=== PATIENT | male | born 1950 | race Caucasian/White ===

== ENCOUNTER → 2017-12-23 08:29 | Outpatient (CLI) | payer MEDICARE, SELFPAY ==
[2017-12-23 09:38] LABS: Absolute Lymphocyte Count 2.08 X10^3/ul (0.83-4.51); Basophil# 0.06 X10^3/uL; Basophil% 0.9 % (0-1); Eosinophil# 0.14 X10^3/uL; Eosinophils% 2.1 % (0-5); Hematocrit 40.7 % (40-54); Hemoglobin 13.8 g/dl (13.0-16.5); Lymphocyte # 2.08 X10^3/ul (4.0); Lymphocyte % 30.9 % (19-41); Mean Corp Hgb Conc 33.9 g/gl (32-36); Mean Corpuscular Hgb 30.5 pg (27.0-32.0); Mean Corpuscular Volume 89.8 fL (80-94); Mean Platelet Vol. 9.6 fl (6.2-12.0); Monocyte# 0.47 X10^3/uL; Neutrophil # 3.98 X10^3/uL (2.7-7.7); Platelet Count 277 K/mm3 (150-450); RBC Distribution Width SD 41.9 fl (35.1-43.9); Red Blood Count 4.53 M/mm3 (4.6-6.2); White Blood Count 6.7 K/mm3 (4.4-11.0)
[2017-12-23 09:45] LABS: POSITIVE COUNT NO; POSITIVE DIFFERENTIAL NO; POSITIVE MORPHOLOGY NO
[2017-12-23 09:52] LABS: Hemoglobin A1c 6.8 % (4.2-6.3)
[2017-12-23 10:20] LABS: ALB/GLOB Ratio 0.9 RATIO (0.9-2.4); AST(SGOT) 25 U/L (15-37); Alanine Aminotransfer ALT/SGPT 32 U/L (16-61); Albumin, Serum 3.7 g/dL (3.2-5.0); Alkaline Phosphatase 52 U/L (45-117); Anion Gap 8 (5-15); BUN 27 mg/dL (7-18); BUN/Creat Ratio 30.3 RATIO (10-20); Calcium,Total 9.1 mg/dL (8.5-10.1); Chloride 103 mmol/L (98-107); Creatinine, Serum 0.89 mg/dL (0.70-1.30); EST Glomerular Filtration Rate 90 mL/min (>60); Est Glom Filt Rate - Afr Amer 109 mL/min (>60); Globulin 4.1 g/dL (2.2-4.2); Glucose 120 mg/dL (74-106); Potassium 3.9 mmol/L (3.5-5.1); Protein, Total 7.8 g/dL (6.4-8.2); Sodium Level 139 mmol/L (136-145); Thyroid Stim Hormone (TSH) 2.26 uIU/mL (0.358-3.74)
== END ==
PROVIDERS: Family Provider Nurse Practitioner; PCP Nurse Practitioner; Visit Provider Nurse Practitioner
DX: E11.9 Type 2 diabetes mellitus without complications (principal); I10 Essential (primary) hypertension
CPT/HCPCS: 36415; 80053; 83036; 84443; 85025

== ENCOUNTER → 2017-12-30 10:55 | Outpatient (CLI) | payer MEDICARE, SELFPAY ==
--- NOTE | 2017-12-30 11:01 | RAD_ITS ---
STUDY: X-RAY - RIGHT FOOT CLINICAL: Male, 67 years old. Neuropathy. TECHNIQUE: 3 view(s) of the foot. COMPARISON: None. FINDINGS: There is an enthesophyte involving the posterior superior calcaneus at the site of insertion of the Achilles tendon. Normal visualized subtalar, talonavicular, calcaneocuboid, tarsal and tarsometatarsal articulations. Normal metatarsi. There is degenerative arthrosis of the metatarsophalangeal joint of the hallux . Normal tibial and fibular sesamoid bones. Normal interphalangeal joint of the great toe. Normal phalanges of the great toe. Normal second through fifth metatarsophalangeal joints. Normal interphalangeal joints and phalanges of the lesser toes. The soft tissue structures are unremarkable. RAD/Foot min 3 Views IMPRESSION: No acute fracture or dislocation. Electronically Signed: Yo Pierre MD at 16:56 EST , Service support ,
--- NOTE | 2017-12-30 11:02 | RAD_ITS ---
STUDY: X-RAY - LEFT FOOT CLINICAL: Male, 67 years old. Neuropathy. TECHNIQUE: 3 view(s) of the foot. COMPARISON: None. FINDINGS: There is an enthesophyte involving the posterior superior calcaneus at the site of insertion of the Achilles tendon. Normal visualized subtalar, talonavicular, calcaneocuboid, tarsal and tarsometatarsal articulations. Normal metatarsi. There is degenerative arthrosis of the metatarsophalangeal joint of the hallux . Normal tibial and fibular sesamoid bones. Normal interphalangeal joint of the great toe. Normal phalanges of the great toe. Normal second through fifth metatarsophalangeal joints. Normal interphalangeal joints and phalanges of the lesser toes. The soft tissue structures are unremarkable. RAD/Foot min 3 Views IMPRESSION: No acute fracture or dislocation. Electronically Signed: Yo Pierre MD at 16:57 EST , Service support ,
== END ==
PROVIDERS: Family Provider Nurse Practitioner; PCP Nurse Practitioner; Visit Provider Nurse Practitioner
DX: G62.9 Polyneuropathy, unspecified (principal)
CPT/HCPCS: 73630

== ENCOUNTER → 2018-02-19 07:56 | Outpatient (CLI) | payer MEDICARE, SELFPAY ==
--- NOTE | 2018-02-19 10:08 | NEURO ---
NCS and/or EMG Patient Report Ordering Doctor: Jeannine Pagan DATE OF SERVICE: 02/19/18 This is a bilateral lower extremity nerve conduction study and a right lower extremity EMG performed on this 67-year-old male with a history of well-controlled diabetes who reports abnormal sensations on the Lantus are surface of his feet described as a leather pad. He does have back pain as well as well as a knee injury, he takes pain medicines for his back pain. He also has a history of remote exposure to agent orange. Bilateral lower extremity sensory and motor nerve conduction studies are performed. The sural sensory responses are absent bilaterally. Medial and lateral plantar responses are obtained demonstrating normal latencies and amplitudes although there is asymmetric decrement of amplitude on the right side. The motor responses demonstrate diffusely slowed conduction velocities, as well as diminished amplitudes. Distal latencies are mild diffusely prolonged particularly from the common peroneal nerves bilaterally. Tibial and common peroneal F waves are mild to moderately prolonged, H reflex amplitudes are reduced. Lower extremity needle electromyography was performed. Muscles evaluated included the extensor digitorum brevis, abductor hallucis, medial gastrocnemius, anterior tibialis, vastus lateralis and vastus medialis muscles. Peripheral muscle did demonstrate large motor units however this abnormality resolved more proximally consistent with length dependent pattern. Abnormal insertional activity was absent. 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
--- NOTE | 2018-02-19 10:13 | NEURO_ITS ---
NCS and/or EMG Patient Report Ordering Doctor: Jeannine Pagan DATE OF SERVICE: 02/19/18 This is a bilateral lower extremity nerve conduction study and a right lower extremity EMG performed on this 67-year-old male with a history of well- controlled diabetes who reports abnormal sensations on the Lantus are surface of his feet described as a leather pad. He does have back pain as well as well as a knee injury, he takes pain medicines for his back pain. He also has a history of remote exposure to agent orange. Bilateral lower extremity sensory and motor nerve conduction studies are performed. The sural sensory responses are absent bilaterally. Medial and lateral plantar responses are obtained demonstrating normal latencies and amplitudes although there is asymmetric decrement of amplitude on the right side. The motor responses demonstrate diffusely slowed conduction velocities, as well as diminished amplitudes. Distal latencies are mild diffusely prolonged particularly from the common peroneal nerves bilaterally. Tibial and common peroneal F waves are mild to moderately prolonged, H reflex amplitudes are reduced. Lower extremity needle electromyography was performed. Muscles evaluated included the extensor digitorum brevis, abductor hallucis, medial gastrocnemius , anterior tibialis, vastus lateralis and vastus medialis muscles. Peripheral muscle did demonstrate large motor units however this abnormality resolved more proximally consistent with length dependent pattern. Abnormal insertional activity was absent. 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
== END ==
PROVIDERS: Family Provider Nurse Practitioner; PCP Nurse Practitioner; Visit Provider Nurse Practitioner
DX: R20.2 Paresthesia of skin (principal)
CPT/HCPCS: 95886; 95912

== ENCOUNTER → 2018-09-23 09:37 | Outpatient (CLI) | payer MEDICARE, SELFPAY ==
[2018-09-23 10:39] LABS: Absolute Lymphocyte Count 2.42 X10^3/ul (0.83-4.51); Basophil# 0.04 X10^3/uL; Basophil% 0.6 % (0-1); Eosinophil# 0.17 X10^3/uL; Eosinophils% 2.4 % (0-5); Hematocrit 45.5 % (40-54); Hemoglobin 15.4 g/dl (13.0-16.5); Lymphocyte # 2.42 X10^3/ul (4.0); Lymphocyte % 33.5 % (19-41); Mean Corp Hgb Conc 33.8 g/gl (32-36); Mean Corpuscular Hgb 30.8 pg (27.0-32.0); Mean Platelet Vol. 9.7 fl (6.2-12.0); Monocyte# 0.62 X10^3/uL; Monocyte% 8.6 % (0-10); Neutrophil # 3.97 X10^3/uL (2.7-7.7); Neutrophil % 54.8 % (47-70); Platelet Count 246 K/mm3 (150-450); RBC Distribution Width SD 42.7 fl (35.1-43.9); White Blood Count 7.2 K/mm3 (4.4-11.0)
[2018-09-23 10:41] LABS: POSITIVE COUNT NO; POSITIVE DIFFERENTIAL NO; POSITIVE MORPHOLOGY NO
[2018-09-23 11:25] LABS: ALB/GLOB Ratio 0.8 RATIO (0.9-2.4); AST(SGOT) 29 U/L (15-37); Alanine Aminotransfer ALT/SGPT 38 U/L (16-61); Albumin, Serum 3.7 g/dL (3.2-5.0); Alkaline Phosphatase 59 U/L (45-117); Anion Gap 9 (5-15); BUN 24 mg/dL (7-18); BUN/Creat Ratio 24.3 RATIO (10-20); Calcium,Total 9.4 mg/dL (8.5-10.1); Chloride 103 mmol/L (98-107); Cholesterol 185 mg/dL (200); Creatinine, Serum 0.99 mg/dL (0.70-1.30); EST Glomerular Filtration Rate 79 mL/min (>60); Est Glom Filt Rate - Afr Amer 96 mL/min (>60); Globulin 4.4 g/dL (2.2-4.2); Glucose 110 mg/dL (74-106); High Density Lipoprotein 47 mg/dL; Protein, Total 8.1 g/dL (6.4-8.2); Sodium Level 139 mmol/L (136-145); Thyroid Stim Hormone (TSH) 2.12 uIU/mL (0.358-3.74); Triglycerides 156 mg/dL; Very Low Density Lipoprotein 31 mg/dL (5-40)
== END ==
PROVIDERS: Family Provider Nurse Practitioner; PCP Nurse Practitioner; Referring Provider Nurse Practitioner; Visit Provider Nurse Practitioner
DX: I10 Essential (primary) hypertension (principal)
CPT/HCPCS: 36415; 80053; 80061; 82306; 84443; 85025

== ENCOUNTER 2018-12-13 14:32 | Emergency (ER) | payer MEDICARE, SELFPAY ==
[2018-12-13 14:33] VITALS: BP 167/85; PULSE 73; RESP 14; TEMP 36.6; O2SAT 97; BMI 36.8
--- NOTE | 2018-12-13 15:16 | ED.VISSUMM ---
- ER Visit Summary Date of Service: 12/13/18 Chief Complaint: Left thigh pain History of Present Illness: The patient is a 68 M who has pain in the left thigh. It started today. The pain is in the lateral part of the thigh. Is worse with movement. His left foot felt cold when he woke up this morning. He has no history of confirmed DVTs. He has been taking a lot of NSAIDs at home to help with the pain. Denies chest pain or shortness of breath. Physical Examination: Vital signs reviewed. Left leg exam reveals tenderness in the left mid calf on the lateral portion. He has no swelling of the leg. There are of equal color and temperature. There are no skin changes. Test Results: None performed Emergency Department Course and Treatment: No formal ultrasound is available at this time. I did a bedside ultrasound of this area shows that the veins are compressible in the thigh. When I get closer to the knee where he has no pain is difficult to see due to the ultrasound machine and the soft tissue. I also did a Doppler pulse of his PT and it is very loud and patent. I was unable to Doppler a DP pulse. However, his temperature is equal. There is no cyanosis of the foot. I will give him a dose of Lovenox here as well as [place] for his pain. He will come back tomorrow for a formal ultrasound of the left leg Treatment Plan: [] Disposition: Discharge Impression: Left thigh pain This note was generated with [employer]iously dictation software. It may contain incorrect words, spelling, and punctuation that were not noted in review of the chart prior to signing ED Disposition - Plan for ED Patient: Referrals: Jeannine Pagan, ADRIAN-C [Primary Care Provider] -
--- NOTE | 2018-12-13 15:19 | ED.DEP ---
ED Disposition - Plan for ED Patient: Disposition: Home or Assisted Living Instructions: ED Knee Pain [facility] Referrals: Jeannine Pagan NP-C [Primary Care Provider] -
[2018-12-13] MEDS: HYDROcodone Bitartrate/Apap 5/325 Tablet PO (15:42)
[2018-12-13] MEDS: Enoxaparin 100 MG/ML Syringe SC (15:42)
--- NOTE | 2018-12-13 15:43 | ED.RN ---
DISCHARGE INSTRUCTIONS GIVEN TO AND REVIEWED WITH PATIENT, PATIENT DENIES QUESTIONS OR CONCERNS AND VOICES UNDERSTANDING OF DISCHARGE INSTRUCTIONS. PT AMBULATES OUT OF ROOM WITHOUT DIFFICULTY.
== END 2018-12-13 16:04 | disposition home or self-care (01) ==
PROVIDERS: Emergency Provider Emergency Medicine; Family Provider Nurse Practitioner; PCP Nurse Practitioner
DX: M79.652 Pain in left thigh (principal); E11.9 Type 2 diabetes mellitus without complications; I10 Essential (primary) hypertension; Z79.84 Long term (current) use of oral hypoglycemic drugs; Z79.899 Other long term (current) drug therapy
CPT/HCPCS: 96372; 99283

== ENCOUNTER → 2018-12-14 10:54 | Outpatient (CLI) | payer MEDICARE, SELFPAY ==
[2018-12-13 14:33] VITALS: BMI 36.8
--- NOTE | 2018-12-14 11:07 | VDLE_ITS ---
Reason For Study: LLE Pain RIGHT LEFT CFV is compressible, spontaneous, phasic, GSV is normal. competent and demonstrates normal CFV is compressible, spontaneous, phasic, augmentation. competent, and demonstrates normal Procedure augmentation. Exam performed in department. FV is compressible, spontaneous, phasic, A preliminary report was called and/or faxed competent and demonstrates normal to ED. augmentation. POP V is compressible, spontaneous, phasic, competent and demonstrates normal augmentation. T/P Trunk is compressible. PTV is compressible. LT PerV is compressible. Interpretation Summary Deep veins of the left lower extremity are patent and compressible segmentally. There is no evidence of left lower extremity deep vein thrombosis. Valvular competence appears intact within the proximal deep venous system on the left . The left greater saphenous vein appears patent and compressible segmentally. Ordering Physician: Ronnie Coe Referring Physician: Jeannine Pagan Performed By: Lexi Summers RDCS, RVT
== END ==
PROVIDERS: Family Provider Nurse Practitioner; PCP Nurse Practitioner; Visit Provider Emergency Medicine
DX: M79.605 Pain in left leg (principal)
CPT/HCPCS: 93971

== ENCOUNTER → 2018-12-15 10:40 | Outpatient (CLI) | payer MEDICARE, SELFPAY ==
[2018-12-13 14:33] VITALS: BMI 36.8
--- NOTE | 2018-12-15 10:46 | RAD_ITS ---
STUDY: X-RAY - LUMBAR SPINE REASON FOR EXAM: Male, 68 years old. Back pain. TECHNIQUE: 5 view(s) of the lumbar spine were obtained. COMPARISON: None FINDINGS: Normal lumbar lordosis. There is no substantial scoliosis. There is grade 1 spondylolisthesis of L4 on L5. There is multilevel endplate spondylosis of the lumbar vertebrae. There is multi-level degenerative disc disease with multi-level disc space narrowing. There is no demonstrated fracture. There are hypertrophic degenerative arthroses of the bilateral facet articulations, most severe on the right at L5-S1. There is atherosclerotic calcification of the abdominal aorta without a demonstrated aneurysm. RAD/L/S Spine Min 4 Views IMPRESSION: Degenerative changes of the spine, as detailed above. Electronically Signed: Go Davila MD at 19:53 EST , Service support ,
--- NOTE | 2018-12-15 10:46 | RAD_ITS ---
STUDY: X-RAY - LEFT FEMUR REASON FOR STUDY: Male, 68 years old. Pain. TECHNIQUE: Frontal and lateral view(s) of the femur on 4 films. COMPARISON: None. FINDINGS: There is periarticular spurring of the left acetabulum Normal visualized femur. Degenerative periarticular calcification projects anterior to the juncture of the femoral head and neck, best seen on the external rotation view. There is no demonstrated fracture or destructive process. RAD/Femur Min 2 Views IMPRESSION: Mild degenerative arthrosis of the left hip, as noted. Normal x-ray examination of the left femur itself. Electronically Signed: Go Davila MD at 19:50 EST , Service support ,
--- NOTE | 2018-12-15 10:47 | RAD_ITS ---
STUDY: X-RAY - LEFT KNEE REASON FOR EXAM: Male, 68 years old. Pain. TECHNIQUE: 4 view(s) of the knee, 2 of which are labeled as weightbearing. COMPARISON: None. FINDINGS: Normal visualized distal femur. Normal visualized proximal tibia and fibula. There is early periarticular spurring at the base of the patella. Mild cortical spurring also seen at the patellar insertion of the quadriceps tendon. There is no demonstrated destructive osseous lesion or acute fracture. There is mild degenerative arthrosis of the medial femorotibial compartment. Normal lateral femorotibial compartment. Normal patellofemoral articulation. Normal proximal tibiofibular articulation. There is no demonstrated joint effusion. The soft tissue structures are unremarkable. RAD/Knee 4 or More Views IMPRESSION: Minor degenerative changes of the left knee, as noted. Electronically Signed: Go Davila MD at 19:52 EST , Service support ,
--- NOTE | 2018-12-15 10:48 | RAD_ITS ---
STUDY: X-RAY - PELVIS AND LEFT HIP REASON FOR EXAM: Male, 68 years old. Pain. TECHNIQUE: 3 views of the pelvis and hip. COMPARISON: None. FINDINGS: There is a non-specific bowel gas pattern. There are a few small calcified phleboliths in the pelvic soft tissues. There are degenerative changes of the lower lumbar spine. There is narrowing with cortical sclerosis and superior periarticular osteophyte formation of the bilateral sacroiliac joints, consistent with degenerative osteoarthritic changes. Mild cortical enthesophytes at the lateral margin of the bilateral iliac wings are normal visualized sacrum. Normal bilateral superior and inferior pubic rami. Normal pubic symphysis. There are mild cortical enthesophytes at the ischial tuberosities, with additional subcentimeter ossification in the tissue adjacent to the left ischial tuberosity. There is no demonstrated osseous destructive lesion or acute fracture. Normal visualized femoral head. There is osteoarthritic spur formation of the lower lateral left ilium just above the acetabular rim. Normal hip joint. RAD/HIP, UNI W/ Pelvis 2-3 Views IMPRESSION: Degenerative changes of the spine and pelvis, as described. Electronically Signed: Go Davila MD at 19:57 EST , Service support ,
== END ==
PROVIDERS: Family Provider Nurse Practitioner; PCP Nurse Practitioner; Referring Provider Nurse Practitioner Gerontology; Visit Provider Nurse Practitioner Gerontology
DX: M54.9 Dorsalgia, unspecified (principal); M79.652 Pain in left thigh; M25.562 Pain in left knee
CPT/HCPCS: 72110; 73502; 73552; 73564

== ENCOUNTER → 2019-01-24 08:32 | Outpatient (CLI) | payer MEDICARE, SELFPAY ==
[2019-01-24 10:36] LABS: Vitamin D,25 Hydroxy 31.8 ng/mL (29.95-100.01)
== END ==
PROVIDERS: Family Provider Nurse Practitioner; PCP Nurse Practitioner; Referring Provider Nurse Practitioner; Visit Provider Nurse Practitioner
DX: E55.9 Vitamin D deficiency, unspecified (principal)
CPT/HCPCS: 36415; 82306

== ENCOUNTER → 2019-06-22 | Outpatient (CLI) | payer MEDICARE, SELFPAY ==
[2019-06-22 09:18] LABS: ALB/GLOB Ratio 0.9 RATIO (0.9-2.4); AST(SGOT) 15 U/L (15-37); Alanine Aminotransfer ALT/SGPT 26 U/L (16-61); Albumin, Serum 3.5 g/dL (3.2-5.0); Alkaline Phosphatase 60 U/L (45-117); Anion Gap 6 (5-15); BUN 28 mg/dL (7-18); BUN/Creat Ratio 27.2 RATIO (10-20); Calcium,Total 9.4 mg/dL (8.5-10.1); Chloride 106 mmol/L (98-107); Creatinine, Serum 1.03 mg/dL (0.70-1.30); EST Glomerular Filtration Rate 76 mL/min (>60); Est Glom Filt Rate - Afr Amer 92 mL/min (>60); Globulin 3.9 g/dL (2.2-4.2); Glucose 134 mg/dL (74-106); PSA,Total - Annual Screen 0.94 ng/mL (0.00-4.00); Potassium 3.9 mmol/L (3.5-5.1); Protein, Total 7.4 g/dL (6.4-8.2); Sodium Level 139 mmol/L (136-145)
== END | disposition home or self-care (01) ==
LOC: LAB 07:57
PROVIDERS: Family Provider Nurse Practitioner; PCP Nurse Practitioner; Referring Provider Nurse Practitioner; Visit Provider Nurse Practitioner
DX: E11.9 Type 2 diabetes mellitus without complications (principal); Z12.5 Encounter for screening for malignant neoplasm of prostate
CPT/HCPCS: 36415; 80053; 84153; G0103

== ENCOUNTER → 2019-07-07 | Outpatient (CLI) | payer MEDICARE, SELFPAY ==
--- NOTE | 2019-07-07 08:32 | RAD_ITS ---
STUDY: X-RAY - RIGHT HAND REASON FOR EXAM: Male, 69 years old. Diffuse pain. TECHNIQUE: 3 view(s) of the hand. COMPARISON: None. FINDINGS: Normal radiocarpal articulation. Normal distal radioulnar joint. Normal visualized carpal bones. Normal carpal articulations Normal carpometacarpal articulation of the thumb. Normal second through fifth carpometacarpal joints. Normal metacarpi. Normal metacarpophalangeal joint of the thumb. Normal interphalangeal joint of the thumb. Normal proximal and distal phalanges of the thumb. Normal metacarpophalangeal joints of the second through fifth fingers. Normal proximal and distal interphalangeal joints of the second through fifth fingers. Normal phalanges of the second through fifth fingers. Vascular calcification. RAD/Hand Min 3 Views IMPRESSION: Vascular calcification. No acute abnormality is seen. Electronically Signed: Shane Carney, at 14:34 EDT , Service support ,
--- NOTE | 2019-07-07 08:34 | RAD_ITS ---
STUDY: X-RAY - LEFT HAND REASON FOR EXAM: Male, 69 years old. Diffuse pain. TECHNIQUE: 3 view(s) of the hand. COMPARISON: None. FINDINGS: Normal radiocarpal articulation. Normal distal radioulnar joint. Normal visualized carpal bones. Normal carpal articulations Normal carpometacarpal articulation of the thumb. Normal second through fifth carpometacarpal joints. Normal metacarpi. Normal metacarpophalangeal joint of the thumb. Normal interphalangeal joint of the thumb. Normal proximal and distal phalanges of the thumb. Normal metacarpophalangeal joints of the second through fifth fingers. Normal proximal and distal interphalangeal joints of the second through fifth fingers. Normal phalanges of the second through fifth fingers. Minimal vascular calcification. RAD/Hand Min 3 Views IMPRESSION: Minimal vascular calcification. . Electronically Signed: Shane Carney, at 14:35 EDT , Service support ,
== END | disposition home or self-care (01) ==
LOC: HPRAD 08:23
PROVIDERS: Family Provider Nurse Practitioner; PCP Nurse Practitioner; Referring Provider Nurse Practitioner; Visit Provider Nurse Practitioner
DX: M79.641 Pain in right hand (principal); M79.642 Pain in left hand
CPT/HCPCS: 73130

== ENCOUNTER → 2020-08-08 07:02 | Outpatient (CLI) | payer MEDICARE, SELFPAY ==
[2020-08-08 08:42] LABS: Absolute Lymphocyte Count 2.56 X10^3/uL (0.83-4.51); Basophil# 0.06 X10^3/uL; Basophil% 0.8 % (0-1); Eosinophil# 0.18 X10^3/uL; Eosinophils% 2.4 % (0-5); Hemoglobin 14.1 g/dL (13.0-16.5); Lymphocyte # 2.56 X10^3/ul (4.0); Lymphocyte % 34.5 % (19-41); Mean Corp Hgb Conc 33.6 g/dL (32-36); Mean Corpuscular Hgb 30.4 pg (27.0-32.0); Mean Corpuscular Volume 90.5 fL (80-94); Mean Platelet Vol. 9.7 fl (6.2-12.0); Monocyte% 8.1 % (0-10); NRBC Flagged by Analyzer 0 % (0-5); Neutrophil # 3.99 X10^3/uL (2.7-7.7); Neutrophil % 53.8 % (47-70); Platelet Count 261 K/mm3 (150-450); RBC Distribution Width CV 12.6 % (11.6-14.6); RBC Distribution Width SD 41.3 fl (35.1-43.9); Red Blood Count 4.64 M/mm3 (4.6-6.2); White Blood Count 7.4 K/mm3 (4.4-11.0)
[2020-08-08 09:21] LABS: ALB/GLOB Ratio 0.9 RATIO (0.9-2.4); AST(SGOT) 20 U/L (15-37); Alanine Aminotransfer ALT/SGPT 31 U/L (16-61); Albumin, Serum 3.6 g/dL (3.2-5.0); Alkaline Phosphatase 66 U/L (45-117); Anion Gap 4 (5-15); BUN 26 mg/dL (7-18); BUN/Creat Ratio 24.1 RATIO (10-20); Calcium,Total 9.3 mg/dL (8.5-10.1); Chloride 103 mmol/L (98-107); Cholesterol 167 mg/dL (200); Creatinine, Serum 1.08 mg/dL (0.70-1.30); EST Glomerular Filtration Rate 71 mL/min (>60); Est Glom Filt Rate - Afr Amer 86 mL/min (>60); Glucose 131 mg/dL (74-106); High Density Lipoprotein 41 mg/dL; PSA,Total - Annual Screen 0.93 ng/mL (0.00-4.00); Potassium 3.8 mmol/L (3.5-5.1); Protein, Total 7.6 g/dL (6.4-8.2); Sodium Level 136 mmol/L (136-145); Triglycerides 170 mg/dL; Very Low Density Lipoprotein 34 mg/dL (5-40)
[2020-08-10 08:15] LABS: Vitamin D,25 Hydroxy 30.5 ng/mL
== END ==
PROVIDERS: PCP Nurse Practitioner; Referring Provider Nurse Practitioner; Visit Provider Nurse Practitioner
DX: E78.2 Mixed hyperlipidemia (principal); I10 Essential (primary) hypertension; E55.9 Vitamin D deficiency, unspecified; Z12.5 Encounter for screening for malignant neoplasm of prostate
CPT/HCPCS: 36415; 80053; 80061; 82306; 84153; 85025; G0103

== ENCOUNTER → 2021-03-04 09:29 | Outpatient (CLI) | payer MEDICARE, SELFPAY ==
[2021-03-04 10:46] LABS: Absolute Lymphocyte Count 2.17 X10^3/uL (0.83-4.51); Absolute Neutrophil Count 4.2 X10^3/uL (2.0-7.7); Basophil# 0.06 X10^3/uL; Basophil% 0.8 % (0-1); Eosinophil# 0.16 X10^3/uL; Eosinophils% 2.2 % (0-5); Hematocrit 44.1 % (40-54); Hemoglobin 14.6 g/dL (13.0-16.5); Lymphocyte # 2.17 X10^3/ul (0.83-4.51); Lymphocyte % 30.3 % (19-41); Mean Corp Hgb Conc 33.1 g/dL (32-36); Mean Corpuscular Hgb 29.1 pg (27.0-32.0); Mean Platelet Vol. 9.5 fl (6.2-12.0); Monocyte# 0.61 X10^3/uL; Monocyte% 8.5 % (0-10); NRBC Flagged by Analyzer 0 % (0-5); Neutrophil # 4.15 X10^3/uL (2.7-7.7); Neutrophil % 58.1 % (47-70); Platelet Count 248 K/mm3 (150-450); RBC Distribution Width CV 12.9 % (11.6-14.6); RBC Distribution Width SD 41.5 fl (35.1-43.9); Red Blood Count 5.01 M/mm3 (4.6-6.2); White Blood Count 7.2 K/mm3 (4.4-11.0)
[2021-03-04 11:12] LABS: ALB/GLOB Ratio 0.9 RATIO (0.9-2.4); AST(SGOT) 27 U/L (15-37); Alanine Aminotransfer ALT/SGPT 42 U/L (16-61); Albumin, Serum 3.5 g/dL (3.2-5.0); Alkaline Phosphatase 76 U/L (45-117); Anion Gap 6 (5-15); BUN 27 mg/dL (7-18); BUN/Creat Ratio 22.9 RATIO (10-20); Calcium,Total 9.3 mg/dL (8.5-10.1); Chloride 104 mmol/L (98-107); Creatinine, Serum 1.18 mg/dL (0.70-1.30); EST Glomerular Filtration Rate 64 mL/min (>60); Est Glom Filt Rate - Afr Amer 78 mL/min (>60); Globulin 4.1 g/dL (2.2-4.2); Glucose 140 mg/dL (74-106); Protein, Total 7.6 g/dL (6.4-8.2); Sodium Level 137 mmol/L (136-145)
== END ==
PROVIDERS: PCP Nurse Practitioner; Referring Provider Nurse Practitioner; Visit Provider Nurse Practitioner
DX: I10 Essential (primary) hypertension (principal); E55.9 Vitamin D deficiency, unspecified
CPT/HCPCS: 36415; 80053; 82306; 85025

== ENCOUNTER → 2021-10-30 07:49 | Outpatient (CLI) | payer MEDICARE, SELFPAY ==
[2021-10-30 08:38] LABS: Cholesterol 190 mg/dL (200); High Density Lipoprotein 44 mg/dL; PSA,Total - Annual Screen 1.05 ng/mL (0.00-4.00); Triglycerides 130 mg/dL; Very Low Density Lipoprotein 26 mg/dL (5-40)
[2021-10-30 08:44] LABS: Microalbumin,Random Urine 14.2 mg/L (NO RANGE EST.); Microalbumin:Creatinine Ratio 8.9 mg/g CRE (<30 mg/g CRE)
[2021-10-30 09:35] LABS: Vitamin D,25 Hydroxy 39.3 ng/mL
== END ==
PROVIDERS: PCP Nurse Practitioner; Referring Provider Nurse Practitioner; Visit Provider Nurse Practitioner
DX: E78.2 Mixed hyperlipidemia (principal); Z12.5 Encounter for screening for malignant neoplasm of prostate; E55.9 Vitamin D deficiency, unspecified; I10 Essential (primary) hypertension
CPT/HCPCS: 36415; 80061; 82043; 82306; 82570; 84153; G0103

== ENCOUNTER → 2023-03-18 | Outpatient (CLI) | payer MEDICARE, SELFPAY ==
--- NOTE | 2023-03-18 07:46 | ECHOD_ITS ---
Reason For Study: MURMUR Procedure This was a 2D Doppler, Color Flow transthoracic echocardiogram. Exam performed in department. Left Ventricle Normal LV size. Left ventricular systolic function is normal. The estimated ejection fraction is 60 %. No regional wall motion abnormalities noted. Right Ventricle Normal RV size. Normal systolic function. Atria Normal left atrium. Normal right atrium. Mitral Valve Normal mitral valve. Tricuspid Valve Normal tricuspid valve. Aortic Valve Trisinus/trileaflet aortic valve. Mild diffuse aortic valve thickening. Peak aortic valve gradient 12 mmHg. Mean aortic valve gradient 6 mmHg. Mild (1+) eccentric aortic valve insufficiency. Pulmonic Valve Normal pulmonic valve. Great Vessels Normal aortic root. The pulmonary artery is normal size. Normal inferior vena cava. Pericardium/Pleural No pericardial effusion. MMode/2D Measurements & Calculations LVIDd: 5.2 cm IVSd: 1.1 cm LVOT diam: 2.0 cm LVIDs: 3.7 cm LVPWd: 0.90 cm LVOT area: 3.2 cm2 FS: 29.5 % Ao root diam: 3.4 cm LAV(MOD-bp): 56.6 ml LVAd ap4: 29.7 cm2 LAV(MOD-bp) Indexed: 25.7 ml/m2 LVLd ap4: 8.1 cm LAV(MOD-sp2): 51.4 ml EDV(MOD-sp4): 87.1 ml LAV(MOD-sp4): 55.0 ml EDV(sp4-el): 91.8 ml LVAs ap4: 17.8 cm2 LVLs ap4: 6.6 cm ESV(MOD-sp4): 39.0 ml ESV(sp4-el): 40.4 ml EF(MOD-sp4): 55.2 % EF(sp4-el): 56.0 % SV(MOD-sp4): 48.1 ml SV(sp4-el): 51.4 ml LA A4 area: 20.7 cm2 LA dimension(2D): 4.4 cm RA A4 area: 15.8 cm2 Time Measurements MV dec time: 0.27 sec Doppler Measurements & Calculations MV E max benjie: 60.6 cm/sec Lat Peak E' Benjie: 11.5 cm/sec Med Peak E' Benjie: 9.0 cm/sec MV A max benjie: 54.7 cm/sec E/E' lat: 5.3 E/E' med: 6.7 MV E/A: 1.1 MV V2 max: 75.1 cm/sec Ao V2 max: 173.2 cm/sec MV max P.3 mmHg MV dec slope: 225.8 cm/sec2 Ao max P.0 mmHg MV V2 mean: 37.2 cm/sec Ao V2 mean: 112.0 cm/sec MV mean P.72 mmHg Ao mean P.9 mmHg MV V2 VTI: 32.7 cm Ao V2 VTI: 40.9 cm AV (velocity ratio): 0.63 MVA(VTI): 2.5 cm2 GORDON(I,D): 2.0 cm2 GORDON(V,D): 1.7 cm2 AI max benjie: 431.9 cm/sec LV V1 max: 93.3 cm/sec SV(LVOT): 81.8 ml AI max P.6 mmHg LV V1 max P.5 mmHg LV V1 mean P.2 mmHg AI dec slope: 176.8 cm/sec2 LV V1 mean: 69.4 cm/sec AI P1/2t: 715.7 msec LV V1 VTI: 25.8 cm PA V2 max: 117.8 cm/sec PA V2 mean: 74.0 cm/sec ECHO/Echo Complete Interpretation Summary Normal LV size. Left ventricular systolic function is normal. The estimated ejection fraction is 60 %. Mild (1+) eccentric aortic valve insufficiency. Mild diffuse aortic valve thickening. Ordering Physician: Lauryn Salazar Referring Physician: Lauryn Salazar Performed By: Carmella Newman RCS
== END | disposition home or self-care (01) ==
PROVIDERS: PCP Nurse Practitioner Family; Referring Provider Nurse Practitioner Family; Visit Provider Nurse Practitioner Family
DX: R01.1 Cardiac murmur, unspecified (principal)
CPT/HCPCS: 93306

== ENCOUNTER → 2023-05-27 | Outpatient (CLI) | payer MEDICARE, SELFPAY ==
[2023-05-27 11:01] LABS: ALB/GLOB Ratio 1.2 RATIO (0.9-2.4); AST(SGOT) 30 U/L (15-37); Alanine Aminotransfer ALT/SGPT 45 U/L (16-61); Albumin, Serum 3.8 g/dL (3.2-5.0); Alkaline Phosphatase 72 U/L (45-117); Anion Gap 6 (5-15); BUN 30 mg/dL (7-18); BUN/Creat Ratio 21.9 RATIO (10-20); Calcium,Total 8.9 mg/dL (8.5-10.1); Chloride 107 mmol/L (98-107); Creatinine, Serum 1.37 mg/dL (0.70-1.30); EST Glomerular Filtration Rate 54 mL/min (>60); Est Glom Filt Rate - Afr Amer 65 mL/min (>60); Globulin 3.3 g/dL (2.2-4.2); Glucose 134 mg/dL (74-106); Potassium 4.1 mmol/L (3.5-5.1); Protein, Total 7.1 g/dL (6.4-8.2); Sodium Level 140 mmol/L (136-145)
== END | disposition home or self-care (01) ==
LOC: LABSPEC 10:32
PROVIDERS: PCP Nurse Practitioner Family; Referring Provider Nurse Practitioner Family; Visit Provider Nurse Practitioner Family
DX: N17.9 Acute kidney failure, unspecified (principal)
CPT/HCPCS: 80053

== ENCOUNTER 2023-08-03 12:16 | Emergency (ER) | payer MEDICARE, SELFPAY ==
[2023-08-03 12:16] VITALS: BP 121/82; PULSE 80; RESP 16; TEMP 36.2; O2SAT 99; BMI 34.6
--- NOTE | 2023-08-03 12:37 | ED.VIS.GI ---
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 He had this again that evening, and then several times this morning/overnight. He denies having any abdominal pain, fevers, chills, prior blood per rectum, or any other systemic symptoms. He is concerned he may have food poisoning. No known sick contacts. [facility] Medical History (Updated 08/03/23 @ 15:[address] Vamsi Suggs MD) HTN (hypertension) Type 2 diabetes mellitus Home Medications atenolol 50 mg tablet (Tenormin) 50 mg PO BID 12/03/16 [History Last Taken Unknown] hydrochlorothiazide 25 mg tablet 25 mg PO DAILY 12/03/16 [History Last Taken Unknown] metformin 500 mg tablet 500 mg PO 4X/DAY 12/03/16 [History Last Taken Unknown] dapagliflozin propanediol 5 mg tablet (Farxiga) mg 08/03/23 [History Last Taken Unknown] losartan 100 mg-hydrochlorothiazide 12.5 mg tablet tab 08/03/23 [History Last Taken Unknown] ondansetron 4 mg disintegrating tablet 8 mg (2 x 4 mg) PO Q8H PRN PRN Nausea #20 tabs 08/03/23 [Rx Last Taken Unknown] Allergy/AdvReac Type Severity Reaction Status Date / Time ibuprofen Allergy Unknown Verified 08/03/23 12:20 Social History Smoking Status: Former smoker ROS ROS ED Constitutional Constitutional ED: Denies chills or fever(s) Eyes Eyes: Denies change in vision or diplopia ENT ENT ED: Denies rhinorrhea or sore throat Cardiovascular Cardiovascular: Denies chest pain or palpitations Respiratory/Chest Respiratory/Chest: Denies cough or dyspnea Gastrointestinal Gastrointestinal: Reports diarrhea, nausea and vomiting; Denies abdominal pain, hematemesis, hematochezia or melena Genitourinary Genitourinary ED: Reports other Details: Dark urine this morning ; Denies dysuria or hematuria Musculoskeletal Musculoskeletal: Denies back pain or neck pain Integumentary Denies abscess or rash Neurologic Neurologic: Denies headache(s), paresthesias or weakness Psychiatric Psychiatric: Denies anxiety or suicidal thoughts EXAM Physical Exam Const Vital Signs: 08/03/23 12:16 Temperature 97.2 F L Temperature Source Temporal Pulse Rate 80 Respiratory Rate 16 Blood Pressure 121/82 H Blood Pressure Mean 95 Pulse Ox 99 Oxygen Delivery Method Room Air Positive well nourished and well developed General Appearance ED: well developed and NAD HEENT Reports moist mucous membranes normocephalic and atraumatic Eyes PERRL and EOMs intact bilaterally Neck full ROM and supple Resp normal respiratory effort and clear to auscultation bilaterally Cardio regular rate, regular rhythm and no murmurs GI non-tender and non-distended Auscultation: normoactive bowel sounds Palpation: soft Back/Spine no CVA tenderness General Back: other FROM Extremity normal to inspection General Extremety ED: Negative for edema, pulses abnormal or tenderness General Extremity: Negative for edema or pulses abnormal Neuro oriented x3, CN's II-XII intact bilaterally and no sensory deficits noted Sensorium / Orientation: awake and alert Motor Exam: strength 5/5 throughout Skin no rashes or lesions noted and no wounds MDM MDM MDM Narrative Medical decision making narrative: Labs are unremarkable except for mild renal insufficiency, he is feeling much better after fluids and Zofran. Did not have diarrhea here for us to send the testing. I agree foodborne illness as well as viral etiologies are in the differential, but the liver enzymes not elevated, patient's condition is very benign and doing better with normal vital signs and supportive care advised without antibiotics at this time. Lab Data Attestation: I reviewed the patient's lab results. Labs: Laboratory Results - last 24 hr 08/03/23 12:45 WBC 9.9 RBC 4.49 L Hgb 14.0 Hct 40.8 MCV 90.9 MCH 31.2 MCHC 34.3 RDW Std Deviation 41.5 RDW Coeff of Mario 12.5 Plt Count 279 MPV 9.0 Immature Gran % (Auto) 0.400 Neut % (Auto) 68.3 Lymph % (Auto) 23.4 [place] % (Auto) 6.0 Eos % (Auto) 1.5 Baso % (Auto) 0.4 Absolute Neuts (auto) 6.8 Absolute Lymphs (auto) 2.32 Nucleated RBC % 0 Sodium 134 L Potassium 3.4 L Chloride 102 Carbon Dioxide 27.0 Anion Gap 5 BUN 23 H Creatinine 1.32 H Estim Creat Clear Calc 45.21 Est GFR (MDRD) Af Amer 68 Est GFR (MDRD) Non-Af 56 L BUN/Creatinine Ratio 17.4 Glucose 127 H Calcium 9.5 Total Bilirubin 0.90 AST 21 ALT 31 Alkaline Phosphatase 59 Total Protein 7.7 Albumin 3.7 Globulin 4.0 Albumin/Globulin Ratio 0.9 Discharge Plan Triage Chief Complaint: Nausea/Vomiting/Diarrhea ED Provider: Vamsi Suggs Dx/Rx/DC Orders Clinical Impression: Gastroenteritis Instructions: ED Gastroenteritis, Viral (Adult) Prescriptions: New ondansetron [ondansetron] 4 mg tablet,disintegrating 8 mg PO Q8H PRN PRN (Reason: Nausea) Qty: 20 0RF No Action metformin 500 MG tablet 500 mg PO 4X/DAY Hold Instructions: MD Ordered hydrochlorothiazide 25 MG tablet 25 mg PO DAILY Hold Instructions: Ordered atenolol [Tenormin] 50 MG tablet 50 mg PO BID Farxiga 5 mg tablet losartan-hydrochlorothiazide 100-12.5 mg tablet Primary Care Provider: Lauryn Salazar Referrals: Lauryn Salazar, CLIENT SUCCESS DIRECTOR-C [Primary Care Provider] - 3-5 Days if not improving Disposition Disposition: Home, Self Care
[2023-08-03] MEDS: Ondansetron 4 MG/2 ML Vial IV (12:49)
[2023-08-03] MEDS: 0.9% Normal Saline (1000mL) 1,000 ML 999 ML IV (12:49)
[2023-08-03 13:08] LABS: ALB/GLOB Ratio 0.9 RATIO (0.9-2.4); AST(SGOT) 21 U/L (15-37); Alanine Aminotransfer ALT/SGPT 31 U/L (16-61); Albumin, Serum 3.7 g/dL (3.2-5.0); Alkaline Phosphatase 59 U/L (45-117); Anion Gap 5 (5-15); BUN 23 mg/dL (7-18); BUN/Creat Ratio 17.4 RATIO (10-20); Calcium,Total 9.5 mg/dL (8.5-10.1); Chloride 102 mmol/L (98-107); Creatinine, Serum 1.32 mg/dL (0.70-1.30); EST Glomerular Filtration Rate 56 mL/min (>60); Est Glom Filt Rate - Afr Amer 68 mL/min (>60); Estimated Creatinine Clearance 45.21 ml/min; Glucose 127 mg/dL (74-106); Potassium 3.4 mmol/L (3.5-5.1); Protein, Total 7.7 g/dL (6.4-8.2); Sodium Level 134 mmol/L (136-145)
[2023-08-03 13:21] LABS: Absolute Lymphocyte Count 2.32 X10^3/uL (0.83-4.51); Absolute Neutrophil Count 6.8 X10^3/uL (2.0-7.7); Basophil# 0.04 X10^3/uL; Basophil% 0.4 % (0-1); Eosinophil# 0.15 X10^3/uL; Eosinophils% 1.5 % (0-5); Hematocrit 40.8 % (40-54); Lymphocyte # 2.32 X10^3/ul (0.83-4.51); Lymphocyte % 23.4 % (19-41); Mean Corp Hgb Conc 34.3 g/dL (32-36); Mean Corpuscular Hgb 31.2 pg (27.0-32.0); Mean Corpuscular Volume 90.9 fL (80-94); NRBC Flagged by Analyzer 0 % (0-5); Neutrophil # 6.78 X10^3/uL (2.7-7.7); Neutrophil % 68.3 % (47-70); Platelet Count 279 K/mm3 (150-450); RBC Distribution Width CV 12.5 % (11.6-14.6); RBC Distribution Width SD 41.5 fl (35.1-43.9); Red Blood Count 4.49 M/mm3 (4.6-6.2); White Blood Count 9.9 K/mm3 (4.4-11.0)
[2023-08-03 15:19] VITALS: BP 120/73; RESP 16
== END 2023-08-03 15:20 | disposition home or self-care (01) ==
PROVIDERS: Emergency Provider Emergency Medicine; PCP Nurse Practitioner Family; Visit Provider Emergency Medicine
DX: K52.9 Noninfective gastroenteritis and colitis, unspecified (principal); E11.9 Type 2 diabetes mellitus without complications; I10 Essential (primary) hypertension; Z87.891 Personal history of nicotine dependence; Z79.899 Other long term (current) drug therapy; Z79.84 Long term (current) use of oral hypoglycemic drugs
CPT/HCPCS: 80053; 85025; 96361; 96374; 99283; J7030; A4216; J2405

== ENCOUNTER → 2023-08-15 | Outpatient (CLI) | payer MEDICARE, SELFPAY ==
[2023-08-15 09:46] LABS: ALB/GLOB Ratio 0.8 RATIO (0.9-2.4); AST(SGOT) 30 U/L (15-37); Alanine Aminotransfer ALT/SGPT 37 U/L (16-61); Albumin, Serum 3.5 g/dL (3.2-5.0); Alkaline Phosphatase 64 U/L (45-117); Anion Gap 4 (5-15); BUN 20 mg/dL (7-18); Calcium,Total 9.3 mg/dL (8.5-10.1); Chloride 105 mmol/L (98-107); Cholesterol 162 mg/dL (200); Creatinine, Serum 1.33 mg/dL (0.70-1.30); EST Glomerular Filtration Rate 56 mL/min (>60); Est Glom Filt Rate - Afr Amer 67 mL/min (>60); Globulin 4.3 g/dL (2.2-4.2); Glucose 134 mg/dL (74-106); High Density Lipoprotein 39 mg/dL; Microalbumin,Random Urine 16.7 mg/L (NO RANGE EST.); Microalbumin:Creatinine Ratio 8.3 mg/g CRE (<30 mg/g CRE); Potassium 3.6 mmol/L (3.5-5.1); Protein, Total 7.8 g/dL (6.4-8.2); Sodium Level 137 mmol/L (136-145); Triglycerides 202 mg/dL; Very Low Density Lipoprotein 40 mg/dL (5-40)
== END | disposition home or self-care (01) ==
LOC: LAB 08:23
PROVIDERS: PCP Nurse Practitioner Family; Referring Provider Nurse Practitioner Family; Visit Provider Nurse Practitioner Family
DX: E78.2 Mixed hyperlipidemia (principal); N17.9 Acute kidney failure, unspecified; I10 Essential (primary) hypertension
CPT/HCPCS: 36415; 80053; 80061; 82043; 82570

== ENCOUNTER → 2023-11-30 | Outpatient (CLI) | payer MEDICARE, SELFPAY ==
[2023-11-30 09:33] LABS: PSA,Total - Annual Screen 2.13 ng/mL (0.00-4.00)
[2023-12-02 08:22] LABS: Vitamin D,25 Hydroxy 44.5 ng/mL
== END | disposition home or self-care (01) ==
LOC: LAB 08:12
PROVIDERS: PCP Nurse Practitioner Family; Referring Provider Nurse Practitioner Family; Visit Provider Nurse Practitioner Family
DX: E55.9 Vitamin D deficiency, unspecified (principal); Z12.5 Encounter for screening for malignant neoplasm of prostate
CPT/HCPCS: 36415; 82306; 84153; G0103

== ENCOUNTER 2024-01-06 10:11 | Outpatient (CLI) | payer MEDICARE, SELFPAY ==
[2024-01-06 10:35] LABS: Absolute Lymphocyte Count 2.59 X10^3/uL (0.83-4.51); Absolute Neutrophil Count 5.5 X10^3/uL (2.0-7.7); Basophil# 0.07 X10^3/uL; Basophil% 0.8 % (0-1); Eosinophils% 2.2 % (0-5); Hematocrit 45.7 % (40-54); Hemoglobin 15.4 g/dL (13.0-16.5); Lymphocyte # 2.59 X10^3/ul (0.83-4.51); Mean Corp Hgb Conc 33.7 g/dL (32-36); Mean Corpuscular Hgb 30.1 pg (27.0-32.0); Mean Corpuscular Volume 89.4 fL (80-94); Mean Platelet Vol. 9.3 fl (6.2-12.0); Monocyte% 6.7 % (0-10); NRBC Flagged by Analyzer 0 % (0-5); Neutrophil # 5.46 X10^3/uL (2.7-7.7); Neutrophil % 61.1 % (47-70); POSITIVE COUNT YES; Platelet Count 265 K/mm3 (150-450); RBC Distribution Width CV 12.7 % (11.6-14.6); RBC Distribution Width SD 41.9 fl (35.1-43.9); Red Blood Count 5.11 M/mm3 (4.6-6.2); White Blood Count 8.9 K/mm3 (4.4-11.0)
[2024-01-06 10:57] LABS: D-Dimer Quantitative (DVT/PE) 0.76 FEU/ug/m (0.27-0.49)
[2024-01-06 10:58] LABS: ALB/GLOB Ratio 0.9 RATIO (0.9-2.4); AST(SGOT) 29 U/L (15-37); Alanine Aminotransfer ALT/SGPT 30 U/L (16-61); Albumin, Serum 3.8 g/dL (3.2-5.0); Alkaline Phosphatase 69 U/L (45-117); Anion Gap 2 (5-15); BUN 19 mg/dL (7-18); BUN/Creat Ratio 15.8 RATIO (10-20); CRP 4.89 mg/L (0.0-3.0); Calcium,Total 9.7 mg/dL (8.5-10.1); Chloride 105 mmol/L (98-107); EST Glomerular Filtration Rate 63 mL/min (>60); Est Glom Filt Rate - Afr Amer 76 mL/min (>60); Globulin 4.2 g/dL (2.2-4.2); Glucose 116 mg/dL (74-106); Potassium 3.9 mmol/L (3.5-5.1); Sodium Level 137 mmol/L (136-145); Thyroid Stim Hormone (TSH) 2.38 uIU/mL (0.358-3.74); Troponin-I HS 7 pg/mL (3.0-78.0)
[2024-01-06 10:59] LABS: Erythrocyte Sedimentation Rate 33 mm/hr (0-20)
[2024-01-06 11:02] LABS: Differential Indicated SCAN CRITERIA MET
== END 2024-01-06 23:59 | disposition home or self-care (01) ==
LOC: LAB 10:16
PROVIDERS: PCP Nurse Practitioner Family; Referring Provider Nurse Practitioner Family; Visit Provider Nurse Practitioner Family
DX: R07.9 Chest pain, unspecified (principal); I10 Essential (primary) hypertension
CPT/HCPCS: 36415; 80053; 84443; 84484; 85025; 85379; 85652; 86140

== ENCOUNTER → 2024-01-06 | Outpatient (CLI) | payer MEDICARE, SELFPAY ==
--- NOTE | 2024-01-06 13:53 | CT_ITS ---
EXAM: CT ANGIOGRAPHY CHEST WITHOUT AND WITH INTRAVENOUS CONTRAST CLINICAL INDICATION: Elevated D-Dimer and chest pain. Rule out PE. TECHNIQUE: Helically acquired angiography images were obtained of the chest without and with intravenous contrast. This CT exam was performed using one or more of the following dose reduction techniques: automated exposure control, adjustment of the mA and/or kV according to patient size, and/or use of iterative reconstruction technique. MIP reconstructed images were created and reviewed. CONTRAST: IV 100mL Isovue-370 RADIATION DOSE: CTDIvol = 14.92 mGy, DLP = 504.27 mGy-cm COMPARISON: No relevant prior studies available. FINDINGS: PULMONARY ARTERIES: Unremarkable. Normal in caliber. No evidence of pulmonary embolism. AORTA: Minimal calcified plaques in the ascending aorta, transverse thoracic aorta and descending thoracic aorta. No aortic aneurysm or dissection. GREAT VESSELS OF AORTIC ARCH: Unremarkable. Normal in caliber. No evidence of dissection. LUNGS AND PLEURAL SPACES: Unremarkable. No pleural effusion or thickening. No pneumothorax. No suspicious infiltrates and no suspicious pulmonary nodules. HEART: Calcified plaques in the left main coronary artery bifurcation and along the LAD branch of the left coronary artery. Normal cardiac size. Normal pericardium. Heart size is normal. MEDIASTINUM: Unremarkable. No mediastinal or hilar adenopathy. Esophagus is unremarkable. No hiatal hernia. THYROID: Unremarkable. No thyroid lesions. BONES/JOINTS: Anterior marginal spurs along the thoracic spine. No suspicious acute fractures. No lytic or blastic lesions. GALLBLADDER AND BILE DUCTS: Multiple small calcified gallstones inside the nondilated gallbladder fossa. No intrahepatic or extrahepatic biliary ductal dilatation. CT/CTA Chest W/WO Contrast IMPRESSION: 1. No CTA evidence of pulmonary thromboemboli, thoracic aortic aneurysm or dissection. 2. Calcified plaques in the left main coronary artery bifurcation and along the LAD branch of the left coronary artery. Normal cardiac size. 3. Multiple small calcified gallstones inside the nondilated gallbladder fossa. 4. No suspicious acute cardiopulmonary pathology. Electronically Signed: Lemuel Pineda MD at 14:47 EST ,
== END | disposition home or self-care (01) ==
LOC: CT 13:46
PROVIDERS: PCP Nurse Practitioner Family; Referring Provider Nurse Practitioner Family; Visit Provider Nurse Practitioner Family
DX: R79.89 Other specified abnormal findings of blood chemistry (principal)
CPT/HCPCS: 71275; Q9967; A4216

== ENCOUNTER → 2024-01-20 | Outpatient (CLI) | payer MEDICARE, SELFPAY ==
--- NOTE | 2024-01-20 16:37 | STRESSREP ---
Stress Test Report Exercise stress test. 73-year-old man with a history of chest pain Stress protocol: Resting EKG demonstrates normal sinus rhythm with a rate of 67 bpm resting blood pressure is 114/62 mmHg. The patient exercised according to the regular Harris protocol for a total duration of 4 minutes attaining a maximum heart rate of 126 bpm which was 100% of maximum predicted heart rate; the maximum workload was 6.9 metabolic equivalents. At rest there were no ST or T wave changes noted to suggest ischemia and at peak exercise upsloping ST changes only were noted which did not meet the criteria for ischemia. No clinical angina was noted the test was terminated due to the target heart rate being achieved/fatigue. The peak blood pressure was 160/80 mmHg. Rate-pressure product was 17,000. Conclusion: Stress test with no EKG criteria for ischemia at a moderate workload. No clinical angina noted.
== END | disposition home or self-care (01) ==
PROVIDERS: PCP Nurse Practitioner Family; Referring Provider Nurse Practitioner Family; Visit Provider Nurse Practitioner Family
DX: R07.9 Chest pain, unspecified (principal)
CPT/HCPCS: 93017

== ENCOUNTER → 2024-06-27 | Outpatient (CLI) | payer MEDICARE, SELFPAY ==
[2024-06-27 09:09] LABS: Absolute Lymphocyte Count 2.51 X10^3/uL (0.83-4.51); Absolute Neutrophil Count 2.6 X10^3/uL (2.0-7.7); Basophil# 0.08 X10^3/uL; Basophil% 1.4 % (0-1); Eosinophil# 0.17 X10^3/uL; Eosinophils% 2.9 % (0-5); Hematocrit 42.2 % (40-54); Hemoglobin 14.5 g/dL (13.0-16.5); Lymphocyte # 2.51 X10^3/ul (0.83-4.51); Lymphocyte % 43.3 % (19-41); Mean Corp Hgb Conc 34.4 g/dL (32-36); Mean Corpuscular Hgb 30.6 pg (27.0-32.0); Mean Platelet Vol. 8.9 fl (6.2-12.0); Monocyte# 0.44 X10^3/uL; Monocyte% 7.6 % (0-10); NRBC Flagged by Analyzer 0 % (0-5); Neutrophil # 2.59 X10^3/uL (2.7-7.7); Neutrophil % 44.6 % (47-70); Platelet Count 233 K/mm3 (150-450); RBC Distribution Width CV 12.9 % (11.6-14.6); RBC Distribution Width SD 41.8 fl (35.1-43.9); Red Blood Count 4.74 M/mm3 (4.6-6.2); White Blood Count 5.8 K/mm3 (4.4-11.0)
[2024-06-27 10:04] LABS: ALB/GLOB Ratio 0.9 RATIO (0.9-2.4); AST(SGOT) 18 U/L (15-37); Alanine Aminotransfer ALT/SGPT 20 U/L (16-61); Albumin, Serum 3.5 g/dL (3.2-5.0); Alkaline Phosphatase 56 U/L (45-117); Anion Gap 3 (5-15); BUN 22 mg/dL (7-18); BUN/Creat Ratio 22.8 RATIO (10-20); Calcium,Total 9.6 mg/dL (8.5-10.1); Chloride 107 mmol/L (98-107); Cholesterol 180 mg/dL (200); Creatinine, Serum 0.96 mg/dL (0.70-1.30); EST Glomerular Filtration Rate 80 mL/min (>60); Est Glom Filt Rate - Afr Amer 97 mL/min (>60); Globulin 3.9 g/dL (2.2-4.2); Glucose 113 mg/dL (74-106); High Density Lipoprotein 50 mg/dL; Potassium 3.9 mmol/L (3.5-5.1); Protein, Total 7.4 g/dL (6.4-8.2); Sodium Level 140 mmol/L (136-145); Triglycerides 91 mg/dL; Very Low Density Lipoprotein 18 mg/dL (5-40)
[2024-06-27 10:27] LABS: Microalbumin,Random Urine 13.8 mg/L (NO RANGE EST.); Microalbumin:Creatinine Ratio 10.8 mg/g CRE (<30 mg/g CRE)
== END | disposition home or self-care (01) ==
PROVIDERS: PCP Nurse Practitioner Family; Referring Provider Nurse Practitioner Family; Visit Provider Nurse Practitioner Family
DX: E78.2 Mixed hyperlipidemia (principal); E11.9 Type 2 diabetes mellitus without complications
CPT/HCPCS: 36415; 80053; 80061; 82043; 82570; 85025

== ENCOUNTER 2024-07-05 19:51 | Emergency (ER) | payer MEDICARE, SELFPAY ==
[2024-07-05] VITALS (7 sets, daily range): BP systolic 120–142; BP diastolic 71–95; PULSE 77–93; RESP 15–21; TEMP 37.4–38.8; O2SAT 93–99; BMI 30.7
--- NOTE | 2024-07-05 20:17 | EKG12_ITS ---
Test Reason : DYSRHYTHMIA Blood Pressure : / mmHG Vent. Rate : 087 BPM Atrial Rate : 087 BPM P-R Int : 204 ms QRS Dur : 130 ms QT Int : 368 ms P-R-T Axes : 040 007 -01 degrees QTc Int : 442 ms Normal sinus rhythm Right bundle branch block Abnormal ECG Confirmed by LANI BECKWITH, ANTOLIN ([id number]), electronic news gathering editor BHUMIKA MENDENHALL ([id number]) on 07/07/2024 8:08:17 AM Referred By: Confirmed By:ANTOLIN GARIBAY MD
--- NOTE | 2024-07-05 20:19 | EDS_ITS ---
HPI History of Present Illness Chief Complaint: Weakness Informant: patient and EMS Narrative Narrative: 74-year-old male presenting to the emergency room with generalized weakness. 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 Patient states that yesterday he woke up had a sore throat subsequently developed cough and generalized fatigue. Today he was experiencing some urinary incontinence. His granddaughter came over and he tested positive for COVID-19. States that he was resting and rolled onto the floor and was too weak to get up. Family came and found him called the ambulance. He states he did not lose consciousness. Denies any injuries just could not get up because he is globally weak. He denies any significant shortness of breath. No change in bowel movements. [facility] Medical History Type 2 diabetes mellitus HTN (hypertension) Home Medications ?Medication ?Instructions ?Recorded ?Last Taken ?Type atenolol 50 mg tablet (Tenormin) 50 mg PO BID 12/03/16 Unknown History hydrochlorothiazide 25 mg tablet 25 mg PO DAILY 12/03/16 Unknown History dapagliflozin propanediol 5 mg 5 mg PO DAILY 08/03/23 Unknown History tablet (Farxiga) losartan 100 tab 08/03/23 Unknown History mg-hydrochlorothiazide 12.5 mg tablet semaglutide 0.25 mg or 0.5 mg (2 mg subcut 07/05/24 Unknown History mg/3 mL) subcutaneous pen injector (Ozempic) Allergy/AdvReac Type Severity Reaction Status Date / Time ibuprofen Allergy Unknown Verified 07/05/24 19:56 Social History Smoking Status: Former smoker ROS ROS ED ROS Narrative Generalized weakness Constitutional Constitutional ED: Reports fever(s); Denies chills or weight loss Eyes Eyes: Denies change in vision or diplopia ENT ENT ED: Reports rhinorrhea and sore throat; Denies ear pain Cardiovascular Cardiovascular: Denies chest pain, orthopnea, palpitations or racing heartbeat Respiratory/Chest Respiratory/Chest: Denies cough, dyspnea or orthopnea Gastrointestinal Gastrointestinal: Denies abdominal pain, diarrhea, nausea or vomiting Genitourinary Genitourinary ED: Denies dysuria, hematuria or urinary frequency Musculoskeletal Musculoskeletal: Reports myalgias; Denies arthralgias Integumentary Denies abscess or rash Neurologic Neurologic: Denies headache(s) or weakness Psychiatric Psychiatric: Denies anxiety, depression, suicidal ideation or suicidal thoughts Endocrine Endocrinology: Denies polydipsia, polyphagia or polyuria Allergic/Immunologic Allergic/Immunologic ED: Denies mouth swelling, tongue swelling or urticaria EXAM Physical Exam Const Vital Signs: 07/05/24 19:52 07/05/24 19:56 07/05/24 20:00 Temperature 102 F H 102 F H Temperature Source Oral Oral Pulse Rate 89 93 Respiratory Rate 15 20 H Respiratory Effort Normal Respiratory Pattern Normal Blood Pressure 142/74 H 142/74 H Blood Pressure Mean 96 96 Pulse Ox 99 95 Oxygen Delivery Method Room Air Room Air 07/05/24 20:52 07/05/24 20:56 07/05/24 21:00 Temperature 99.5 F H Temperature Source Oral Pulse Rate 88 77 85 Respiratory Rate 16 16 21 H Respiratory Effort Respiratory Pattern Blood Pressure 136/95 H 134/77 H 134/77 H Blood Pressure Mean 108 96 96 Pulse Ox 98 97 96 Oxygen Delivery Method Room Air Room Air Room Air 07/05/24 21:00 07/05/24 21:59 07/05/24 22:04 Temperature 99.7 F H 99.3 F H Temperature Source Oral Pulse Rate 81 77 77 Respiratory Rate 18 20 H 15 Respiratory Effort Respiratory Pattern Blood Pressure 134/77 H 120/71 120/71 Blood Pressure Mean 96 87 87 Pulse Ox 97 97 93 Oxygen Delivery Method Room Air Room Air Positive well nourished and well developed General Appearance ED: well developed HEENT Reports normocephalic, head/scalp atraumatic and moist mucous membranes Eyes PERRL and EOMs intact bilaterally Neck no lymphadenopathy, supple and no JVD Resp normal respiratory effort and clear to auscultation bilaterally Cardio regular rate, regular rhythm and no murmurs GI normal to inspection, nondistended, normoactive bowel sounds and non-tender Palpation: soft Back/Spine no CVA tenderness and normal ROM Extremity normal to inspection General Extremety ED: Negative for edema General Extremity: Negative for edema Neuro oriented x3 and CN's II-XII intact bilaterally Sensorium / Orientation: alert Motor Exam: strength 5/5 throughout Psych mental status grossly normal Mood & Affect: Negative for depressed or tearful Skin no rashes or lesions noted and no wounds MDM MDM MDM Narrative Medical decision making narrative: Differential diagnosis includes but not limited to viral syndrome like COVID-19 pneumonia rhabdomyolysis dehydration electrolyte abnormalities anemia cardiac dysrhythmia My independent interpretation the chest x-ray is no acute process. Basic blood work including CBC BMP liver enzymes and troponin essentially negative. Total bilirubin 1.7 with a direct bilirubin 0.45. He has had elevated bilirubin in the past. His lactic acid is normal glucose 116 normal BUN and creatinine total body CPKs normal urinalysis negative. Patient received IV fluids Tylenol his fever is down he feels better. He is able to ambulate in the department. Advised him to continue to orally hydrate. Continue to reduce his fever. Patient to return if worsening or concerns History & Record Review Discussion w/independent historian: EMS personnel and Patient Lab Data Attestation: I reviewed the patient's lab results. Labs: Laboratory Results - last 24 hr 07/05/24 07/05/24 20:00 20:48 WBC 9.6 RBC 4.84 Hgb 14.8 Hct 42.9 MCV 88.6 MCH 30.6 MCHC 34.5 RDW Std Deviation 40.8 RDW Coeff of Mario 12.7 Plt Count 236 MPV 9.3 Immature Gran % (Auto) 0.500 Neut % (Auto) 78.1 H Lymph % (Auto) 12.5 L [place] % (Auto) 8.1 Eos % (Auto) 0.3 Baso % (Auto) 0.5 Absolute Neuts (auto) 7.5 Absolute Lymphs (auto) 1.19 Nucleated RBC % 0 Sodium 137 Potassium 3.6 Chloride 102 Carbon Dioxide 28.0 Anion Gap 7 BUN 15 Creatinine 1.08 Estim Creat Clear Calc 61.91 Est GFR (MDRD) Af Amer 86 Est GFR (MDRD) Non-Af 71 BUN/Creatinine Ratio 13.9 Glucose 116 H Lactic Acid 1.1 Calcium 9.4 Total Bilirubin 1.70 H Direct Bilirubin 0.45 H AST 18 ALT 20 Alkaline Phosphatase 59 Total Creatine Kinase 101 Troponin I High Sens 11 Total Protein 7.5 Albumin 3.5 Globulin 4.0 Urine Color Yellow Urine Clarity Clear Urine pH 6.0 Ur Specific [place] 1.010 Urine Protein 30 H Urine Glucose (UA) 1000 H Urine Ketones 50 H Urine Occult Blood 10 H Urine Nitrite Negative Urine Bilirubin Negative Urine Urobilinogen 1 H Ur Leukocyte Esterase Negative Urine RBC 0-5 SEEN Urine WBC 0-5 SEEN Ur Squamous Epith Cells 0 SEEN Urine Bacteria 0 SEEN Urine Mucus 0 SEEN Radiography Diagnostic Testing: Clinical Impression(s) from Imaging Studies Chest X-Ray 07/05/24 20:50 IMPRESSION: There are no acute findings. Electronically Signed: Erik Thompson MD at 21:35 EDT Reading Location ID and State: [facility] / [place] , Service support , EKG Initial EKG: Attestation: I personally reviewed and interpreted this EKG as follows: Comments: Normal sinus rhythm ventricular rate of 87 bpm. Right bundle branch block Discharge Plan Triage Chief Complaint: Weakness ED Provider: Josh Altamirano Dx/Rx/DC Orders Clinical Impression: COVID-19, Weakness, Fever Instructions: Coronavirus Disease 2019 (COVID-19): Overview Prescriptions: No Action hydrochlorothiazide 25 MG tablet 25 mg PO DAILY atenolol [Tenormin] 50 MG tablet 50 mg PO BID dapagliflozin propanediol [Farxiga] 5 mg tablet 5 mg PO DAILY losartan-hydrochlorothiazide 100-12.5 mg tablet Ozempic 0.25 mg or 0.5 mg (2 mg/3 mL) pen injector subcut Primary Care Provider: Lauryn Salazar Referrals: Lauryn Salazar, [employer] [Primary Care Provider] - As Needed Activity Restrictions/Additional Instructions: I would recommend taking a gram of Tylenol every 6 hours as I expect your fever to return as long as you are fighting the virus. He may also take some ibuprofen in between these doses if you feel your fever is coming back before the 6 hours. It is very important to stay hydrated as fever and the virus can dehydrate you quickly. Please drink enough fluids to try to keep your urine a light yellow to clear. Please return to the emergency department if worsening or concerns Print Language: Estonian Disposition Disposition: Home, Self Care Discharge Date/Time: 07/05/24 22:24
[2024-07-05] MEDS: 0.9% Normal Saline (1000mL) 1,000 ML 1000 ML IV (20:40)
[2024-07-05] MEDS: Acetaminophen 500 MG Tablet 1000 MG PO (20:41)
[2024-07-05] MEDS: Ketorolac 15 MG/ML Vial IV (20:41)
--- NOTE | 2024-07-05 20:50 | RAD_ITS ---
STUDY: XR Chest 1 View 07/05/2024 8:50 PM REASON FOR EXAM: Male, 74 years old. covid 19 COMPARISON: None TECHNIQUE: XR Chest 1 View FINDINGS: There is no demonstrated pleural abnormality. Normal heart size. Normal mediastinum. Normal leon. Prominent appearing increased interstitial lung markings. Normal visualized pulmonary arteries. There is atherosclerotic calcification of the aortic arch with tortuosity. There are diffuse degenerative changes of the visualized thoracic spine. There is degenerative osteoarthritis of the bilateral shoulders. There are no acute findings of the upper abdomen. RAD/Chest 1 View (Portable) IMPRESSION: There are no acute findings. Electronically Signed: Erik Thompson MD at 21:35 EDT ,
[2024-07-05 20:57] LABS: Bacteria 0 SEEN /hpf (None Seen); Mucous, Urine 0 SEEN /hpf (<or=2+); Squamous Epithelial Cells - UA 0 SEEN /hpf (0-5)
[2024-07-05 21:01] LABS: Color, Urine Yellow (Yellow); Glucose, Dipstick 1000 mg/dl (Normal); Ketone-Dipstick 50 mg/dl (Negative); Leukocyte Esterase-Dipstick Negative /ul (Negative); Nitrite-Dipstick Negative (Negative); Occult Blood-Urine 10 /ul (Negative); Protein-Dipstick 30 mg/dl (Negative); Urine Bilirubin Dipstick Negative (Negative); Urine Clarity Clear (Clear); Urine Urobilinogen 1 mg/dl (Normal)
[2024-07-05 21:01] LABS: Absolute Lymphocyte Count 1.19 X10^3/uL (0.83-4.51); Absolute Neutrophil Count 7.5 X10^3/uL (2.0-7.7); Basophil# 0.05 X10^3/uL; Basophil% 0.5 % (0-1); Eosinophil# 0.03 X10^3/uL; Eosinophils% 0.3 % (0-5); Hematocrit 42.9 % (40-54); Hemoglobin 14.8 g/dL (13.0-16.5); Lymphocyte # 1.19 X10^3/ul (0.83-4.51); Lymphocyte % 12.5 % (19-41); Mean Corp Hgb Conc 34.5 g/dL (32-36); Mean Corpuscular Hgb 30.6 pg (27.0-32.0); Mean Corpuscular Volume 88.6 fL (80-94); Mean Platelet Vol. 9.3 fl (6.2-12.0); Monocyte# 0.77 X10^3/uL; Monocyte% 8.1 % (0-10); NRBC Flagged by Analyzer 0 % (0-5); Neutrophil # 7.46 X10^3/uL (2.7-7.7); Neutrophil % 78.1 % (47-70); Platelet Count 236 K/mm3 (150-450); RBC Distribution Width CV 12.7 % (11.6-14.6); RBC Distribution Width SD 40.8 fl (35.1-43.9); Red Blood Count 4.84 M/mm3 (4.6-6.2); White Blood Count 9.6 K/mm3 (4.4-11.0)
[2024-07-05 21:16] LABS: Red Blood Cells-Urine 0-5 SEEN /hpf (0-5); White Blood Cells 0-5 SEEN /hpf (0-5)
[2024-07-05 21:19] LABS: AST(SGOT) 18 U/L (15-37); Alanine Aminotransfer ALT/SGPT 20 U/L (16-61); Albumin, Serum 3.5 g/dL (3.2-5.0); Alkaline Phosphatase 59 U/L (45-117); Anion Gap 7 (5-15); BUN 15 mg/dL (7-18); BUN/Creat Ratio 13.9 RATIO (10-20); Bilirubin, Direct 0.45 mg/dL (0.00-0.30); CPK Total, Creatine Kinase 101 U/L (39-308); Calcium,Total 9.4 mg/dL (8.5-10.1); Chloride 102 mmol/L (98-107); Creatinine, Serum 1.08 mg/dL (0.70-1.30); EST Glomerular Filtration Rate 71 mL/min (>60); Est Glom Filt Rate - Afr Amer 86 mL/min (>60); Estimated Creatinine Clearance 61.91 ml/min; Glucose 116 mg/dL (74-106); Potassium 3.6 mmol/L (3.5-5.1); Protein, Total 7.5 g/dL (6.4-8.2); Sodium Level 137 mmol/L (136-145); Troponin-I HS 11 pg/mL (3.0-78.0)
[2024-07-05 21:25] LABS: Lactic Acid 1.1 mmol/L (0.4-1.9)
== END 2024-07-05 22:24 | disposition home or self-care (01) ==
PROVIDERS: Emergency Provider Emergency Medicine; PCP Nurse Practitioner Family; Visit Provider Emergency Medicine
DX: U07.1 COVID-19 (principal); E11.9 Type 2 diabetes mellitus without complications; I10 Essential (primary) hypertension; Z87.891 Personal history of nicotine dependence; R53.1 Weakness; R50.9 Fever, unspecified; Z79.899 Other long term (current) drug therapy
CPT/HCPCS: 71045; 80048; 80076; 81001; 82550; 83605; 84484; 85025; 87631; 93005; 96361; 96374; 99284; J7030; A4216

== ENCOUNTER → 2025-07-10 | Outpatient (CLI) | payer MEDICARE, SELFPAY ==
--- OUTSIDE RECORDS SUMMARY | 2025-07-10 08:47 | XMS RPT_ITS | CCD ---
Author Organization [facility] Care Team Providers Care Parcel Contractor Name Role Phone Zac Huhges Unavailable Unavailable Zac Hughes Unavailable Unavailable Ciesa, Stephany Unavailable Mehdi Huffman Unavailable Fast, Lizeth A Unavailable Slarb, Urszula Unavailable Unavailable Zahraa Kramer Unavailable Unavailable Unavailable Unavailable Ciesa, Stephany Unavailable Mehdi Huffman Unavailable Fast, Lizeth A Unavailable Abdulaziz Ackerman Unavailable Unavailable Daysi Joyce Unavailable Unavailable Slarb, Urszula Unavailable Unavailable Unavailable Unavailable Trina Hernandez Unavailable Unavailable Mehdi Moore Unavailable Abdulaziz Ackerman Unavailable Unavailable Abdulaziz Solis Unavailable Unavailable Manchak, Venice Unavailable Unavailable Ciesa Jeannine STERN Unavailable Mehdi Huffman MD Unavailable Fast DO, Lizeth A Unavailable Mehdi Moore Unavailable Abdulaziz Solis LPN Unavailable Unavailable Slarb TECHNOLOGY PROFESSIONAL, Urszula Unavailable Unavailable Unavailable Unavailable Lanette Hatfield LPN Unavailable Unavailable Ciesa, Jeannine Unavailable Fast DO, Lizeth A Unavailable Self, Self Primary Care Provider Unavailabl e SELF, SELF Referring Unavailable SELF, SELF Primary Care Unavailable CAMERON HA Attending Unavailable Ciesa, Jeannine Unavailable Lauryn Salazar CNP Attending Unavailable Ciesa, Jeannine Referring Unavailable Martin ELECTRONICS INSTALLER, Lauryn Consulting Unavailable Martin ELECTRONICS INSTALLER, Lauryn Unavailable [phone] Martin ELECTRONICS INSTALLER, Lauryn Unavailable [phone] Jeannine Pagan Unavailable Rhina JOHNSONKailey Unavailable Unavailable Unavailable Unavailable Martin ELECTRONICS INSTALLER, Lauryn Unavailable [phone] Martin ELECTRONICS INSTALLER, Lauryn Unavailable [phone] Mehdi Huffman MD Unavailable Fast DO, Lizeth A Unavailable Mehdi Moore Unavailable Kailey Lantigua MA Unavailable Unavailable Slafela TECHNOLOGY PROFESSIONAL, Urszula Unavailable Unavailable Liu TECHNOLOGY PROFESSIONAL, Lanette Unavailable Unavailable Will TECHNOLOGY PROFESSIONAL, Abdulaziz Unavailable Unavailable Jeannine Pagan Unavailable Unavailable Unavailable ADRIAN Salazar-C Lauryn Primary Care Provider [phone] Martin, ADRIAN-C Lauryn Referring Provider [phone] Martin, OIL PROSPECTING OBSERVER-C Lauryn Other Provider Dr. Jose Mackay Attending Provider Martin, Lauryn Referring Unavailable Martin, Lauryn Primary Care Unavailable Martin, Lauryn Attending Unavailable Martin, Lauryn Attending Unavailable Martin, Lauryn Referring Unavailable Martin, Lauryn Primary Care Unavailable Jose Mackay Attending Unavailable Martin, Lauryn Primary Care Unavailable Martin, Lauryn Referring Unavailable Martin, Lauryn Primary Care Unavailable Martin, Lauryn Attending Unavailable Martin, Lauryn Primary Care Unavailable Josh Altamirano Attending Unavailable Martin, Lauryn Referring Unavailable Jose Mackay Attending Unavailable Martin, Lauryn Primary Care Unavailable Martin, Lauryn Consulting Unavailable Martin, Lauryn Referring Unavailable Martin, Lauryn Attending Unavailable Martin, Lauryn Primary Care Unavailable Martin, Lauryn Attending Unavailable Martin, Lauryn Referring Unavailable Martin, Lauryn Primary Care Unavailable Allergies Allergy Classification Reported Allergen(s) Allergy Type Date of Onset Reaction(s) Facility NSAIDs (6 sources) Ibuprofen Drug Allergy [facility]; [facility] Work Phone: (20 sources) ibuprofen; Translations: [ibuprofen] Drug Allergy 8 Unknown [facility] (1 source) allergy to substance [facility] Work Phone: (1 source) allergy to substance [facility] Work Phone: (1 source) allergy to substance [facility] Work Phone: (1 source) allergy to substance [facility] Work Phone: (1 source) allergy to substance [facility] Work Phone: (1 source) allergy to substance [facility] Work Phone: (1 source) allergy to substance [facility] Work Phone: (1 source) allergy to substance [facility] Work Phone: (1 source) Allergy to substance (finding) [facility]; [facility] Work Phone: (1 source) Ibuprofen Drug Allergy 4 [facility] Repository Medications Current Medications Medication Drug Class(es) Dates Sig (Normalized) Sig (Original) dapagliflozin 5 mg oral tablet (20 sources) Sodium-Glucose Cotransporter 2 Inhibitor Start: 09-02-2023 Start: 09-02-2023 Start: 08-09-2023 take 1 tablet by alan th once daily Farxiga 5 mg oral tablet 1 (one) tablet daily for 0 days Quantity: 90 {Tablet} Refills: 0 Ordered: 09-Aug-2023 Lauryn Salazar CNP Start : 09-Aug-2023 Active Comments: Mail order. Start: 08-09-2023 take 1 tablet by alan th once daily Farxiga 5 mg oral tablet 1 (one) tablet daily for 0 days Quantity: 30 {Tablet} Refills: 0 Ordered: 09-Aug-2023 Lauryn Salazar CNP Start : 09-Aug-2023 Active Start: 07-02-2023 Dapagliflozin Propanediol (Dapagliflozin Propanediol 5 Mg Tablet) 5 mg tablet Active MG August 03, 2023 12:00am Comment on above: Mail order. hydroCHLOROthiazide 25 mg oral tablet (20 sources) Thiazide Diuretic Start: 2015 End: 2016 take 25 mg by mouth once daily Hydrochlorothiazide Active 25 MG PO DAILY December 03, 2016 1:00am hydroCHLOROthiazide 12.5 mg / losartan potassium 100 mg oral tablet (20 sources) Thiazide Diuretic, Angiotensin 2 Receptor Lovely Start: 2022 Losartan-Hydrochlorothiaz juancho Active TABLET August 03, 2023 12:00am Start: 05-15-2019 Start: 05-15-2019 take 1 tablet by alna th twice daily Losartan Potassium-HCTZ 100-12.5 MG Oral Tablet 1 (one) bid (100-12.5 MG) Start : 30-Mar-2022 Inactive Start: 09-29-2018 take 1 tablet by alan th twice daily Losartan Potassium-HCTZ 100-12.5 MG Oral Tablet 1 (one) Tablet bid for 90 days Quantity: 180 {Tablet} Refills: 3 Ordered: 29-Sep-2018 Jeannine Pagan CNP, CNP Stephany Start : 29-Sep-2018 Active Comments: Mail order. Start: 06-02-2018 take 1 tablet by alan th twice daily Losartan Potassium-HCTZ 100-12.5 MG Oral Tablet 1 (one) Tablet bid for 30 days Quantity: 60 {Tablet} Refills: 3 Ordered: 02-Jun-2018 Urszula Cruz LPN Start : 02-Jun-2018 Active Comment on above: Mail order. ondansetron 4 mg disintegrating oral tablet (6 sources) Serotonin-3 Receptor Antagonist Start: take 8 mg by mouth every eight hours as needed Ondansetron Active 8 MG PO EVERY 8 HOURS NEEDED August 03, 2023 12:00am 0.25 mg, 0.5 mg dose 1.5 ml semaglutide 1.34 mg/ml pen injector (20 sources) Start: 3 Start: 09-02-2023 Start: 04-30-2023 Ozempic 0.25 m g or 0.5 mg (2 mg/1.5 mL) subcutaneous pen injector 0.5 Milligram every week for 0 days Quantity: 3 {Each} Refills: 0 Ordered: 30-Apr-2023 Lauryn Salazar CNP Start : 30-Apr-2023 Active Comments: Mail order. Start: 10-31-2022 Ozempic 0.25 m g or 0.5 mg (2 mg/1.5 mL) subcutaneous pen injector 0.5 Milligram every week for 0 days Quantity: 1 {Each} Refills: 3 Ordered: 31-Oct-2022 Lauryn Salazar CNP Start : 31-Oct-2022 Active Comments: 1 month supply Start: 03-20-2021 End: 05-15-2021 Comment on above: starter packageTake first thing on awakening with 4oz water, Do not eat or drink or take another med for 30 min 1 month supply Mail order. 3 month supply Completed/Discontinued Medications Medication Drug Class(es) Dates Sig (Normalized) Sig (Original) Accu-Chek Gracia Plus test strp (1 source) Start: 03-08-2014 acetaminophen 325 mg / HYDROcodone bitartrate 5 mg oral tablet (6 sources) Opioid Agonist Start: 12-03-2016 End: 08-03-2023 take 1 tablet by mouth every four hours as needed Hydrocodone-Acetami nophen Discontinued 1 TABLET PO EVERY 4 HOURS NEEDED December 03, 2016 1:00am August 03, 2023 12:34pm acetaminophen 325 mg / oxyCODONE hydrochloride 10 mg oral tablet (20 sources) Opioid Agonist Start: 12-28-2016 End: 02-04-2017 Start: 12-28-2016 End: 02-04-2017 take 1 tablet by mouth every eight hours as needed for pain Percocet 10-325 MG Oral Tablet 1 (one) Tablet Tablet q 8hrs prn pain for 0 days Quantity: 45 {Tablet} Refills: 0 Ordered: 04-Feb-2017 Urszula Cruz LPN Start : 28-Dec-2016 End : 04-Feb-2017 Discontinued amLODIPine 5 mg oral tablet (20 sources) Dihydropyridine Calcium Channel Lovely Start: 11-26-2022 End: 05-27-2023 Start: 10-30-2022 take 1 tablet by alan th once daily amLODIPine 5 mg oral tablet 1 (one) Tablet daily for 0 days Quantity: 30 {Tablet} Refills: 6 Ordered: 30-Oct-2022 Lauryn Salazar CNP Start : 30-Oct-2022 Active Start: 02-11-2017 End: 09-16-2017 take 1 tablet by mouth once daily AmLODIPine Besylate 5 MG Oral Tablet 1 (one) Tablet daily for 0 days Quantity: 30 {Tablet} Refills: 6 Ordered: 16-Sep-2017 Urszula Cruz LPN Start : 11-Feb-2017 End : 16-Sep-2017 Inactive Start: 12-02-2006 End: 03-24-2007 amoxicillin 875 mg / clavula olivia 125 mg oral tablet (20 sources) Penicillin-class Antibacterial Start: 10-21-2014 End: 10-31-2014 Start: 10-21-2014 End: 10-31-2014 take 1 tablet by mouth twice daily AUGMENTIN, 875-125MG (Oral Tablet) 1 Tablet bid for 10 days Quantity: 20 {Tablet} Refills: 0 Ordered: 21-Oct-2014 Nasrin LEI Ana Start : 21-Oct-2014 End : 31-Oct-2014 Inactive atenolol 50 mg oral tablet (20 sources) beta-Adrenergic Lovely Start: 10-30-2022 Start: 09-12-2020 take 1 tablet by alan th once daily Atenolol 50 MG Oral Tablet 1 Tablet daily for 0 days Quantity: 180 {Tablet} Refills: 3 Ordered: 12-Sep-2020 Jeannine Pagan CNP E Latasha STERN, Jeannine Cagle Start : 12-Sep-2020 Active Start: 12-03-2016 take 1 tablet by alan th twice daily Atenolol (Tenormin) 50 MG tablet Active 50 MG PO TWICE A DAY December 03, 2016 1:00am azithromycin 250 mg oral tab let (20 sources) Macrolide Antimicrobial Start: 02-16-2019 End: 03-09-2019 Start: 07-01-2015 End: 11-21-2015 Start: 07-01-2015 End: 11-21-2015 ZITHROMAX Z-FRANCISCA, 250MG (Oral Tablet) 1 (one) Tablet tad for 0 days Quantity: 1 {Package} Refills: 0 Ordered: 21-Nov-2015 [place] Carreno CMA Start : 01-Jul-2015 End : 21-Nov-2015 Inactive carbamide peroxide 65 mg/ml otic solution (20 sources) Start: 09-08-2010 End: 06-25-2011 cephalexin 500 mg oral capsu le (20 sources) Cephalosporin Antibacterial Start: 07-11-2021 End: 07-18-2021 cholecalciferol 0.025 mg ora l capsule (20 sources) Vitamin D Start: 03-20-2021 End: 10-30-2022 dextromethorphan hydrobromid e 10 mg / guaiFENesin 200 mg oral capsule (20 sources) Uncompetitive D-jkwiix-A-aspartate Receptor Antagonist, Sigma-1 Agonist Start: 10-30-2010 End: 06-25-2011 Start: 10-30-2010 End: 06-25-2011 take 1 capsule by mouth once daily CORICIDIN HBP CONGESTION/COUGH, 10-200MG (Oral Capsule) 1 Capsule daily for 0 days Quantity: 30 {Capsule} Refills: 0 Ordered: 25-Jun-2011 Alisha Candelario Start : 30-Oct-2010 End : 25-Jun-2011 Inactive doxycycline monohydrate 100 mg oral tablet (20 sources) Tetracycline-class Drug Start: 07-17-2021 End: 07-27-2021 ergocalciferol 1.25 mg oral capsule (20 sources) Provitamin D2 Compound Start: 11-23-2020 End: 03-20-2021 Start: 11-23-2020 End: 03-20-2021 Ergocalciferol 1.25 MG (5000 0 UT) Oral Capsule 1 (one) Capsule twice weekly x 3 months for 0 days Quantity: 24 {Capsule} Refills: 3 Ordered: 20-Mar-2021 Jeannine Pagan Start : 23-Nov-2020 End : 20-Mar-2021 Inactive Start: 09-12-2020 Ergocalciferol 1.25 MG (10469 UT) Oral Capsule 1 (one) Capsule twice weekly x 3 months for 0 days Quantity: 24 {Capsule} Refills: 0 Ordered: 12-Sep-2020 Jeannine Pagan CNP, CNP Stephany Start : 12-Sep-2020 Active ezetimibe 10 mg oral tablet (20 sources) Dietary Cholesterol Absorption Inhibitor End: 03-24-2007 gabapentin 300 mg oral capsu le (20 sources) Anti-epileptic Agent Start: 01-07-2017 End: 02-06-2017 hydroCHLOROthiazide 25 mg / valsartan 320 mg oral tablet (20 sources) Thiazide Diuretic, Angiotensin 2 Receptor Lovely Start: 12-30-2017 End: 06-02-2018 Start: 12-30-2017 End: 06-02-2018 take 1 tablet by mouth once daily Diovan HCT 320-25 MG Oral Tablet 1 (one) Tablet qd for 0 days Quantity: 30 {Tablet} Refills: 3 Ordered: 02-Jun-2018 Urszula Cruz LPN Start : 30-Dec-2017 End : 02-Jun-2018 Inactive Comments: may use generic Comment on above: may use generic inositol 500 mg oral capsule (17 sources) Start: 04-05-2015 End: 04-05-2015 take 4 capsules by mouth once daily NIACIN FLUSH FREE, 500MG (Oral Capsule) 4 Capsule qd for 90 days Quantity: 360 {Capsule} Refills: 3 Ordered: 05-Apr-2015 Fast DO Lizeth A Start : 05-Apr-2015 End : 05-Apr-2015 Discontinued Start: 04-05-2015 End: 04-05-2015 take 4 capsules by mouth once daily NIACIN FLUSH FREE, 500MG (Oral Capsule) 4 Capsule qd for 90 days Quantity: 360 {Capsule} Refills: 3 Ordered: 05-Apr-2015 DO Lizeth A Start : 05-Apr-2015 End : 05-Apr-2015 Discontinued inositol 100 mg / niacin 400 mg oral capsule (20 sources) Nicotinic Acid Start: 04-05-2015 End: 04-05-2015 Start: 04-05-2015 End: 04-05-2015 take 4 capsules by mouth once daily NIACIN FLUSH FREE, 500MG (Oral Capsule) 4 Capsule qd for 90 days Quantity: 360 {Capsule} Refills: 3 Ordered: 05-Apr-2015 DO Lizeth A Start : 05-Apr-2015 End : 05-Apr-2015 Discontinued meloxicam 7.5 mg oral tablet (20 sources) Nonsteroidal Anti-inflammatory Drug Start: 12-15-2018 End: 01-14-2019 Start: 01-07-2017 End: 02-06-2017 Comment on above: Dr Santana Metanx (8 sources) Start: 05-26-2018 End: 09-29-2018 take 1 capsule by mouth once daily Metanx 3-90.314-2-35 MG Oral Capsule 1 (one) Capsule daily for 0 days Quantity: 90 {Capsule} Refills: 3 Ordered: 29-Sep-2018 Jeannine Pagan CNP, CNP, Mary E Start : 26-May-2018 End : 29-Sep-2018 Inactive Start: 05-26-2018 End: 09-29-2018 take 1 capsule by mouth once daily Metanx 3-90.314-2-35 MG Oral Capsule 1 (one) Capsule daily for 0 days Quantity: 30 {Capsule} Refills: 11 Ordered: 29-Sep-2018 Jeannine Pagan CNP, CNP, Mary E Start : 26-May-2018 End : 29-Sep-2018 Inactive Start: 05-26-2018 take 1 capsule by mo [facility] once daily Metanx 3-90.314-2-35 MG Oral Capsule 1 (one) Capsule daily for 0 days Quantity: 30 {Capsule} Refills: 11 Ordered: 26-May-2018 Jeannine Pagan CNP, CNP, Mary E Start : 26-May-2018 Active Start: 05-26-2018 take 1 capsule by [facility] once daily Metanx 3-90.314-2-35 MG Oral Capsule 1 (one) Capsule daily for 0 days Quantity: 90 {Capsule} Refills: 3 Ordered: 26-May-2018 Jeannine Pagan CNP, CNP, Mary E Start : 26-May-2018 Active Metanx (algal oil) (2 sources) Start: 05-26-2018 End: 09-29-2018 Metanx 3-90.314-2-35 MG Oral Capsule (20 sources) Start: 05-26-2018 End: 09-29-2018 take 1 capsule by mouth once daily Metanx 3-90.314-2-35 MG Oral Capsule 1 (one) Capsule daily for 0 days Quantity: 30 {Capsule} Refills: 11 Ordered: 29-Sep-2018 Jeannine Pagan Start : 26-May-2018 End : 29-Sep-2018 Inactive Start: 05-26-2018 End: 09-29-2018 take 1 capsule by mouth once daily Metanx 3-90.314-2-35 MG Oral Capsule 1 (one) Capsule daily for 0 days Quantity: 90 {Capsule} Refills: 3 Ordered: 29-Sep-2018 Jeannine Pagan Start : 26-May-2018 End : 29-Sep-2018 Inactive Comments: Mail order. Start: 05-26-2018 End: 09-29-2018 take 1 capsule by mouth once daily Metanx 3-90.314-2-35 MG Oral Capsule 1 (one) Capsule daily for 0 days Quantity: 30 {Capsule} Refills: 11 Ordered: 29-Sep-2018 Jeannine Pagan Mary Start : 26-May-2018 End : 29-Sep-2018 Inactive Start: 05-26-2018 End: 09-29-2018 take 1 capsule by mouth once daily Metanx 3-90.314-2-35 MG Oral Capsule 1 (one) Capsule daily for 0 days Quantity: 90 {Capsule} Refills: 3 Ordered: 29-Sep-2018 Jeannine Pagan Mary Start : 26-May-2018 End : 29-Sep-2018 Inactive Comments: Mail order. Start: 05-26-2018 End: 09-29-2018 take 1 capsule by mouth once daily Metanx 3-90.314-2-35 MG Oral Capsule 1 (one) Capsule daily for 0 days Quantity: 90 {Capsule} Refills: 3 Ordered: 29-Sep-2018 Jeannine Pagan CNP, CNP, Mary E Start : 26-May-2018 End : 29-Sep-2018 Inactive Comments: Mail order. Start: 05-26-2018 End: 09-29-2018 take 1 capsule by mouth once daily Metanx 3-90.314-2-35 MG Oral Capsule 1 (one) Capsule daily for 0 days Quantity: 90 {Capsule} Refills: 3 Ordered: 29-Sep-2018 Jeannine Pagan CNP, CNP, Mary E Start : 26-May-2018 End : 29-Sep-2018 Inactive Start: 05-26-2018 End: 09-29-2018 take 1 capsule by mouth once daily Metanx 3-90.314-2-35 MG Oral Capsule 1 (one) Capsule daily for 0 days Quantity: 30 {Capsule} Refills: 11 Ordered: 29-Sep-2018 Jeannine Pagan CNP, CNP, Mary E Start : 26-May-2018 End : 29-Sep-2018 Inactive Comment on above: Mail order. 24 hr metFORMIN hydrochlorid e 500 mg extended release oral tablet (20 sources) Biguanide Start: 09-29-2018 End: 09-12-2020 Start: 09-29-2018 End: 09-12-2020 metFORMIN HCl ER 500 MG Oral Tablet Extended Release 24 Hour 2 (two) Tablet ER 24HR twice a day for 0 days Quantity: 360 {Tablet} Refills: 3 Ordered: 12-Sep-2020 Abdulaziz Solis LPN Start : 29-Sep-2018 End : 12-Sep-2020 Inactive Start: 12-30-2017 MetFORMIN HCl ER 500 MG Oral Tablet Extended Release 24 Hour 2 (two) Tablet ER 24HR twice a day for 0 days Quantity: 120 {Tablet} Refills: 3 Ordered: 30-Dec-2017 Desiraekhai ELECTRONICS INSTALLER, Jeannine Pagan CNP, Jeannine Cagle Start : 30-Dec-2017 Active Start: 12-03-2016 take 500 mg by mouth four times daily Metformin Active 500 MG PO 4 TIMES DAILY December 03, 2016 1:00am methylPREDNISolone 4 mg oral tablet (20 sources) Corticosteroid Start: 12-25-2016 End: 01-07-2017 Start: 12-25-2016 End: 01-07-2017 take 6 tablets by mouth at mealtime Medrol 4 MG Oral Tablet Therapy Pack 1 (one) Tab Ther Pack TAD for 0 days Quantity: 1 {Package} Refills: 0 Ordered: 07-Jan-2017 Urszula Cruz LPN Start : 25-Dec-2016 End : 07-Jan-2017 Discontinued Comments: with food Comment on above: with food 24 hr metoprolol succinate 5 0 mg extended release oral tablet (20 sources) beta-Adrenergic Lovely Start: 02-09-2013 End: 02-09-2013 Start: 02-09-2013 End: 02-09-2013 take 2 tablets by mouth once daily TOPROL XL, 50MG (Oral Tablet Extended Release 24 Hour) 2 (two) Tablet ER 24HR qd for 90 days Quantity: 180 {Tablet_ER_24HR} Refills: 3 Ordered: 09-Feb-2013 Lizeth Islas DO Start : 09-Feb-2013 End : 09-Feb-2013 Discontinued NIACIN FLUSH FREE, 500MG (Oral Capsule) (20 sources) Start: 04-05-2015 End: 04-05-2015 take 4 capsules by mouth once daily NIACIN FLUSH FREE, 500MG (Oral Capsule) 4 Capsule qd for 90 days Quantity: 360 {Capsule} Refills: 3 Ordered: 05-Apr-2015 Fast Lizeth LEI Start : 05-Apr-2015 End : 05-Apr-2015 Discontinued ofloxacin 3 mg/ml ophthalmic solution (20 sources) Quinolone Antimicrobial Start: 01-12-2019 End: 02-16-2019 One hour relief (20 sources) One hour relief as needed Inactive One hour relief as needed Active sildenafil 100 mg oral table t (20 sources) Phosphodiesterase 5 Inhibitor Start: 07-05-2023 Start: 10-19-2021 Viagra 100 MG Oral Tablet 1 (one) Tablet Tablet TAD for 0 days Quantity: 6 {Tablet} Refills: 12 Ordered: 19-Oct-2021 Jeannine Pagan Start : 19-Oct-2021 Active Start: 01-23-2021 Viagra 100 MG Oral Tablet 1 (one) Tablet Tablet TAD for 0 days Quantity: 6 {Tablet} Refills: 12 Ordered: 23-Jan-2021 Desiraeguerlineeusebia STERN Jeannine Garcia CNP Start : 23-Jan-2021 Active Start: 06-02-2020 Viagra 100 MG Oral Tablet 1 (one) Tablet Tablet TAD for 0 days Quantity: 6 {Tablet} Refills: 12 Ordered: 02-Jun-2020 Desiraeguerlineeusebia STERN Jeannine Garcia CNP Start : 02-Jun-2020 Active Start: 06-04-2019 Viagra 100 MG Oral Tablet 1 (one) Tablet Tablet TAD for 0 days Quantity: 6 {Tablet} Refills: 12 Ordered: 04-Jun-2019 Desiraeguerlineeusebia JARRED Jeannine Garcia CNP Start : 04-Jun-2019 Active Start: 06-02-2018 Viagra 100 MG Oral Tablet 1 (one) Tablet Tablet TAD for 0 days Quantity: 6 {Tablet} Refills: 12 Ordered: 02-Jun-2018 Latasha JARRED Jeannine Garcia CNP Start : 02-Jun-2018 Active traMADol hydrochloride 50 mg oral tablet (20 sources) Opioid Agonist Start: 01-07-2017 End: 02-06-2017 Start: 01-07-2017 End: 02-06-2017 take 2 tablets by mouth every eight hours TraMADol HCl 50 MG Oral Tablet 2 (two) Tablet q 8 hours for 30 days Quantity: 120 {Tablet} Refills: 0 Ordered: 11-Feb-2017 Latasha Jeannine Start : 07-Jan-2017 End : 06-Feb-2017 Inactive triamcinolone acetonide 0.05 5 mg/actuat metered dose nasal spray (20 sources) Corticosteroid Start: 07-01-2015 End: 09-16-2017 Start: 07-01-2015 End: 09-16-2017 Nasacort Allergy 24HR 55 MCG /ACT Nasal Aerosol 2 (two) Puff Puff daily for 0 days Quantity: 1 {Bottle} Refills: 0 Ordered: 16-Sep-2017 Slarb TECHNOLOGY PROFESSIONAL, Urszula Start : 01-Jul-2015 End : 16-Sep-2017 Inactive Start: 07-01-2015 End: 09-16-2017 Nasacort Allergy 24HR 55 MCG /ACT Nasal Aerosol 2 (two) Puff Puff daily for 0 days Quantity: 1 {Bottle} Refills: 0 Ordered: 16-Sep-2017 Slarb TECHNOLOGY PROFESSIONAL, Urszula Start : 01-Jul-2015 End : 16-Sep-2017 Inactive valsartan 320 mg oral tablet (20 sources) Angiotensin 2 Receptor Lovely Start: 11-21-2015 End: 08-03-2023 take 1 tablet by mouth once daily Valsartan (Diovan) 320 MG tablet Discontinued 320 MG PO DAILY December 03, 2016 1:00am August 03, 2023 12:34pm Comment on above: GENERIC Problems Active Problems Problem Classification Problem Date Documented Date Episodic/Chronic Acute and unspecified renal failure (20 sources) Acute injury of kidney; Translations: [DECLAN (acute kidney injury)] Resolved: 3 05-27-2023 Episodic Comment on above: recheck kidneys toda y Administrative/socia l admission (20 sources) Medical examinations/reports status; Translations: [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] 05-26-2018 Episodic Comment on above: Dot physical complet ed on 02-11-2017 Anxiety disorders (20 sources) Anxiety; Translations: [Anxiety] Resolved: 0 02-10-2020 Chronic Comment on above: re covid and work pe rson with questionable exposurereassurance given, symptoms of covid explained. to monitor self for fever and cough, diarrhea. If symtoms worsen in anyway, to call for testing but not at this time due to lack of testing swabs and using for symtomatic pts. Cardiac dysrhythmias (20 sources) Bradycardia; Translations: [Bradycardia] Resolved: 1 03-20-2021 Episodic Chronic obstructive pulmonary disease and bronchiectasis (20 sources) Bronchitis; Translations: [Bronchitis] Resolved: 5 12-30-2017 Episodic Diabetes mellitus with complications (20 sources) Type 2 diabetes mellitus; Translations: [Type 2 diabetes mellitus with chronic kidney disease, with long-term current use of insulin, unspecified CKD stage] 05-27-2023 Chronic Diabetes mellitus with complications (20 sources) Diabetes mellitus with complications Diabetes mellitus without complication (20 sources) Type 2 diabetes mellitus without complication; Translations: [Diabetes mellitus type II, controlled, with no complications] 05-26-2018 Chronic Comment on above: no change did not want to star t rybelsus because he read about it and did not like the SE. -we discussed DM meds, he is now agreeable to Ozempic, will give him sample x6 wks and send in for 0.5mg dose to pharmacy.-f/u A1C 3 mo -started Ozempic 11 wks ago, having nausea, diarrhea at first but not any more. talked about other meds, but wants to try and stick w/ ozempic d/t wt loss benefit. 0.25mg dose-f/u A1C 3 mo (05/2023= 7.0%, down from 7.8%). if increases will need to consider additional medintolerant to metformin d/t diarrhea-did not want to start rybelsus because he read about it and did not like the SE. 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) E Codes: Fall (20 sources) Fall; Translations: [Fall] Resolved: 8 12-30-2017 Episodic Comment on above: x2 Essential hypertension (20 sources) Unspecified essential hypertension; Translations: [Hypertensive disorder] Resolved: 0 02-11-2017 Chronic Comment on above: stable, can stand wt loss his diovan was made in [place] not [place] so stay on diovan, BP stable his diovan was made in [place] not [place] so stay on diovan, BP stablelosartan, atenolol --atenolol at 50mg b id, losartan/hctz at 100/12.5mg bid, -add amlodipine 5mg daily and check bp at home, call if syst >130 or diast >80BP had been stable on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 07-05-2024 CPK TOTAL 101 U/L Normal 39-308 [facility] Comment on above: Order Comment: 'TROP ' Serial specimen #1, #2 or #3: 1 Performed By: #### L 500.2500, L501.3620, L100.0100, L501.4020, L503.6005, L500.3400 ####[facility] [address] [place], [address] Chest 1 View (Portable)on Chest 1 View (Portable) [facility] [address] [place] [address] Chest 1 View (Portable) MR#: [id number] Acct: [id number] Name: MARY KAY JACKSON Brandee Rep #: [id number] : 1950 M 74 From: Erik Aguilar PCP: JOSE LUIS Ramirez Status: REG ER Study: Chest 1 View (Portable) Date of Exam: 07/05/24 Exam# [id number] Ordering Dr: Josh Altamirano DO [id number] STUDY: XR Chest 1 View 07/05/2024 8:50 PM REASON FOR EXAM: Male, 74 years old. covid 19 COMPARISON: None TECHNIQUE: XR Chest 1 View FINDINGS: There is no demonstrated pleural abnormality. Normal heart size. Normal mediastinum. Normal leon. Prominent appearing increased interstitial lung markings. Normal visualized pulmonary arteries. There is atherosclerotic calcification of the aortic arch with tortuosity. There are diffuse degenerative changes of the visualized thoracic spine. There is degenerative osteoarthritis of the bilateral shoulders. There are no acute findings of the upper abdomen. RAD/Chest 1 View (Portable) IMPRESSION: There are no acute findings. Electronically Signed: Erik Thompson MD at 21:35 EDT Reading Location ID and State: [facility] / [place] , Service support , CC: JOSE LUIS Salazar; Dr. Josh Altamirano DO Behavior Management Specialist: Signed Normal [facility] Emergency Department Summary on 07-05-2024 Emergency Department Summary [facility] Medical Records Department [address] [place] [id number] Emergency Department Summary 07/05/24 MR#: [id number] Acct: [id number] Name: MARY KAY JACKSON Rep #: [id number] : 1950 74 From: Josh Altamirano DO PCP: JOSE LUIS Ramirez Status:DEP ER Location: ED HPI History of Present Illness Chief Complaint: Weakness Informant: patient and EMS Narrative Narrative: 74-year-old male presenting to the emergency room with generalized weakness. 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 Patient states that yesterday he woke up had a sore throat subsequently developed cough and generalized fatigue. Today he was experiencing some urinary incontinence. His granddaughter came over and he tested positive for COVID-19. States that he was resting and rolled onto the floor and was too weak to get up. Family came and found him called the ambulance. He states he did not lose consciousness. Denies any injuries just could not get up because he is globally weak. He denies any significant shortness of breath. No change in bowel movements. [facility] Medical History Type 2 diabetes mellitus HTN (hypertension) Home Medications ???Medication ???Instructions ???Recorded ???Last Taken ???Type atenolol 50 mg tablet (Tenormin) 50 mg PO BID 12/03/16 Unknown History hydrochlorothiazide 25 mg tablet 25 mg PO DAILY 12/03/16 Unknown History dapagliflozin propanediol 5 mg 5 mg PO DAILY 08/03/23 Unknown History tablet (Farxiga) losartan 100 tab 08/03/23 Unknown History mg-hydrochlorothiazid e 12.5 mg tablet semaglutide 0.25 mg or 0.5 mg (2 mg subcut 07/05/24 Unknown History mg/3 mL) subcutaneous pen injector (Ozempic) Allergy/AdvReac Type Severity Reaction Status Date / Time ibuprofen Allergy Unknown Verified 07/05/24 19:56 Social History Smoking Status: Former smoker ROS ROS ED ROS Narrative Generalized weakness Constitutional Constitutional ED: Reports fever(s); Denies chills or weight loss Eyes Eyes: Denies change in vision or diplopia ENT ENT ED: Reports rhinorrhea and sore throat; Denies ear pain Cardiovascular Cardiovascular: Denies chest pain, orthopnea, palpitations or racing heartbeat Respiratory/Chest Respiratory/Chest: Denies cough, dyspnea or orthopnea Gastrointestinal Gastrointestinal: Denies abdominal pain, diarrhea, nausea or vomiting Genitourinary Genitourinary ED: Denies dysuria, hematuria or urinary frequency Musculoskeletal Musculoskeletal: Reports myalgias; Denies arthralgias Integumentary Denies abscess or rash Neurologic Neurologic: Denies headache(s) or weakness Psychiatric Psychiatric: Denies anxiety, depression, suicidal ideation or suicidal thoughts Endocrine Endocrinology: Denies polydipsia, polyphagia or polyuria Allergic/Immunologic Allergic/Immunologic ED: Denies mouth swelling, tongue swelling or urticaria EXAM Physical Exam Const Vital Signs: 07/05/24 19:52 07/05/24 19:56 07/05/24 20:00 Temperature 102 F H 102 F H Temperature Source Oral Oral Pulse Rate 89 93 Respiratory Rate 15 20 H Respiratory Effort Normal Respiratory Pattern Normal Blood Pressure 142/74 H 142/74 H Blood Pressure Mean 96 96 Pulse Ox 99 95 Oxygen Delivery Method Room Air Room Air 07/05/24 20:52 07/05/24 20:56 07/05/24 21:00 Temperature 99.5 F H Temperature Source Oral Pulse Rate 88 77 85 Respiratory Rate 16 16 21 H Respiratory Effort Respiratory Pattern Blood Pressure 136/95 H 134/77 H 134/77 H Blood Pressure Mean 108 96 96 Pulse Ox 98 97 96 Oxygen Delivery Method Room Air Room Air Room Air 07/05/24 21:00 07/05/24 21:59 07/05/24 22:04 Temperature 99.7 F H 99.3 F H Temperature Source Oral Pulse Rate 81 77 77 Respiratory Rate 18 20 H 15 Respiratory Effort Respiratory Pattern Blood Pressure 134/77 H 120/71 120/71 Blood Pressure Mean 96 87 87 Pulse Ox 97 97 93 Oxygen Delivery Method Room Air Room Air Positive well nourished and well developed General Appearance ED: well developed HEENT Reports normocephalic, head/scalp atraumatic and moist mucous membranes Eyes PERRL and EOMs intact bilaterally Neck no lymphadenopathy, supple and no JVD Resp normal respiratory effort and clear to auscultation bilaterally Cardio regular rate, regular rhythm and no murmurs GI normal to inspection, nondistended, normoactive bowel sounds and non-tender Palpation: soft Back/Spine no CVA tenderness and normal ROM Extremity normal to inspection General Extremety ED: Negative for edema General Extremity: Negative for yamile (more content not included)... Normal [facility] L501.4020on 07-05-2024 TROPONIN-I HS 11 pg/mL Normal 3.0-78.0 [facility] Comment on above: Order Comment: 'TROP ' Serial specimen #1, #2 or #3: 1 Result Comment: Darcy darby Note: New Test Units and Gender Specific Reference Ranges. For more information see Policy Stat Procedure [place] High Sensitivity Troponin (TNIH) and attachments. Performed By: #### L 500.2500, L501.3620, L100.0100, L501.4020, L503.6005, L500.3400 ####[facility] [address] [place], [address] Lactic Acidon 07-05-2024 Lactate [Moles/Vol] 1.1 mmol/L Normal 0.4-1.9 [facility] Comment on above: Order Comment: Y Performed By: #### L 500.2500, L501.3620, L100.0100, L501.4020, L503.6005, L500.3400 ####[facility] [address] [place], [address] Liver Profileon 07-05-2024 Albumin [Mass/Vol] 3.5 g/dL Normal 3.2-5.0 [facility] Comment on above: Order Comment: 'TROP ' Serial specimen #1, #2 or #3: 1 Performed By: #### L 500.2500, L501.3620, L100.0100, L501.4020, L503.6005, L500.3400 ####[facility] [address] [place], [address] ALK P 59 U/L Normal 45-117 [facility] Comment on above: Order Comment: 'TROP ' Serial specimen #1, #2 or #3: 1 Performed By: #### L 500.2500, L501.3620, L100.0100, L501.4020, L503.6005, L500.3400 ####[facility] [address] [place], [address] ALT [Catalytic activity/Vol] 20 U/L Normal 16-61 [facility] Comment on above: Order Comment: 'TROP ' Serial specimen #1, #2 or #3: 1 Performed By: #### L 500.2500, L501.3620, L100.0100, L501.4020, L503.6005, L500.3400 ####[facility] [address] [place], [address] AST [Catalytic activity/Vol] 18 U/L Normal 15-37 [facility] Comment on above: Order Comment: 'TROP ' Serial specimen #1, #2 or #3: 1 Performed By: #### L 500.2500, L501.3620, L100.0100, L501.4020, L503.6005, L500.3400 ####[facility] [address] [place], [address] Bilirubin [Mass/Vol] 1.70 mg/dL High 0.20-1.00 [facility] Comment on above: Order Comment: 'TROP ' Serial specimen #1, #2 or #3: 1 Result Comment: For patients on eltrombopag therapy, use of Dimension [place] TBIL is not recommended. Performed By: #### L 500.2500, L501.3620, L100.0100, L501.4020, L503.6005, L500.3400 ####[facility] [address] [place], [address] Bilirubin.direct [Mass/Vol] 0.45 mg/dL High 0.00-0.30 [facility] Comment on above: Order Comment: 'TROP ' Serial specimen #1, #2 or #3: 1 Performed By: #### L 500.2500, L501.3620, L100.0100, L501.4020, L503.6005, L500.3400 ####[facility] [address] [place], [address] Globulin (S) [Mass/Vol] 4.0 g/dL Normal 2.2-4.2 [facility] Comment on above: Order Comment: 'TROP ' Serial specimen #1, #2 or #3: 1 Performed By: #### L 500.2500, L501.3620, L100.0100, L501.4020, L503.6005, L500.3400 ####[facility] [address] [place], [address] T PROT 7.5 g/dL Normal 6.4-8.2 [facility] Comment on above: Order Comment: 'TROP ' Serial specimen #1, #2 or #3: 1 Performed By: #### L 500.2500, L501.3620, L100.0100, L501.4020, L503.6005, L500.3400 ####[facility] [address] [place], [address] M100.678on 07-05-2024 M100.678 Copy of report sent to Infection Control Printer [id number] 07/06/24 0748 [facility]. Pending SARS-CoV-2 (COVID 19) A Positive A INFLUENZA A Negative INFLUENZA B Negative RSV PCR Negative SARS-CoV-2 (COVID 19) Normal [facility] Comment on above: Performed By: #### M 100.678 #### [facility] [address] [place], [address] Urinalysis, Completeon 07-05 RBC 0-5 SEEN Normal 0-5 [facility] Comment on above: Order Comment: COLLE CTOR TO SPECIFY Performed By: #### M 100.678 #### [facility] [address] [place], [address] WBC 0-5 SEEN Normal 0-5 [facility] Comment on above: Order Comment: COLLE CTOR TO SPECIFY Performed By: #### M 100.678 #### [facility] [address] [place], [address] BACTERIA 0 SEEN Normal None Seen [facility] Comment on above: Order Comment: IRAIS CTOR TO SPECIFY Performed By: #### M 100.678 #### [facility] [address] [place], [address] EPI,SQUAMOUS 0 SEEN Normal 0-5 [facility] Comment on above: Order Comment: IRAIS CTOR TO SPECIFY Performed By: #### M 100.678 #### [facility] [address] [place], [address] Mucus Ql (Urine sed) 0 SEEN Normal [facility] Comment on above: Order Comment: IRAIS CTOR TO SPECIFY Performed By: #### M 100.678 #### [facility] [address] [place], [address] CBC W/Diff, Automatedon 08- Absolute Lymph 2.51 X10 3/uL Normal 0.83-4.51 [facility] Comment on above: Performed By: #### L 500.4100, L500.4050, L502.0250, L100.0100 #### [facility] [address] [place], [address] Absolute Neut 2.6 X10 3/uL Normal 2.0-7.7 [facility] Comment on above: Performed By: #### L 500.4100, L500.4050, L502.0250, L100.0100 #### [facility] [address] [place], [address] Basophils/100 WBC (Bld) 1.4 % High 0-1 [facility] Comment on above: Performed By: #### L 500.4100, L500.4050, L502.0250, L100.0100 #### [facility] [address] [place], [address] Eosinophils/100 WBC (Bld) 2.9 % Normal 0-5 [facility] Comment on above: Performed By: #### L 500.4100, L500.4050, L502.0250, L100.0100 #### [facility] [address] [place], [address] Erythrocyte distribution width (RBC) [Ratio] 12.9 % Normal 11.6-14.6 [facility] Comment on above: Performed By: #### L 500.4100, L500.4050, L502.0250, L100.0100 #### [facility] [address] [place], [address] Hematocrit (Bld) [Volume fraction] 42.2 % Normal 40-54 [facility] Comment on above: Performed By: #### L 500.4100, L500.4050, L502.0250, L100.0100 #### [facility] [address] [place], [address] Hemoglobin (Bld) [Mass/Vol] 14.5 g/dL Normal 13.0-16.5 [facility] Comment on above: Performed By: #### L 500.4100, L500.4050, L502.0250, L100.0100 #### [facility] [address] [place], [address] IG% 0.200 Normal 0.0-0.9 [facility] Comment on above: Result Comment: IG% - Immature Granulocytes (promyelocytes, myelocytes and metamyelocytes) > 1% indicates that a LEFT SHIFT is Present. Performed By: #### L 500.4100, L500.4050, L502.0250, L100.0100 #### [facility] [address] [place], [address] Lymphocytes/100 WBC (Bld) 43.3 % High 19-41 [facility] Comment on above: Performed By: #### L 500.4100, L500.4050, L502.0250, L100.0100 #### [facility] [address] [place], [address] MCH (RBC) [Entitic mass] 30.6 pg Normal 27.0-32.0 [facility] Comment on above: Performed By: #### L 500.4100, L500.4050, L502.0250, L100.0100 #### [facility] [address] [place], [address] MCHC (RBC) [Mass/Vol] 34.4 g/dL Normal 32-36 [facility] Comment on above: Performed By: #### L 500.4100, L500.4050, L502.0250, L100.0100 #### [facility] [address] [place], [address] MCV (RBC) [Entitic vol] 89.0 fL Normal 80-94 [facility] Comment on above: Performed By: #### L 500.4100, L500.4050, L502.0250, L100.0100 #### [facility] [address] [place], [address] Monocytes/100 WBC (Bld) 7.6 % Normal 0-10 [facility] Comment on above: Performed By: #### L 500.4100, L500.4050, L502.0250, L100.0100 #### [facility] [address] [place], [address] Neutrophils/100 WBC (Bld) 44.6 % Low 47-70 [facility] Comment on above: Performed By: #### L 500.4100, L500.4050, L502.0250, L100.0100 #### [facility] [address] [place], [address] Nucleated RBC (Bld) [#/Vol] 0 10*3/uL Normal 0-5 [facility] Comment on above: Performed By: #### L 500.4100, L500.4050, L502.0250, L100.0100 #### [facility] [address] [place], [address] Platelet mean volume (Bld) [Entitic vol] 8.9 fL Normal 6.2-12.0 [facility] Comment on above: Performed By: #### L 500.4100, L500.4050, L502.0250, L100.0100 #### [facility] [address] [place], [address] Platelets (Bld) [#/Vol] 233 10*3/uL Normal 150-450 [facility] Comment on above: Performed By: #### L 500.4100, L500.4050, L502.0250, L100.0100 #### [facility] [address] [place], [address] RBC (Bld) [#/Vol] 4.74 10*6/uL Normal 4.6-6.2 [facility] Comment on above: Performed By: #### L 500.4100, L500.4050, L502.0250, L100.0100 #### [facility] [address] [place], [address] RDW SD 41.8 fl Normal 35.1-43.9 [facility] Comment on above: Performed By: #### L 500.4100, L500.4050, L502.0250, L100.0100 #### [facility] [address] [place], [address] WBC (Bld) [#/Vol] 5.8 10*3/uL Normal 4.4-11.0 [facility] Comment on above: Performed By: #### L 500.4100, L500.4050, L502.0250, L100.0100 #### [facility] [address] [place], [address] Comprehensive Metabolic Prof ilon 06-27-2024 Albumin [Mass/Vol] 3.5 g/dL Normal 3.2-5.0 [facility] Comment on above: Performed By: #### L 500.4100, L500.4050, L502.0250, L100.0100 #### [facility] [address] [place], [address] Albumin/Globulin [Mass ratio] 0.9 {ratio} Normal 0.9-2.4 [facility] Comment on above: Performed By: #### L 500.4100, L500.4050, L502.0250, L100.0100 #### [facility] [address] [place], [address] ALK P 56 U/L Normal 45-117 [facility] Comment on above: Performed By: #### L 500.4100, L500.4050, L502.0250, L100.0100 #### [facility] [address] [place], [address] ALT [Catalytic activity/Vol] 20 U/L Normal 16-61 [facility] Comment on above: Performed By: #### L 500.4100, L500.4050, L502.0250, L100.0100 #### [facility] [address] [place], [address] AST [Catalytic activity/Vol] 18 U/L Normal 15-37 [facility] Comment on above: Performed By: #### L 500.4100, L500.4050, L502.0250, L100.0100 #### [facility] [address] [place], [address] Bilirubin [Mass/Vol] 1.20 mg/dL High 0.20-1.00 [facility] Comment on above: Result Comment: For patients on eltrombopag therapy, use of Dimension [place] TBIL is not recommended. Performed By: #### L 500.4100, L500.4050, L502.0250, L100.0100 #### [facility] [address] [place], [address] BUN/CRE 22.8 RATIO High 10-20 [facility] Comment on above: Performed By: #### L 500.4100, L500.4050, L502.0250, L100.0100 #### [facility] [address] [place], [address] CA,Total 9.6 mg/dL Normal 8.5-10.1 [facility] Comment on above: Performed By: #### L 500.4100, L500.4050, L502.0250, L100.0100 #### [facility] [address] [place], [address] Chloride [Moles/Vol] 107 mmol/L Normal 98-107 [facility] Comment on above: Performed By: #### L 500.4100, L500.4050, L502.0250, L100.0100 #### [facility] [address] [place], [address] CO2 [Moles/Vol] 30.0 mmol/L Normal 21.0-32.0 [facility] Comment on above: Performed By: #### L 500.4100, L500.4050, L502.0250, L100.0100 #### [facility] [address] [place], [address] Creatinine [Mass/Vol] 0.96 mg/dL Normal 0.70-1.30 [facility] Comment on above: Result Comment: The validity of the calculated GFR GFRAA in patients over 70 years has not been determined. Clinical correlation is essential. Performed By: #### L 500.4100, L500.4050, L502.0250, L100.0100 #### [facility] [address] [place], [address] EST GFR - AA 97 mL/min Normal >60 [facility] Comment on above: Result Comment: Afri can [place] GFR Calc Performed By: #### L 500.4100, L500.4050, L502.0250, L100.0100 #### [facility] [address] [place], [address] GAP 3 Low 5-15 [facility] Comment on above: Performed By: #### L 500.4100, L500.4050, L502.0250, L100.0100 #### [facility] [address] [place], [address] GFR/1.73 sq M.predicted among non-blacks MDRD (S/P/Bld) [Vol rate/Area] 80 mL/min/{1.73_m2} Normal >60 [facility] Comment on above: Result Comment: Non- GFR Calc Performed By: #### L 500.4100, L500.4050, L502.0250, L100.0100 #### [facility] [address] [place], [address] Globulin (S) [Mass/Vol] 3.9 g/dL Normal 2.2-4.2 [facility] Comment on above: Performed By: #### L 500.4100, L500.4050, L502.0250, L100.0100 #### [facility] [address] [place], [address] Glucose [Mass/Vol] 113 mg/dL High 74-106 [facility] Comment on above: Result Comment: Fast ing Glucose result from 100 to 125 mg/dL suggests IMPAIRED HOMEOSTASIS per A.D.A. criteria. Performed By: #### L 500.4100, L500.4050, L502.0250, L100.0100 #### [facility] [address] [place], [address] Potassium [Moles/Vol] 3.9 mmol/L Normal 3.5-5.1 [facility] Comment on above: Performed By: #### L 500.4100, L500.4050, L502.0250, L100.0100 #### [facility] [address] [place], [address] Sodium [Moles/Vol] 140 mmol/L Normal 136-145 [facility] Comment on above: Performed By: #### L 500.4100, L500.4050, L502.0250, L100.0100 #### [facility] [address] [place], [address] T PROT 7.4 g/dL Normal 6.4-8.2 [facility] Comment on above: Performed By: #### L 500.4100, L500.4050, L502.0250, L100.0100 #### [facility] [address] [place], [address] Urea nitrogen [Mass/Vol] 22 mg/dL High 7-18 [facility] Comment on above: Performed By: #### L 500.4100, L500.4050, L502.0250, L100.0100 #### [facility] [address] [place], [address] Lipid Profileon 06-27-2024 Cholesterol [Mass/Vol] 180 mg/dL Normal 200 [facility] Comment on above: Result Comment: <200 mg/dL Desirable 200-240 mg/dL Borderline >240 mg/dL High Risk Performed By: #### L 500.4100, L500.4050, L502.0250, L100.0100 ####[facility] [address] [place], [address] Cholesterol in HDL [Mass/Vol] 50 mg/dL Normal [facility] Comment on above: Result Comment: The drugs N-Acetylcysteine and Metamizole may falsely depress this assay. Reference Range HDL <40 mg/dL Low HDL Cholesterol HDL >or= 60 mg/dL High HDL Cholesterol Performed By: #### L 500.4100, L500.4050, L502.0250, L100.0100 ####[facility] [address] [place], [address] Cholesterol in LDL [Mass/Vol] 112 mg/dL Normal 0-130 [facility] Comment on above: Performed By: #### L 500.4100, L500.4050, L502.0250, L100.0100 ####[facility] [address] [place], [address] Cholesterol in VLDL [Mass/Vol] 18 mg/dL Normal 5-40 [facility] Comment on above: Performed By: #### L 500.4100, L500.4050, L502.0250, L100.0100 ####[facility] [address] [place], [address] Triglyceride [Mass/Vol] 91 mg/dL Normal [facility] Comment on above: Result Comment: The drugs N-Acetylcysteine and Metamizole may falsely depress this assay. Serum Triglycerides Reference Interval Normal <150 mg/dL Borderline high 150 - 199 mg/dL High 200 - 499 mg/dL Very High > or = 500 mg/dL Performed By: #### L 500.4100, L500.4050, L502.0250, L100.0100 ####[facility] [address] [place], [address] Microalb:Creat Ratio,Random URon 06-27-2024 Creatinine [Mass/Vol] 128.00 mg/dL Normal NO RAN GE EST. [facility] Comment on above: Performed By: #### L 500.4100, L500.4050, L502.0250, L100.0100 ####[facility] [address] [place], [address] MALB:CRE 10.8 mg/g CRE Normal <30 mg/g CRE [facility] Comment on above: Performed By: #### L 500.4100, L500.4050, L502.0250, L100.0100 ####[facility] [address] [place], [address] MICROALBUMIN,UR 13.8 mg/L Normal NO RANGE EST. [facility] Comment on above: Performed By: #### L 500.4100, L500.4050, L502.0250, L100.0100 ####[facility] [address] [place], [address] Stress Reporton 01-20-2024 Stress Report [facility] [address] [place] [address] MR#: [id number] Acct: [id number] Name: MARY KAY JACKSON Rep #: [id number] : 1950 73 From: Jose Mackay MD Primary Care: JOSE LUIS Ramirez Status: REG CLI Referring Dr: Lauryn Salazar Sex: M C Stress Test Report Exercise stress test. 73-year-old man with a history of chest pain Stress protocol: Resting EKG demonstrates normal sinus rhythm with a rate of 67 bpm resting blood pressure is 114/62 mmHg. The patient exercised according to the regular Harris protocol for a total duration of 4 minutes attaining a maximum heart rate of 126 bpm which was 100% of maximum predicted heart rate; the maximum workload was 6.9 metabolic equivalents. At rest there were no ST or T wave changes noted to suggest ischemia and at peak exercise upsloping ST changes only were noted which did not meet the criteria for ischemia. No clinical angina was noted the test was terminated due to the target heart rate being achieved/fatigue. The peak blood pressure was 160/80 mmHg. Rate-pressure product was 17,000. Conclusion: Stress test with no EKG criteria for ischemia at a moderate workload. No clinical angina noted. 01/20/24 1639 Date Jose Mackay MD CC: OIL PROSPECTING OBSERVER-C Lauryn Salazar Date Dictated: 01/20/241636 Date Transcribed: 01/20/241636 Behavior Management Specialist: [place] Signed Normal [facility] Absolute lymphocyte countOrd ered By: Lauryn Salazar on 01-06-2024 Lymphocytes Auto (Unsp spec) [#/Vol] 2.59 10*3/uL 0.83-4.51 [facility] Automated lymphocyte count a s percentage of total leukocytesOrdered By: Lauryn Salazar on 01-06-2024 Lymphocytes/100 WBC Auto (Unsp spec) 29.0 % 19-41 [facility] Basophil percentageOrdered B y: Lauryn Salazar on 01-06-2024 Basophils/100 WBC (Bld) 0.8 % 0-1 [facility] Bilirubin [Mass/Vol] 0.80 mg/dL 0.20-1.00 [facility] Comment on above: For patients on eltr ombopag therapy, use of Dimension [place] TBIL is not recommended. Chloride [Moles/Vol] 105 mmol/L 98-107 [facility] Eosinophils/100 WBC (Bld) 2.2 % 0-5 [facility] Glucose [Mass/Vol] 116 mg/dL 74-106 [facility] Comment on above: Fasting Glucose resu lt from 100 to 125 mg/dL suggests IMPAIRED HOMEOSTASIS per A.D.A. criteria. Hemoglobin (Bld) [Mass/Vol] 15.4 g/dL 13.0-16.5 [facility] Monocytes/100 WBC (Bld) 6.7 % 0-10 [facility] Neutrophils (Bld) [#/Vol] 5.5 10*3/uL 2.0-7.7 [facility] Neutrophils/100 WBC (Bld) 61.1 % 47-70 [facility] Potassium [Moles/Vol] 3.9 mmol/L 3.5-5.1 [facility] Protein [Mass/Vol] 8.0 g/dL 6.4-8.2 [facility] Sodium [Moles/Vol] 137 mmol/L 136-145 [facility] WBC (Bld) [#/Vol] 8.9 10*3/uL 4.4-11.0 [facility] CBC W/Diff, Automatedon 03-0 4-2023 Absolute Lymph 2.59 X10 3/uL Normal 0.83-4.51 [facility] Comment on above: Performed By: #### M 100.678 #### [facility] [address] [place], [address] Absolute Neut 5.5 X10 3/uL Normal 2.0-7.7 [facility] Comment on above: Performed By: #### M 100.678 #### [facility] [address] [place], [address] Basophils/100 WBC (Bld) 0.8 % Normal 0-1 [facility] Comment on above: Performed By: #### M 100.678 #### [facility] [address] [place], [address] Eosinophils/100 WBC (Bld) 2.2 % Normal 0-5 [facility] Comment on above: Performed By: #### M 100.678 #### [facility] [address] [place], [address] Erythrocyte distribution width (RBC) [Ratio] 12.7 % Normal 11.6-14.6 [facility] Comment on above: Performed By: #### M 100.678 #### [facility] [address] [place], [address] Hematocrit (Bld) [Volume fraction] 45.7 % Normal 40-54 [facility] Comment on above: Performed By: #### M 100.678 #### [facility] [address] [place], [address] Hemoglobin (Bld) [Mass/Vol] 15.4 g/dL Normal 13.0-16.5 [facility] Comment on above: Performed By: #### M 100.678 #### [facility] [address] [place], [address] IG% 0.200 Normal 0.0-0.9 [facility] Comment on above: Result Comment: IG% - Immature Granulocytes (promyelocytes, myelocytes and metamyelocytes) > 1% indicates that a LEFT SHIFT is Present. Performed By: #### M 100.678 #### [facility] [address] [place], [address] Lymphocytes/100 WBC (Bld) 29.0 % Normal 19-41 [facility] Comment on above: Performed By: #### M 100.678 #### [facility] [address] [place], [address] MCH (RBC) [Entitic mass] 30.1 pg Normal 27.0-32.0 [facility] Comment on above: Performed By: #### M 100.678 #### [facility] [address] [place], [address] MCHC (RBC) [Mass/Vol] 33.7 g/dL Normal 32-36 [facility] Comment on above: Performed By: #### M 100.678 #### [facility] [address] [place], [address] MCV (RBC) [Entitic vol] 89.4 fL Normal 80-94 [facility] Comment on above: Performed By: #### M 100.678 #### [facility] [address] [place], [address] Monocytes/100 WBC (Bld) 6.7 % Normal 0-10 [facility] Comment on above: Performed By: #### M 100.678 #### [facility] [address] [place], [address] Neutrophils/100 WBC (Bld) 61.1 % Normal 47-70 [facility] Comment on above: Performed By: #### M 100.678 #### [facility] [address] [place], [address] Nucleated RBC (Bld) [#/Vol] 0 10*3/uL Normal 0-5 [facility] Comment on above: Performed By: #### M 100.678 #### [facility] [address] [place], [address] Platelet mean volume (Bld) [Entitic vol] 9.3 fL Normal 6.2-12.0 [facility] Comment on above: Performed By: #### M 100.678 #### [facility] [address] [place], [address] Platelets (Bld) [#/Vol] 265 10*3/uL Normal 150-450 [facility] Comment on above: Performed By: #### M 100.678 #### [facility] [address] [place], [address] RBC (Bld) [#/Vol] 5.11 10*6/uL Normal 4.6-6.2 [facility] Comment on above: Performed By: #### M 100.678 #### [facility] [address] [place], [address] RDW SD 41.9 fl Normal 35.1-43.9 [facility] Comment on above: Performed By: #### M 100.678 #### [facility] [address] [place], [address] WBC (Bld) [#/Vol] 8.9 10*3/uL Normal 4.4-11.0 [facility] Comment on above: Performed By: #### M 100.678 #### [facility] [address] [place], [address] CRPon 01-06-2024 C-REACTIVE PROT 4.89 mg/L High 0.0-3.0 [facility] Comment on above: Order Comment: 1 Result Comment: C-Re active Protein (CRP) provides useful information for the diagnosis, therapy and monitoring of inflammatory processes and associated diseases. For the evaluation of Relative Risk for Cardiovascular Disease, a High Sensitivity CRP (HSCRP) should be ordered. Performed By: #### M 100.678 #### [facility] [address] [facility] [place], [address] CTA Chest W/WO Contraston CTA Chest W/WO Contrast [facility] [address] [place] [address] CTA Chest W/WO Contrast MR#: [id number] Acct: [id number] Name: MARY KAY JACKSON Rep #: [id number] : 1950 M 73 From: Lemuel Pineda MD PCP: JOSE LUIS Ramirez Status: [facility] Study: CTA Chest W/WO Contrast Date of Exam: 01/06/24 Exam# [id number] Ordering Dr: Lauryn Salazar OIL PROSPECTING OBSERVER-C [id number] EXAM: CT ANGIOGRAPHY CHEST WITHOUT AND WITH INTRAVENOUS CONTRAST CLINICAL INDICATION: Elevated D-Dimer and chest pain. Rule out PE. TECHNIQUE: Helically acquired angiography images were obtained of the chest without and with intravenous contrast. This CT exam was performed using one or more of the following dose reduction techniques: automated exposure control, adjustment of the mA and/or kV according to patient size, and/or use of iterative reconstruction technique. MIP reconstructed images were created and reviewed. CONTRAST: IV 100mL Isovue-370 RADIATION DOSE: CTDIvol = 14.92 mGy, DLP = 504.27 mGy-cm COMPARISON: No relevant prior studies available. FINDINGS: PULMONARY ARTERIES: Unremarkable. Normal in caliber. No evidence of pulmonary embolism. AORTA: Minimal calcified plaques in the ascending aorta, transverse thoracic aorta and descending thoracic aorta. No aortic aneurysm or dissection. GREAT VESSELS OF AORTIC ARCH: Unremarkable. Normal in caliber. No evidence of dissection. LUNGS AND PLEURAL SPACES: Unremarkable. No pleural effusion or thickening. No pneumothorax. No suspicious infiltrates and no suspicious pulmonary nodules. HEART: Calcified plaques in the left main coronary artery bifurcation and along the LAD branch of the left coronary artery. Normal cardiac size. Normal pericardium. Heart size is normal. MEDIASTINUM: Unremarkable. No mediastinal or hilar adenopathy. Esophagus is unremarkable. No hiatal hernia. THYROID: Unremarkable. No thyroid lesions. BONES/JOINTS: Anterior marginal spurs along the thoracic spine. No suspicious acute fractures. No lytic or blastic lesions. GALLBLADDER AND BILE DUCTS: Multiple small calcified gallstones inside the nondilated gallbladder fossa. No intrahepatic or extrahepatic biliary ductal dilatation. CT/CTA Chest W/WO Contrast IMPRESSION: 1. No CTA evidence of pulmonary thromboemboli, thoracic aortic aneurysm or dissection. 2. Calcified plaques in the left main coronary artery bifurcation and along the LAD branch of the left coronary artery. Normal cardiac size. 3. Multiple small calcified gallstones inside the nondilated gallbladder fossa. 4. No suspicious acute cardiopulmonary pathology. Electronically Signed: Lemuel Pineda MD at 14:47 EST , CC: JOSE LUIS Salazar Behavior Management Specialist: Signed Normal [facility] Comprehensive Metabolic Prof ilon 01-06-2024 Albumin [Mass/Vol] 3.8 g/dL Normal 3.2-5.0 [facility] Comment on above: Order Comment: 1 Performed By: #### M [id number] #### [facility] [address] [place], [place], [address] Albumin/Globulin [Mass ratio] 0.9 {ratio} Normal 0.9-2.4 [facility] Comment on above: Order Comment: 1 Performed By: #### M 100.678 #### [facility] [address] [place], [place], [address] ALK P 69 U/L Normal 45-117 [facility] Comment on above: Order Comment: 1 Performed By: #### M [id number] #### [facility] [address] [place], [place], [address] ALT [Catalytic activity/Vol] 30 U/L Normal 16-61 [facility] Comment on above: Order Comment: 1 Performed By: #### M 100.678 #### [facility] [address] [place], [address] AST [Catalytic activity/Vol] 29 U/L Normal 15-37 [facility] Comment on above: Order Comment: 1 Performed By: #### M 100.678 #### [facility] [address] [place], [address] Bilirubin [Mass/Vol] 0.80 mg/dL Normal 0.20-1.00 [facility] Comment on above: Order Comment: 1 Result Comment: For patients on eltrombopag therapy, use of Dimension [place] TBIL is not recommended. Performed By: #### M 100.678 #### [facility] [address] [place], [address] BUN/CRE 15.8 RATIO Normal 10-20 [facility] Comment on above: Order Comment: 1 Performed By: #### M 100.678 #### [facility] [address] [place], [address] CA,Total 9.7 mg/dL Normal 8.5-10.1 [facility] Comment on above: Order Comment: 1 Performed By: #### M 100.678 #### [facility] [address] [place], [address] Chloride [Moles/Vol] 105 mmol/L Normal 98-107 [facility] Comment on above: Order Comment: 1 Performed By: #### M 100.678 #### [facility] [address] [place], [address] CO2 [Moles/Vol] 30.0 mmol/L Normal 21.0-32.0 [facility] Comment on above: Order Comment: 1 Performed By: #### M 100.678 #### [facility] [address] [place], [address] Creatinine [Mass/Vol] 1.20 mg/dL Normal 0.70-1.30 [facility] Comment on above: Order Comment: 1 Result Comment: The validity of the calculated GFR GFRAA in patients over 70 years has not been determined. Clinical correlation is essential. Performed By: #### M 100.678 #### [facility] [address] [place], [address] EST GFR - AA 76 mL/min Normal >60 [facility] Comment on above: Order Comment: 1 Result Comment: Afri can Cypriot GFR Calc Performed By: #### M 100.678 #### [facility] [address] [place], [address] GAP 2 Low 5-15 [facility] Comment on above: Order Comment: 1 Performed By: #### M 100.678 #### [facility] [address] [place], [address] GFR/1.73 sq M.predicted among non-blacks MDRD (S/P/Bld) [Vol rate/Area] 63 mL/min/{1.73_m2} Normal >60 [facility] Comment on above: Order Comment: 1 Result Comment: Non- GFR Calc Performed By: #### M 100.678 #### [facility] [address] [place], [address] Globulin (S) [Mass/Vol] 4.2 g/dL Normal 2.2-4.2 [facility] Comment on above: Order Comment: 1 Performed By: #### M 100.678 #### [facility] [address] [place], [address] Glucose [Mass/Vol] 116 mg/dL High 74-106 [facility] Comment on above: Order Comment: 1 Result Comment: Fast ing Glucose result from 100 to 125 mg/dL suggests IMPAIRED HOMEOSTASIS per A.D.A. criteria. Performed By: #### M 100.678 #### [facility] [address] [place], [address] Potassium [Moles/Vol] 3.9 mmol/L Normal 3.5-5.1 [facility] Comment on above: Order Comment: 1 Performed By: #### M 100.678 #### [facility] [address] [place], [address] Sodium [Moles/Vol] 137 mmol/L Normal 136-145 [facility] Comment on above: Order Comment: 1 Performed By: #### M 100.678 #### [facility] [address] [place], [address] T PROT 8.0 g/dL Normal 6.4-8.2 [facility] Comment on above: Order Comment: 1 Performed By: #### M 100.678 #### [facility] [address] [place], [address] Urea nitrogen [Mass/Vol] 19 mg/dL High 7-18 [facility] Comment on above: Order Comment: 1 Performed By: #### M 100.678 #### [facility] [address] [place], [address] D-Dimer Quantitative (DVT/PE )on 01-06-2024 D-DIMER QUANT 0.76 FEU/ug/m Invalid Interpretation Code 0.27-0.49 [facility] Comment on above: Result Comment: D-Di mj ELEVATED (>0.49): Additional studies and clinical assessments are indicated to conclude diagnosis of: Deep Vein Thrombosis (DVT) or Pulmonary Embolism (PE) CRITICAL VALUE VERIFIED. CALLED TO CHERELLE FRANCE ([facility]) 01/06/24 1056 Jace Gómez. RESULTS READ BACK BY SAME. Performed By: #### L 500.4050, L501.4020, L101.9900, L501.6710, L300.8000, L100.0100, L501.9520 ####[facility] [address] [place], [address] Determination of erythrocyte mean corpuscular volume (MCV)Ordered By: Lauryn Salazar on 01-06-2024 MCV (RBC) [Entitic vol] 89.4 fL 80-94 [facility] Erythrocyte Sed Rateon 01-05 SED RATE 33 mm/hr High 0-20 [facility] Comment on above: Performed By: #### L 500.4050, L501.4020, L101.9900, L501.6710, L300.8000, L100.0100, L501.9520 ####[facility] [address] [place], [place], [address] Erythrocyte distribution wid th ratioOrdered By: Laurny Salazar on 01-06-2024 Erythrocyte distribution width (RBC) [Ratio] 12.7 % 11.6-14.6 [facility] Erythrocyte distribution wid th standard deviationOrdered By: Lauryn Salazar on 01-06-2024 Erythrocyte distribution width (RBC) [Entitic vol] 41.9 fL 35.1-43.9 [facility] Erythrocyte sedimentation ra teOrdered By: Lauryn Salazar on 01-06-2024 ESR (Bld) [Velocity] 33 mm/h 0-20 [facility] Hematocrit Auto (Bld) [Volum e fraction]Ordered By: Lauryn Salazar on 01-06-2024 Hematocrit (Bld) [Volume fraction] 45.7 % 40-54 [facility] Immature granulocytes/100 WB C Auto (Bld)Ordered By: Lauryn Salazar on 01-06-2024 Immature granulocytes/100 WBC (Bld) 0.200 % 0.0-0.9 [facility] Comment on above: IG% - Immature Granu locytes (promyelocytes, myelocytes and metamyelocytes) > 1% indicates that a LEFT SHIFT is Present. L501.4020on 01-06-2024 TROPONIN-I HS 7 pg/mL Normal 3.0-78.0 [facility] Comment on above: Order Comment: 1 Result Comment: Darcy darby Note: New Test Units and Gender Specific Reference Ranges. For more information see Policy Stat Procedure [place] High Sensitivity Troponin (TNIH) and attachments. Performed By: #### M 100.678 #### [facility] [address] [place], [place], [address] Laboratory - Chemistry and C hemistry - challengeOrdered By: Lauryn Salazar on 01-06-2024 Albumin/Globulin [Mass ratio] 0.9 {ratio} 0.9-2.4 [facility] ALP [Catalytic activity/Vol] 69 U/L 45-117 [facility] ALT [Catalytic activity/Vol] 30 U/L 16-61 [facility] CO2 [Moles/Vol] 30.0 mmol/L 21.0-32.0 [facility] Globulin (S) [Mass/Vol] 4.2 g/dL 2.2-4.2 [facility] Urea nitrogen/Creatinine [Mass ratio] 15.8 mg/mg 10-20 [facility] - Hematology and Cell countsOrdered By: Lauryn Salazar on 01-06-2024 MCH (RBC) [Entitic mass] 30.1 pg 27.0-32.0 [facility] MCHC (RBC) [Mass/Vol] 33.7 g/dL 32-36 [facility] Nucleated RBC/100 WBC (Bld) [Ratio] 0 % 0-5 [facility] Platelet mean volume (Bld) [Entitic vol] 9.3 fL 6.2-12.0 [facility] Platelets (Bld) [#/Vol] 265 10*3/uL 150-450 [facility] No Panel InformationOrdered By: Lauryn Salazar on 01-06-2024 C-Reactive Protein Extended Range 4.89 mg/L 0.0-3.0 [facility] Comment on above: C-Reactive Protein ( CRP) provides useful information for thediagnosis, therapy and monitoring of inflammatory processesand associated diseases. For the evaluation of Relative Riskfor Cardiovascular Disease, a High Sensitivity CRP (HSCRP)should be ordered. D-Dimer Quantitative (PE/DVT) 0.76 FEU/ug/m 0.27-0.49 [facility] Comment on above: D-Dimer ELEVATED (>0 .49): Additional studies and clinicalassessments are indicated to conclude diagnosis of:Deep Vein Thrombosis (DVT) or Pulmonary Embolism (PE)CRITICAL VALUE VERIFIED. CALLED TO CHERELLE FRANCE ([facility])01/06/24 1050 Jace Gómez.RESULTS READ BACK BY SAME. Estimated GFR (MDRD) Amer 76 mL/min >60 [facility] Comment on above: GFR Calc Estimated GFR (MDRD) Non-Af Amer 63 mL/min >60 [facility] Comment on above: Non- GFR Calc Troponin I High Sensitivity 7 pg/mL 3.0-78.0 [facility] Comment on above: Please Note: New Anita t Units and Gender Specific Reference Ranges. For more information see Policy Stat Procedure [place] High Sensitivity Troponin (TNIH) and attachments. RBC Auto (Bld) [#/Vol]Ordere d By: Lauryn Salazar on 01-06-2024 RBC (Bld) [#/Vol] 5.11 10*6/uL 4.6-6.2 [facility] Serum or plasma calcium diane urement (mass/volume)Ordered By: Lauryn Salazar on 01-06-2024 Calcium [Mass/Vol] 9.7 mg/dL 8.5-10.1 [facility] Serum or plasma creatinine m easurement (mass/volume)Ordered By: Lauryn Salazar on 01-06-2024 Creatinine [Mass/Vol] 1.20 mg/dL 0.70-1.30 [facility] Comment on above: The validity of the calculated GFR & GFRAA in patients over 70 years has not been determined. Clinical correlation is essential. Serum or plasma thyroid stim ulating hormone (TSH) measurement (units/volume)Ordered By: Lauryn Salazar on 01-06-2024 TSH Qn 2.38 uIU/mL 0.358-3.74 [facility] Serum or plasma urea nitroge n measurement (mass/volume)Ordered By: Lauryn Salazar on 01-06-2024 Urea nitrogen [Mass/Vol] 19 mg/dL 7-18 [facility] Thin prep Papanicolaou smear with manual screeningOrdered By: Lauryn Salazar on 01-06-2024 Thin prep Papanicolaou smear with manual screening 3.8 g/dL 3.2-5.0 [facility] Thin prep Papanicolaou smear with manual screening 29 U/L 15-37 [facility] Thin prep Papanicolaou smear with manual screening 2 5-15 [facility] Thyroid Stim Hormone (TSH)on 01-06-2024 TSH 2.38 uIU/mL Normal 0.358-3.74 [facility] Comment on above: Order Comment: 1 Performed By: #### M 100.678 #### [facility] [address] [place], [address] Vitamin D,25 Hydroxyon 12-02 Vitamin D 25-OH 44.5 ng/mL Normal [facility] Comment on above: Result Comment: Yeimi min D 25(OH) Status Range Deficiency <20 ng/mL (50nmol/L) Insufficiency 20 - 30 ng/mL (50 - 75 nmol/L) Sufficiency 30 - 100 ng/mL (75 - 250 nmol/L) Toxicity >100 ng/mL (>250 nmol/L) Performed By: #### L 506.1000, L501.9910 #### [facility] [address] [place], [address] No Panel InformationOrdered By: Lauryn Salazar on 11-30-2023 Vitamin D 25-Hydroxy 44.5 ng/mL [facility] Comment on above: Vitamin D 25(OH) Sta tus Range Deficiency <20 ng/mL (50nmol/L) Insufficiency 20 - 30 ng/mL (50 - 75 nmol/L) Sufficiency 30 - 100 ng/mL (75 - 250 nmol/L) Toxicity >100 ng/mL (>250 nmol/L) PSA,Total - Annual Screenon 11-30-2023 PSA,TOT SCREEN 2.13 ng/mL Normal 0.00-4.00 [facility] Comment on above: Result Comment: This test was performed using the TPSA assay method for the [employer] chemistry system. Values obtained with different assay methods cannot be used interchangably. When changing PSA assays in the course of monitoring a patient, additional sequential testing should be carried out to confirm baseline values. Performed By: #### L 506.1000, L501.9910 #### [facility] [address] [place], [address] Screening prostate specific antigen (PSA) measurementOrdered By: Lauryn Salazar on 11-30-2023 Prostate specific Ag IA [Mass/Vol] 2.13 ng/mL 0.00-4.00 [facility] Comment on above: This test was perfor med using the TPSA assay method for the[employer] chemistry system. Values obtained with differentassay methods cannot be used interchangably.When changing PSA assays in the course of monitoring apatient, additional sequential testing should be carriedout to confirm baseline values. Blood Glucose , Office ([phone])Ordered By: Kailey Lantigua on 09-02-2023 Glucose Glucometer (BldC) [Moles/Vol] 121 1 Normal [facility] Work Phone: HgA1C , Office ([phone])Ordere d By: Kailey Lantigua on 09-02-2023 HbA1c (Bld) [Mass fraction] 6.0 % Normal 4.6 - 7.1 [facility]; [facility] Work Phone: Basophil percentageOrdered B y: Lauryn Salazar on 08-15-2023 Bilirubin [Mass/Vol] 0.50 mg/dL 0.20-1.00 [facility] Comment on above: For patients on eltr ombopag therapy, use of Dimension [place] TBIL is not recommended. Chloride [Moles/Vol] 105 mmol/L 98-107 [facility] Cholesterol [Mass/Vol] 162 mg/dL <200 [facility] Comment on above: <200 mg/dL Desirable 200-240 mg/dL Borderline >240 mg/dL High Risk Glucose [Mass/Vol] 134 mg/dL 74-106 [facility] Comment on above: Fasting Glucose resu lt greater than or equal to 126 mg/dL suggests DIABETES MELLITUS per A.D.A. criteria. Potassium [Moles/Vol] 3.6 mmol/L 3.5-5.1 [facility] Protein [Mass/Vol] 7.8 g/dL 6.4-8.2 [facility] Sodium [Moles/Vol] 137 mmol/L 136-145 [facility] Triglyceride [Mass/Vol] 202 mg/dL <199 [facility] Comment on above: The drugs N-Acetylcy steine and Metamizole may falsely depress this assay.Serum Triglycerides Reference Interval Normal <150 mg/dL Borderline high 150 - 199 mg/dL High 200 - 499 mg/dL Very High > or = 500 mg/dL Laboratory - Chemistry and C hemistry - challengeOrdered By: Lauryn Salazar on 08-15-2023 ALP [Catalytic activity/Vol] 64 U/L 45-117 [facility] ALT [Catalytic activity/Vol] 37 U/L 16-61 [facility] CO2 [Moles/Vol] 28.0 mmol/L 21.0-32.0 [facility] Globulin (S) [Mass/Vol] 4.3 g/dL 2.2-4.2 [facility] Urea nitrogen/Creatinine [Mass ratio] 15.0 mg/mg 10-20 [facility] No Panel InformationOrdered By: Lauryn Salazar on 08-15-2023 Estimated GFR (MDRD) Amer 67 mL/min >60 [facility] Comment on above: GFR Calc Estimated GFR (MDRD) Non-Af Amer 56 mL/min >60 [facility] Comment on above: Non- GFR Calc Urine Microalbumin/Creatinin e Ratio 8.3 mg/g CRE <30 [facility] Serum or plasma albumin diane urement (mass/volume)Ordered By: Lauryn Salazar on 08-15-2023 Albumin [Mass/Vol] 3.5 g/dL 3.2-5.0 [facility] Serum or plasma albumin/glob ulin mass ratioOrdered By: Lauryn Salazar on 08-15-2023 Albumin/Globulin [Mass ratio] 0.8 {ratio} 0.9-2.4 [facility] Serum or plasma calcium diane urement (mass/volume)Ordered By: Lauryn Salazar on 08-15-2023 Calcium [Mass/Vol] 9.3 mg/dL 8.5-10.1 [facility] Serum or plasma cholesterol in HDL measurement (mass/volume)Ordered By: Lauryn Salazar on 08-15-2023 Cholesterol in HDL [Mass/Vol] 39 mg/dL >40 [facility] Comment on above: The drugs N-Acetylcy steine and Metamizole may falsely depress this assay. Reference Range HDL <40 mg/dL Low HDL Cholesterol HDL >or= 60 mg/dL High HDL Cholesterol Serum or plasma cholesterol in VLDL measurement (mass/volume)Ordered By: Lauryn Salazar on 08-15-2023 Cholesterol in VLDL [Mass/Vol] 40 mg/dL 5-40 [facility] Serum or plasma creatinine m easurement (mass/volume)Ordered By: Lauryn Salazar on 08-15-2023 Creatinine [Mass/Vol] 1.33 mg/dL 0.70-1.30 [facility] Comment on above: The validity of the calculated GFR & GFRAA in patients over 70 years has not been determined. Clinical correlation is essential. Serum or plasma low density lipoprotein (LDL) cholesterol measurement (mass/volume)Ordered By: Lauryn Salazar on 08-15-2023 Cholesterol in LDL [Mass/Vol] 83 mg/dL 0-130 [facility] Serum or plasma urea nitroge n measurement (mass/volume)Ordered By: Lauryn Salazar on 08-15-2023 Urea nitrogen [Mass/Vol] 20 mg/dL 7-18 [facility] Thin prep Papanicolaou smear with manual screeningOrdered By: Lauryn Salazar on 08-15-2023 Thin prep Papanicolaou smear with manual screening 30 U/L 15-37 [facility] Thin prep Papanicolaou smear with manual screening 4 5-15 [facility] Thin prep Papanicolaou smear with manual screening 16.7 mg/L NO RANGE EST. [facility] Urine creatinine measurement (mass/volume)Ordered By: Lauryn Salazar on 08-15-2023 Creatinine (U) [Mass/Vol] 201.00 mg/dL NO RANGE EST. [facility] Absolute lymphocyte countOrd ered By: Vamsi Suggs on 08-03-2023 Lymphocytes Auto (Unsp spec) [#/Vol] 2.32 10*3/uL 0.83-4.51 [facility] Basophil percentageOrdered B y: Vamsi Suggs on 08-03-2023 Basophils/100 WBC (Bld) 0.4 % 0-1 [facility] Bilirubin [Mass/Vol] 0.90 mg/dL 0.20-1.00 [facility] Comment on above: For patients on eltr ombopag therapy, use of Dimension [place] TBIL is not recommended. Chloride [Moles/Vol] 102 mmol/L 98-107 [facility] Eosinophils/100 WBC (Bld) 1.5 % 0-5 [facility] Glucose [Mass/Vol] 127 mg/dL 74-106 [facility] Comment on above: Fasting Glucose resu lt greater than or equal to 126 mg/dL suggests DIABETES MELLITUS per A.D.A. criteria. Neutrophils (Bld) [#/Vol] 6.8 10*3/uL 2.0-7.7 [facility] Neutrophils/100 WBC (Bld) 68.3 % 47-70 [facility] Potassium [Moles/Vol] 3.4 mmol/L 3.5-5.1 [facility] Protein [Mass/Vol] 7.7 g/dL 6.4-8.2 [facility] Sodium [Moles/Vol] 134 mmol/L 136-145 [facility] WBC (Bld) [#/Vol] 9.9 10*3/uL 4.4-11.0 [facility] Blood erythrocytes count (nu mber/volume)Ordered By: Vamsi Suggs on 08-03-2023 RBC (Bld) [#/Vol] 4.49 10*6/uL 4.6-6.2 [facility] Blood hemoglobin measurement (mass/volume)Ordered By: Vamsi Suggs on 08-03-2023 Hemoglobin (Bld) [Mass/Vol] 14.0 g/dL 13.0-16.5 [facility] Blood lymphocytes/100 leukoc ytesOrdered By: Vamsi Suggs on 08-03-2023 Lymphocytes/100 WBC (Bld) 23.4 % 19-41 [facility] Blood monocytes/100 leukocyt esOrdered By: Vamsi Suggs on 08-03-2023 Monocytes/100 WBC (Bld) 6.0 % 0-10 [facility] Blood platelet mean volumeOr dered By: Vamsi Suggs on 08-03-2023 Platelet mean volume (Bld) [Entitic vol] 9.0 fL 6.2-12.0 [facility] Determination of erythrocyte mean corpuscular volume (MCV)Ordered By: Vamsi Suggs on 08-03-2023 MCV (RBC) [Entitic vol] 90.9 fL 80-94 [facility] Hematocrit Auto (Bld) [Volum e fraction]Ordered By: Vamsi Suggs on 08-03-2023 Hematocrit (Bld) [Volume fraction] 40.8 % 40-54 [facility] Laboratory - Chemistry and C hemistry - challengeOrdered By: Vamsi Suggs on 08-03-2023 ALP [Catalytic activity/Vol] 59 U/L 45-117 [facility] ALT [Catalytic activity/Vol] 31 U/L 16-61 [facility] CO2 [Moles/Vol] 27.0 mmol/L 21.0-32.0 [facility] Globulin (S) [Mass/Vol] 4.0 g/dL 2.2-4.2 [facility] Urea nitrogen/Creatinine [Mass ratio] 17.4 mg/mg 10-20 [facility] - Hematology and Cell countsOrdered By: Vamsi Suggs on 08-03-2023 Erythrocyte distribution width (RBC) [Entitic vol] 41.5 fL 35.1-43.9 [facility] Erythrocyte distribution width (RBC) [Ratio] 12.5 % 11.6-14.6 [facility] Immature granulocytes/100 WBC (Bld) 0.400 % 0.0-0.9 [facility] Comment on above: IG% - Immature Granu locytes (promyelocytes, myelocytes and metamyelocytes) > 1% indicates that a LEFT SHIFT is Present. MCH (RBC) [Entitic mass] 31.2 pg 27.0-32.0 [facility] Nucleated RBC/100 WBC (Bld) [Ratio] 0 % 0-5 [facility] MCHC Auto (RBC) [Mass/Vol]Or dered By: Vamsi Suggs on 08-03-2023 MCHC (RBC) [Mass/Vol] 34.3 g/dL 32-36 [facility] No Panel InformationOrdered By: Vamsi Suggs on 08-03-2023 Estimated Creatinine Clearance Calc 45.21 ml/min [facility] Estimated GFR (MDRD) Amer 68 mL/min >60 [facility] Comment on above: GFR Calc Estimated GFR (MDRD) Non-Af Amer 56 mL/min >60 [facility] Comment on above: Non- GFR Calc Platelets bldOrdered By: Zac Suggs on 08-03-2023 Platelets (Bld) [#/Vol] 279 10*3/uL 150-450 [facility] Serum or plasma albumin diane urement (mass/volume)Ordered By: Vamsi Suggs on 08-03-2023 Albumin [Mass/Vol] 3.7 g/dL 3.2-5.0 [facility] Serum or plasma albumin/glob ulin mass ratioOrdered By: Vamsi Suggs on 08-03-2023 Albumin/Globulin [Mass ratio] 0.9 {ratio} 0.9-2.4 [facility] Serum or plasma calcium diane urement (mass/volume)Ordered By: Vamsi Suggs on 08-03-2023 Calcium [Mass/Vol] 9.5 mg/dL 8.5-10.1 [facility] Serum or plasma creatinine m easurement (mass/volume)Ordered By: Vamsi Suggs on 08-03-2023 Creatinine [Mass/Vol] 1.32 mg/dL 0.70-1.30 [facility] Comment on above: The validity of the calculated GFR & GFRAA in patients over 70 years has not been determined. Clinical correlation is essential. Serum or plasma urea nitroge n measurement (mass/volume)Ordered By: Vamsi Suggs on 08-03-2023 Urea nitrogen [Mass/Vol] 23 mg/dL 7-18 [facility] Thin prep Papanicolaou smear with manual screeningOrdered By: Vamsi Suggs on 08-03-2023 Thin prep Papanicolaou smear with manual screening 21 U/L 15-37 [facility] Thin prep Papanicolaou smear with manual screening 5 5-15 [facility] Basophil percentageOrdered B y: Lauryn Salazar on 05-27-2023 Bilirubin [Mass/Vol] 0.60 mg/dL 0.20-1.00 [facility] Comment on above: For patients on eltr ombopag therapy, use of Dimension [place] TBIL is not recommended. Chloride [Moles/Vol] 107 mmol/L 98-107 [facility] Glucose [Mass/Vol] 134 mg/dL 74-106 [facility] Comment on above: Fasting Glucose resu lt greater than or equal to 126 mg/dL suggests DIABETES MELLITUS per A.D.A. criteria. Potassium [Moles/Vol] 4.1 mmol/L 3.5-5.1 [facility] Protein [Mass/Vol] 7.1 g/dL 6.4-8.2 [facility] Sodium [Moles/Vol] 140 mmol/L 136-145 [facility] Laboratory - Chemistry and C hemistry - challengeOrdered By: Lauryn Salazar on 05-27-2023 ALP [Catalytic activity/Vol] 72 U/L 45-117 [facility] ALT [Catalytic activity/Vol] 45 U/L 16-61 [facility] CO2 [Moles/Vol] 27.0 mmol/L 21.0-32.0 [facility] Globulin (S) [Mass/Vol] 3.3 g/dL 2.2-4.2 [facility] Urea nitrogen/Creatinine [Mass ratio] 21.9 mg/mg 10-20 [facility] No Panel InformationOrdered By: Lauryn Salazar on 05-27-2023 Estimated GFR (MDRD) Amer 65 mL/min >60 [facility] Comment on above: GFR Calc Estimated GFR (MDRD) Non-Af Amer 54 mL/min >60 [facility] Comment on above: Non- GFR Calc Serum or plasma albumin diane urement (mass/volume)Ordered By: Lauryn Salazar on 05-27-2023 Albumin [Mass/Vol] 3.8 g/dL 3.2-5.0 [facility] Serum or plasma albumin/glob ulin mass ratioOrdered By: Lauryn Salazar on 05-27-2023 Albumin/Globulin [Mass ratio] 1.2 {ratio} 0.9-2.4 [facility] Serum or plasma calcium diane urement (mass/volume)Ordered By: Lauryn Salazar on 05-27-2023 Calcium [Mass/Vol] 8.9 mg/dL 8.5-10.1 [facility] Serum or plasma creatinine m easurement (mass/volume)Ordered By: Lauryn Salazar on 05-27-2023 Creatinine [Mass/Vol] 1.37 mg/dL 0.70-1.30 [facility] Comment on above: The validity of the calculated GFR & GFRAA in patients over 70 years has not been determined. Clinical correlation is essential. Serum or plasma urea nitroge n measurement (mass/volume)Ordered By: Lauryn Salazar on 05-27-2023 Urea nitrogen [Mass/Vol] 30 mg/dL 7-18 [facility] Thin prep Papanicolaou smear with manual screeningOrdered By: Lauryn Salazar on 05-27-2023 Thin prep Papanicolaou smear with manual screening 30 U/L 15 [facility] Thin prep Papanicolaou smear with manual screening 6 5-15 [facility] HGB A1C (07470)Ordered By: S ystem Bed Teacher on 05-20-2023 HbA1c (Bld) [Mass fraction] 7.0 % Abnormal 4.8-5.6 [facility]; [facility] Work Phone: Comment on above: . Prediabetes: 5.7 - 6.4 Diabetes: >6.4 Glycemic control for adults with diabetes: <7.0 PATIENT NOT FASTINGP ERFORMED BY: SnappCloud6370 [facility] [id number] METABOLIC PANEL, BASIC ([id number])Ordered By: Waterworks Operator on 05-20-2023 Calcium [Mass/Vol] 10.3 mg/dL Abnormal 8.6-10.2 [facility]; [facility] Work Phone: Comment on above: was supposed to do i n dec 2022; PATIENT NOT FASTINGPERFORMED BY: [employer] [facility] [id number] Myshaadi.[facility]Nov[facility] [id number] Chloride [Moles/Vol] 104 mmol/L Normal 96-106 Comp rehensive [facility]; [facility] Work Phone: Comment on above: was supposed to do i n dec 2022; PATIENT NOT FASTINGPERFORMED BY: [employer] [facility] [id number] [facility]adi.[facility] [id number] CO2 [Moles/Vol] 22 mmol/L Normal 20-29 Comprehen sive [facility]; [facility] Work Phone: Comment on above: was supposed to do i n dec 2022; PATIENT NOT FASTINGPERFORMED BY: THA [facility] [id number] [facility]in [place] [id number] Creatinine [Mass/Vol] 1.30 mg/dL Abnormal 0.76-1.27 [facility] prehensive Internal Medicine; [facility] Work Phone: Comment on above: was supposed to do i n dec 2022; PATIENT NOT FASTINGPERFORMED BY: CB [facility] [id number] [facility] [id number] GFR/1.73 sq M.predicted among non-blacks MDRD (S/P/Bld) [Vol rate/Area] 58 mL/min/{1.73_m2} Abnormal Comprehensiv e [facility]; [facility] Work Phone: Comment on above: was supposed to do i n dec 2022; PATIENT NOT FASTINGPERFORMED BY: CB [facility] [id number] [facility] [id number] Glucose [Mass/Vol] 130 mg/dL Abnormal 70-99 [facility]; [facility] Work Phone: Comment on above: was supposed to do i n dec 2022; PATIENT NOT FASTINGPERFORMED BY: CB [facility] [id number] [facility] [id number] Potassium [Moles/Vol] 4.5 mmol/L Normal 3.5-5.2 [facility] prehensive Internal Medicine; [facility] Work Phone: Comment on above: was supposed to do i n dec 2022; PATIENT NOT FASTINGPERFORMED BY: CB [facility] [id number] [facility] [id number] Sodium [Moles/Vol] 140 mmol/L Normal 134-144 [facility]; [facility] Work Phone: Comment on above: was supposed to do i n dec 2022; PATIENT NOT FASTINGPERFORMED BY: CB [facility] [id number] [facility]in [place] [id number] Urea nitrogen [Mass/Vol] 35 mg/dL Abnormal 8-27 [facility]; [facility] Work Phone: Comment on above: was supposed to do i n dec 2022; PATIENT NOT FASTINGPERFORMED BY: CB [facility] [id number] [address] RoadFormerly [facility] [id number] Urea nitrogen/Creatinine [Mass ratio] 27 mg/mg Abnormal 08-27 [facility]; [facility] Work Phone: Comment on above: was supposed to do i n dec 2022; PATIENT NOT FASTINGPERFORMED BY: CB [facility] [id number] [facility] [id number] METABOLIC PANEL, BASIC (63785) 58 mL/min/1.73 Abnormal [facility]; [facility] Work Phone: Blood Glucose , Office ([phone])Ordered By: Urszula Cruz on 10-30-2022 Glucose Glucometer (BldC) [Moles/Vol] 154 1 Normal [facility]; [facility] Work Phone: CBC, PLATELETS & AUT DIFF (2 2062)Ordered By: Waterworks Operator on 10-30-2022 Basophils (Bld) [#/Vol] 0.1 10*3/uL Normal 0.0-0.2 [facility]; [facility] Work Phone: Comment on above: PATIENT WAS FASTINGP ERFORMED BY: CB [facility] [id number] [facility] [id number] Basophils/100 WBC (Bld) 1 % Normal [facility]; [facility] Work Phone: Comment on above: PATIENT WAS FASTINGP ERFORMED BY: CB [facility] [id number] [address] RoadFormerly [facility] [id number] Eosinophils (Bld) [#/Vol] 0.2 10*3/uL Normal 0.0-0.4 [facility]; [facility] Work Phone: Comment on above: PATIENT WAS FASTINGP ERFORMED BY: CB [facility] Ipcdlr9274 [address] RoadFormerly [facility] [id number] Eosinophils/100 WBC (Bld) 2 % Normal [facility]; [facility] Work Phone: Comment on above: PATIENT WAS FASTINGP ERFORMED BY: THA [facility] [id number] [address] RoadDublin [place] [id number] Erythrocyte distribution width (RBC) [Ratio] 12.6 % Normal 11.6-15.4 [facility]; [facility] Work Phone: Comment on above: PATIENT WAS FASTINGP ERFORMED BY: [facility] Eftllo2471 [address] RoadDublin [place] [id number] Hematocrit (Bld) [Volume fraction] 40.4 % Normal 37.5-51.0 [facility]; [facility] Work Phone: Comment on above: PATIENT WAS FASTINGP ERFORMED BY: [facility] [id number] [address] RoadDublin [place] [id number] Hemoglobin (Bld) [Mass/Vol] 14.1 g/dL Normal 13.0-17.7 [facility]; [facility] Work Phone: Comment on above: PATIENT WAS FASTINGP ERFORMED BY: [facility] [id number] [address] RoadDublin [place] [id number] Immature granulocytes (Bld) [#/Vol] 0.0 10*3/uL Normal 0.0-0.1 [facility]; [facility] Work Phone: Comment on above: PATIENT WAS FASTINGP ERFORMED BY: [facility] Ahsqgl0429 [address] RoadDublin [place] [id number] Immature granulocytes/100 WBC (Bld) 0 % Normal [facility]; [facility] Work Phone: Comment on above: PATIENT WAS FASTINGP ERFORMED BY: [facility] Bjnjch2452 [address] RoadDublin [place] [id number] Lymphocytes (Bld) [#/Vol] 2.4 10*3/uL Normal 0.7-3.1 [facility]; [facility] Work Phone: Comment on above: PATIENT WAS FASTINGP ERFORMED BY: [facility] Ftqgef5386 [address] RoadDublin [place] [id number] Lymphocytes/100 WBC (Bld) 34 % Normal [facility]; [facility] Work Phone: Comment on above: PATIENT WAS FASTINGP ERFORMED BY: CB [facility] Yikqgu7306 [address] RoadDublin [place] [id number] MCH (RBC) [Entitic mass] 31.1 pg Normal 26.6-33.0 [facility]; [facility] Work Phone: Comment on above: PATIENT WAS FASTINGP ERFORMED BY: CB [facility] Gndiuf4574 [address] RoadDublin [place] [id number] MCHC (RBC) [Mass/Vol] 34.9 g/dL Normal 31.5-35.7 [facility] prehensive Internal Medicine; [facility] Work Phone: Comment on above: PATIENT WAS FASTINGP ERFORMED BY: CB [facility] Umxziq5523 [address] RoadDublin [place] [id number] MCV (RBC) [Entitic vol] 89 fL Normal 79-97 [facility]; [facility] Work Phone: Comment on above: PATIENT WAS FASTINGP ERFORMED BY: CB [facility] Fmmkyd6366 [address] RoadDublin [place] [id number] Monocytes (Bld) [#/Vol] 0.5 10*3/uL Normal 0.1-0.9 [facility]; [facility] Work Phone: Comment on above: PATIENT WAS FASTINGP ERFORMED BY: CB [facility] Pvmzdc2550 [address] RoadDublin [place] [id number] Monocytes/100 WBC (Bld) 7 % Normal [facility]; [facility] Work Phone: Comment on above: PATIENT WAS FASTINGP ERFORMED BY: CB [facility] Iqnekc2658 [address] RoadDublin [place] [id number] Neutrophils (Bld) [#/Vol] 4.0 10*3/uL Normal 1.4-7.0 [facility]; [facility] Work Phone: Comment on above: PATIENT WAS FASTINGP ERFORMED BY: CB [facility] Dyjvad9972 [address] RoadDublin [place] [id number] Neutrophils/100 WBC (Bld) 56 % Normal [facility]; [facility] Work Phone: Comment on above: PATIENT WAS FASTINGP ERFORMED BY: THA Labailyn EatonXtkxgd6366 [address] RoadBetsy Johnson [facility] Hospitalin [place] [id number] Platelets (Bld) [#/Vol] 241 10*3/uL Normal 150-450 [facility]; [facility] Work Phone: Comment on above: PATIENT WAS FASTINGP ERFORMED BY: THA Labco[facility]win Xmwzor[address] [facility] [id number] RBC (Bld) [#/Vol] 4.54 10*6/uL Normal 4.14-5.80 [facility]; [facility] Work Phone: Comment on above: PATIENT WAS FASTINGP ERFORMED BY: THA Melendez Nicisd[address] [facility] [id number] WBC (Bld) [#/Vol] 7.2 10*3/uL Normal 3.4-10.8 [facility]; [facility] Work Phone: Comment on above: PATIENT WAS FASTINGP ERFORMED BY: THA Melendez Cizimc8201 [facility] [id number] HgA1C , Office ([id number])Ordere d By: Urszula Cruz on 10-30-2022 HbA1c (Bld) [Mass fraction] 7.8 % Abnormal 4.6 - 7.1 [facility]; [facility] Work Phone: LIPID PANEL ([id number])Ordered B y: Waterworks Operator on 10-30-2022 Cholesterol [Mass/Vol] 198 mg/dL Normal 100-199 [facility]; [facility] Work Phone: Comment on above: PATIENT WAS FASTINGP ERFORMED BY: THA Labailyn Beifgx6052 [facility]in [place] [id number] Cholesterol in HDL [Mass/Vol] 40 mg/dL Normal [facility]; [facility] Work Phone: Comment on above: PATIENT WAS FASTINGP ERFORMED BY: THA Melendez Pqoydm2809 [facility] [id number] Triglyceride [Mass/Vol] 197 mg/dL Abnormal 0-149 [facility]; [facility] Work Phone: Comment on above: PATIENT WAS FASTINGP ERFORMED BY: THA Francesailyn EatonAtebwf3288 [facility] [id number] LIPID PANEL (18468) 35 mg/dL Normal 5-40 [facility]; [facility] Work Phone: Comment on above: PATIENT WAS FASTINGP ERFORMED BY: THA Francesariel Ftvryv5741 [facility] [id number] LIPID PANEL (12648) 123 mg/dL Abnormal 0-99 [facility]; [facility] Work Phone: Comment on above: PATIENT WAS FASTINGP ERFORMED BY: THA Eatonlin6370 [facility] [id number] LIPID PANEL (42529) 3.1 {ratio} Normal 0.0-3.6 [facility]; [facility] Work Phone: Comment on above: LDL/HDL Ratio Men Wo men 1/2 Avg.Risk 1.0 1.5 Avg.Risk 3.6 3.2 2X Avg.Risk 6.2 5.0 3X Avg.Risk 8.0 6.1 PATIENT WAS FASTINGP ERFORMED BY: THA Eatonlin6370 [facility] [id number] METABOLIC PANEL, COMPREHENSI VE ([id number])Ordered By: Waterworks Operator on 10-30-2022 Albumin [Mass/Vol] 4.4 g/dL Normal 3.7-4.7 [facility]; [facility] Work Phone: Comment on above: PATIENT WAS FASTINGP ERFORMED BY: THA Eatonlin6370 [facility] [id number] Albumin/Globulin [Mass ratio] 1.6 {ratio} Normal 1.2-2.2 [facility]; [facility] Work Phone: Comment on above: PATIENT WAS FASTINGP ERFORMED BY: THA Melendez Yqkoxi7106 [address] RoadD[address] [place] [id number] ALP [Catalytic activity/Vol] 62 U/L Normal 44-121 [facility]; [facility] Work Phone: Comment on above: PATIENT WAS FASTINGP ERFORMED BY: THA Labariel Exgjop3840 [address] RoadDublin [place] [id number] ALT [Catalytic activity/Vol] 29 U/L Normal 0-44 [facility]; [facility] Work Phone: Comment on above: PATIENT WAS FASTINGP ERFORMED BY: THA [facility] Mhivrc1109 [address] RoadD[address] [place] [id number] AST [Catalytic activity/Vol] 33 U/L Normal 0-40 [facility]; [facility] Work Phone: Comment on above: PATIENT WAS FASTINGP ERFORMED BY: THA Danielsssm [facility] Xifmiw4798 [address] RoadD[address] [place] [id number] Bilirubin [Mass/Vol] 0.6 mg/dL Normal 0.0-1.2 Comp rehensive [facility]; [facility] Work Phone: Comment on above: PATIENT WAS FASTINGP ERFORMED BY: THA Danielsssm [facility] Qtmpov0477 [address] RoadDublin [place] [id number] Calcium [Mass/Vol] 10.4 mg/dL Abnormal 8.6-10.2 [facility]; [facility] Work Phone: Comment on above: PATIENT WAS FASTINGP ERFORMED BY: Lab[facility] Uufpvm3698 [address] RoadDublin [place] [id number] Chloride [Moles/Vol] 101 mmol/L Normal 96-106 Comp rehensive [facility]; [facility] Work Phone: Comment on above: PATIENT WAS FASTINGP ERFORMED BY: THA [facility] Dwryqp4167 [address] RoadD[address] [place] [id number] CO2 [Moles/Vol] 24 mmol/L Normal 20-29 [facility]; [facility] Work Phone: Comment on above: PATIENT WAS FASTINGP ERFORMED BY: THA [facility] Kbcise2007 [facility] [id number] Creatinine [Mass/Vol] 0.98 mg/dL Normal 0.76-1.27 [facility] prehensive Internal Medicine; [facility] Work Phone: Comment on above: PATIENT WAS FASTINGP ERFORMED BY: THA [facility] Amhjgd3969 [facility] [id number] GFR/1.73 sq M.predicted among non-blacks MDRD (S/P/Bld) [Vol rate/Area] 81 mL/min/{1.73_m2} Normal Comprehensiv e [facility]; [facility] Work Phone: Comment on above: PATIENT WAS FASTINGP ERFORMED BY: THA [facility] Obvsxj5956 [facility] [id number] Globulin (S) [Mass/Vol] 2.8 g/dL Normal 1.5-4.5 [facility]; [facility] Work Phone: Comment on above: PATIENT WAS FASTINGP ERFORMED BY: [facility] [id number] [facility] [id number] Glucose [Mass/Vol] 139 mg/dL Abnormal 70-99 [facility]; [facility] Work Phone: Comment on above: PATIENT WAS FASTINGP ERFORMED BY: [facility] Sgawnj2182 [facility] [id number] Potassium [Moles/Vol] 4.7 mmol/L Normal 3.5-5.2 [facility] prehensive Internal Medicine; [facility] Internal Medicine Work Phone: Comment on above: PATIENT WAS FASTINGP ERFORMED BY: [facility] Gcagst5379 [facility] [place] [id number] Protein [Mass/Vol] 7.2 g/dL Normal 6.0-8.5 [facility] Internal Medicine; [facility] Internal Medicine Work Phone: Comment on above: PATIENT WAS FASTINGP ERFORMED BY: [facility] Ndwauj8700 [facility] [place] [id number] Sodium [Moles/Vol] 139 mmol/L Normal 134-144 Compre hensive Internal Medicine; [facility] Work Phone: Comment on above: PATIENT WAS FASTINGP ERFORMED BY: THA [facility] Fgmzmi4497 Tate RoadDublin [place] [id number] Urea nitrogen [Mass/Vol] 24 mg/dL Normal 8-27 [facility]; [facility] Work Phone: Comment on above: PATIENT WAS FASTINGP ERFORMED BY: CB [facility] Qftzuu3936 Tate RoadDublin [place] [id number] Urea nitrogen/Creatinine [Mass ratio] 24 mg/mg Normal 10-24 [facility]; [facility] Work Phone: Comment on above: PATIENT WAS FASTINGP ERFORMED BY: THA [facility] Qdvdxe4934 Tate RoadDublin [place] [id number] METABOLIC PANEL, COMPREHENSIVE ([id number]) 81 mL/min/1.73 Normal Comprehens jeremias Internal Medicine; [facility] Work Phone: MICROALB;CREAT RATION, RAND UR ([id number])Ordered By: Waterworks Operator on 10-30-2022 Albumin DL <= 20 mg/L (U) [Mass/Vol] 12.7 ug/mL Normal [facility]; [facility] Work Phone: Comment on above: PATIENT WAS FASTINGP ERFORMED BY: THA [facility] Chewhi4[address] RoadDublin [place] [id number] Albumin/Creatinine (U) [Mass ratio] 14 {mg/g_creat} Normal 0-29 [facility]; [facility] Work Phone: Comment on above: Normal: 0 - 29 Moder ately increased: 30 - 300 Severely increased: >300 PATIENT WAS FASTINGP ERFORMED BY: THA [facility] Hqglay4003 Tate RoadDublin [place] [id number] Creatinine (U) [Mass/Vol] 87.7 mg/dL Normal [facility]; [facility] Work Phone: Comment on above: PATIENT WAS FASTINGP ERFORMED BY: THA [facility] Jrsjvb4608 Tate RoadDublin [place] [id number] PSA (PROSTATE SPECIFIC ANTIG EN) ([id number])Ordered By: Waterworks Operator on 10-30-2022 Prostate specific Ag [Mass/Vol] 0.7 ng/mL Normal 0.0-4.0 [facility]; [facility] Work Phone: Comment on above: Maritza ECLIA methodol ogy. .According to the [place] [employer], Serum PSA shoulddecrease and remain at undetectable levels after radicalprostatectomy. The AUA defines biochemical recurrence as an initialPSA value 0.2 ng/mL or greater followed by a subsequent confirmatoryPSA value 0.2 ng/mL or greater.Values obtained with different assay methods or kits cannot be usedinterchangeably. Results cannot be interpreted as absolute evidenceof the presence or absence of malignant disease. PATIENT WAS FASTINGP ERFORMED BY: CB [facility] Smnmap5549 Tate RoadDublin [place] [id number] URINALYSIS, W/ MICRO ([id number]) Ordered By: Waterworks Operator on 10-30-2022 Appearance (U) Clear Normal Comprehens jeremias Internal Medicine; [facility] Work Phone: Comment on above: PATIENT WAS FASTINGP ERFORMED BY: CB [facility] Xkeqhp9863 Tate RoadDublin [place] [id number] Bilirubin Ql (U) Negative Normal Comprehe nsive Internal Medicine; [facility] Work Phone: Comment on above: PATIENT WAS FASTINGP ERFORMED BY: CB [facility] Dvswxd5309 Tate RoadDublin [place] [id number] Color (U) Yellow Normal [facility]; [facility] Work Phone: Comment on above: PATIENT WAS FASTINGP ERFORMED BY: CB [facility] Cdvzad7182 Tate RoadDublin [place] [id number] Glucose Ql (U) Negative Normal Comprehens jeremias Internal Medicine; [facility] Work Phone: Comment on above: PATIENT WAS FASTINGP ERFORMED BY: CB [facility] Cthrat4107 [address] RoadDublin [place] [id number] Hemoglobin Ql (U) Negative Normal Compreh ensive Internal Medicine; [facility] Work Phone: Comment on above: PATIENT WAS FASTINGP ERFORMED BY: THA Eatonlin6[address] RoadDublin [place] [id number] Ketones Ql (U) Negative Normal Comprehens jeremias Internal Medicine; [facility] Work Phone: Comment on above: PATIENT WAS FASTINGP ERFORMED BY: THA Eatonlin6370 [address] RoadDublin [place] [id number] Leukocyte esterase Test strip Ql (U) Negative Normal [facility]; [facility] Work Phone: Comment on above: PATIENT WAS FASTINGP ERFORMED BY: THA Eatonlin6370 [address] RoadDublin [place] [id number] Microscopic observation LM Nom (Urine sed) MICRON Normal [facility]; [facility] Work Phone: Comment on above: Microscopic follows if indicated. PATIENT WAS FASTINGP ERFORMED BY: THA Eatonlin6370 [address] RoadDublin [place] [id number] Microscopic observation LM Nom (Urine sed) See below: Normal [facility]; [facility] Work Phone: Comment on above: Microscopic was ojny cated and was performed. PATIENT WAS FASTINGP ERFORMED BY: THA Eatonlin6[address] RoadD[address] [place] [id number] Nitrite Ql (U) Negative Normal Comprehens jeremias Internal Medicine; [facility] Work Phone: Comment on above: PATIENT WAS FASTINGP ERFORMED BY: THA Eatonlin6[address] [place] [id number] pH (U) 6.0 [pH] Normal 5.0-7.5 [facility]; [facility] Work Phone: Comment on above: PATIENT WAS FASTINGP ERFORMED BY: THA Labailyn EatonPseasy0427 [address] RoadDublin [place] [id number] Protein Ql (U) Negative Normal Comprehens jeremias Internal Medicine; [facility] Work Phone: Comment on above: PATIENT WAS FASTINGP ERFORMED BY: THA Labailyn EatonSkmjyd2660 [address] RoadDublin [place] [id number] Specific gravity (U) [Rel density] 1.019 1 Normal 1.005-1.030 [facility]; [facility] Work Phone: Comment on above: PATIENT WAS FASTINGP ERFORMED BY: [facility]coRar[facility] CenterHdpcze8341 [facility] [id number] Urobilinogen (U) [Mass/Vol] 0.2 mg/dL Normal 0.2-1.0 [facility]; [facility] Work Phone: Comment on above: PATIENT WAS FASTINGP ERFORMED BY: LabcoRaritan [facility] Medical CenterSamrdj2727 [facility] [id number] POCT SARS-COV-2 PCR-NASOPHAR YNGEALon 06-06-2022 SARS-CoV-2 (COVID-19) RdRp gene JOSE M+probe Ql (Resp) Detected Abnormal NOT DETECTED [facility] POCT URINE DIPSTICK NON-AUTO MATEDon 06-06-2022 Amorphous sediment LM Ql (Urine sed) [facility] Appearance (U) dark [facility] Bacteria LM Ql (Urine sed) [facility] Bilirubin Ql (U) - [facility] Casts LM.LPF (Urine sed) [#/Area] [facility] Color (U) orange [facility] Crystals LM Nom (Urine sed) [facility] Epithelial cells.squamous LM.HPF (Urine sed) [#/Area] [facility] Flow cytometry specialist review Chandana (Unsp spec) [Interp] [facility] Glucose Auto test strip (U) [Mass/Vol] - mg/dL [facility] Ketones [Mass/Vol] - mg/dL [facility] Leukocyte esterase Qn (U) [facility] Leukocyte esterase Test strip Ql (U) - [facility] Microscopic observation Gram stain Nom (Bronch spec) [facility] Nitrite Ql (U) - [facility] pH (U) 5.0 [pH] [facility] Protein Ql (U) 1+ mg/dL [facility] RBC LM.HPF (Urine sed) [#/Area] [facility] RBC Ql (U) - [facility] Specific gravity (U) [Rel density] 1.030 [facility] Transitional cells LM Ql (Urine sed) [facility] Urobilinogen Qn (U) - [facility] WBC LM.HPF (Urine sed) [#/Area] [facility] SARS-CoV-2 (COVID-19) RdRp g elenita JOSE M+probe Ql (Resp)on 06-06-2022 Interpretation and review of laboratory results Abnormal [facility] Blood Glucose , Office ([phone])Ordered By: Abdulaziz Solis on 05-15-2021 Glucose Glucometer (BldC) [Moles/Vol] 137 1 Normal [facility]; [facility] Work Phone: HgA1C , Office ([phone])Ordere d By: Abdulaziz Solis on 05-15-2021 HbA1c (Bld) [Mass fraction] 6.5 % Normal 4.6 - 7.1 [facility]; [facility] Work Phone: Comment on above: 6.5 Blood Glucose , Office ([phone])Ordered By: Abdulaziz Solis on 03-20-2021 Glucose Glucometer (BldC) [Moles/Vol] 168 1 Normal [facility]; [facility] Work Phone: HgA1C , Office ([phone])Ordere d By: Abdulaziz Solis on 03-20-2021 HbA1c (Bld) [Mass fraction] 7.3 % Abnormal 4.6 - 7.1 [facility]; [facility] Work Phone: Blood Glucose , Office ([phone])Ordered By: Abdulaziz Solis on 09-12-2020 Glucose Glucometer (BldC) [Moles/Vol] 185 1 Normal [facility] Work Phone: Comment on above: nonfasting HgA1C , Office ([phone])Ordere d By: Abdulaziz Solis on 09-12-2020 HbA1c (Bld) [Mass fraction] 6.5 % Normal 4.6 - 7.1 [facility] Work Phone: Blood Glucose , Office ([phone])Ordered By: Abdulaziz Ackerman on 06-29-2019 Glucose Glucometer (BldC) [Moles/Vol] 125 1 Normal [facility] Work Phone: HgA1C , Office ([phone])Ordere d By: Abudlaziz Ackerman on 06-29-2019 HbA1c (Bld) [Mass fraction] 6.4 % Normal 4.6 - 7.1 [facility] Work Phone: Blood Glucose , Office ([phone])Ordered By: Abdulaziz Ackerman on 03-09-2019 Glucose Glucometer molar conc (BldC) 150 1 Normal [facility] Work Phone: HgA1C , Office ([phone])Ordere d By: Abdulaziz Ackerman on 03-09-2019 Hemoglobin A1c/Hemoglobin.total mass fraction (Bld) 6.5 % Normal 4.6 - 7.1 Comprehensiv e Internal Medicine Work Phone: Vitamin D,25 HydroxyOrdered By: Waterworks Operator on 01-24-2019 Vitamin D,25 Hydroxy 31.8 ng/mL Normal 29.95-1 00.0 1 [facility] Work Phone: Comment on above: Vitamin D 25(OH) Sta tus Range Deficiency <20 ng/mL (50nmol/L) Insufficiency 20 - 30 ng/mL (50 - 75 nmol/L) Sufficiency 30 - 100 ng/mL (75 - 250 nmol/L) Toxicity >100 ng/mL (>250 nmol/L) [facility] [address] [place], [place], [phone] Blood Glucose , Office ([phone])Ordered By: Zahraa Kramer on 09-29-2018 Glucose Glucometer molar conc (BldC) 102 1 Normal [facility] Work Phone: Comment on above: 102 HgA1C , Office ([phone])Ordere d By: Zahraa Kramer on 09-29-2018 Hemoglobin A1c/Hemoglobin.total mass fraction (Bld) 6.4 % Normal 4.6 - 7.1 Comprehensiv e Internal Medicine Work Phone: Comment on above: 6.45 CBC W/Diff, AutomatedOrdered By: Waterworks Operator on 09-23-2018 Absolute Neut 4.0 {X10_3/uL} Normal 2.0-7.7 Compreh ensive Internal Medicine Work Phone: Comment on above: [facility] [address] [place], [address] Basophils/100 WBC (Bld) 0.6 % Normal 0-1 [facility] Work Phone: Comment on above: [facility] [address] [place], [address] Basophils/100 WBC Auto (Bld) 0.6 % Normal 0-1 [facility] Work Phone: Eosinophils/100 WBC (Bld) 2.4 % Normal 0-5 [facility] Work Phone: Comment on above: [place] [address] [place], [address] Eosinophils/100 WBC Auto (Bld) 2.4 % Normal 0-5 [facility] Work Phone: Erythrocyte distribution width (RBC) [Ratio] 13.0 % Normal 11.6-14.6 [facility] Work Phone: Comment on above: [place] [address] [place], [address] Erythrocyte distribution width Auto Ratio (RBC) 13.0 % Normal 11.6-14.6 [facility] Work Phone: Hematocrit (Bld) [Volume fraction] 45.5 % Normal 40-54 [facility] Work Phone: Comment on above: [place] [address] [place], [address] Hematocrit Auto Volume Fraction (Bld) 45.5 % Normal 40-54 [facility] Work Phone: Hemoglobin mass conc (Bld) 15.4 g/dL Normal 13.0-16.5 [facility] Work Phone: Comment on above: [place] [address] [place], [address] IM GRAN % 0.100 % Normal 0.0-0.9 [facility] Work Phone: Comment on above: IG% - Immature Granu locytes (promyelocytes, myelocytes andmetamyelocytes) > 1% indicates that a LEFT SHIFT is Present. [facility] [address] [place], [address] Lymphocytes (Bld) [#/Vol] 2.42 {X10_3/ul} Normal 0.83-4.51 [facility] Work Phone: Comment on above: [facility] [address] [place], [address] Lymphocytes Auto #/vol (Bld) 2.42 {X10_3/ul} Normal 0.83-4.51 [facility] Work Phone: Lymphocytes/100 WBC (Bld) 33.5 % Normal 19-41 [facility] Work Phone: Comment on above: [place] [address] [place], [address] Lymphocytes/100 WBC Auto (Bld) 33.5 % Normal 19-41 [facility] Work Phone: MCH (RBC) [Entitic mass] 30.8 pg Normal 27.0-32.0 [facility] Work Phone: Comment on above: [facility] [address] [place], [address] MCH Auto Entitic mass (RBC) 30.8 pg Normal 27.0-32.0 [facility] Work Phone: MCHC (RBC) [Mass/Vol] 33.8 {g/gl} Normal 32-36 [facility] Internal Medicine Work Phone: Comment on above: [facility] [address] [place], [address] MCHC Auto mass conc (RBC) 33.8 {g/gl} Normal 32-36 [facility] Work Phone: MCV (RBC) [Entitic vol] 91.0 fL Normal 80-94 [facility] Work Phone: Comment on above: [facility] [address] [place], [place], [phone] MCV Auto Entitic volume (RBC) 91.0 fL Normal 80-94 [facility] Work Phone: Monocytes/100 WBC Auto (Bld) 8.6 % Normal 0-10 [facility] Work Phone: Comment on above: [facility] [address] [place], [address] Neutrophils/100 WBC (Bld) 54.8 % Normal 47-70 [facility] Work Phone: Comment on above: [facility] [address] [place], [address] Neutrophils/100 WBC Auto (Bld) 54.8 % Normal 47-70 [facility] Work Phone: Platelet mean volume (Bld) [Entitic vol] 9.7 fL Normal 6.2-12.0 [facility] Work Phone: Comment on above: [facility] [address] [place], [address] Platelet mean volume Auto Entitic volume (Bld) 9.7 fL Normal 6.2-12.0 [facility] Work Phone: Platelets (Bld) [#/Vol] 246 10*3/uL Normal 150-450 [facility] Work Phone: Comment on above: [facility] [address] [place], [address] Platelets Auto #/vol (Bld) 246 10*3/uL Normal 150-450 [facility] Work Phone: RBC (Bld) [#/Vol] 5.00 {M/mm3} Normal 4.6-6.2 [facility] Internal Medicine Work Phone: Comment on above: [facility] [address] [place], [place], [id number] RBC Auto #/vol (Bld) 5.00 {M/mm3} Normal 4.6-6.2 Co mprehensive Internal Medicine Work Phone: RDW SD 42.7 fL Normal 35.1-43.9 [facility] Work Phone: Comment on above: [facility] [address] [place], [address] WBC (Bld) [#/Vol] 7.2 10*3/uL Normal 4.4-11.0 Compre [facility] Internal Medicine Work Phone: Comment on above: [facility] [address] [place], [address] WBC Auto #/vol (Bld) 7.2 10*3/uL Normal 4.4-11.0 [facility] prehensive Internal Medicine Work Phone: Comprehensive Metabolic Prof ilOrdered By: Waterworks Operator on 09-23-2018 Comprehensive metabolic 2000 panel 139 mmol/L Normal 136-145 Comprehensi ve Internal Medicine Work Phone: Comment on above: [facility] [address] [place], [address] Comprehensive metabolic 2000 panel 29 U/L Normal 15-37 Comprehensi ve Internal Medicine Work Phone: Comment on above: [facility] [address] [place], [address] Comprehensive metabolic 2000 panel 110 mg/dL Abnormal 74-106 Comprehensi ve Internal Medicine Work Phone: Comment on above: Fasting Glucose resu lt from 100 to 125 mg/dLsuggests IMPAIRED HOMEOSTASIS per A.D.A. criteria.Please note revised GLUCOSE reference range sbdlydyov40/02/2018. [facility] [address] [place], [address] Comprehensive metabolic 2000 panel 24 mg/dL Abnormal 7-18 Comprehensi ve Internal Medicine Work Phone: Comment on above: [facility] [address] [place], [address] Comprehensive metabolic 2000 panel 9 1 Normal 5-15 Comprehensi ve Internal Medicine Work Phone: Comment on above: [facility] spital [address] [place], [address] Comprehensive metabolic 2000 panel 27.0 mmol/L Normal 21.0-32.0 Comprehensi ve Internal Medicine Work Phone: Comment on above: [facility] [address] [place], [place], [phone] Comprehensive metabolic 2000 panel 3.7 g/dL Normal 3.2-5.0 Comprehensi ve Internal Medicine Work Phone: Comment on above: [facility] [address] [place], [place], [address] Comprehensive metabolic 2000 panel 59 U/L Normal 45-117 Comprehensi ve Internal Medicine Work Phone: Comment on above: [facility] [address] [place], [place], [phone] Comprehensive metabolic 2000 panel 8.1 g/dL Normal 6.4-8.2 Comprehensi ve Internal Medicine Work Phone: Comment on above: [facility] [address] [place], [place], [phone] Comprehensive metabolic 2000 panel 24.3 {RATIO} Abnormal 10-20 Comprehensi ve Internal Medicine Work Phone: Comment on above: [facility] [address] [place], [place], [address] Comprehensive metabolic 2000 panel 96 mL/min Normal Comprehensi ve Internal Medicine Work Phone: Comment on above: GFR Calc [facility] [address] [place], [place], [address] Comprehensive metabolic 2000 panel 4.4 g/dL Abnormal 2.2-4.2 Comprehensi ve Internal Medicine Work Phone: Comment on above: [facility] [address] [place], [place], [phone] Comprehensive metabolic 2000 panel 38 U/L Normal 16-61 Comprehensi ve Internal Medicine Work Phone: Comment on above: [facility] [address] [place], [place], [address] Comprehensive metabolic 2000 panel 0.70 mg/dL Normal 0.20-1.00 Comprehensi ve Internal Medicine Work Phone: Comment on above: [facility] [address] [place], [place], [address] Comprehensive metabolic 2000 panel 79 mL/min Normal Comprehensi ve Internal Medicine Work Phone: Comment on above: Non- GFR Calc [facility] [address] [place], [place], [address] Comprehensive metabolic 2000 panel 103 mmol/L Normal 98-107 Comprehensi ve Internal Medicine Work Phone: Comment on above: [facility] [address] [place], [place], [address] Comprehensive metabolic 2000 panel 0.8 {RATIO} Abnormal 0.9-2.4 Comprehensi ve Internal Medicine Work Phone: Comment on above: [facility] [address] [place], [place], [address] Comprehensive metabolic 2000 panel 0.99 mg/dL Normal 0.70-1.30 Comprehensi ve Internal Medicine Work Phone: Comment on above: The validity of the calculated GFR AND GFRAA in patients over70 years has not been determined. Clinical correlation isessential. [facility] [address] [place], [place], [id number] Comprehensive metabolic 2000 panel 4.0 mmol/L Normal 3.5-5.1 Comprehensi ve Internal Medicine Work Phone: Comment on above: [facility] [address] [place], [place], [address] Comprehensive metabolic 2000 panel 9.4 mg/dL Normal 8.5-10.1 Comprehensi Internal Medicine Work Phone: Comment on above: [facility] [address] [place], [place], [phone] Lipid ProfileOrdered By: Abdirahman tem Bed Teacher on 09-23-2018 Cholesterol in HDL mass conc 47 mg/dL Normal [facility] Work Phone: Comment on above: The drugs N-Acetylcy steine and Metamizole may falselydepress this assay. Reference Range HDL <40 mg/dL Low HDL Cholesterol HDL >or= 60 mg/dL High HDL Cholesterol [facility] [address] [place], [place], [address] Cholesterol in LDL [Mass/Vol] 107 mg/dL Normal 0-130 [facility] Work Phone: Comment on above: [facility] [address] [place], [place], [address] Cholesterol in LDL mass conc 107 mg/dL Normal 0-130 [facility] Work Phone: Cholesterol in VLDL mass conc 31 mg/dL Normal 5-40 [facility] Work Phone: Comment on above: [facility] [address] [place], [place], [address] Cholesterol mass conc 185 mg/dL Normal Com prehensive Internal Medicine Work Phone: Comment on above: <200 mg/dL Desirable 200-240 mg/dL Borderline >240 mg/dL High Risk [facility] [address] [place], [place], [address] Triglyceride mass conc 156 mg/dL Normal Co mprehensive Internal Medicine Work Phone: Comment on above: The drugs N-Acetylcy steine and Metamizole may falselydepress this assay.Serum Triglycerides Reference Interval Normal <150 mg/dL Borderline high 150 - 199 mg/dL High 200 - 499 mg/dL Very High > or = 500 mg/dL [facility] [address] [place], [address] Lipid Profile 31 mg/dL Normal 5-40 Comprehensi Internal Medicine Work Phone: Comment on above: [facility] [address] [place], [address] Thyroid Stim Hormone (TSH)Or dered By: Waterworks Operator on 09-23-2018 Thyrotropin Qn 2.12 {uIU/mL} Normal 0.358-3.74 Compreh ensive Internal Medicine Work Phone: Comment on above: [facility] [address] [place], [address] Vitamin D,25 HydroxyOrdered By: Waterworks Operator on 09-23-2018 Vitamin D 25-OH 27.0 ng/mL Abnormal 29.95-100.0 1 [facility] Work Phone: Comment on above: Vitamin D 25(OH) Sta tus Range Deficiency <20 ng/mL (50nmol/L) Insuffciency 20 - 30 ng/mL (50 - 75 nmol/L) Sufficiency 30 - 100 ng/mL (75 - 250 nmol/L) Toxicity >100 ng/mL (>250 nmol/L) Vitamin D,25 Hydroxy 27.0 ng/mL Abnormal 29.95-1 00.0 1 [facility] Work Phone: Comment on above: Vitamin D 25(OH) Sta tus Range Deficiency <20 ng/mL (50nmol/L) Insuffciency 20 - 30 ng/mL (50 - 75 nmol/L) Sufficiency 30 - 100 ng/mL (75 - 250 nmol/L) Toxicity >100 ng/mL (>250 nmol/L) [facility] [address] [place], [id number] Blood Glucose , Office ([phone])Ordered By: Urszula Cruz on 05-26-2018 Glucose Glucometer molar conc (BldC) 111 1 Normal [facility] Work Phone: HgA1C , Office ([phone])Ordere d By: Urszula Cruz on 05-26-2018 Hemoglobin A1c/Hemoglobin.total mass fraction (Bld) 6.2 % Normal 4.6 - 7.1 Comprehensiv e Internal Medicine Work Phone: Comment on above: 6.2 PSA (PROSTATE SPECIFIC ANTIG EN) (V76.44)Ordered By: Waterworks Operator on 05-26-2018 Prostate specific Ag mass conc 0.7 ng/mL Normal 0.0-4.0 [facility] Work Phone: Comment on above: [place] ECLIA methodol ogy. .According to the [place] [employer], Serum PSA shoulddecrease and remain at undetectable levels after radicalprostatectomy. The AUA defines biochemical recurrence as an initialPSA value 0.2 ng/mL or greater followed by a subsequent confirmatoryPSA value 0.2 ng/mL or greater.Values obtained with different assay methods or kits cannot be usedinterchangeably. Results cannot be interpreted as absolute evidenceof the presence or absence of malignant disease. PATIENT NOT FASTINGP ERFORMED BY: [facility] Bsokof5736 [facility] [id number] CBC W/Diff, AutomatedOrdered By: Waterworks Operator on 12-23-2017 Absolute Lymph 2.08 {X10_3/ul} Normal 0.83-4.51 Compr ehensive Internal Medicine Work Phone: Absolute Neut 4.0 {X10_3/uL} Normal 2.0-7.7 Compreh ensive Internal Medicine Work Phone: Comment on above: [facility] [address] [place], [address] ; OV 2/26 Basophils/100 WBC (Bld) 0.9 % Normal 0-1 [facility] Work Phone: Comment on above: [facility] [address] [place], [address] ; OV 2/26 Basophils/100 WBC Auto (Bld) 0.9 % Normal 0-1 [facility] Work Phone: Eosinophils/100 WBC (Bld) 2.1 % Normal 0-5 [facility] Work Phone: Comment on above: [facility] [address] [place], [place], [phone] ; OV 2/26 Eosinophils/100 WBC Auto (Bld) 2.1 % Normal 0-5 [facility] Work Phone: Erythrocyte distribution width (RBC) [Ratio] 13.0 % Normal 11.6-14.6 [facility] Work Phone: Comment on above: [facility] [address] [place], [address] ; OV 2/ Erythrocyte distribution width Auto Ratio (RBC) 13.0 % Normal 11.6-14.6 [facility] Work Phone: Hematocrit (Bld) [Volume fraction] 40.7 % Normal 40-54 [facility] Work Phone: Comment on above: [facility] [address] [place], [place], [phone] ; OV 2/ Hematocrit Auto Volume Fraction (Bld) 40.7 % Normal 40-54 [facility] Work Phone: Hemoglobin mass conc (Bld) 13.8 g/dL Normal 13.0-16.5 [facility] Work Phone: Comment on above: [place] [address] [place], [place], [address] ; OV 2/26 IM GRAN % 0.100 % Normal 0.0-0.9 [facility] Work Phone: Comment on above: IG% - Immature Granu locytes (promyelocytes, myelocytes andmetamyelocytes) > 1% indicates that a LEFT SHIFT is Present. [facility] [address] [place], [place], [phone] ; OV 2/ Lymphocytes (Bld) [#/Vol] 2.08 {X10_3/ul} Normal 0.83-4.51 [facility] Work Phone: Comment on above: [facility] [address] [place], [place], [phone] ; OV 2 Lymphocytes Auto #/vol (Bld) 2.08 {X10_3/ul} Normal 0.83-4.51 [facility] Work Phone: Lymphocytes/100 WBC (Bld) 30.9 % Normal 19-41 [facility] Work Phone: Comment on above: [facility] [address] [place], [address] ; OV 2 Lymphocytes/100 WBC Auto (Bld) 30.9 % Normal 19-41 [facility] Work Phone: MCH (RBC) [Entitic mass] 30.5 pg Normal 27.0-32.0 [facility] Work Phone: Comment on above: [facility] [address] [place], [place], [phone] ; OV 2/ MCH Auto Entitic mass (RBC) 30.5 pg Normal 27.0-32.0 [facility] Work Phone: MCHC (RBC) [Mass/Vol] 33.9 {g/gl} Normal 32-36 [facility] Internal Medicine Work Phone: Comment on above: [facility] [address] [place], [place], [address] ; OV 2/ MCHC Auto mass conc (RBC) 33.9 {g/gl} Normal 32-36 [facility] Work Phone: MCV (RBC) [Entitic vol] 89.8 fL Normal 80-94 [facility] Work Phone: Comment on above: [facility] [address] [place], [address] ; OV 2/26 MCV Auto Entitic volume (RBC) 89.8 fL Normal 80-94 [facility] Work Phone: Monocytes/100 WBC Auto (Bld) 7.0 % Normal 0-10 [facility] Work Phone: Comment on above: [facility] [address] [place], [place], [address] ; OV 2/26 Neutrophils/100 WBC (Bld) 59.0 % Normal 47-70 [facility] Work Phone: Comment on above: [facility] [address] [place], [place], [address] ; OV 2/26 Neutrophils/100 WBC Auto (Bld) 59.0 % Normal 47-70 [facility] Work Phone: Platelet mean volume (Bld) [Entitic vol] 9.6 fL Normal 6.2-12.0 [facility] Work Phone: Comment on above: [facility] [address] [place], [place], [address] ; OV 2/ Platelet mean volume Auto Entitic volume (Bld) 9.6 fL Normal 6.2-12.0 [facility] Internal Medicine Work Phone: Platelets (Bld) [#/Vol] 277 10*3/uL Normal 150-450 [facility] Work Phone: Comment on above: [facility] [address] [place], [place], [address] ; OV 2/26 Platelets Auto #/vol (Bld) 277 10*3/uL Normal 150-450 [facility] Internal Medicine Work Phone: RBC (Bld) [#/Vol] 4.53 {M/mm3} Abnormal 4.6-6.2 [facility] Internal Medicine Work Phone: Comment on above: [facility] [address] [place], [place], [address] ; OV 2/ RBC Auto #/vol (Bld) 4.53 {M/mm3} Abnormal 4.6-6.2 Co mprehensive Internal Medicine Work Phone: RDW SD 41.9 fL Normal 35.1-43.9 [facility] Work Phone: Comment on above: [facility] [address] [place], [place], [address] ; OV 12/30 WBC (Bld) [#/Vol] 6.7 10*3/uL Normal 4.4-11.0 Compre [facility] Internal Medicine Work Phone: Comment on above: [facility] [address] [place], [place], [address] ; OV 12/30 WBC Auto #/vol (Bld) 6.7 10*3/uL Normal 4.4-11.0 [facility] prehensive Internal Medicine Work Phone: Comprehensive Metabolic Prof ilOrdered By: Waterworks Operator on 12-23-2017 Comprehensive metabolic 2000 panel 3.7 g/dL Normal 3.2-5.0 Comprehensi ve Internal Medicine Work Phone: Comment on above: [facility] [address] [place], [place], [phone] Comprehensive metabolic 2000 panel 7.8 g/dL Normal 6.4-8.2 Comprehensi ve Internal Medicine Work Phone: Comment on above: [facility] [address] [place], [place], [phone] Comprehensive metabolic 2000 panel 30.3 {RATIO} Abnormal 10-20 Comprehensi ve Internal Medicine Work Phone: Comment on above: [facility] [address] [place], [address] Comprehensive metabolic 2000 panel 103 mmol/L Normal 98-107 Comprehensi ve Internal Medicine Work Phone: Comment on above: [facility] [address] [place], [place], [address] Comprehensive metabolic 2000 panel 25 U/L Normal 15-37 Comprehensi ve Internal Medicine Work Phone: Comment on above: [facility] [address] [place], [place], [address] Comprehensive metabolic 2000 panel 8 1 Normal 5-15 Comprehensi ve Internal Medicine Work Phone: Comment on above: [facility] [address] [place], [place], [address] Comprehensive metabolic 2000 panel 0.9 {RATIO} Normal 0.9-2.4 Comprehensi ve Internal Medicine Work Phone: Comment on above: [facility] [address] [place], [place], [address] Comprehensive metabolic 2000 panel 109 mL/min Normal Comprehensi ve Internal Medicine Work Phone: Comment on above: GFR Calc [facility] [address] [place], [place], [address] Comprehensive metabolic 2000 panel 9.1 mg/dL Normal 8.5-10.1 Comprehensi ve Internal Medicine Work Phone: Comment on above: [facility] [address] [place], [place], [phone] Comprehensive metabolic 2000 panel 90 mL/min Normal Comprehensi ve Internal Medicine Work Phone: Comment on above: Non- GFR Calc [facility] [address] [place], [place], [phone] Comprehensive metabolic 2000 panel 32 U/L Normal 16-61 Comprehensi ve Internal Medicine Work Phone: Comment on above: Please note revised ALT reference range /28/2018. [facility] [address] [place], [place], [address] Comprehensive metabolic 2000 panel 0.89 mg/dL Normal 0.70-1.30 Comprehensi ve Internal Medicine Work Phone: Comment on above: The validity of the calculated GFR AND GFRAA in patients over70 years has not been determined. Clinical correlation isessential. [facility] [address] [place], [place], [address] Comprehensive metabolic 2000 panel 27 mg/dL Abnormal 7-18 Comprehensi ve Internal Medicine Work Phone: Comment on above: [facility] [address] [place], [place], [address] Comprehensive metabolic 2000 panel 120 mg/dL Abnormal 74-106 Comprehensi ve Internal Medicine Work Phone: Comment on above: Fasting Glucose resu lt from 100 to 125 mg/dLsuggests IMPAIRED HOMEOSTASIS per A.D.A. criteria.Please note revised GLUCOSE reference range [id number]/02/2018. [facility] [address] [place], [place], [address] Comprehensive metabolic 2000 panel 28.0 mmol/L Normal 21.0-32.0 Comprehensi ve Internal Medicine Work Phone: Comment on above: [facility] [address] [place], [place], [address] Comprehensive metabolic 2000 panel 4.1 g/dL Normal 2.2-4.2 Comprehensi ve Internal Medicine Work Phone: Comment on above: [facility] [address] [place], [place], [address] Comprehensive metabolic 2000 panel 0.70 mg/dL Normal 0.20-1.00 Comprehensi ve Internal Medicine Work Phone: Comment on above: [facility] [address] [place], [place], [address] Comprehensive metabolic 2000 panel 139 mmol/L Normal 136-145 Comprehensi ve Internal Medicine Work Phone: Comment on above: [facility] [address] [place], [place], [address] Comprehensive metabolic 2000 panel 3.9 mmol/L Normal 3.5-5.1 Comprehensi ve Internal Medicine Work Phone: Comment on above: [facility] [address] [place], [phone] Comprehensive metabolic 2000 panel 52 U/L Normal 45-117 Comprehensi ve Internal Medicine Work Phone: Comment on above: [facility] [address] [place], [address] Hemoglobin M1wYnarqrd By: Sy stem Bed Teacher on 12-23-2017 Hemoglobin A1c/Hemoglobin.total mass fraction (Bld) 6.8 % Abnormal 4.2-6.3 Comprehensiv e Internal Medicine Work Phone: Comment on above: ADDENDA: OV 12/30 [facility] [address] [place], [address] Thyroid Stim Hormone (TSH)Or dered By: Waterworks Operator on 12-23-2017 Thyrotropin Qn 2.26 {uIU/mL} Normal 0.358-3.74 Compreh ensive Internal Medicine Work Phone: Comment on above: [facility] [address] [place], [phone] CBC W/Diff, AutomatedOrdered By: Waterworks Operator on 09-07-2017 Absolute Lymph 2.11 {X10_3/ul} Normal 0.83-4.51 Compr ehensive Internal Medicine Work Phone: Absolute Neut 5.2 {X10_3/uL} Normal 2.0-7.7 Compreh ensive Internal Medicine Work Phone: Comment on above: [facility] [address] [place], [phone] Basophils/100 WBC (Bld) 0.6 % Normal 0-1 [facility] Work Phone: Comment on above: [facility] [address] [place], [address] Basophils/100 WBC Auto (Bld) 0.6 % Normal 0-1 [facility] Work Phone: Eosinophils/100 WBC (Bld) 2.2 % Normal 0-5 [facility] Work Phone: Comment on above: [place] [address] [place], [address] Eosinophils/100 WBC Auto (Bld) 2.2 % Normal 0-5 [facility] Work Phone: Erythrocyte distribution width (RBC) [Ratio] 13.0 % Normal 11.6-14.6 [facility] Work Phone: Comment on above: [place] [address] [place], [address] Erythrocyte distribution width Auto Ratio (RBC) 13.0 % Normal 11.6-14.6 [facility] Work Phone: Hematocrit (Bld) [Volume fraction] 40.9 % Normal 40-54 [facility] Work Phone: Comment on above: [place] [address] [place], [address] Hematocrit Auto Volume Fraction (Bld) 40.9 % Normal 40-54 [facility] Work Phone: Hemoglobin mass conc (Bld) 14.0 g/dL Normal 13.0-16.5 [facility] Work Phone: Comment on above: [place] [address] [place], [address] IM GRAN % 0.200 % Normal 0.0-0.9 [facility] Work Phone: Comment on above: IG% - Immature Granu locytes (promyelocytes, myelocytes andmetamyelocytes) > 1% indicates that a LEFT SHIFT is Present. [place] [address] [place], [address] Lymphocytes (Bld) [#/Vol] 2.11 {X10_3/ul} Normal 0.83-4.51 [facility] Work Phone: Comment on above: [facility] [address] [place], [address] Lymphocytes Auto #/vol (Bld) 2.11 {X10_3/ul} Normal 0.83-4.51 [facility] Work Phone: Lymphocytes/100 WBC (Bld) 25.9 % Normal 19-41 [facility] Work Phone: Comment on above: [facility] [address] [place], [address] Lymphocytes/100 WBC Auto (Bld) 25.9 % Normal 19-41 [facility] Work Phone: MCH (RBC) [Entitic mass] 31.0 pg Normal 27.0-32.0 [facility] Work Phone: Comment on above: [facility] [address] [place], [address] MCH Auto Entitic mass (RBC) 31.0 pg Normal 27.0-32.0 [facility] Work Phone: MCHC (RBC) [Mass/Vol] 34.2 {g/gl} Normal 32-36 [facility] Internal Medicine Work Phone: Comment on above: [facility] [address] [place], [address] MCHC Auto mass conc (RBC) 34.2 {g/gl} Normal 32-36 [facility] Work Phone: MCV (RBC) [Entitic vol] 90.5 fL Normal 80-94 [facility] Work Phone: Comment on above: [facility] [address] [place], [address] MCV Auto Entitic volume (RBC) 90.5 fL Normal 80-94 [facility] Work Phone: Monocytes/100 WBC Auto (Bld) 7.6 % Normal 0-10 [facility] Work Phone: Comment on above: [facility] [address] [place], [address] Neutrophils/100 WBC (Bld) 63.5 % Normal 47-70 [facility] Work Phone: Comment on above: [facility] [address] [place], [address] Neutrophils/100 WBC Auto (Bld) 63.5 % Normal 47-70 [facility] Work Phone: Platelet mean volume (Bld) [Entitic vol] 9.4 fL Normal 6.2-12.0 [facility] Work Phone: Comment on above: [facility] [address] [place], [phone] Platelet mean volume Auto Entitic volume (Bld) 9.4 fL Normal 6.2-12.0 [facility] Work Phone: Platelets (Bld) [#/Vol] 265 10*3/uL Normal 150-450 [facility] Work Phone: Comment on above: [facility] [address] [place], [address] Platelets Auto #/vol (Bld) 265 10*3/uL Normal 150-450 [facility] Work Phone: RBC (Bld) [#/Vol] 4.52 {M/mm3} Abnormal 4.6-6.2 [facility] Internal Medicine Work Phone: Comment on above: [facility] [address] [place], [address] RBC Auto #/vol (Bld) 4.52 {M/mm3} Abnormal 4.6-6.2 [facility] Internal Medicine Work Phone: RDW SD 42.2 fL Normal 35.1-43.9 [facility] Work Phone: Comment on above: [facility] [address] [place], [place], [phone] WBC (Bld) [#/Vol] 8.2 10*3/uL Normal 4.4-11.0 Compre hensive Internal Medicine Work Phone: Comment on above: [facility] [address] [place], [place], [address] WBC Auto #/vol (Bld) 8.2 10*3/uL Normal 4.4-11.0 Com prehensive Internal Medicine Work Phone: Comprehensive Metabolic Prof ilOrdered By: Waterworks Operator on 09-07-2017 Comprehensive metabolic 2000 panel 3.9 g/dL Normal 3.4-5.0 Comprehensi ve Internal Medicine Work Phone: Comment on above: Please note revised Albumin AND Globulin reference rangeeffective 2017. [facility] [address] [place], [place], [phone] Comprehensive metabolic 2000 panel 8.1 g/dL Normal 6.4-8.2 Comprehensi ve Internal Medicine Work Phone: Comment on above: [facility] [address] [place], [place], [phone] Comprehensive metabolic 2000 panel 28.2 {RATIO} Abnormal 10-20 Comprehensi ve Internal Medicine Work Phone: Comment on above: [facility] [address] [place], [place], [phone] Comprehensive metabolic 2000 panel 10 1 Normal 5-15 Comprehensi ve Internal Medicine Work Phone: Comment on above: [facility] [address] [place], [place], [address] Comprehensive metabolic 2000 panel 92 mL/min Normal Comprehensi ve Internal Medicine Work Phone: Comment on above: GFR Calc [facility] [address] [place], [address] Comprehensive metabolic 2000 panel 76 mL/min Normal Comprehensi ve Internal Medicine Work Phone: Comment on above: Non- GFR Calc [facility] [address] [place], [place], [address] Comprehensive metabolic 2000 panel 1.03 mg/dL Normal 0.70-1.30 Comprehensi ve Internal Medicine Work Phone: Comment on above: The validity of the calculated GFR AND GFRAA in patients over70 years has not been determined. Clinical correlation isessential. [facility] [address] [place], [place], [phone] Comprehensive metabolic 2000 panel 29 mg/dL Abnormal 7-18 Comprehensi ve Internal Medicine Work Phone: Comment on above: [facility] [address] [place], [place], [phone] Comprehensive metabolic 2000 panel 4.1 mmol/L Normal 3.5-5.1 Comprehensi ve Internal Medicine Work Phone: Comment on above: [facility] [address] [place], [place], [address] Comprehensive metabolic 2000 panel 102 mmol/L Normal 98-107 Comprehensi ve Internal Medicine Work Phone: Comment on above: [facility] [address] [place], [place], [address] Comprehensive metabolic 2000 panel 0.70 mg/dL Normal 0.20-1.00 Comprehensi ve Internal Medicine Work Phone: Comment on above: [facility] [address] [place], [place], [address] Comprehensive metabolic 2000 panel 120 mg/dL Abnormal 70-110 Comprehensi ve Internal Medicine Work Phone: Comment on above: Fasting Glucose resu lt from 110 to <126 mg/dLsuggests IMPAIRED HOMEOSTASIS per A.D.A. criteria. [facility] [address] [place], [address] Comprehensive metabolic 2000 panel 41 U/L Normal 12-78 Comprehensi ve Internal Medicine Work Phone: Comment on above: [facility] [address] [place], [address] Comprehensive metabolic 2000 panel 57 U/L Normal 45-117 Comprehensi ve Internal Medicine Work Phone: Comment on above: [facility] [address] [place], [address] Comprehensive metabolic 2000 panel 39 U/L Abnormal 15-37 Comprehensi ve Internal Medicine Work Phone: Comment on above: [facility] [address] [place], [address] Comprehensive metabolic 2000 panel 138 mmol/L Normal 136-145 Comprehensi ve Internal Medicine Work Phone: Comment on above: [facility] [address] [place], [place], [address] Comprehensive metabolic 2000 panel 9.2 mg/dL Normal 8.5-10.1 Comprehensi ve Internal Medicine Work Phone: Comment on above: [facility] [address] [place], [place], [address] Comprehensive metabolic 2000 panel 0.9 {RATIO} Normal 0.9-2.4 Comprehensi ve Internal Medicine Work Phone: Comment on above: [facility] [address] [place], [address] Comprehensive metabolic 2000 panel 4.2 g/dL Normal 2.2-4.2 Comprehensi ve Internal Medicine Work Phone: Comment on above: [facility] [address] [place], [address] Comprehensive metabolic 2000 panel 26.0 mmol/L Normal 21.0-32.0 Comprehensi ve Internal Medicine Work Phone: Comment on above: [facility] [address] [place], [place], [address] Hemoglobin G3vWwhcuzd By: Sy stem Bed Teacher on 09-07-2017 Hemoglobin A1c/Hemoglobin.total mass fraction (Bld) 6.9 % Abnormal 4.2-6.3 Comprehensiv e Internal Medicine Work Phone: Comment on above: [facility] [address] [place], [place], [address] Lipid ProfileOrdered By: Abdirahman tem Bed Teacher on 09-07-2017 Cholesterol in HDL mass conc 45 mg/dL Normal [facility] Work Phone: Comment on above: The drugs N-Acetylcy steine and Metamizole may falselydepress this assay. Reference Range HDL <40 mg/dL Low HDL Cholesterol HDL >or= 60 mg/dL High HDL Cholesterol [facility] [address] [place], [place], [phone] Cholesterol in LDL [Mass/Vol] 95 mg/dL Normal 0-130 [facility] Work Phone: Comment on above: [facility] [address] [place], [place], [phone] Cholesterol in LDL mass conc 95 mg/dL Normal 0-130 [facility] Work Phone: Cholesterol in VLDL mass conc 39 mg/dL Normal 5-40 [facility] Work Phone: Comment on above: [facility] [address] [place], [place], [phone] Cholesterol mass conc 179 mg/dL Normal Com prehensive Internal Medicine Work Phone: Comment on above: <200 mg/dL Desirable 200-240 mg/dL Borderline >240 mg/dL High Risk [facility] [address] [place], [place], [phone] Triglyceride mass conc 197 mg/dL Normal Co mprehensive Internal Medicine Work Phone: Comment on above: The drugs N-Acetylcy steine and Metamizole may falselydepress this assay.Serum Triglycerides Reference Interval Normal <150 mg/dL Borderline high 150 - 199 mg/dL High 200 - 499 mg/dL Very High > or = 500 mg/dL [facility] [address] [place], [place], [phone] Lipid Profile 39 mg/dL Normal 5-40 Comprehensi Internal Medicine Work Phone: Comment on above: [facility] [address] [place], [place], [phone] PSA,Total - Annual ScreenOrd ered By: Waterworks Operator on 09-07-2017 Prostate specific Ag mass conc 0.68 ng/mL Normal 0.00-4.00 [facility] Work Phone: Comment on above: This test was perfor med using the TPSA assay method for the[employer]OK chemistry system. Values obtained with differentassay methods cannot be used interchangably.When changing PSA assays in the course of monitoring apatient, additional sequential testing should be carriedout to confirm baseline values. [facility] [address] [place], [place], [phone] Thyroid Stim Hormone (TSH)Or dered By: Waterworks Operator on 09-07-2017 Thyrotropin Qn 2.61 {uIU/mL} Normal 0.358-3.74 [facility]pre[facility] Internal Medicine Work Phone: Comment on above: [facility] [address] [place], [place], [phone] CBC W/Diff, AutomatedOrdered By: Waterworks Operator on 01-26-2017 Absolute Lymph 2.32 {X10_3/ul} Normal 0.83-4.51 Compr ehensive Internal Medicine Work Phone: Absolute Neut 2.9 {X10_3/uL} Normal 2.0-7.7 Compreh ensive Internal Medicine Work Phone: Comment on above: [facility] [address] [place], [address] Basophils/100 WBC (Bld) 0.9 % Normal 0-1 [facility] Work Phone: Comment on above: [facility] [address] [place], [address] Basophils/100 WBC Auto (Bld) 0.9 % Normal 0-1 [facility] Work Phone: Eosinophils/100 WBC (Bld) 2.4 % Normal 0-5 [facility] Work Phone: Comment on above: [place] [address] [place], [address] Eosinophils/100 WBC Auto (Bld) 2.4 % Normal 0-5 [facility] Work Phone: Erythrocyte distribution width (RBC) [Ratio] 13.8 % Normal 11.6-14.6 [facility] Work Phone: Comment on above: [place] [address] [place], [address] Erythrocyte distribution width Auto Ratio (RBC) 13.8 % Normal 11.6-14.6 [facility] Work Phone: Hematocrit (Bld) [Volume fraction] 41.3 % Normal 40-54 [facility] Work Phone: Comment on above: [place] [address] [place], [address] Hematocrit Auto Volume Fraction (Bld) 41.3 % Normal 40-54 [facility] Work Phone: Hemoglobin mass conc (Bld) 14.0 g/dL Normal 13.0-16.5 [facility] Work Phone: Comment on above: [facility] [address] [place], [address] IM GRAN % 0.200 % Normal 0.0-0.9 [facility] Work Phone: Comment on above: IG% - Immature Granu locytes (promyelocytes, myelocytes andmetamyelocytes) > 1% indicates that a LEFT SHIFT is Present. [facility] [address] [place], [address] Lymphocytes (Bld) [#/Vol] 2.32 {X10_3/ul} Normal 0.83-4.51 [facility] Work Phone: Comment on above: [facility] [address] [place], [address] Lymphocytes Auto #/vol (Bld) 2.32 {X10_3/ul} Normal 0.83-4.51 [facility] Work Phone: Lymphocytes/100 WBC (Bld) 39.5 % Normal 19-41 [facility] Work Phone: Comment on above: [facility] [address] [place], [address] Lymphocytes/100 WBC Auto (Bld) 39.5 % Normal 19-41 [facility] Work Phone: MCH (RBC) [Entitic mass] 30.3 pg Normal 27.0-32.0 [facility] Work Phone: Comment on above: [facility] [address] [place], [address] MCH Auto Entitic mass (RBC) 30.3 pg Normal 27.0-32.0 [facility] Work Phone: MCHC (RBC) [Mass/Vol] 33.9 {g/gl} Normal 32-36 [facility] Internal Medicine Work Phone: Comment on above: [facility] [address] [place], [address] MCHC Auto mass conc (RBC) 33.9 {g/gl} Normal 32-36 [facility] Work Phone: MCV (RBC) [Entitic vol] 89.4 fL Normal 80-94 [facility] Work Phone: Comment on above: [facility] [address] [place], [place], [id number] MCV Auto Entitic volume (RBC) 89.4 fL Normal 80-94 [facility] Work Phone: Monocytes/100 WBC Auto (Bld) 7.3 % Normal 0-10 [facility] Work Phone: Comment on above: [facility] [address] [place], [address] Neutrophils/100 WBC (Bld) 49.7 % Normal 47-70 [facility] Work Phone: Comment on above: [facility] [address] [place], [address] Neutrophils/100 WBC Auto (Bld) 49.7 % Normal 47-70 [facility] Work Phone: Platelet mean volume (Bld) [Entitic vol] 9.7 fL Normal 6.2-12.0 [facility] Work Phone: Comment on above: [facility] [address] [place], [address] Platelet mean volume Auto Entitic volume (Bld) 9.7 fL Normal 6.2-12.0 [facility] Work Phone: Platelets (Bld) [#/Vol] 244 10*3/uL Normal 150-450 [facility] Work Phone: Comment on above: [facility] [address] [place], [address] Platelets Auto #/vol (Bld) 244 10*3/uL Normal 150-450 [facility] Work Phone: RBC (Bld) [#/Vol] 4.62 {M/mm3} Normal 4.6-6.2 [facility] Internal Medicine Work Phone: Comment on above: [facility] [address] [place], [address] RBC Auto #/vol (Bld) 4.62 {M/mm3} Normal 4.6-6.2 Co m[facility] Work Phone: RDW SD 44.6 fL Abnormal 35.1-43.9 [facility] Work Phone: Comment on above: [facility] [address] [place], [address] WBC (Bld) [#/Vol] 5.9 10*3/uL Normal 4.4-11.0 Compre hensive Internal Medicine Work Phone: Comment on above: [facility] [address] [place], [address] WBC Auto #/vol (Bld) 5.9 10*3/uL Normal 4.4-11.0 [facility] prehensive Internal Medicine Work Phone: Comprehensive Metabolic Prof ilOrdered By: Waterworks Operator on 01-26-2017 Comprehensive metabolic 2000 panel 120 mL/min Normal Comprehensi ve Internal Medicine Work Phone: Comment on above: GFR Calc [facility] [address] [place], [address] ; ov next week 4/3 Comprehensive metabolic 2000 panel 27 mg/dL Abnormal 7-18 Comprehensi ve Internal Medicine Work Phone: Comment on above: [facility] [address] [place], [address] ; ov next week 4/3 Comprehensive metabolic 2000 panel 115 mg/dL Abnormal 70-110 Comprehensi ve Internal Medicine Work Phone: Comment on above: Fasting Glucose resu lt from 110 to <126 mg/dLsuggests IMPAIRED HOMEOSTASIS per A.D.A. criteria. [facility] [address] [place], [place], [id number] ; ov next week 4/3 Comprehensive metabolic 2000 panel 4.2 g/dL Abnormal 2.3-3.5 Comprehensi ve Internal Medicine Work Phone: Comment on above: [facility] [address] [place], [place], [address] ; ov next week 4/3 Comprehensive metabolic 2000 panel 0.8 {RATIO} Abnormal 0.9-2.4 Comprehensi ve Internal Medicine Work Phone: Comment on above: [facility] [address] [place], [place], [address] ; ov next week 4/3 Comprehensive metabolic 2000 panel 8.8 mg/dL Normal 8.5-10.1 Comprehensi ve Internal Medicine Work Phone: Comment on above: [facility] [address] [place], [place], [address] ; ov next week 4/3 Comprehensive metabolic 2000 panel 28 U/L Normal 12-78 Comprehensi ve Internal Medicine Work Phone: Comment on above: [facility] [address] [place], [place], [address] ; ov next week 4/3 Comprehensive metabolic 2000 panel 28.0 mmol/L Normal 21.0-32.0 Comprehensi ve Internal Medicine Work Phone: Comment on above: [facility] [address] [place], [place], [address] ; ov next week 4/3 Comprehensive metabolic 2000 panel 0.50 mg/dL Normal 0.20-1.00 Comprehensi ve Internal Medicine Work Phone: Comment on above: [facility] [address] [place], [place], [address] ; ov next week 4/3 Comprehensive metabolic 2000 panel 23 U/L Normal 15-37 Comprehensi ve Internal Medicine Work Phone: Comment on above: [facility] [address] [place], [place], [address] ; ov next week 4/3 Comprehensive metabolic 2000 panel 5 1 Normal 5-15 Comprehensi ve Internal Medicine Work Phone: Comment on above: [facility] [address] [place], [place], [address] ; ov next week 4/3 Comprehensive metabolic 2000 panel 140 mmol/L Normal 136-145 Comprehensi ve Internal Medicine Work Phone: Comment on above: [facility] [address] [place], [place], [address] ; ov next week 4/3 Comprehensive metabolic 2000 panel 4.1 mmol/L Normal 3.5-5.1 Comprehensi ve Internal Medicine Work Phone: Comment on above: [facility] [address] [place], [place], [address] ; ov next week 4/3 Comprehensive metabolic 2000 panel 99 mL/min Normal Comprehensi ve Internal Medicine Work Phone: Comment on above: Non- GFR Calc [facility] [address] [place], [place], [address] ; ov next week 4/3 Comprehensive metabolic 2000 panel 3.4 g/dL Normal 3.4-5.0 Comprehensi ve Internal Medicine Work Phone: Comment on above: [facility] [address] [place], [place], [address] ; ov next week 4/3 Comprehensive metabolic 2000 panel 0.82 mg/dL Normal 0.70-1.30 Comprehensi ve Internal Medicine Work Phone: Comment on above: The validity of the calculated GFR AND GFRAA in patients over70 years has not been determined. Clinical correlation isessential. [facility] [address] [place], [place], [address] ; ov next week 4/3 Comprehensive metabolic 2000 panel 52 U/L Normal 45-117 Comprehensi ve Internal Medicine Work Phone: Comment on above: [facility] [address] [place], [address] ; ov next week 4/3 Comprehensive metabolic 2000 panel 107 mmol/L Normal 98-107 Comprehensi ve Internal Medicine Work Phone: Comment on above: [facility] [address] [place], [place], [address] ; ov next week 4/3 Comprehensive metabolic 2000 panel 33.0 {RATIO} Abnormal 10-20 Comprehensi ve Internal Medicine Work Phone: Comment on above: [facility] [address] [place], [place], [address] ; ov next week 4/3 Comprehensive metabolic 2000 panel 7.6 g/dL Normal 6.4-8.2 Comprehensi ve Internal Medicine Work Phone: Comment on above: [facility] [address] [place], [place], [address] ; ov next week 4/3 Lipid ProfileOrdered By: Abdirahman tem Bed Teacher on 01-26-2017 Cholesterol in HDL mass conc 43 mg/dL Normal [facility] Work Phone: Comment on above: The drugs N-Acetylcy steine and Metamizole may falsely deressthis assay. Reference Range HDL <40 mg/dL Low HDL Cholesterol HDL >or= 60 mg/dL High HDL Cholesterol [facility] [address] [place], [place], [address] Cholesterol in LDL [Mass/Vol] 94 mg/dL Normal 0-130 [facility] Work Phone: Comment on above: [facility] [address] [place], [place], [address] Cholesterol in LDL mass conc 94 mg/dL Normal 0-130 [facility] Work Phone: Cholesterol in VLDL mass conc 52 mg/dL Abnormal 5-40 [facility] Work Phone: Comment on above: [facility] [address] [place], [address] Cholesterol mass conc 189 mg/dL Normal Com prehensive Internal Medicine Work Phone: Comment on above: <200 mg/dL Desirable 200-240 mg/dL Borderline >240 mg/dL High Risk [facility] [address] [place], [place], [address] Triglyceride mass conc 259 mg/dL Abnormal Co mprehensive [facility] Work Phone: Comment on above: The drugs N-Acetylcy steine and Metamizole may falsely deressthis assay.Serum Triglycerides Reference Interval Normal <150 mg/dL Borderline high 150 - 199 mg/dL High 200 - 499 mg/dL Very High > or = 500 mg/dL [facility] [address] [place], [place], [address] Lipid Profile 52 mg/dL Abnormal 5-40 Comprehensi ve Internal Medicine Work Phone: Comment on above: [facility] [address] [place], [place], [address] Thyroid Stim Hormone (TSH)Or dered By: Waterworks Operator on 01-26-2017 Thyrotropin Qn 3.47 {uIU/mL} Normal 0.358-3.74 Compreh ensive Internal Medicine Work Phone: Comment on above: [facility] [address] [place], [place], [address] Blood Glucose , Office ([phone])Ordered By: Esha Norris on 01-07-2017 Glucose Glucometer molar conc (BldC) 190 1 Normal [facility] Work Phone: HgA1C , Office ([phone])Ordere d By: Esha Norris on 01-07-2017 Hemoglobin A1c/Hemoglobin.total mass fraction (Bld) 6.5 % Normal 4.6 - 7.1 Comprehensiv e Internal Medicine Work Phone: Urinalysis, Office ([phone])Or dered By: Esha Norris on 01-07-2017 Bilirubin Ql (U) Negative Normal Comprehe nsive Internal Medicine Work Phone: Bilirubin Ql (U) Negative Normal Comprehe nsive Internal Medicine; [facility] Work Phone: Glucose Test strip (U) [Mass/Vol] Negative Normal [facility]; [facility] Work Phone: Glucose Test strip mass conc (U) Negative Normal [facility] Work Phone: Hemoglobin Ql (U) Negative Normal Compreh ensive Internal Medicine Work Phone: Hemoglobin Ql (U) Negative Normal Compreh ensive Internal Medicine; [facility] Work Phone: Hemoglobin Test strip Ql (U) Negative Normal [facility] Work Phone: Ketones Ql (U) Negative Normal Comprehens [facility] Internal [facility] Work Phone: Ketones Ql (U) Negative Normal Comprehens [facility]; [facility] Work Phone: Leukocyte esterase Test strip Ql (U) Negative Normal [facility] Work Phone: Leukocyte esterase Test strip Ql (U) Negative Normal [facility]; [facility] Work Phone: Nitrite Ql (U) Negative Normal Comprehens [facility] Work Phone: Nitrite Ql (U) Negative Normal Comprehens [facility]; [facility] Work Phone: Nitrite Test strip Ql (U) Negative Normal [facility] Work Phone: pH (U) 6.0 [pH] Normal [facility] Work Phone: Comment on above: 5.5 pH Test strip (U) 6.0 [pH] Normal Compreh ensive Internal Medicine Work Phone: Comment on above: 5.5 Protein Ql (U) Negative Normal Comprehens [facility] Work Phone: Protein Ql (U) Negative Normal Comprehens [facility]; [facility] Work Phone: Protein Test strip Ql (U) Negative Normal [facility] Work Phone: Specific gravity Relative Density (U) 1.030 1 Abnormal Comprehensi ve Internal Medicine Work Phone: Urobilinogen mass/time (24H U) Normal Normal [facility] Work Phone: Basic Metabolic Profile (BMP )Ordered By: Waterworks Operator on 12-03-2016 Basic metabolic 2000 panel 71.08 ml/min Normal [facility] Work Phone: Comment on above: [facility] [address] [place], [place], [address] Basic metabolic 2000 panel 138 mmol/L Normal 136-145 [facility] Work Phone: Comment on above: [facility] [address] [place], [place], [address] Basic metabolic 2000 panel 9.6 mg/dL Normal 8.5-10.1 [facility] Work Phone: Comment on above: [facility] [address] [place], [place], [address] Basic metabolic 2000 panel 4.3 mmol/L Normal 3.5-5.1 [facility] Work Phone: Comment on above: [facility] [address] [place], [place], [address] Basic metabolic 2000 panel 22.7 {RATIO} Abnormal 10-20 [facility] Work Phone: Comment on above: [facility] [address] [place], [place], [address] Basic metabolic 2000 panel 0.93 mg/dL Normal 0.70-1.30 [facility] Work Phone: Comment on above: The validity of the calculated GFR AND GFRAA in patients over70 years has not been determined. Clinical correlation isessential. [facility] [address] [place], [place], [address] Basic metabolic 2000 panel 119 mg/dL Abnormal 70-110 [facility] Work Phone: Comment on above: Fasting Glucose resu lt from 110 to <126 mg/dLsuggests IMPAIRED HOMEOSTASIS per A.D.A. criteria. [facility] [address] [place], [address] Basic metabolic 2000 panel 21 mg/dL Abnormal 7-18 [facility] Work Phone: Comment on above: [facility] [address] [place], [address] Basic metabolic 2000 panel 8 1 Normal 5-15 [facility] Work Phone: Comment on above: [facility] [address] [place], [address] Basic metabolic 2000 panel 27.0 mmol/L Normal 21.0-32.0 [facility] Work Phone: Comment on above: [facility] [address] [place], [place], [address] Basic metabolic 2000 panel 103 mmol/L Normal 98-107 [facility] Work Phone: Comment on above: [facility] [address] [place], [address] Basic metabolic 2000 panel 104 mL/min Normal [facility] Work Phone: Comment on above: GFR Calc [facility] [address] [place], [address] Basic metabolic 2000 panel 86 mL/min Normal [facility] Work Phone: Comment on above: Non- GFR Calc [facility] [address] [place], [place], [phone] CPK Total, Creatine KinaseOr dered By: Waterworks Operator on 12-03-2016 CPK TOTAL 146 U/L Normal 39-308 [facility] Work Phone: CPK Total, Creatine Kinase 146 U/L Normal 39-308 [facility] Work Phone: Comment on above: [facility] [address] [place], [place], [phone] Blood Glucose , Office ([phone])Ordered By: Urszula Cruz on 08-20-2016 Glucose Glucometer molar conc (BldC) 176 1 Normal [facility] Work Phone: HgA1C , Office ([phone])Ordere d By: Urszula Cruz on 08-20-2016 Hemoglobin A1c/Hemoglobin.total mass fraction (Bld) 6.5 % Normal 4.6 - 7.1 Comprehensiv e Internal [facility] Work Phone: LIPID PANEL ([id number])Ordered B y: Waterworks Operator on 08-10-2016 Cholesterol in HDL mass conc 41 mg/dL Normal [facility] Work Phone: Comment on above: According to ATP-III Guidelines, HDL-C >59 mg/dL is considered anegative risk factor for CHD. PATIENT WAS FASTINGP ERFORMED BY: THA [facility] Z[address]ptk[address] [employer] [place] [id number] Cholesterol in LDL mass conc 104 mg/dL Abnormal 0-99 [facility] Work Phone: Comment on above: PATIENT WAS FASTINGP ERFORMED BY: THA [employer] Ttduno5845 [facility] [id number] Cholesterol in LDL/Cholesterol in HDL mass ratio 2.5 {ratio_units} Normal 0.0-3.6 [facility] Work Phone: Comment on above: LDL/HDL Ratio Men Wo men 1/2 Avg.Risk 1.0 1.5 Avg.Risk 3.6 3.2 2X Avg.Risk 6.2 5.0 3X Avg.Risk 8.0 6.1 PATIENT WAS FASTINGP ERFORMED BY: THA [facility] Carerp [address] [place] [id number] Cholesterol in VLDL mass conc 27 mg/dL Normal 5-40 [facility] Work Phone: Comment on above: PATIENT WAS FASTINGP ERFORMED BY: THA AirPR70 [employer] [place] [id number] Cholesterol mass conc 172 mg/dL Normal 100-199 Com prehensive Internal Medicine Work Phone: Comment on above: PATIENT WAS FASTINGP ERFORMED BY: THA [facility] Xdfbrz[address] [facility] [id number] Triglyceride mass conc 134 mg/dL Normal 0-149 Co mprehensive [facility] Medicine Work Phone: Comment on above: PATIENT WAS FASTINGP ERFORMED BY: THA [facility] J[address]wkhy[address] [facility] [id number] METABOLIC PANEL, COMPREHENSI VE ([id number])Ordered By: Waterworks Operator on 08-10-2016 Albumin mass conc 4.5 g/dL Normal 3.6-4.8 Compreh ensive Internal Medicine Work Phone: Comment on above: PATIENT WAS FASTINGP ERFORMED BY: THA [facility] Sydarc3762 [facility] [id number] Information: [id number], [id number] Albumin/Globulin mass ratio 1.7 {ratio} Normal 1.1-2.5 [facility] Work Phone: Comment on above: PATIENT WAS FASTINGP ERFORMED BY: [facility] Apdzsz5772 [facility] [id number] Information: [id number], [id number] ALP [Catalytic activity/Vol] 52 U/L Normal 39-117 [facility]; [facility] Work Phone: Comment on above: PATIENT WAS FASTINGP ERFORMED BY: [facility] Vizagq2788 [facility] [id number] Information: [id number], [id number] ALP enzyme act/vol 52 [iU]/L Normal 39-117 Compre [facility] Internal Medicine Work Phone: Comment on above: PATIENT WAS FASTINGP ERFORMED BY: [facility] Obuuab6633 [facility] [id number] Information: [id number], [id number] ALT [Catalytic activity/Vol] 34 U/L Normal 0-44 [facility]; [facility] Work Phone: Comment on above: PATIENT WAS FASTINGP ERFORMED BY: [facility] Unlpvb0174 [facility] [id number] Information: [id number], [id number] ALT enzyme act/vol 34 [iU]/L Normal 0-44 [facility] Internal Medicine Work Phone: Comment on above: PATIENT WAS FASTINGP ERFORMED BY: THA LabCoedwin EatonZhlaut2319 [facility] [place] [id number] Information: [id number], [id number] AST [Catalytic activity/Vol] 35 U/L Normal 0-40 [facility]; [facility] Internal Medicine Work Phone: Comment on above: PATIENT WAS FASTINGP ERFORMED BY: THA [facility] Tojbci[address] [facility] [id number] Information: [id number], [id number] AST enzyme act/vol 35 [iU]/L Normal 0-40 [facility] Internal Medicine Work Phone: Comment on above: PATIENT WAS FASTINGP ERFORMED BY: THA [facility] Nfwbpp5470 [facility] [id number] Information: [id number], [id number] Bilirubin mass conc 0.6 mg/dL Normal 0.0-1.2 [facility] Internal Medicine Work Phone: Comment on above: PATIENT WAS FASTINGP ERFORMED BY: THA [facility] Zodigy2143 [facility] [id number] Information: [id number], [id number] Calcium mass conc 9.4 mg/dL Normal 8.6-10.2 [facility] Internal Medicine Work Phone: Comment on above: PATIENT WAS FASTINGP ERFORMED BY: [facility] Pcbgdn5772 [facility] [id number] Information: [id number], [id number] Chloride molar conc 100 mmol/L Normal 97-108 [facility] Internal Medicine Work Phone: Comment on above: Effective August 20, 2016 the reference interval for Chloride, Serum will be changing to: 97 - 106 PATIENT WAS FASTINGP ERFORMED BY: [facility] Pmniwg[address] [facility] [id number] Information: [id number], [id number] CO2 molar conc 23 mmol/L Normal 18-29 Comprehens [facility] Internal Medicine Work Phone: Comment on above: PATIENT WAS FASTINGP ERFORMED BY: THA [employer] Subgte0386 [facility] [id number] Information: [id number], [id number] Creatinine mass conc 0.90 mg/dL Normal 0.76-1.27 Comp rehensive Internal Medicine Work Phone: Comment on above: PATIENT WAS FASTINGP ERFORMED BY: [facility] Siekhg6017 [facility] [id number] Information: [id number], [id number] GFR/1.73 sq M predicted among blacks CKD-EPI vol rate/area (S/P/Bld) 101 mL/min/1.73 Normal [facility] Work Phone: Comment on above: PATIENT WAS FASTINGP ERFORMED BY: [facility]6370 [facility] [id number] Information: [id number], 510476 GFR/1.73 sq M predicted among non-blacks CKD-EPI vol rate/area (S/P/Bld) 87 mL/min/1.73 Normal Comprehensiv e Internal Medicine Work Phone: Comment on above: PATIENT WAS FASTINGP ERFORMED BY: [facility]6370 [facility] [id number] Information: [id number], [id number] Globulin (S) [Mass/Vol] 2.7 g/dL Normal 1.5-4.5 [facility] Work Phone: Comment on above: PATIENT WAS FASTINGP ERFORMED BY: [facility] Zkqsom3036 [facility] [id number] Information: [id number], [id number] Globulin Calculated mass conc (S) 2.7 g/dL Normal 1.5-4.5 [facility] Work Phone: Glucose mass conc 118 mg/dL Abnormal 65-99 Compreh ensive Internal Medicine Work Phone: Comment on above: PATIENT WAS FASTINGP ERFORMED BY: [facility]6370 [facility] [id number] Information: [id number], [id number] Potassium molar conc 4.8 mmol/L Normal 3.5-5.2 Comp rehensive Internal Medicine Work Phone: Comment on above: Effective August 20, 2016 the reference interval for Potassium, Serum will be changing to: 0 - 7 days 3.7 - 5.2 8 - 30 days 3.7 - 6.4 1 - 6 months 3.8 - 6.0 7 months - 1 year 3.8 - 5.3 >1 year 3.5 - 5.2 PATIENT WAS FASTINGP ERFORMED BY: [facility]6370 [facility] [id number] Information: [id number], 691543 Protein mass conc 7.2 g/dL Normal 6.0-8.5 Compreh ensive Internal Medicine Work Phone: Comment on above: PATIENT WAS FASTINGP ERFORMED BY: [facility]6370 [facility] [id number] Information: [id number], [id number] Sodium molar conc 142 mmol/L Normal 134-144 Compreh ensive Internal Medicine Work Phone: Comment on above: Effective August 20, 2016 the reference interval for Sodium, Serum will be changing to: 136 - 144 PATIENT WAS FASTINGP ERFORMED BY: [facility]6370 [facility] [id number] Information: [id number], [id number] Urea nitrogen mass conc 21 mg/dL Normal 8-27 [facility] Work Phone: Comment on above: PATIENT WAS FASTINGP ERFORMED BY: [facility]6370 [facility] [id number] Information: [id number], [id number] Urea nitrogen/Creatinine mass ratio 23 mg/mg Abnormal 10-22 [facility] Work Phone: Comment on above: PATIENT WAS FASTINGP ERFORMED BY: [facility]6370 [facility] [id number] Information: [id number], [id number] MICROALBUMINOrdered By: [place] em Bed Teacher on 08-10-2016 Albumin DL <= 20 mg/L mass conc (U) 20.2 ug/mL Normal [facility] Work Phone: Comment on above: PATIENT WAS FASTINGP ERFORMED BY: [facility] [id number] [facility] [id number] Albumin/Creatinine mass ratio (U) 17.0 {mg/g_creat} Normal 0.0-30.0 [facility] Work Phone: Comment on above: PATIENT WAS FASTINGP ERFORMED BY: [facility] Gckrzq1557 [facility] [id number] Creatinine mass conc (U) 118.7 mg/dL Normal [facility] Work Phone: Comment on above: PATIENT WAS FASTINGP ERFORMED BY: [facility] Pjvfmu5438 [facility] [id number] PSA (PROSTATE SPECIFIC ANTIG EN) (V76.44)Ordered By: Waterworks Operator on 08-10-2016 Prostate specific Ag mass conc 0.9 ng/mL Normal 0.0-4.0 [facility] Internal Medicine Work Phone: Comment on above: [place] ECLIA methodol ogy. .According to the [place] [employer], Serum PSA shoulddecrease and remain at undetectable levels after radicalprostatectomy. The AUA defines biochemical recurrence as an initialPSA value 0.2 ng/mL or greater followed by a subsequent confirmatoryPSA value 0.2 ng/mL or greater.Values obtained with different assay methods or kits cannot be usedinterchangeably. Results cannot be interpreted as absolute evidenceof the presence or absence of malignant disease. PATIENT WAS FASTINGP ERFORMED BY: [facility] Rewadl4299 [facility] [id number] serum immunofixation ([id number]) Ordered By: Waterworks Operator on 08-10-2016 IgA mass conc 239 mg/dL Normal 61-437 Comprehensi Internal Medicine Work Phone: Comment on above: PATIENT WAS FASTINGP ERFORMED BY: [facility] Sobvll0821 [facility] [employer] [place] [id number] IgG mass conc 1071 mg/dL Normal 700-1600 Comprehensi ve Internal Medicine Work Phone: Comment on above: PATIENT WAS FASTINGP ERFORMED BY: [facility] Fycflr3810 [facility] [employer] [facility] [employer] [place] [id number] IgM mass conc 114 mg/dL Normal 20-172 Comprehensi ve Internal Medicine Work Phone: Comment on above: PATIENT WAS FASTINGP ERFORMED BY: [facility] [id number] [facility] [place] [id number] Protein Fractions [Interp] UPEIP Normal [facility] Work Phone: Comment on above: No monoclonality det ected. PATIENT WAS FASTINGP ERFORMED BY: [facility] [id number] [facility] [employer] [facility] [employer] [place] [id number] Protein Fractions Immunofixation Interp UPEIP Normal Comprehens jeremias Internal Medicine Work Phone: Comment on above: No monoclonality det ected. urine immunofixation ([id number]) Ordered By: Waterworks Operator on 08-10-2016 Interpretation Immunofixation Interp (U) UPEIP Normal [facility] Work Phone: Comment on above: No monoclonality det ected. PATIENT WAS FASTINGP ERFORMED BY: [facility] Yoxlwl5704 [facility] [employer] [facility] [employer] [place] [id number] Urinalysis, Office ([id number])Or dered By: [place] Carreno on 02-20-2016 Bilirubin Ql (U) Negative Normal Comprehe nsive Internal Medicine Work Phone: Bilirubin Ql (U) Negative Normal Comprehe nsive Internal Medicine; [facility] Work Phone: Glucose Test strip (U) [Mass/Vol] Negative Normal [facility]; [facility] Work Phone: Glucose Test strip mass conc (U) Negative Normal [facility] Work Phone: Hemoglobin Ql (U) Negative Normal Compreh ensive Internal Medicine Work Phone: Hemoglobin Ql (U) Negative Normal Compreh ensive Internal Medicine; [facility] Work Phone: Hemoglobin Test strip Ql (U) Negative Normal [facility] Work Phone: Ketones Ql (U) Negative Normal Comprehens jeremias Internal Medicine Work Phone: Ketones Ql (U) Negative Normal Comprehens jeremias Internal Medicine; [facility] Work Phone: Leukocyte esterase Test strip Ql (U) Negative Normal [facility] Work Phone: Leukocyte esterase Test strip Ql (U) Negative Normal [facility]; [facility] Work Phone: Nitrite Ql (U) Negative Normal Comprehens jeremias Internal Medicine Work Phone: Nitrite Ql (U) Negative Normal Comprehens jeremias Internal Medicine; [facility] Work Phone: Nitrite Test strip Ql (U) Negative Normal [facility] Work Phone: pH (U) 5 [pH] Abnormal [facility] Work Phone: pH Test strip (U) 5 [pH] Abnormal Compreh ensive Internal Medicine Work Phone: Protein Ql (U) Negative Normal Comprehens jeremias Internal Medicine Work Phone: Protein Ql (U) Negative Normal Comprehens jeremias Internal Medicine; [facility] Work Phone: Protein Test strip Ql (U) Negative Normal [facility] Work Phone: Specific gravity Relative Density (U) 1.030 1 Abnormal Comprehensi ve Internal Medicine Work Phone: Urobilinogen mass/time (24H U) Normal Normal [facility] Work Phone: HgA1C , Office ([phone])Ordere d By: Venice Carreno on 11-21-2015 Hemoglobin A1c/Hemoglobin.total mass fraction (Bld) 6.5 % Normal 4.6 - 7.1 Comprehensiv e Internal Medicine Work Phone: CBC W/Diff, AutomatedOrdered By: Waterworks Operator on 11-05-2015 Absolute Lymph 2.39 {X10_3/ul} Normal 0.83-4.51 Compr ehensive Internal Medicine Work Phone: Absolute Neut 4.0 {X10_3/uL} Normal 2.0-7.7 Compreh ensive Internal Medicine Work Phone: Comment on above: [facility] [address] [place], [address] Basophils/100 WBC (Bld) 0.7 % Normal 0-1 [facility] Work Phone: Comment on above: [facility] [address] [place], [address] Basophils/100 WBC Auto (Bld) 0.7 % Normal 0-1 [facility] Work Phone: Eosinophils/100 WBC (Bld) 2.7 % Normal 0-5 [facility] Work Phone: Comment on above: [facility] [address] [place], [address] Eosinophils/100 WBC Auto (Bld) 2.7 % Normal 0-5 [facility] Work Phone: Erythrocyte distribution width (RBC) [Ratio] 13.6 % Normal 11.6-14.6 [facility] Work Phone: Comment on above: [facility] [address] [place], [address] Erythrocyte distribution width Auto Ratio (RBC) 13.6 % Normal 11.6-14.6 [facility] Work Phone: Hematocrit (Bld) [Volume fraction] 43.8 % Normal 40-54 [facility] Work Phone: Comment on above: [facility] [address] [place], [address](291 Hematocrit Auto Volume Fraction (Bld) 43.8 % Normal 40-54 [facility] Work Phone: Hemoglobin mass conc (Bld) 14.8 g/dL Normal 13.0-16.5 [facility] Work Phone: Comment on above: [facility] [address] [place], [address] IM GRAN % 0.100 % Normal 0.0-0.9 [facility] Work Phone: Comment on above: IG% - Immature Granu locytes (promyelocytes, myelocytes andmetamyelocytes) > 1% indicates that a LEFT SHIFT is Present. [facility] [address] [place], [address] Lymphocytes (Bld) [#/Vol] 2.39 {X10_3/ul} Normal 0.83-4.51 [facility] Work Phone: Comment on above: [facility] [address] [place], [address] Lymphocytes Auto #/vol (Bld) 2.39 {X10_3/ul} Normal 0.83-4.51 [facility] Work Phone: Lymphocytes/100 WBC (Bld) 33.5 % Normal 19-41 [facility] Work Phone: Comment on above: [facility] [address] [place], [address] Lymphocytes/100 WBC Auto (Bld) 33.5 % Normal 19-41 [facility] Work Phone: MCH (RBC) [Entitic mass] 30.0 pg Normal 27.0-32.0 [facility] Work Phone: Comment on above: [facility] [address] [place], [address] MCH Auto Entitic mass (RBC) 30.0 pg Normal 27.0-32.0 [facility] Work Phone: MCHC (RBC) [Mass/Vol] 33.8 {g/gl} Normal 32-36 Co mprehensive Internal Medicine Work Phone: Comment on above: [facility] [address] [place], [address] MCHC Auto mass conc (RBC) 33.8 {g/gl} Normal 32-36 [facility] Work Phone: MCV (RBC) [Entitic vol] 88.8 fL Normal 80-94 [facility] Work Phone: Comment on above: [facility] [address] [place], [address] MCV Auto Entitic volume (RBC) 88.8 fL Normal 80-94 [facility] Work Phone: Monocytes/100 WBC Auto (Bld) 7.6 % Normal 0-10 [facility] Work Phone: Comment on above: [facility] [address] [place], [address] Neutrophils/100 WBC (Bld) 55.4 % Normal 47-70 [facility] Work Phone: Comment on above: [facility] [address] [place], [address] Neutrophils/100 WBC Auto (Bld) 55.4 % Normal 47-70 [facility] Work Phone: Platelet mean volume (Bld) [Entitic vol] 9.8 fL Normal 6.2-12.0 Comprehensiv e Internal Medicine Work Phone: Comment on above: [facility] [address] [place], [address] Platelet mean volume Auto Entitic volume (Bld) 9.8 fL Normal 6.2-12.0 [facility] Work Phone: Platelets (Bld) [#/Vol] 278 10*3/uL Normal 150-450 [facility] Work Phone: Comment on above: [facility] [address] [place], [address] Platelets Auto #/vol (Bld) 278 10*3/uL Normal 150-450 [facility] Work Phone: RBC (Bld) [#/Vol] 4.93 {M/mm3} Normal 4.6-6.2 Compr ensive Internal Medicine Work Phone: Comment on above: [facility] [address] [place], [address] RBC Auto #/vol (Bld) 4.93 {M/mm3} Normal 4.6-6.2 [facility] Work Phone: RDW SD 43.8 fL Normal 35.1-43.9 [facility] Work Phone: Comment on above: [facility] [address] [place], [address] WBC (Bld) [#/Vol] 7.1 10*3/uL Normal 4.4-11.0 [facility] Internal Medicine Work Phone: Comment on above: [facility] [address] [place], [address] WBC Auto #/vol (Bld) 7.1 10*3/uL Normal 4.4-11.0 [facility] Work [facility]: Comprehensive Metabolic Prof ilOrdered By: Waterworks Operator on 11-05-2015 Comprehensive metabolic 2000 panel 21.3 {RATIO} Abnormal 10-20 Comprehensi ve Internal Medicine Work Phone: Comment on above: [facility] [address] [place], [address] Comprehensive metabolic 2000 panel 36 U/L Normal 12-78 Comprehensi ve Internal Medicine Work Phone: Comment on above: [facility] [address] [place], [address] Comprehensive metabolic 2000 panel 114 mg/dL Abnormal 70-110 Comprehensi ve Internal Medicine Work Phone: Comment on above: Fasting Glucose resu lt from 110 to <126 mg/dLsuggests IMPAIRED HOMEOSTASIS per A.D.A. criteria. [facility] [address] [place], [address] Comprehensive metabolic 2000 panel 4.3 mmol/L Normal 3.5-5.1 Comprehensi ve Internal Medicine Work Phone: Comment on above: [facility] [address] [place], [place], [id number] Comprehensive metabolic 2000 panel 106 mmol/L Normal 98-107 Comprehensi ve Internal Medicine Work Phone: Comment on above: [facility] [address] [place], [place], [id number] Comprehensive metabolic 2000 panel 142 mmol/L Normal 136-145 Comprehensi ve Internal Medicine Work Phone: Comment on above: [facility] [address] [place], [place], [id number] Comprehensive metabolic 2000 panel 0.89 mg/dL Normal 0.70-1.30 Comprehensi ve Internal Medicine Work Phone: Comment on above: The validity of the calculated GFR AND GFRAA in patients over70 years has not been determined. Clinical correlation isessential. [facility] [address] [place], [place], [id number] Comprehensive metabolic 2000 panel 90 mL/min Normal Comprehensi ve Internal Medicine Work Phone: Comment on above: Non- GFR Calc [facility] [address] [place], [place], [id number] Comprehensive metabolic 2000 panel 109 mL/min Normal Comprehensi ve Internal Medicine Work Phone: Comment on above: GFR Calc [facility] [address] [place], [place], [address] Comprehensive metabolic 2000 panel 19 mg/dL Abnormal 7-18 Comprehensi ve Internal Medicine Work Phone: Comment on above: [facility] [address] [place], [place], [address] Comprehensive metabolic 2000 panel 0.50 mg/dL Normal 0.20-1.00 Comprehensi ve Internal Medicine Work Phone: Comment on above: [facility] [address] [place], [place], [id number] Comprehensive metabolic 2000 panel 7 1 Normal 5-15 Comprehensi ve Internal Medicine Work Phone: Comment on above: [facility] [address] [place], [place], [address] Comprehensive metabolic 2000 panel 8.0 g/dL Normal 6.4-8.2 Comprehensi ve Internal Medicine Work Phone: Comment on above: [facility] [address] [place], [place], [address] Comprehensive metabolic 2000 panel 3.6 g/dL Normal 3.4-5.0 Comprehensi ve Internal Medicine Work Phone: Comment on above: [facility] [address] [place], [place], [address] Comprehensive metabolic 2000 panel 4.4 g/dL Abnormal 2.3-3.5 Comprehensi ve Internal Medicine Work Phone: Comment on above: [facility] [address] [place], [place], [address] Comprehensive metabolic 2000 panel 60 U/L Normal 50-136 Comprehensi ve Internal Medicine Work Phone: Comment on above: [facility] [address] [place], [place], [id number] Comprehensive metabolic 2000 panel 22 U/L Normal 15-37 Comprehensi ve Internal Medicine Work Phone: Comment on above: [facility] [address] [place], [place], [address] Comprehensive metabolic 2000 panel 0.8 {RATIO} Abnormal 0.9-2.4 Comprehensi ve Internal Medicine Work Phone: Comment on above: [facility] [address] [place], [place], [address] Comprehensive metabolic 2000 panel 8.9 mg/dL Normal 8.5-10.1 Comprehensi ve Internal Medicine Work Phone: Comment on above: [facility] [address] [place], [place], [address] Comprehensive metabolic 2000 panel 29.0 mmol/L Normal 21.0-32.0 Comprehensi ve Internal Medicine Work Phone: Comment on above: [facility] [address] [place], [place], [address] Lipid ProfileOrdered By: Abdirahman tem Bed Teacher on 11-05-2015 Cholesterol in HDL mass conc 46 mg/dL Normal [facility] Work Phone: Comment on above: Reference Range HDL <40 mg/dL Low HDL Cholesterol HDL >or= 60 mg/dL High HDL Cholesterol [facility] [address] [place], [place], [id number] Cholesterol in LDL [Mass/Vol] 122 mg/dL Normal 0-130 [facility] Work Phone: Comment on above: [facility] [address] [place], [place], [address] Cholesterol in LDL mass conc 122 mg/dL Normal 0-130 [facility] Work Phone: Cholesterol in VLDL mass conc 35 mg/dL Normal 5-40 [facility] Work Phone: Comment on above: [facility] [address] [place], [place], [address] Cholesterol mass conc 203 mg/dL Abnormal Com prehensive Internal Medicine Work Phone: Comment on above: <200 mg/dL Desirable 200-240 mg/dL Borderline >240 mg/dL High Risk [facility] [address] [place], [place], [address] Triglyceride mass conc 177 mg/dL Normal Co mprehensive Internal Medicine Work Phone: Comment on above: Serum Triglycerides Reference Interval Normal <150 mg/dL Borderline high 150 - 199 mg/dL High 200 - 499 mg/dL Very High > or = 500 mg/dL [facility] [address] [place], [place], [address] Lipid Profile 35 mg/dL Normal 5-40 Comprehensi ve Internal Medicine Work Phone: Comment on above: [facility] [address] [place], [address] Rapid Flu (93510 x 2)Ordered By: Urszula Cruz on 07-01-2015 FLUAV Ag IA Ql (Throat) Negative Normal [facility] Work Phone: FLUAV Ag IA Ql (Throat) Negative Normal [facility]; [facility] Work Phone: Rapid Strep Test, Office ([phone])Ordered By: Urszula Cruz on 07-01-2015 S. pyogenes Ag EIA Ql (Throat) Negative Normal [facility]; [facility] Work Phone: S. pyogenes Ag IA Ql (Unsp spec) Negative Normal [facility] Work Phone: Urinalysis, Office ([phone])Or dered By: Usrzula Cruz on 07-01-2015 Bilirubin Ql (U) Negative Normal Comprehe nsive Internal Medicine Work Phone: Bilirubin Ql (U) Negative Normal Comprehe nsive Internal Medicine; [facility] Work Phone: Glucose Test strip (U) [Mass/Vol] Negative Normal [facility]; [facility] Work Phone: Glucose Test strip mass conc (U) Negative Normal [facility] Work Phone: Hemoglobin Ql (U) Negative Normal Compreh ensive Internal Medicine Work Phone: Hemoglobin Ql (U) Negative Normal Compreh ensive Internal Medicine; [facility] Work Phone: Hemoglobin Test strip Ql (U) Negative Normal [facility] Work Phone: Ketones Ql (U) Negative Normal Comprehens jeremias Internal Medicine Work Phone: Ketones Ql (U) Negative Normal Comprehens jeremias Internal Medicine; [facility] Work Phone: Leukocyte esterase Test strip Ql (U) Negative Normal [facility] Work Phone: Leukocyte esterase Test strip Ql (U) Negative Normal [facility]; [facility] Work Phone: Nitrite Ql (U) Negative Normal Comprehens jeremias Internal Medicine Work Phone: Nitrite Ql (U) Negative Normal Comprehens jeremias Internal Medicine; [facility] Work Phone: Nitrite Test strip Ql (U) Negative Normal [facility] Work Phone: pH (U) 6.0 [pH] Normal [facility] Work Phone: Comment on above: 5.5 pH Test strip (U) 6.0 [pH] Normal Compreh ensive Internal Medicine Work Phone: Comment on above: 5.5 Protein Ql (U) Negative Normal Comprehens jeremias Internal Medicine Work Phone: Protein Ql (U) Negative Normal Comprehens jeremias Internal Medicine; [facility] Work Phone: Protein Test strip Ql (U) Negative Normal [facility] Work Phone: Specific gravity Relative Density (U) 1.015 1 Normal Comprehensi ve Internal Medicine Work Phone: Urobilinogen mass/time (24H U) Normal Normal [facility] Work Phone: HgA1C , Office ([phone])Ordere d By: Lizeth Islas on 04-05-2015 Hemoglobin A1c/Hemoglobin.total mass fraction (Bld) 6.6 % Normal 4.6 - 7.1 Comprehensiv e Internal Medicine Work Phone: CBC W/Diff, AutomatedOrdered By: Waterworks Operator on 03-26-2015 Absolute Lymph 2.25 {X10_3/ul} Normal 0.83-4.51 Compr ehensive Internal Medicine Work Phone: Absolute Neut 5.3 {X10_3/uL} Normal 2.0-7.7 Compreh ensive Internal Medicine Work Phone: Comment on above: Test performed at:[facility] [address] [place] [address] Basophils/100 WBC (Bld) 0.4 % Normal 0-1 [facility] Work Phone: Comment on above: Test performed at:[facility] [address] [place] [address] Basophils/100 WBC Auto (Bld) 0.4 % Normal 0-1 [facility] Work Phone: Eosinophils/100 WBC (Bld) 2.2 % Normal 0-5 [facility] Work Phone: Comment on above: Test performed at:[facility] [address] [place] [address] Eosinophils/100 WBC Auto (Bld) 2.2 % Normal 0-5 [facility] Work Phone: Erythrocyte distribution width (RBC) [Ratio] 13.4 % Normal 11.6-14.6 [facility] Work Phone: Comment on above: Test performed at:[facility] [address] [place] [address] Erythrocyte distribution width Auto Ratio (RBC) 13.4 % Normal 11.6-14.6 [facility] Work Phone: Hematocrit (Bld) [Volume fraction] 42.4 % Normal 40-54 [facility] Work Phone: Comment on above: Test performed at:[facility] [address] [place] [address] Hematocrit Auto Volume Fraction (Bld) 42.4 % Normal 40-54 [facility] Work Phone: Hemoglobin mass conc (Bld) 14.2 g/dL Normal 13.0-16.5 [facility] Work Phone: Comment on above: Test performed at:[facility] [address] [place] [address] IM GRAN % 0.100 % Normal 0.0-0.9 [facility] Work Phone: Comment on above: IG% - Immature Granu locytes (promyelocytes, myelocytes andmetamyelocytes) > 1% indicates that a LEFT SHIFT is Present. Test performed at:[facility] [address] [place] [address] Lymphocytes (Bld) [#/Vol] 2.25 {X10_3/ul} Normal 0.83-4.51 [facility] Work Phone: Comment on above: Test performed at:[facility] [address] [place] [address] Lymphocytes Auto #/vol (Bld) 2.25 {X10_3/ul} Normal 0.83-4.51 [facility] Work Phone: Lymphocytes/100 WBC (Bld) 27.2 % Normal 19-41 [facility] Work Phone: Comment on above: Test performed at:[facility] [address] [place] [address] Lymphocytes/100 WBC Auto (Bld) 27.2 % Normal 19-41 [facility] Work Phone: MCH (RBC) [Entitic mass] 29.3 pg Normal 27.0-32.0 [facility] Work Phone: Comment on above: Test performed at:[facility] [address] [place] [address] MCH Auto Entitic mass (RBC) 29.3 pg Normal 27.0-32.0 [facility] Work Phone: MCHC (RBC) [Mass/Vol] 33.5 {g/gl} Normal 32-36 [facility] Internal [facility] Work Phone: Comment on above: Test performed at:[facility] [address] [place] [address] MCHC Auto mass conc (RBC) 33.5 {g/gl} Normal 32-36 [facility] Work Phone: MCV (RBC) [Entitic vol] 87.4 fL Normal 80-94 [facility] Work Phone: Comment on above: Test performed at:[facility] [address] [place] [address] MCV Auto Entitic volume (RBC) 87.4 fL Normal 80-94 [facility] Work Phone: Monocytes/100 WBC Auto (Bld) 5.6 % Normal 0-10 [facility] Work Phone: Comment on above: Test performed at:[facility] [address] [place] [address] Neutrophils/100 WBC (Bld) 64.5 % Normal 47-70 [facility] Work Phone: Comment on above: Test performed at:[facility] [address] [place] [address] Neutrophils/100 WBC Auto (Bld) 64.5 % Normal 47-70 [facility] Work Phone: Platelet mean volume (Bld) [Entitic vol] 9.4 fL Normal 6.2-12.0 Comprehensiv e Internal Medicine Work Phone: Comment on above: Test performed at:[facility] [address] [place] [address] Platelet mean volume Auto Entitic volume (Bld) 9.4 fL Normal 6.2-12.0 [facility] Work Phone: Platelets (Bld) [#/Vol] 252 10*3/uL Normal 150-450 [facility] Work Phone: Comment on above: Test performed at:[facility] [address] [place] [address] Platelets Auto #/vol (Bld) 252 10*3/uL Normal 150-450 [facility] Work Phone: RBC (Bld) [#/Vol] 4.85 {M/mm3} Normal 4.6-6.2 Compr ensive Internal Medicine Work Phone: Comment on above: Test performed at:[facility] [address] [place] [address] RBC Auto #/vol (Bld) 4.85 {M/mm3} Normal 4.6-6.2 Co mprehensive Internal Medicine Work Phone: RDW SD 42.1 fL Normal 35.1-43.9 [facility] Work Phone: Comment on above: Test performed at:[facility] [address] [place] [address] WBC (Bld) [#/Vol] 8.3 10*3/uL Normal 4.4-11.0 [facility] Internal Medicine Work Phone: Comment on above: Test performed at:[facility] [address] [place] [address] WBC Auto #/vol (Bld) 8.3 10*3/uL Normal 4.4-11.0 [facility] prehensive Internal Medicine Work Phone: Comprehensive Metabolic Prof ilOrdered By: Waterworks Operator on 03-26-2015 Comprehensive metabolic 2000 panel 137 mmol/L Normal 136-145 Comprehensi ve Internal Medicine Work Phone: Comment on above: Test performed at:[facility] [address] [place] [address] Comprehensive metabolic 2000 panel 1.0 mg/dL Normal 0.8-1.3 Comprehensi ve Internal Medicine Work Phone: Comment on above: Test performed at:[facility] [address] [place] [address] Comprehensive metabolic 2000 panel 79 mL/min Normal Comprehensi ve Internal Medicine Work Phone: Comment on above: Test performed at:[facility] [address] [place] [address] Comprehensive metabolic 2000 panel 96 mL/min Normal Comprehensi ve Internal Medicine Work Phone: Comment on above: Test performed at:[facility] [address] [place] [address] Comprehensive metabolic 2000 panel 21 mg/dL Abnormal 7-18 Comprehensi ve Internal Medicine Work Phone: Comment on above: Test performed at:[facility] [address] [place], [place] [id number] Comprehensive metabolic 2000 panel 5 1 Normal 5-15 Comprehensi ve Internal Medicine Work Phone: Comment on above: Test performed at:[facility] [address] [place], [place] [id number] Comprehensive metabolic 2000 panel 21.0 {RATIO} Abnormal 10-20 Comprehensi ve Internal Medicine Work Phone: Comment on above: Test performed at:[facility] [address] [place], [place] [id number] Comprehensive metabolic 2000 panel 110 mg/dL Normal 70-110 Comprehensi ve Internal Medicine Work Phone: Comment on above: Fasting Glucose resu lt from 110 to <126 mg/dLsuggests IMPAIRED HOMEOSTASIS per A.D.A. criteria. Test performed at:[facility] [address] [place], [place] [id number] Comprehensive metabolic 2000 panel 7.6 g/dL Normal 6.4-8.2 Comprehensi ve Internal Medicine Work Phone: Comment on above: Test performed at:[facility] [address] [place], [place] [id number] Comprehensive metabolic 2000 panel 29.0 mmol/L Normal 21.0-32.0 Comprehensi ve Internal Medicine Work Phone: Comment on above: Test performed at:[facility] [address] [place] [address] Comprehensive metabolic 2000 panel 33 U/L Normal 12-78 Comprehensi ve Internal Medicine Work Phone: Comment on above: Test performed at:[facility] [address] [place] [address] Comprehensive metabolic 2000 panel 63 U/L Normal 50-136 Comprehensi ve Internal Medicine Work Phone: Comment on above: Test performed at:[facility] [address] [place] [address] Comprehensive metabolic 2000 panel 29 U/L Normal 15-37 Comprehensi ve Internal Medicine Work Phone: Comment on above: Test performed at:[facility] [address] [place] [address] Comprehensive metabolic 2000 panel 9.4 mg/dL Normal 8.5-10.1 Comprehensi ve Internal Medicine Work Phone: Comment on above: Test performed at:[facility] [address] [place] [address] Comprehensive metabolic 2000 panel 103 mmol/L Normal 98-107 Comprehensi ve Internal Medicine Work Phone: Comment on above: Test performed at:[facility] [address] [place] [address] Comprehensive metabolic 2000 panel 4.5 mmol/L Normal 3.5-5.1 Comprehensi ve Internal Medicine Work Phone: Comment on above: Test performed at:[facility] [address] [place] [address] Comprehensive metabolic 2000 panel 0.9 {RATIO} Normal 0.9-2.4 Comprehensi ve Internal Medicine Work Phone: Comment on above: Test performed at:[facility] [address] [place], [place] [id number] Comprehensive metabolic 2000 panel 3.6 g/dL Normal 3.4-5.0 Comprehensi ve Internal Medicine Work Phone: Comment on above: Test performed at:[facility] [address] [place] [address] Comprehensive metabolic 2000 panel 4.0 g/dL Normal 2.7-4.2 Comprehensi ve Internal Medicine Work Phone: Comment on above: Test performed at:[facility] [address] [place] [address] Comprehensive metabolic 2000 panel 0.50 mg/dL Normal 0.00-4.00 Comprehensi ve Internal Medicine Work Phone: Comment on above: Test performed at:[facility] [address] [place] [address] Lipid ProfileOrdered By: Abdirahman tem Bed Teacher on 03-26-2015 Cholesterol in HDL mass conc 37 mg/dL Abnormal Comprehensive Internal Medicine Work Phone: Comment on above: Reference Range HDL <40 mg/dL Low HDL Cholesterol HDL >or= 60 mg/dL High HDL Cholesterol Test performed at:[facility] [address] [place] [address] Cholesterol in LDL [Mass/Vol] 100 mg/dL Normal 0-130 [facility] Work Phone: Comment on above: Test performed at:[facility] [address] [place] [address] Cholesterol in LDL mass conc 100 mg/dL Normal 0-130 [facility] Work Phone: Cholesterol in VLDL mass conc 38 mg/dL Normal 5-40 [facility] Work Phone: Comment on above: Test performed at:[facility] [address] [place] [address] Cholesterol mass conc 175 mg/dL Normal Com prehensive Internal Medicine Work Phone: Comment on above: <200 mg/dL Desirable 200-240 mg/dL Borderline >240 mg/dL High Risk Test performed at:[facility] [address] [place], [place] [id number] Triglyceride mass conc 189 mg/dL Normal 0-199 Co mprehensive Internal Medicine Work Phone: Comment on above: Serum Triglycerides Reference Interval Normal <150 mg/dL Borderline high 150 - 199 mg/dL High 200 - 499 mg/dL Very High > or = 500 mg/dL Test performed at:[facility] [address] [place] [address] Lipid Profile 38 mg/dL Normal 5-40 Comprehensi ve Internal Medicine Work Phone: Comment on above: Test performed at:[facility] [address] [place] [address] MicroalbOrdered By: Pancho vigil on 03-26-2015 Creatinine [Mass/Vol] 104.4 mg/dL Normal Co mprehensive Internal Medicine Work Phone: Comment on above: Test performed at:[facility] [address] [place] [address] Creatinine mass conc 10.6 {mg/g_CRE} Normal [facility] Work Phone: Comment on above: Test performed at:[facility] [address] [place] [address] MICROALBUMIN,UR 11.1 mg/L Normal Comprehen sive Internal Medicine Work Phone: UR CREAT 104.4 mg/dL Normal [facility] Work Phone: Microalb 11.1 mg/L Normal [facility] Work Phone: Comment on above: Test performed at:[facility] [address] [place] [address] PSA,Total - Annual ScreenOrd ered By: Waterworks Operator on 03-26-2015 Prostate specific Ag mass conc 0.62 ng/mL Normal 0.00-4.00 [facility] Work Phone: Comment on above: This test was perfor med using the TPSA assay method for [employer] chemistry system. Values obtained with differentassay methods cannot be used interchangably.When changing PSA assays in the course of monitoring apatient, additional sequential testing should be carriedout to confirm baseline values. Test performed at:[facility] [address] [place] [address] Urinalysis, Routine (Dipstic k)Ordered By: Waterworks Operator on 03-26-2015 CLARITY Clear Normal [facility] Work Phone: Clarity (U) Clear Normal [facility] Work Phone: Comment on above: How was Urine Obtain ed? CLEAN CATCHTest performed at:[facility] [address] [place] [address] COLOR Yellow Normal [facility] Work Phone: Color (U) Yellow Normal [facility] Work Phone: Comment on above: How was Urine Obtain ed? CLEAN CATCHTest performed at:[facility] [address] [place] [address] OCCULT BLOOD-UR Negative Normal Comprehen sive Internal Medicine Work Phone: pH UR 5.0 1 Normal 5.0 - 8.0 [facility] Work Phone: SP.GR. DIPSTX 1.020 1 Normal 1.002-1.030 Comprehens jeremias Internal Medicine Work Phone: UROBILI Normal Normal [facility] Work Phone: Urinalysis, Routine (Dipstick) Negative Normal [facility] Work Phone: Comment on above: How was Urine Obtain ed? CLEAN CATCHTest performed at:[facility] [address] [place] [address] Urinalysis, Routine (Dipstick) Normal Normal [facility] Work Phone: Comment on above: How was Urine Obtain ed? CLEAN CATCHTest performed at:[facility] [address] [place] [address] Urinalysis, Routine (Dipstick) 5.0 1 Normal 5.0 - 8.0 [facility] Work Phone: Comment on above: How was Urine Obtain ed? CLEAN CATCHTest performed at:[facility] [address] [place] [address] Urinalysis, Routine (Dipstick) 1.020 1 Normal 1.002-1.030 [facility] Work Phone: Comment on above: How was Urine Obtain ed? CLEAN CATCHTest performed at:[facility] [address] [place] [address] HgA1C , Office ([phone])Ordere d By: Alisha Candelario on 11-30-2013 Hemoglobin A1c/Hemoglobin.total mass fraction (Bld) 6.5 % Normal 4.6 - 7.1 Comprehensiv e Internal Medicine Work Phone: CMPOrdered By: System Manage r on 10-17-2013 Albumin mass conc 3.7 g/dL Normal 3.4-5.0 Compreh ensive Internal Medicine Work Phone: Albumin/Globulin mass ratio 0.9 {RATIO} Normal 0.9-2.4 [facility] Work Phone: ALP enzyme act/vol 57 U/L Normal 50-136 [facility] Work Phone: ALT enzyme act/vol 38 U/L Normal 12-78 Compre [facility] Internal Medicine Work Phone: AST enzyme act/vol 30 U/L Normal 15-37 Compre [facility] Internal Medicine Work Phone: Bilirubin mass conc 0.60 mg/dL Normal 0.00-1.00 Compr ehensive Internal Medicine Work Phone: Calcium mass conc 9.5 mg/dL Normal 8.5-10.1 Compreh ensive Internal Medicine Work Phone: Chloride molar conc 102 mmol/L Normal 98-107 Compr ehensive Internal Medicine Work Phone: CO2 molar conc 30.0 mmol/L Normal 21.0-32.0 Comprehen sive Internal Medicine Work Phone: Creatinine mass conc 1.0 mg/dL Normal 0.8-1.3 Comp rehensive Internal Medicine Work Phone: GFR/1.73 sq M predicted among non-blacks MDRD vol rate/area (S/P/Bld) 80 mL/min/{1.73_m2} Normal Comprehe nsive Internal Medicine Work Phone: Globulin Calculated mass conc (S) 4.2 g/dL Normal 2.7-4.2 [facility] Work Phone: Globulin mass conc (S) 4.2 g/dL Normal 2.7-4.2 Co mprehensive Internal Medicine Work Phone: Glucose mass conc 119 mg/dL Abnormal 70-110 Compreh ensive Internal Medicine Work Phone: Comment on above: Fasting Glucose resu lt from 110 to <126 mg/dLsuggests IMPAIRED HOMEOSTASIS per A.D.A. criteria. Potassium molar conc 4.4 mmol/L Normal 3.5-5.1 Comp rehensive Internal Medicine Work Phone: Protein mass conc 7.9 g/dL Normal 6.4-8.2 Compreh ensive Internal Medicine Work Phone: Sodium molar conc 136 mmol/L Normal 136-145 Compreh ensive Internal Medicine Work Phone: Urea nitrogen mass conc 26 mg/dL Abnormal 7-18 [facility] Work Phone: Urea nitrogen/Creatinine mass ratio 26.0 {RATIO} Abnormal 10-20 [facility] Work Phone: CMP 4 1 Abnormal 5-15 [facility] Work Phone: CMP 97 mL/min Normal [facility] Work Phone: CMP 4.2 g/dL Normal 2.7-4.2 [facility] Work Phone: CMP 7.9 g/dL Normal 6.4-8.2 [facility] Work Phone: LIPIDOrdered By: Pancho noyola on 10-17-2013 Cholesterol in HDL mass conc 43 mg/dL Normal [facility] Work Phone: Comment on above: Reference RangeHDL < 40 mg/dL Low HDL CholesterolHDL >or= 60 mg/dL High HDL Cholesterol Cholesterol in LDL mass conc 112 mg/dL Normal 0-130 [facility] Work Phone: Cholesterol mass conc 183 mg/dL Normal Com prehensive Internal Medicine Work Phone: Comment on above: <200 mg/dL Desirable 200-240 mg/dL Borderline>240 mg/dL High Risk Triglyceride mass conc 138 mg/dL Normal 0-199 Co mprehensive Internal Medicine Work Phone: Comment on above: Serum Triglycerides Reference IntervalNormal <150 mg/dLBorderline high 150 - 199 mg/dLHigh 200 - 499 mg/dLVery High > or = 500 mg/dL LIPID 28 mg/dL Normal 5-40 [facility] Work Phone: HgA1C , Office ([phone])Ordere d By: Alisha Candelario on 02-09-2013 Hemoglobin A1c/Hemoglobin.total mass fraction (Bld) 6.8 % Normal 4.6 - 7.1 Comprehensiv e Internal Medicine Work Phone: CBCMDOrdered By: Pancho noyola on 11-22-2012 Erythrocyte distribution width (RBC) [Ratio] 13.2 % Normal 11.6-14.6 [facility] Work Phone: Erythrocyte distribution width Auto Ratio (RBC) 13.2 % Normal 11.6-14.6 [facility] Work Phone: Hematocrit (Bld) [Volume fraction] 41.1 % Normal 40-54 [facility] Work Phone: Hematocrit Auto Volume Fraction (Bld) 41.1 % Normal 40-54 [facility] Work Phone: Hemoglobin mass conc (Bld) 14.0 g/dL Normal 13.0-16.5 [facility] Work Phone: MCH (RBC) [Entitic mass] 29.3 pg Normal 27.0-32.0 [facility] Work Phone: MCH Auto Entitic mass (RBC) 29.3 pg Normal 27.0-32.0 [facility] Work Phone: MCHC (RBC) [Mass/Vol] 34.1 g/dL Normal 32-36 Com prehensive Internal Medicine Work Phone: MCHC Auto mass conc (RBC) 34.1 g/dL Normal 32-36 [facility] Internal Medicine Work Phone: MCV (RBC) [Entitic vol] 86.0 fL Normal 80-94 [facility] Internal Medicine Work Phone: MCV Auto Entitic volume (RBC) 86.0 fL Normal 80-94 [facility] Internal Medicine Work Phone: Platelet mean volume (Bld) [Entitic vol] 9.5 fL Normal 6.2-12.0 Comprehensiv e Internal Medicine Work Phone: Platelet mean volume Auto Entitic volume (Bld) 9.5 fL Normal 6.2-12.0 [facility] Internal Medicine Work Phone: Platelets (Bld) [#/Vol] 273 10*3/uL Normal 150-450 [facility] Internal Medicine Work Phone: Platelets Auto #/vol (Bld) 273 10*3/uL Normal 150-450 [facility] Work Phone: RBC (Bld) [#/Vol] 4.78 {M/mm3} Normal 4.6-6.2 Compr ehensive Internal Medicine Work Phone: RBC Auto #/vol (Bld) 4.78 {M/mm3} Normal 4.6-6.2 Co mprehensive Internal Medicine Work Phone: WBC (Bld) [#/Vol] 7.1 {k/mm3} Normal 4.4-11.0 Compre hensive Internal Medicine Work Phone: WBC Auto #/vol (Bld) 7.1 {k/mm3} Normal 4.4-11.0 Com prehensive Internal Medicine Work Phone: CBCMD 4.5 3/uL Normal 2.0-7.7 [facility] Work Phone: CBCMD 0.4 % Normal 0-1 [facility] Work Phone: CBCMD 2.4 % Normal 0-5 [facility] Work Phone: CBCMD 7.9 % Normal 0-10 [facility] Work Phone: CBCMD 0.020 3/ul Abnormal 0.0-0.0 [facility] Work Phone: CBCMD 63.4 % Normal 47-70 [facility] Work Phone: CBCMD 25.6 % Normal 19-41 [facility] Work Phone: CBCMD 0.30 % Abnormal 0.0-0.0 [facility] Work Phone: CBCMD 40.9 fL Normal 35.1-43.9 [facility] Work Phone: CMPOrdered By: System Manage r on 11-22-2012 Albumin mass conc 3.6 g/dL Normal 3.4-5.0 Compreh ensive Internal Medicine Work Phone: Albumin/Globulin mass ratio 0.9 {RATIO} Normal 0.9-2.4 [facility] Work Phone: ALP enzyme act/vol 48 U/L Abnormal 50-136 Compre hensive Internal Medicine Work Phone: ALT enzyme act/vol 30 U/L Normal 12-78 Compre hensive Internal Medicine Work Phone: Anion gap 3 molar conc 12 mmol/L Normal 5-15 Co mprehensive Internal Medicine Work Phone: Anion gap [Moles/Vol] 12 mmol/L Normal 5-15 Com prehensive Internal Medicine Work Phone: AST enzyme act/vol 20 U/L Normal 15-37 Compre hensive Internal Medicine Work Phone: Bilirubin mass conc 0.60 mg/dL Normal 0.00-1.00 Compr ensive Internal Medicine Work Phone: Calcium mass conc 9.1 mg/dL Normal 8.5-10.1 Compreh ensive Internal Medicine Work Phone: Chloride molar conc 101 mmol/L Normal 98-107 Compr ensive Internal Medicine Work Phone: CO2 molar conc 26.0 mmol/L Normal 21.0-32.0 [facility] Work Phone: Creatinine mass conc 1.1 mg/dL Normal 0.8-1.3 [facility] Work Phone: GFR/1.73 sq M predicted among blacks MDRD vol rate/area (S/P/Bld) 87 mL/min/{1.73_m2} Normal Comprehensiv e Internal Medicine Work Phone: GFR/1.73 sq M.predicted MDRD (S/P/Bld) [Vol rate/Area] 72 mL/min/{1.73_m2} Normal Comprehensiv e Internal Medicine Work Phone: GFR/1.73 sq M.predicted MDRD vol rate/area 72 mL/min/{1.73_m2} [facility] Work Phone: Globulin (S) [Mass/Vol] 3.9 g/dL Normal 2.7-4.2 [facility] Work Phone: Globulin Calculated mass conc (S) 3.9 g/dL Normal 2.7-4.2 [facility] Work Phone: Glucose mass conc 142 mg/dL Abnormal 70-110 [facility]h [facility] Work Phone: Comment on above: Fasting Glucose resu lt greater than or equal to 126 mg/dL suggests DIABETES MELLITUS per A.D.A. criteria. Potassium molar conc 3.9 mmol/L Normal 3.5-5.1 [facility] Work Phone: Protein mass conc 7.5 g/dL Normal 6.4-8.2 Compreh ensive Internal Medicine Work Phone: Sodium molar conc 139 mmol/L Normal 136-145 Compreh ensive Internal Medicine Work Phone: Urea nitrogen mass conc 23 mg/dL Abnormal 7-18 [facility] Work Phone: Urea nitrogen/Creatinine mass ratio 20.9 {RATIO} Abnormal 10-20 [facility] Work Phone: LIPIDOrdered By: System Joanne jazmín on 11-22-2012 Cholesterol in HDL mass conc 41 mg/dL Normal [facility] Work Phone: Comment on above: Reference Range HDL <40 mg/dL Low HDL Cholesterol HDL >or= 60 mg/dL High HDL Cholesterol Cholesterol in LDL mass conc 111 mg/dL Normal 0-130 [facility] Work Phone: Cholesterol in VLDL mass conc 35 mg/dL Normal 5-40 [facility] Work Phone: Cholesterol mass conc 187 mg/dL Normal Com prehensive Internal Medicine Work Phone: Comment on above: <200 mg/dL Desirable 200-240 mg/dL Borderline >240 mg/dL High Risk Triglyceride mass conc 175 mg/dL Normal Co mprehensive Internal Medicine Work Phone: Comment on above: Serum Triglycerides Reference Interval Normal <150 mg/dL Borderline high 150 - 199 mg/dL High 200 - 499 mg/dL Very High > or = 500 mg/dL MIACREOrdered By: System SportsBeep datr on 11-22-2012 Creatinine mass conc 7.2 {mg/g_CRE} Normal [facility] Work Phone: MIACRE 287.9 mg/dL Normal [facility] Work Phone: MIACRE 21.0 mg/L Normal [facility] Work Phone: PSAOrdered By: System JoySports r on 11-22-2012 Prostate specific Ag mass conc 0.63 ng/mL Normal 0.00-4.00 [facility] Work Phone: Blood Glucose , Office ([phone])Ordered By: Alisha Candelario on 09-01-2012 Glucose Glucometer molar conc (BldC) 149 1 Normal [facility] Work Phone: HgA1C , Office ([phone])Ordere d By: Lizeth Islas on 09-01-2012 Hemoglobin A1c/Hemoglobin.total mass fraction (Bld) 6.7 % Normal 4.6 - 7.1 Comprehensiv e Internal Medicine Work Phone: HgA1C , Office ([phone])Ordere d By: Alisha Candelario on 04-01-2012 Hemoglobin A1c/Hemoglobin.total mass fraction (Bld) 6.5 % Normal 4.6 - 7.1 Comprehensiv e Internal Medicine Work Phone: CMPOrdered By: System Manage r on 03-22-2012 Albumin mass conc 3.8 g/dL Normal 3.4-5.0 Compreh ensive Internal Medicine Work Phone: Albumin/Globulin mass ratio 1.0 {RATIO} Normal 0.9-2.4 [facility] Work Phone: ALP enzyme act/vol 40 U/L Abnormal 50-136 Compre hensive Internal Medicine Work Phone: ALT enzyme act/vol 37 U/L Normal 12-78 Compre hensive Internal Medicine Work Phone: Anion gap 3 molar conc 9 mmol/L Normal 5-15 Co mprehensive Internal Medicine Work Phone: Anion gap [Moles/Vol] 9 mmol/L Normal 5-15 Com prehensive Internal Medicine Work Phone: AST enzyme act/vol 24 U/L Normal 15-37 Compre hensive Internal Medicine Work Phone: Bilirubin mass conc 0.70 mg/dL Normal 0.00-1.00 Compr ehensive Internal Medicine Work Phone: Calcium mass conc 9.0 mg/dL Normal 8.5-10.1 Compreh ensive Internal Medicine Work Phone: Chloride molar conc 105 mmol/L Normal 98-107 Compr ehensive Internal Medicine Work Phone: CO2 molar conc 27.0 mmol/L Normal 21.0-32.0 [facility]prehen [facility] Internal [facility] Work Phone: Creatinine mass conc 1.1 mg/dL Normal 0.8-1.3 Comp rehensive Internal Medicine Work Phone: GFR/1.73 sq M predicted among blacks MDRD vol rate/area (S/P/Bld) 87 mL/min/{1.73_m2} Normal Comprehensiv e Internal Medicine Work Phone: GFR/1.73 sq M.predicted MDRD (S/P/Bld) [Vol rate/Area] 72 mL/min/{1.73_m2} Normal Comprehensiv e Internal Medicine Work Phone: GFR/1.73 sq M.predicted MDRD vol rate/area 72 mL/min/{1.73_m2} Normal Comprehensiv e Internal Medicine Work Phone: Globulin (S) [Mass/Vol] 4.0 g/dL Normal 2.7-4.2 [facility] Work Phone: Globulin Calculated mass conc (S) 4.0 g/dL Normal 2.7-4.2 [facility] Work Phone: Glucose mass conc 106 mg/dL Normal 70-110 Compreh ensive Internal Medicine Work Phone: Potassium molar conc 3.8 mmol/L Normal 3.5-5.1 Comp rehensive Internal Medicine Work Phone: Protein mass conc 7.8 g/dL Normal 6.4-8.2 Compreh ensive Internal Medicine Work Phone: Sodium molar conc 141 mmol/L Normal 136-145 Compreh ensive Internal Medicine Work Phone: Urea nitrogen mass conc 35 mg/dL Abnormal 7-18 [facility] Work Phone: Urea nitrogen/Creatinine mass ratio 31.8 {RATIO} Abnormal 10-20 [facility] Work Phone: LIPIDOrdered By: Pancho noyola on 03-22-2012 Cholesterol in HDL mass conc 43 mg/dL Normal [facility] Work Phone: Comment on above: Reference Range HDL <40 mg/dL Low HDL Cholesterol HDL >or= 60 mg/dL High HDL Cholesterol Cholesterol in LDL mass conc 115 mg/dL Normal 0-130 [facility] Work Phone: Cholesterol in VLDL mass conc 20 mg/dL Normal 5-40 [facility] Work Phone: Cholesterol mass conc 178 mg/dL Normal Com prehensive Internal Medicine Work Phone: Comment on above: <200 mg/dL Desirable 200-240 mg/dL Borderline >240 mg/dL High Risk Triglyceride mass conc 102 mg/dL Normal Co mprehensive Internal Medicine Work Phone: Comment on above: Serum Triglycerides Reference Interval Normal <150 mg/dL Borderline high 150 - 199 mg/dL High 200 - 499 mg/dL Very High > or = 500 mg/dL Blood Glucose , Office ([phone])Ordered By: Alisha Candelario on 10-30-2011 Glucose Glucometer molar conc (BldC) 107 1 Normal [facility] Work Phone: HgA1C , Office ([id number])Ordere d By: Alisha Candelario on 10-30-2011 Hemoglobin A1c/Hemoglobin.total mass fraction (Bld) 6.5 % Normal 4.6 - 7.1 [facility] Work Phone: COMP METABOLICOrdered By: Alireza stem Bed Teacher on 10-20-2011 Albumin mass conc 3.8 g/dL Normal 3.4-5.0 Compreh ensive [facility] Work Phone: Albumin/Globulin mass ratio 1.0 {RATIO} Normal 0.9-2.4 [facility] Work Phone: ALP enzyme act/vol 50 U/L Normal 50-136 Compre hensive [facility] Work Phone: ALT enzyme act/vol 30 U/L Normal 12-78 Compre hens[facility] Work Phone: Anion gap 3 molar conc 9 mmol/L Normal 5-15 [facility] Work Phone: Anion gap [Moles/Vol] 9 mmol/L Normal 5-15 Com prehensive [facility] Work Phone: AST enzyme act/vol 16 U/L Normal 15-37 Compre hensive [facility] Work Phone: Bilirubin mass conc 0.50 mg/dL Normal 0.00-1.00 Compr ehensive [facility] Work Phone: Calcium mass conc 9.0 mg/dL Normal 8.5-10.1 Compreh [facility] Work Phone: Chloride molar conc 103 mmol/L Normal 98-107 Compr ensive [facility] Work Phone: CO2 molar conc 27.0 mmol/L Normal 21.0-32.0 [facility] Work Phone: Creatinine mass conc 0.9 mg/dL Normal 0.8-1.[address] [facility]: GFR/1.73 sq M predicted among blacks MDRD vol rate/area (S/P/Bld) 110 mL/min/{1.73_m2} Normal Comprehensi ve [facility] Work Phone: GFR/1.73 sq M.predicted MDRD (S/P/Bld) [Vol rate/Area] 91 mL/min/{1.73_m2} Normal [facility] Work Phone: GFR/1.73 sq M.predicted MDRD vol rate/area 91 mL/min/{1.73_m2} Normal [facility] Work Phone: Globulin (S) [Mass/Vol] 4.0 g/dL Normal 2.7-4.2 [facility] Work Phone: Globulin Calculated mass conc (S) 4.0 g/dL Normal 2.7-4.2 [facility] Work Phone: Glucose mass conc 124 mg/dL Abnormal 70-110 [facility] Work Phone: Comment on above: Fasting Glucose resu lt from 110 to <126 mg/dL suggests IMPAIRED HOMEOSTASIS per A.D.A. criteria. Potassium molar conc 3.9 mmol/L Normal 3.5-5.[address] [facility] Work [facility]: Protein mass conc 7.8 g/dL Normal 6.4-8.2 Compreh [facility]ive [facility] Work Phone: Sodium molar conc 139 mmol/L Normal 136-145 Compreh [facility] Work Phone: Urea nitrogen mass conc 26 mg/dL Abnormal 7-18 [facility] Work Phone: Urea nitrogen/Creatinine mass ratio 28.9 {RATIO} Abnormal 10-20 [facility] Work Phone: LIPIDOrdered By: Pancho noyola on 10-20-2011 Cholesterol in HDL mass conc 43 mg/dL Normal [facility] Work Phone: Comment on above: Reference Range HDL <40 mg/dL Low HDL Cholesterol HDL >or= 60 mg/dL High HDL Cholesterol Cholesterol in LDL mass conc 126 mg/dL Normal 0-130 [facility] Work Phone: Cholesterol in VLDL mass conc 22 mg/dL Normal 5-40 [facility] Work Phone: Cholesterol mass conc 191 mg/dL Normal Com prehensive [facility] Work Phone: Comment on above: <200 mg/dL Desirable 200-240 mg/dL Borderline >240 mg/dL High Risk Triglyceride mass conc 108 mg/dL Normal [facility] Work Phone: Comment on above: Serum Triglycerides Reference Interval Normal <150 mg/dL Borderline high 150 - 199 mg/dL High 200 - 499 mg/dL Very High > or = 500 mg/dL MICROALBOrdered By: Pancho vigil on 10-20-2011 Creatinine [Mass/Vol] 213.7 mg/dL Normal [facility] Work Phone: Creatinine mass conc 5.8 {mg/g_CRE} Normal [facility] Work Phone: MICROALB 213.7 mg/dL Normal [facility] Work Phone: MICROALB 12.5 mg/L Normal [facility] Work Phone: PSA, SCREENOrdered By: Jose Gallardo on 10-20-2011 Prostate specific Ag mass conc 0.5 ng/mL Normal 0.0-4.0 [facility] Work Phone: Blood Glucose , Office ([phone])Ordered By: Alisha Candelario on 06-25-2011 Glucose Glucometer molar conc (BldC) 123 1 Normal [facility] Work Phone: HgA1C , Office ([id number])Ordere d By: Lizeth Islas on 06-25-2011 Hemoglobin A1c/Hemoglobin.total mass fraction (Bld) 6.7 % Normal 4.6 - 7.1 [facility] Work Phone: Urinalysis, Office ([id number])Or dered By: Savanah Soria on 06-11-2011 Bilirubin Ql (U) Negative Normal Comprehe nsive [facility] Work Phone: Bilirubin Ql (U) Negative Normal Comprehe [facility]; [facility] Work Phone: Glucose Test strip (U) [Mass/Vol] Negative Normal [facility]; [facility] Work Phone: Glucose Test strip mass conc (U) Negative Normal [facility] Work Phone: Hemoglobin Ql (U) Negative Normal Compreh [facility] Work Phone: Hemoglobin Ql (U) Negative Normal Compreh [facility]; [facility] Work Phone: Hemoglobin Test strip Ql (U) Negative Normal [facility] Work Phone: Ketones Ql (U) Negative Normal [facility]prehens [facility] Work Phone: Ketones Ql (U) Negative Normal Comprehens [facility]; [facility] Work Phone: Leukocyte esterase Test strip Ql (U) Negative Normal [facility] Work Phone: Leukocyte esterase Test strip Ql (U) Negative Normal [facility]; [facility] Work Phone: Nitrite Ql (U) Negative Normal Comprehens [facility] Work Phone: Nitrite Ql (U) Negative Normal Comprehens [facility]; [facility] Work Phone: Nitrite Test strip Ql (U) Negative Normal [facility] Work Phone: pH (U) 5.0 [pH] Normal [facility] Work Phone: pH Test strip (U) 5.0 [pH] Normal Compreh [facility] Work Phone: Protein Ql (U) Negative Normal Comprehens [facility] Work Phone: Protein Ql (U) Negative Normal Comprehens [facility]; [facility] Work Phone: Protein Test strip Ql (U) Negative Normal [facility] Work Phone: Specific gravity Relative Density (U) 1.025 1 Normal Comprehensi ve [facility] Work Phone: Urobilinogen mass/time (24H U) Normal Normal [facility] Work Phone: COMP METABOLICOrdered By: Sy stem Bed Teacher on 03-31-2011 Albumin mass conc 3.6 g/dL Normal 3.4-5.0 Compreh ens[facility] Work Phone: Albumin/Globulin mass ratio 0.9 {RATIO} Normal 0.9-2.4 [facility] Work Phone: ALP enzyme act/vol 50 U/L Normal 50-136 Compre hensive [facility] Work Phone: ALT enzyme act/vol 28 U/L Normal 12-78 [facility] Work Phone: Anion gap 3 molar conc 8 mmol/L Normal 5-15 [facility] Work Phone: Anion gap [Moles/Vol] 8 mmol/L Normal 5-15 Com prehensive [facility] Work Phone: AST enzyme act/vol 12 U/L Abnormal 15-37 Compre hensive [facility] Work Phone: Bilirubin mass conc 0.60 mg/dL Normal 0.00-1.00 Compr ehensive [facility] Work Phone: Calcium mass conc 9.5 mg/dL Normal 8.5-10.1 Compreh [facility] Work Phone: Chloride molar conc 103 mmol/L Normal 98-107 Compr ehensive [facility] Work Phone: CO2 molar conc 30.0 mmol/L Normal 21.0-32.0 [facility] Work Phone: Creatinine mass conc 1.1 mg/dL Normal 0.8-1.3 Comp rehensive [facility] Work Phone: GFR/1.73 sq M predicted among blacks MDRD vol rate/area (S/P/Bld) 87 mL/min/{1.73_m2} Normal [facility] Work Phone: GFR/1.73 sq M.predicted MDRD (S/P/Bld) [Vol rate/Area] 72 mL/min/{1.73_m2} Normal [facility] Work Phone: GFR/1.73 sq M.predicted MDRD vol rate/area 72 mL/min/{1.73_m2} Normal [facility] Work Phone: Globulin (S) [Mass/Vol] 3.9 g/dL Normal 2.7-4.2 [facility] Work Phone: Globulin Calculated mass conc (S) 3.9 g/dL Normal 2.7-4.2 [facility] Work Phone: Glucose mass conc 112 mg/dL Abnormal 70-110 Compreh ensive [facility] Work Phone: Comment on above: Fasting Glucose resu lt from 110 to <126 mg/dL suggests IMPAIRED HOMEOSTASIS per A.D.A. criteria. Potassium molar conc 4.1 mmol/L Normal 3.5-5.1 Comp rehensive [facility] Work Phone: Protein mass conc 7.5 g/dL Normal 6.4-8.2 Compreh ens[facility] Work Phone: Sodium molar conc 141 mmol/L Normal 136-145 Compreh [facility] Work Phone: Urea nitrogen mass conc 21 mg/dL Abnormal 7-18 [facility] Work Phone: Urea nitrogen/Creatinine mass ratio 19.1 {RATIO} Normal 10-20 [facility] Work Phone: LIPIDOrdered By: Pancho noyola on 03-31-2011 Cholesterol in HDL mass conc 44 mg/dL Normal [facility] Work Phone: Comment on above: Reference Range HDL <40 mg/dL Low HDL Cholesterol HDL >or= 60 mg/dL High HDL Cholesterol Cholesterol in LDL mass conc 119 mg/dL Normal 0-130 [facility] Work Phone: Cholesterol in VLDL mass conc 18 mg/dL Normal 5-40 [facility] Work Phone: Cholesterol mass conc 181 mg/dL Normal Com prehensive [facility] Work Phone: Comment on above: <200 mg/dL Desirable 200-240 mg/dL Borderline >240 mg/dL High Risk Triglyceride mass conc 92 mg/dL Normal [facility] Work Phone: Comment on above: Serum Triglycerides Reference Interval Normal <150 mg/dL Borderline high 150 - 199 mg/dL High 200 - 499 mg/dL Very High > or = 500 mg/dL HgA1C , Office ([id number])Ordere d By: Savanah Soria on 11-20-2010 Hemoglobin A1c/Hemoglobin.total mass fraction (Bld) 6.4 % Normal 4.6 - 7.1 [facility] Work Phone: Urinalysis, Office ([id number])Or dered By: Alisha Candelario on 06-20-2009 Bilirubin Ql (U) Negative Normal Comprehe nsive [facility] Work Phone: Bilirubin Ql (U) Negative Normal Comprehe ns[facility]; [facility] Work Phone: Glucose Test strip (U) [Mass/Vol] Negative Normal [facility]; [facility] Work Phone: Glucose Test strip mass conc (U) Negative Normal [facility] Work Phone: Hemoglobin Ql (U) Negative Normal Compreh [facility] Work Phone: Hemoglobin Ql (U) Negative Normal Compre[facility]; [facility] Work Phone: Hemoglobin Test strip Ql (U) Negative Normal [facility] Work Phone: Ketones Ql (U) Negative Normal [facility] Work Phone: Ketones Ql (U) Negative Normal [facility]; [facility] Work Phone: Leukocyte esterase Test strip Ql (U) Negative Normal [facility] Work Phone: Leukocyte esterase Test strip Ql (U) Negative Normal [facility]; [facility] Work Phone: Nitrite Ql (U) Negative Normal Com[facility] Work Phone: Nitrite Ql (U) Negative Normal Comprehens [facility]; [facility] Work Phone: Nitrite Test strip Ql (U) Negative Normal [facility] Work Phone: pH (U) 5.0 [pH] Normal [facility] Work Phone: pH Test strip (U) 5.0 [pH] Normal Compreh ensive [facility] Work Phone: Protein Ql (U) Negative Normal Comprehens [facility] Work Phone: Protein Ql (U) Negative Normal Comprehens [facility]; [facility] Work Phone: Protein Test strip Ql (U) Negative Normal [facility] Work Phone: Specific gravity Relative Density (U) 1.025 1 Normal Comprehensi ve [facility] Work Phone: Urobilinogen mass/time (24H U) Normal Normal [facility] Work Phone: CBCD,SMEAR DIFFOrdered By: Deshawn ystem Bed Teacher on 06-04-2009 Band form neutrophils/100 WBC (Bld) 5 % Normal 0-5 [facility] Work Phone: Band form neutrophils/100 WBC Manual cnt (Bld) 5 % Normal 0-5 [facility] Work Phone: Eosinophils/100 WBC (Bld) 2 % Normal 0-5 [facility] Work Phone: Eosinophils/100 WBC Auto (Bld) 2 % Normal 0-5 [facility] Work Phone: Erythrocyte distribution width (RBC) [Ratio] 13.6 % Normal 11.6-14.6 [facility] Work Phone: Erythrocyte distribution width Auto Ratio (RBC) 13.6 % Normal 11.6-14.6 [facility] Work Phone: Hematocrit (Bld) [Volume fraction] 41.1 % Normal 40-54 [facility] Work Phone: Hematocrit Auto Volume Fraction (Bld) 41.1 % Normal 40-54 [facility] Work Phone: Hemoglobin mass conc (Bld) 14.5 g/dL Normal 14.0-18.0 [facility] Work Phone: Lymphocytes/100 WBC (Bld) 29 % Normal 19-41 [facility] Work Phone: Lymphocytes/100 WBC Auto (Bld) 29 % Normal 19-41 [facility] Work Phone: MCH (RBC) [Entitic mass] 30.8 pg Normal 27.0-32.0 [facility] Work Phone: MCH Auto Entitic mass (RBC) 30.8 pg Normal 27.0-32.0 [facility] Work Phone: MCHC (RBC) [Mass/Vol] 35.3 g/dL Normal 32-36 Com prehensive [facility] Work Phone: MCHC Auto mass conc (RBC) 35.3 g/dL Normal 32-36 [facility] Work Phone: MCV (RBC) [Entitic vol] 87.2 fL Normal 80-94 [facility] Work Phone: MCV Auto Entitic volume (RBC) 87.2 fL Normal 80-94 [facility] Work Phone: Monocytes/100 WBC (Bld) 7 % Normal 0-10 [facility] Work Phone: Monocytes/100 WBC Auto (Bld) 7 % Normal 0-10 [facility] Work Phone: Platelets (Bld) [#/Vol] 272 10*3/uL Normal 150-450 [facility] Work Phone: Platelets (Bld) [#/Vol] SeeNote Normal [facility] Work Phone: Comment on above: Result: ADEQUATE Platelets Auto #/vol (Bld) 272 10*3/uL Normal 150-450 [facility] Work Phone: RBC (Bld) [#/Vol] 4.71 {M/mm3} Normal 4.6-6.2 Compr [facility] Work Phone: RBC Auto #/vol (Bld) 4.71 {M/mm3} Normal 4.6-6.2 Co [facility] Work Phone: WBC (Bld) [#/Vol] 7.0 10*3/uL Normal 4.4-11.0 [facility] Work Phone: WBC Auto #/vol (Bld) 7.0 10*3/uL Normal 4.4-11.0 Com [facility] Internal [facility] Work Phone: CBCD,SMEAR DIFF SeeNote Normal [facility] Work Phone: Comment on above: Result: NORM C+C Result: ADEQUATE CBCD,SMEAR DIFF 100 1 Normal [facility] Work Phone: CBCD,SMEAR DIFF 57 % Normal 47-70 [facility] Work Phone: CBCD,SMEAR DIFF 5 % Normal 0-5 [facility] Work Phone: COMP METABOLICOrdered By: Sy stem Bed Teacher on 06-04-2009 Albumin mass conc 3.7 g/dL Normal 3.4-5.0 Compreh [facility] Internal [facility] Work Phone: Albumin/Globulin mass ratio 0.8 {RATIO} Abnormal 0.9-2.4 [facility] Work Phone: ALP enzyme act/vol 75 U/L Normal 50-136 [facility] Work Phone: ALT enzyme act/vol 28 U/L Abnormal 30-65 [facility] Work Phone: Anion gap 3 molar conc 10 mmol/L Normal 5-15 [facility] Work Phone: Anion gap [Moles/Vol] 10 mmol/L Normal 5-15 Com prehensive [facility] Work Phone: AST enzyme act/vol 18 U/L Normal 15-37 [facility] Work Phone: Bilirubin mass conc 0.80 mg/dL Normal 0.00-1.00 Compr ehensive [facility] Work Phone: Calcium mass conc 9.2 mg/dL Normal 8.5-10.1 [facility] Work Phone: Chloride molar conc 103 mmol/L Normal 98-107 Compr ensive [facility] Work Phone: CO2 molar conc 27.0 mmol/L Normal 21.0-32.0 [facility] Work Phone: Creatinine mass conc 0.8 mg/dL Normal 0.8-1.[address] [facility] Phone: GFR/1.73 sq M predicted among blacks MDRD vol rate/area (S/P/Bld) 126 mL/min/{1.73_m2} Normal Comprehensi ve [facility] Medicine Work Phone: GFR/1.73 sq M.predicted MDRD (S/P/Bld) [Vol rate/Area] 104 mL/min/{1.73_m2} Normal Comprehensi ve [facility] Work Phone: GFR/1.73 sq M.predicted MDRD vol rate/area 104 mL/min/{1.73_m2} Normal Comprehensi ve [facility] Work Phone: Globulin (S) [Mass/Vol] 4.4 g/dL Abnormal 2.7-4.2 [facility] Work Phone: Globulin Calculated mass conc (S) 4.4 g/dL Abnormal 2.7-4.2 [facility] Work Phone: Glucose mass conc 111 mg/dL Abnormal 70-110 Compreh ensive [facility] Work Phone: Comment on above: Fasting Glucose resu lt from 110 to <126 mg/dL suggests IMPAIRED HOMEOSTASIS per A.D.A. criteria. Potassium molar conc 3.6 mmol/L Normal 3.5-5.1 Comp rehensive [facility] Medicine Work Phone: Protein mass conc 8.1 g/dL Normal 6.4-8.2 Compreh ensive [facility] Work Phone: Sodium molar conc 140 mmol/L Normal 136-145 Compreh ensive [facility] Work Phone: Urea nitrogen mass conc 20 mg/dL Abnormal 7-18 [facility] Work Phone: Urea nitrogen/Creatinine mass ratio 25.0 {RATIO} Abnormal 10-20 [facility] Work Phone: LIPIDOrdered By: Pancho noyola on 06-04-2009 Cholesterol in HDL mass conc 38 mg/dL Normal [facility] Work Phone: Comment on above: Reference Range HDL <40 mg/dL Low HDL Cholesterol HDL >or= 60 mg/dL High HDL Cholesterol Cholesterol in LDL mass conc 116 mg/dL Normal 0-130 [facility] Work Phone: Cholesterol in VLDL mass conc 29 mg/dL Normal 5-40 [facility] Work Phone: Cholesterol mass conc 183 mg/dL Normal Com prehensive [facility] Work Phone: Comment on above: <200 mg/dL Desirable 200-240 mg/dL Borderline >240 mg/dL High Risk Triglyceride mass conc 145 mg/dL Normal [facility] Work Phone: Comment on above: Serum Triglycerides Reference Interval Normal <150 mg/dL Borderline high 150 - 199 mg/dL High 200 - 499 mg/dL Very High > or = 500 mg/dL MICROALBOrdered By: Pancho vigil on 06-04-2009 Creatinine [Mass/Vol] 254.3 mg/dL Normal [facility] Work Phone: Creatinine mass conc 5.8 {mg/g_CRE} Normal [facility] Work Phone: MICROALB 254.3 mg/dL Normal [facility] Work Phone: MICROALB 14.8 mg/L Normal [facility] Work Phone: PSA, SCREENOrdered By: Jose plata Bed Teacher on 06-04-2009 Prostate specific Ag mass conc 0.5 ng/mL Normal 0.0-4.0 [facility] Work Phone: LIPIDOrdered By: [employer] on 10-23-2008 Cholesterol in HDL mass conc 43 mg/dL Normal [facility] Work Phone: Comment on above: Reference Range HDL <40 mg/dL Low HDL Cholesterol HDL >or= 60 mg/dL High HDL Cholesterol Cholesterol in LDL mass conc 134 mg/dL Abnormal 0-130 [facility] Work Phone: Cholesterol in VLDL mass conc 36 mg/dL Normal 5-40 [facility] Work Phone: Cholesterol mass conc 213 mg/dL Abnormal Com prehensive [facility] Work Phone: Comment on above: <200 mg/dL Desirable 200-240 mg/dL Borderline >240 mg/dL High Risk Triglyceride mass conc 180 mg/dL Normal [facility] Work Phone: Comment on above: Serum Triglycerides Reference Interval Normal <150 mg/dL Borderline high 150 - 199 mg/dL High 200 - 499 mg/dL Very High > or = 500 mg/dL LIVEROrdered By: [employer] on 10-23-2008 Albumin mass conc 3.9 g/dL Normal 3.4-5.0 Compreh [facility] Internal [facility] Work Phone: ALP enzyme act/vol 66 U/L Normal 50-136 Compre [facility] Internal [facility] Work Phone: ALT enzyme act/vol 41 U/L Normal 30-65 [facility] Work Phone: AST enzyme act/vol 22 U/L Normal 15-37 [facility] Work Phone: Bilirubin mass conc 0.61 mg/dL Normal 0.00-1.00 Compr ehensive [facility] Medicine Work Phone: Bilirubin.direct mass conc 0.08 mg/dL Normal 0.00-0.30 [facility] Work Phone: Protein mass conc 8.1 g/dL Normal 6.4-8.2 Compreh ensive [facility] Medicine Work Phone: Urinalysis, Office ([id number])Or dered By: Alisha Candelario on 06-28-2008 Bilirubin Ql (U) Negative Normal Comprehe nsive [facility] Work Phone: Bilirubin Ql (U) Negative Normal Comprehe nsive [facility]; [facility] Work Phone: Glucose Test strip (U) [Mass/Vol] Negative Normal [facility]; [facility] Work Phone: Glucose Test strip mass conc (U) Negative Normal [facility] Work Phone: Hemoglobin Ql (U) Negative Normal Compreh ensive [facility] Work Phone: Hemoglobin Ql (U) Negative Normal Compreh ensive [facility]; [facility] Work Phone: Hemoglobin Test strip Ql (U) Negative Normal [facility] Work Phone: Ketones Ql (U) Negative Normal [facility] Work Phone: Ketones Ql (U) Negative Normal Comprehens [facility]; [facility] Work Phone: Leukocyte esterase Test strip Ql (U) Negative Normal [facility] Work Phone: Leukocyte esterase Test strip Ql (U) Negative Normal [facility]; [facility] Work Phone: Nitrite Ql (U) Negative Normal Comprehens [facility] Work Phone: Nitrite Ql (U) Negative Normal Comprehens [facility]; [facility] Work Phone: Nitrite Test strip Ql (U) Negative Normal [facility] Work Phone: pH (U) 6.0 [pH] Normal [facility] Work Phone: pH Test strip (U) 6.0 [pH] Normal Compreh ensive [facility] Work Phone: Protein Ql (U) Negative Normal Comprehens [facility] Work Phone: Protein Ql (U) Negative Normal Comprehens [facility]; [facility] Work Phone: Protein Test strip Ql (U) Negative Normal [facility] Work Phone: Specific gravity Relative Density (U) 1.025 1 Normal Comprehensi ve [facility] Medicine Work Phone: Urobilinogen mass/time (24H U) Normal Normal [facility] Work Phone: LIPIDOrdered By: [employer] on 04-03-2008 Cholesterol in HDL mass conc 41 mg/dL Normal [facility] Work Phone: Comment on above: Reference Range HDL <40 mg/dL Low HDL Cholesterol HDL >or= 60 mg/dL High HDL Cholesterol Cholesterol in LDL mass conc 132 mg/dL Abnormal 0-130 [facility] Work Phone: Cholesterol in VLDL mass conc 22 mg/dL Normal 5-40 [facility] Work Phone: Cholesterol mass conc 195 mg/dL Normal Com prehensive [facility] Work Phone: Comment on above: <200 mg/dL Desirable 200-240 mg/dL Borderline >240 mg/dL High Risk Triglyceride mass conc 111 mg/dL Normal Co [facility] Work Phone: Comment on above: Serum Triglycerides Reference Interval Normal <150 mg/dL Borderline high 150 - 199 mg/dL High 200 - 499 mg/dL Very High > or = 500 mg/dL LIVEROrdered By: LearnUp on 04-03-2008 Albumin mass conc 3.6 g/dL Normal 3.4-5.0 [facility] Work Phone: ALP enzyme act/vol 53 U/L Normal 50-136 Compre hensive [facility] Work Phone: ALT enzyme act/vol 40 U/L Normal 30-65 Compre [facility] Work Phone: AST enzyme act/vol 22 U/L Normal 15-37 Compre hensive [facility] Work Phone: Bilirubin mass conc 0.52 mg/dL Normal 0.00-1.00 Compr ehensive [facility] Medicine Work Phone: Bilirubin.direct mass conc 0.08 mg/dL Normal 0.00-0.30 [facility] Work Phone: Protein mass conc 7.5 g/dL Normal 6.4-8.2 Compreh [facility] Work Phone: CBCD,SMEAR DIFFOrdered By: Deshawn ystem Bed Teacher on 11-22-2007 Band form neutrophils/100 WBC (Bld) 2 % Normal 0-5 [facility] Work Phone: Band form neutrophils/100 WBC Manual cnt (Bld) 2 % Normal 0-5 [facility] Work Phone: Eosinophils/100 WBC (Bld) 1 % Normal 0-5 [facility] Work Phone: Eosinophils/100 WBC Auto (Bld) 1 % Normal 0-5 [facility] Work Phone: Erythrocyte distribution width (RBC) [Ratio] 13.1 % Normal 11.6-14.6 [facility] Work Phone: Erythrocyte distribution width Auto Ratio (RBC) 13.1 % Normal 11.6-14.6 [facility] Work Phone: Hematocrit (Bld) [Volume fraction] 41.4 % Normal 40-54 [facility] Work Phone: Hematocrit Auto Volume Fraction (Bld) 41.4 % Normal 40-54 [facility] Work Phone: Hemoglobin mass conc (Bld) 14.5 g/dL Normal 14.0-18.0 [facility] Work Phone: Lymphocytes/100 WBC (Bld) 35 % Normal 19-41 [facility] Work Phone: Lymphocytes/100 WBC Auto (Bld) 35 % Normal 19-41 [facility] Work Phone: MCH (RBC) [Entitic mass] 30.8 pg Normal 27.0-32.0 [facility] Work Phone: MCH Auto Entitic mass (RBC) 30.8 pg Normal 27.0-32.0 [facility] Work Phone: MCHC (RBC) [Mass/Vol] 35.1 g/dL Normal 32-36 Com prehensive [facility] Work Phone: MCHC Auto mass conc (RBC) 35.1 g/dL Normal 32-36 [facility] Work Phone: MCV (RBC) [Entitic vol] 87.9 fL Normal 80-94 [facility] Work Phone: MCV Auto Entitic volume (RBC) 87.9 fL Normal 80-94 [facility] Work Phone: Monocytes/100 WBC (Bld) 9 % Normal 0-10 [facility] Work Phone: Monocytes/100 WBC Auto (Bld) 9 % Normal 0-10 [facility] Work Phone: Platelets (Bld) [#/Vol] SeeNote Normal [facility] Work Phone: Comment on above: Result: ADEQUATE Platelets (Bld) [#/Vol] 307 10*3/uL Normal 150-450 [facility] Work Phone: Platelets Auto #/vol (Bld) 307 10*3/uL Normal 150-450 [facility] Work Phone: RBC (Bld) [#/Vol] 4.71 {M/mm3} Normal 4.6-6.2 Compr ehensive [facility] Medicine Work Phone: RBC Auto #/vol (Bld) 4.71 {M/mm3} Normal 4.6-6.2 Co m[facility] Work Phone: WBC (Bld) [#/Vol] 6.8 10*3/uL Normal 4.4-11.0 [facility] Work Phone: WBC Auto #/vol (Bld) 6.8 10*3/uL Normal 4.4-11.0 Com prehensive [facility] Medicine Work Phone: CBCD,SMEAR DIFF 100 1 Normal Comprehen [facility] Internal Medicine Work Phone: CBCD,SMEAR DIFF 53 % Normal 47-70 Comprehen [facility] Internal Medicine Work Phone: CBCD,SMEAR DIFF 2 % Normal 0-5 [facility] Work Phone: COMP METABOLICOrdered By: Alireza stem Bed Teacher on 11-22-2007 Albumin mass conc 3.7 g/dL Normal 3.4-5.0 [facility] Work Phone: Albumin/Globulin mass ratio 1.0 {RATIO} Normal 0.9-2.4 [facility] Internal Medicine Work Phone: ALP enzyme act/vol 63 U/L Normal 50-136 [facility] Internal Medicine Work Phone: ALT enzyme act/vol 39 [iU]/L Normal 30-65 [facility] Internal Medicine Work Phone: Anion gap 3 molar conc 5 mmol/L Normal 5-15 [facility] Work Phone: Anion gap [Moles/Vol] 5 mmol/L Normal 5-15 Com [facility] Work Phone: AST enzyme act/vol 24 U/L Normal 15-37 [facility] Work Phone: Bilirubin mass conc 0.55 mg/dL Normal 0.00-1.00 [facility] Work Phone: Calcium mass conc 9.5 mg/dL Normal 8.5-10.1 Compre[facility] Work Phone: Chloride molar conc 103 mmol/L Normal 98-107 Compr ensive Internal Medicine Work Phone: CO2 molar conc 28.7 mmol/L Normal 21.0-32.0 [facility] Work Phone: Comment on above: Please Note Refer ence Interval Change Creatinine mass conc 1.0 mg/dL Normal 0.8-1.[address] [facility] Phone: Globulin (S) [Mass/Vol] 3.7 g/dL Normal 2.7-4.2 [facility] Work Phone: Comment on above: Please Note Refer ence Interval Change Globulin Calculated mass conc (S) 3.7 g/dL Normal 2.7-4.2 [facility] Work Phone: Comment on above: Please Note Refer ence Interval Change Glucose mass conc 104 mg/dL Normal 70-110 Compreh ensive Internal Medicine Work Phone: Potassium molar conc 4.4 mmol/L Normal 3.5-5.1 Comp rehensive Internal Medicine Work Phone: Protein mass conc 7.4 g/dL Normal 6.4-8.2 Compreh ensive [facility] Work Phone: Sodium molar conc 137 mmol/L Normal 136-145 Compreh ensive [facility] Work Phone: Urea nitrogen mass conc 27 mg/dL Abnormal 7-18 [facility] Work Phone: Urea nitrogen/Creatinine mass ratio 27.0 {RATIO} Abnormal 10-20 [facility] Work Phone: LIPIDOrdered By: Pancho noyola on 11-22-2007 Cholesterol in HDL mass conc 41 mg/dL Normal [facility] Work Phone: Comment on above: Reference Range HDL <40 mg/dL Low HDL Cholesterol HDL >or= 60 mg/dL High HDL Cholesterol Cholesterol in LDL mass conc 135 mg/dL Abnormal 0-130 [facility] Work Phone: Cholesterol in VLDL mass conc 21 mg/dL Normal 5-40 [facility] Work Phone: Cholesterol mass conc 197 mg/dL Normal Com prehensive [facility] Medicine Work Phone: Comment on above: <200 mg/dL Desirable 200-240 mg/dL Borderline >240 mg/dL High Risk Triglyceride mass conc 105 mg/dL Normal Co mprehensive [facility] Work Phone: Comment on above: Serum Triglycerides Reference Interval Normal <150 mg/dL Borderline high 150 - 199 mg/dL High 200 - 499 mg/dL Very High > or = 500 mg/dL PSA,TOT SCREENOrdered By: ArchiveSocial stem Bed Teacher on 11-22-2007 Prostate specific Ag mass conc 0.50 ng/mL Normal 0.00-4.00 [facility] Work Phone: Comment on above: This test was perfor med using the TPSA method for [employer] chemistry system.Values obtained with different assay methods cannot be usedinterchangably.When changing PSA assays in the course of monitoring apatient, additional sequential testing should be carriedout to confirm baseline values. ROUTINE UAOrdered By: Waterworks Operator on 11-22-2007 Clarity (U) CLEAR Normal [facility] Work Phone: Color (U) YELLOW Normal [facility] Work Phone: Glucose mass conc SeeNote Normal Compreh ensive [facility] Work Phone: Comment on above: Result: NEGATIVE Protein mass conc SeeNote Normal Compreh ensive [facility] Work Phone: Comment on above: Result: NEGATIVE ROUTINE UA SeeNote Normal [facility] Work Phone: Comment on above: Result: NEGATIVE Result: ADEQUATE Result: NORM C+C ROUTINE UA 5.5 1 Normal 5.0-8.0 [facility] Work Phone: ROUTINE UA 0.2 EU/dl Normal 0.2 - 1.0 [facility] Work Phone: ROUTINE UA CLEAR Normal [facility] Work Phone: ROUTINE UA YELLOW Normal [facility] Work Phone: ROUTINE UA >=1.030 Normal 1.002-1.030 [facility] Work Phone: TSHOrdered By: System Manage r on 11-22-2007 Thyrotropin Qn 1.94 {uIU/mL} Normal 0.34-4.82 Compreh ensive [facility] Medicine Work Phone: LIPIDOrdered By: System Joanne jazmín on 07-21-2007 Cholesterol in HDL mass conc 36 mg/dL Normal [facility] Work Phone: Comment on above: Reference Range HDL <40 mg/dL Low HDL Cholesterol HDL >or= 60 mg/dL High HDL Cholesterol Cholesterol in LDL mass conc 121 mg/dL Normal 0-130 [facility] Work Phone: Cholesterol in VLDL mass conc 35 mg/dL Normal 5-40 [facility] Work Phone: Cholesterol mass conc 192 mg/dL Normal Com prehensive Internal Medicine Work Phone: Comment on above: <200 mg/dL Desirable 200-240 mg/dL Borderline >240 mg/dL High Risk Triglyceride mass conc 176 mg/dL Normal [facility] Work Phone: Comment on above: Serum Triglycerides Reference Interval Normal <150 mg/dL Borderline high 150 - 199 mg/dL High 200 - 499 mg/dL Very High > or = 500 mg/dL COMP METABOLICOrdered By: Alireza stem Bed Teacher on 03-15-2007 Albumin mass conc 3.7 g/dL Normal 3.4-5.0 [facility] Phone: Albumin/Globulin mass ratio 0.9 {RATIO} Normal 0.9-2.4 [facility] Internal Medicine Work Phone: ALP enzyme act/vol 61 U/L Normal 50-136 Compre [facility] Internal Medicine Work Phone: ALT enzyme act/vol 40 [iU]/L Normal 30-65 [facility] Internal Medicine Work Phone: Anion gap 3 molar conc 8 mmol/L Normal 5-15 [facility] Work Phone: Anion gap [Moles/Vol] 8 mmol/L Normal 5-15 Com prehensive Internal Medicine Work Phone: AST enzyme act/vol 20 U/L Normal 15-37 [facility] Work Phone: Bilirubin mass conc 0.77 mg/dL Normal 0.00-1.00 [facility] Internal Medicine Work Phone: Calcium mass conc 9.0 mg/dL Normal 8.5-10.1 [facility] Phone: Chloride molar conc 103 mmol/L Normal 98-107 Compr [facility] Internal Medicine Work Phone: CO2 molar conc 27.0 mmol/L Normal 22.0-29.0 Comprehen sive Internal Medicine Work Phone: Creatinine mass conc 0.9 mg/dL Normal 0.8-1.3 Comp rehensive Internal Medicine Work Phone: Globulin (S) [Mass/Vol] 3.9 g/dL Abnormal 2.3-3.5 [facility] Work Phone: Globulin Calculated mass conc (S) 3.9 g/dL Abnormal 2.3-3.5 [facility] Work Phone: Glucose mass conc 106 mg/dL Normal 70-110 Compreh ensive [facility] Medicine Work Phone: Potassium molar conc 3.7 mmol/L Normal 3.5-5.1 Comp rehensive Internal Medicine Work Phone: Protein mass conc 7.6 g/dL Normal 6.4-8.2 Compreh ensive [facility] Work Phone: Sodium molar conc 138 mmol/L Normal 136-145 Compreh ensive [facility] Work Phone: Urea nitrogen mass conc 21 mg/dL Abnormal 7-18 [facility] Work Phone: Urea nitrogen/Creatinine mass ratio 23.3 {RATIO} Abnormal 10-20 [facility] Work Phone: LIPIDOrdered By: System Joanne noyola on 03-15-2007 Cholesterol in HDL mass conc 38 mg/dL Normal [facility] Work Phone: Comment on above: Reference Range HDL <40 mg/dL Low HDL Cholesterol HDL >or= 60 mg/dL High HDL Cholesterol Cholesterol in LDL mass conc 124 mg/dL Normal 0-130 [facility] Work Phone: Cholesterol in VLDL mass conc 31 mg/dL Normal 5-40 [facility] Work Phone: Cholesterol mass conc 193 mg/dL Normal Com prehensive [facility] Medicine Work Phone: Comment on above: <200 mg/dL Desirable 200-240 mg/dL Borderline >240 mg/dL High Risk Triglyceride mass conc 157 mg/dL Normal Co mprehensive [facility] Work Phone: Comment on above: Serum Triglycerides Reference Interval Normal <150 mg/dL Borderline high 150 - 199 mg/dL High 200 - 499 mg/dL Very High > or = 500 mg/dL CAT+VMA [id number] By: Alireza stem Bed Teacher on 12-10-2006 CAT+VMA [id number] 48 {ug/24_hr} Normal 0-140 Compreh ensive Internal Medicine Work Phone: Comment on above: [id number] CAT+VMA [id number] 3 {ug/24_hr} Normal 0-24 Comprehe nsive Internal Medicine Work Phone: Comment on above: [id number] CAT+VMA [id number] 3.5 mg/L Normal Comprehens [facility] Work Phone: Comment on above: [id number] CAT+VMA [id number] 159 ug/L Normal Comprehens [facility] Work Phone: Comment on above: [id number] CAT+VMA [id number] 223 {ug/24_hr} Normal 65-610 Compre hensive Internal Medicine Work Phone: Comment on above: TESTING PERFORMED AT [facility]. ORIGINAL REPORT ON FILE IN LAB CONTAINS ADDITIONAL TEST SITE INFORMATION. LH=[id number] CAT+VMA [id number] 4.9 {mg/24_hr} Normal 1.8-6.7 Compre hensive Internal Medicine Work Phone: Comment on above: LT=[id number] CAT+VMA [id number] 34 ug/L Normal Comprehens [facility] Work Phone: Comment on above: EV=[id number] CAT+VMA 520910 2 ug/L Normal Comprehens [facility] Work Phone: Comment on above: [id number] METAN,U24 4234Ordered By: Alireza stem Bed Teacher on 12-10-2006 METAN,U24 4234 274 {ug/24_hr} Normal 110-1050 Compre hensive [facility] Medicine Work Phone: Comment on above: [id number] METAN,U24 4234 196 ug/L Normal Comprehens [facility] Work Phone: Comment on above: [id number] METAN,U24 4234 125 {ug/24_hr} Normal 35-460 Compre hensive [facility] Medicine Work Phone: Comment on above: Performed At: [address] [id number] CT=[id number] METAN,U24 4234 89 ug/L Normal Comprehens [facility] Internal [facility] Work Phone: Comment on above: [id number] ALDOST,U24 4291Ordered By: Deshawn castillotem Bed Teacher on 12-09-2006 ALDOST,U24 4291 4 ug/L Normal Comprehen sive Internal Medicine Work Phone: ALDOST,U24 4291 9 {ug/24_hr} Normal 2-21 Compreh ensive Internal Medicine Work Phone: Comment on above: 1 mo. 1 - 11 1- 12 m os. 1 - 22 1- 16 yrs. 2 - 16 Adult Ranges Normal diet 2 - 21 Low salt 17 - 44 High salt 0 - 14Performed At: [address] [id number] CIRILO-D [id number] By: Syst em Bed Teacher on 12-05-2006 Nuclear Ab Ql (S) 16 U/mL Normal 0-99 Compreh ensive Internal Medicine Work Phone: Comment on above: Negative <100 Equivo hannah 100 - 120 Positive >120Performed At: [id number] [place], [place] [id number] C-REACTIVE PROTOrdered By: Deshawn ystem Bed Teacher on 12-05-2006 CRP mass conc 10.47 mg/L Abnormal 0.0-6.0 Comprehensi ve Internal Medicine Work Phone: Comment on above: Test performed using the Dimension C-Reactive ProteinExtended Range assay method. This assay meets the AHA/CDC 2003 recommendations fordetermining patients at high risk for cardiovasculardisease. Reference: High risk CRP >3.0 mg/L ESROrdered By: System JoySports r on 12-05-2006 ESR Velocity (Bld) 30 mm/h Abnormal 0-20 Compre hensive Internal Medicine Work Phone: PFLIPOrdered By: System Joanne jazmín on 12-05-2006 Cholesterol in HDL mass conc 40 mg/dL Normal [facility] Work Phone: Comment on above: Reference Range HDL <40 mg/dL Low HDL Cholesterol HDL >or= 60 mg/dL High HDL Cholesterol Cholesterol in LDL mass conc 140 mg/dL Abnormal 0-130 [facility] Work Phone: Cholesterol in VLDL mass conc 29 mg/dL Normal 5-40 [facility] Work Phone: Cholesterol mass conc 209 mg/dL Abnormal Com prehensive Internal Medicine Work Phone: Comment on above: <200 mg/dL Desirable 200-240 mg/dL Borderline >240 mg/dL High Risk Triglyceride mass conc 143 mg/dL Normal Co mprehensive [facility] Work Phone: Comment on above: Serum Triglycerides Reference Interval Normal <150 mg/dL Borderline high 150 - 199 mg/dL High 200 - 499 mg/dL Very High > or = 500 mg/dL [id number] By: Deshawn castillotem Bed Teacher on 12-05-2006 Protein mass conc 9.5 mg/dL Normal 0.0-15.0 Compreh ensive Internal Medicine Work Phone: Protein mass conc Comment Normal Compreh ensive Internal Medicine Work Phone: Comment on above: Protein electrophore sis scan will follow via mail orcourier. [id number].[id number] 15.0 % Normal Comprehen sive Internal Medicine Work Phone: [id number] 15.4 % Normal Comprehen sive [facility] Medicine Work Phone: [id number] SeeNote Normal Comprehen sive Internal Medicine Work Phone: Comment on above: Result: Not Observed [id number] 26.4 % Normal [facility] Work Phone: [id number] 2.7 % Normal [facility] Work Phone: [id number] 40.4 % Normal [facility] Work Phone: [id number] 9.5 mg/dL Normal 0.0-15.0 [facility]pre[facility] Work Phone: SPE [id number] By: Waterworks Operator on 12-05-2006 Albumin mass conc 4.1 g/dL Normal 3.2-5.6 Compreh ensive Internal Medicine Work Phone: Albumin/Globulin mass ratio 1.1 {ratio} Normal 0.7-2.0 [facility] Work Phone: Globulin (S) [Mass/Vol] 3.6 g/dL Normal 2.0-4.5 [facility] Work Phone: Globulin Calculated mass conc (S) 3.6 g/dL Normal 2.0-4.5 [facility] Work Phone: Protein mass conc 7.7 g/dL Normal 6.0-8.5 Compreh ensive Internal Medicine Work Phone: SPE [id number] 0.3 g/dL Normal 0.1-0.4 [facility] Work Phone: SPE [id number] 0.9 g/dL Normal 0.4-1.2 [facility] Work Phone: SPE [id number] 1.2 g/dL Normal 0.6-1.3 [facility] Work Phone: SPE [id number] 1.3 g/dL Normal 0.5-1.6 [facility] Work Phone: SPE [id number] Comment Normal [facility] Work Phone: Comment on above: The SPE pattern appe ars essentially unremarkable. Evidenceof monoclonal protein is not apparent. Protein electrophore sis scan will follow via mail orcourier. CBCD,SMEAR DIFFOrdered By: Deshawn ystem Bed Teacher on 11-18-2006 Band form neutrophils/100 WBC (Bld) 1 % Normal 0-5 [facility] Work Phone: Band form neutrophils/100 WBC Manual cnt (Bld) 1 % Normal 0-5 [facility] Work Phone: Eosinophils/100 WBC (Bld) 6 % Abnormal 0-5 [facility] Work Phone: Eosinophils/100 WBC Auto (Bld) 6 % Abnormal 0-5 [facility] Work Phone: Erythrocyte distribution width (RBC) [Ratio] 13.4 % Normal 11.6-14.6 [facility] Work Phone: Erythrocyte distribution width Auto Ratio (RBC) 13.4 % Normal 11.6-14.6 [facility] Work Phone: Hematocrit (Bld) [Volume fraction] 42.8 % Normal 40-54 [facility] Internal Medicine Work Phone: Hematocrit Auto Volume Fraction (Bld) 42.8 % Normal 40-54 [facility] Internal Medicine Work Phone: Hemoglobin mass conc (Bld) 14.8 g/dL Normal 14.0-18.0 [facility] Internal Medicine Work Phone: Lymphocytes/100 WBC (Bld) 36 % Normal 19-41 [facility] Work Phone: Lymphocytes/100 WBC Auto (Bld) 36 % Normal 19-41 [facility] Internal Medicine Work Phone: MCH (RBC) [Entitic mass] 30.1 pg Normal 27.0-32.0 [facility] Work Phone: MCH Auto Entitic mass (RBC) 30.1 pg Normal 27.0-32.0 [facility] Internal Medicine Work Phone: MCHC (RBC) [Mass/Vol] 34.6 g/dL Normal 32-36 [facility] prehensive Internal Medicine Work Phone: MCHC Auto mass conc (RBC) 34.6 g/dL Normal 32-36 [facility] Work Phone: MCV (RBC) [Entitic vol] 87.0 fL Normal 80-94 [facility] Work Phone: MCV Auto Entitic volume (RBC) 87.0 fL Normal 80-94 [facility] Work Phone: Monocytes/100 WBC (Bld) 3 % Normal 0-10 [facility] Work Phone: Monocytes/100 WBC Auto (Bld) 3 % Normal 0-10 [facility] Work Phone: Platelets (Bld) [#/Vol] 303 10*3/uL Normal 150-450 [facility] Work Phone: Platelets (Bld) [#/Vol] SeeNote Normal [facility] Work Phone: Comment on above: Result: ADEQUATE Platelets Auto #/vol (Bld) 303 10*3/uL Normal 150-450 [facility] Work Phone: RBC (Bld) [#/Vol] 4.93 {M/mm3} Normal 4.6-6.2 Compr ensive Internal Medicine Work Phone: RBC Auto #/vol (Bld) 4.93 {M/mm3} Normal 4.6-6.2 [facility] Work Phone: WBC (Bld) [#/Vol] 6.9 10*3/uL Normal 4.4-11.0 Compre [facility] Internal Medicine Work Phone: WBC Auto #/vol (Bld) 6.9 10*3/uL Normal 4.4-11.0 [facility] Work Phone: CBCD,SMEAR DIFF 100 1 Normal Comprehen [facility] Internal Medicine Work Phone: CBCD,SMEAR DIFF 54 % Normal 47-70 Comprehen [facility] Internal Medicine Work Phone: CBCD,SMEAR DIFF 1 % Normal 0-5 Comprehen [facility] Internal Medicine Work Phone: COMP METABOLICOrdered By: Sy stem Bed Teacher on 11-18-2006 Albumin mass conc 3.7 g/dL Normal 3.4-5.0 Compreh ensive Internal Medicine Work Phone: Albumin/Globulin mass ratio 0.9 {RATIO} Normal 0.9-2.4 [facility] Internal Medicine Work Phone: ALP enzyme act/vol 64 U/L Normal 50-136 Compre [facility] Internal Medicine Work Phone: ALT enzyme act/vol 41 [iU]/L Normal 30-65 Compre [facility] Internal Medicine Work Phone: Anion gap 3 molar conc 7 mmol/L Normal 5-15 Co [facility]prehensive [facility] Medicine Work Phone: Anion gap [Moles/Vol] 7 mmol/L Normal 5-15 Com prehensive Internal Medicine Work Phone: AST enzyme act/vol 23 U/L Normal 15-37 Compre [facility] Internal Medicine Work Phone: Bilirubin mass conc 0.67 mg/dL Normal 0.00-1.00 Compr ensive Internal Medicine Work Phone: Calcium mass conc 9.5 mg/dL Normal 8.5-10.1 [facility] Work Phone: Chloride molar conc 100 mmol/L Normal 98-107 Compr ensive Internal Medicine Work Phone: CO2 molar conc 31.3 mmol/L Abnormal 22.0-29.0 Comprehen [facility] Internal Medicine Work Phone: Creatinine mass conc 1.1 mg/dL Normal 0.8-1.[address] [facility] Work Phone: Globulin (S) [Mass/Vol] 4.3 g/dL Abnormal 2.3-3.5 [facility] Internal Medicine Work Phone: Globulin Calculated mass conc (S) 4.3 g/dL Abnormal 2.3-3.5 [facility] Internal Medicine Work Phone: Glucose mass conc 94 mg/dL Normal 70-110 Compre[facility] Work Phone: Potassium molar conc 4.1 mmol/L Normal 3.5-5.[address] [facility] Work Phone: Protein mass conc 8.0 g/dL Normal 6.4-8.2 Compreh ensive Internal Medicine Work Phone: Sodium molar conc 138 mmol/L Normal 136-145 Compreh ensive Internal Medicine Work Phone: Urea nitrogen mass conc 20 mg/dL Abnormal 7-18 [facility] Work Phone: Urea nitrogen/Creatinine mass ratio 18.2 {RATIO} Normal 10-20 [facility] Work Phone: D BILIOrdered By: System Man ager on 11-18-2006 Bilirubin.direct mass conc 0.06 mg/dL Normal 0.00-0.30 [facility] Work Phone: ESROrdered By: System Manage r on 11-18-2006 ESR Velocity (Bld) 43 mm/h Abnormal 0-20 Compre hensive Internal Medicine Work Phone: IMMUN.GAME [id number] By: S ystem Bed Teacher on 11-18-2006 IMMUN.GAME 2295 235 mg/dL Normal 70-400 Comprehen sive Internal Medicine Work Phone: IMMUN.GAME 2295 65 {IU/mL} Normal 0-158 [facility] Work Phone: Comment on above: Performed At: [facility] [place], [place] [id number] At: [address] [id number] IMMUN.GAME 2295 222 mg/dL Normal 40-230 Comprehen sive Internal Medicine Work Phone: IMMUN.GAME 2295 1187 mg/dL Normal 700-1600 [facility] [facility] Work Phone: MICROALBOrdered By: System Jessenia vigil on 11-18-2006 Creatinine [Mass/Vol] 254.5 mg/dL Normal [facility] Work Phone: Creatinine mass conc 4.2 {mg/g_CRE} Normal [facility] Work Phone: MICROALB 10.9 mg/L Normal [facility] Work Phone: MICROALB 254.5 mg/dL Normal [facility] Work Phone: PSA,TOT SCREENOrdered By: ArchiveSocial stem Bed Teacher on 11-18-2006 Prostate specific Ag mass conc 0.45 ng/mL Normal 0.00-4.00 [facility] Work Phone: Comment on above: This test was perfor med using the TPSA method for [employer] chemistry system.Values obtained with different assay methods cannot be usedinterchangably.When changing PSA assays in the course of monitoring apatient, additionaly sequential testing should be carriedout to confirm baseline values. ROUTINE UAOrdered By: Waterworks Operator on 11-18-2006 Clarity (U) CLEAR Normal [facility] Work Phone: Color (U) YELLOW Normal [facility] Work Phone: Glucose mass conc SeeNote Normal [facility] Work Phone: Comment on above: Result: NEGATIVE Protein mass conc SeeNote Normal [facility] Work Phone: Comment on above: Result: NEGATIVE ROUTINE UA 0.2 EU/dl Normal 0.2 - 1.0 [facility] Work Phone: ROUTINE UA >=1.030 Normal 1.002-1.030 [facility] Work Phone: ROUTINE UA SeeNote Normal [facility] Work Phone: Comment on above: Result: NEGATIVE Result: ADEQUATE Result: NORM C&C ROUTINE UA CLEAR Normal [facility] Work Phone: ROUTINE UA YELLOW Normal [facility] Work Phone: ROUTINE UA 5.0 1 Normal 5.0-8.0 [facility] Work Phone: TSHOrdered By: System Manage r on 11-18-2006 Thyrotropin Qn 2.65 {uIU/mL} Normal 0.34-4.82 [facility] Work Phone: Vital Signs Date Time Vital Sign Value Performing Clinician Facility 09-02-2023 09:28-0400 Body height 170.81 cm Kailey Lantigua MA [facility]; [facility] Work Phone: 09-02-2023 09:28-0400 Body mass index (BMI) [Ratio] 34.08 kg/m2 Kailey Lantigua MA [facility]; [facility] Work Phone: 09-02-2023 09:28-0400 Body surface area Derived from formula 2.11 m2 Kailey Lantigua MA [facility]; [facility] Work Phone: 09-02-2023 09:28-0400 Body temperature 97.2 [degF] Kailey Lantigua MA [facility]; [facility] Work Phone: 09-02-2023 09:28-0400 Body weight 99.45 kg Kailey Lantigua MA [facility]; [facility] Work Phone: 09-02-2023 09:28-0400 Diastolic blood pressure 72 mm[Hg] Kailey Lantigua MA [facility]; [facility] Work Phone: 09-02-2023 09:28-0400 Heart rate 68 /min Kailey Lantigua MA [facility]; [facility] Work Phone: 09-02-2023 09:28-0400 SaO2% (BldA) [Mass fraction] 97 % Kailey Lantigua MA [facility]; [facility] Work Phone: 09-02-2023 09:28-0400 Systolic blood pressure 110 mm[Hg] Kailey Lantigua MA [facility]; [facility] Work Phone: 08-03-2023 15:19-0400 Diastolic blood pressure 73 mm[Hg] [facility] 08-03-2023 15:19-0400 Respiratory rate 16 /min [facility] 08-03-2023 15:19-0400 Systolic blood pressure 120 mm[Hg] [facility] 08-03-2023 12:16-0400 Body height 170.18 cm [facility] 08-03-2023 12:16-0400 Body mass index (BMI) [Ratio] 34.6 kg/m2 [facility] 08-03-2023 12:16-0400 Body temperature 97.2 [degF] [facility] 08-03-2023 12:16-0400 Body weight 100.24 kg [facility] 08-03-2023 12:16-0400 Heart rate 80 /min [facility] 08-03-2023 12:16-0400 SaO2% (BldA) [Mass fraction] 99 % [facility] 05-27-2023 08:21-0400 Body height 170.81 cm Urszula Slarb TECHNOLOGY PROFESSIONAL [facility]; [facility] Work Phone: 05-27-2023 08:21-0400 Body mass index (BMI) [Ratio] 35.52 kg/m2 Urszula Slarb TECHNOLOGY PROFESSIONAL [facility]; [facility] Work Phone: 05-27-2023 08:21-0400 Body surface area Derived from formula 2.15 m2 Urszula Slarb TECHNOLOGY PROFESSIONAL [facility]; [facility] Work Phone: 05-27-2023 08:21-0400 Body temperature 98.7 [degF] Urszula Slarb TECHNOLOGY PROFESSIONAL [facility]; [facility] Work Phone: Comment on above: Method: Temporal 05-27-2023 08:21-0400 Body weight 103.65 kg Urszula Slarb TECHNOLOGY PROFESSIONAL [facility]; [facility] Work Phone: 05-27-2023 08:21-0400 Diastolic blood pressure 76 mm[Hg] Urszula Slarb TECHNOLOGY PROFESSIONAL [facility]; [facility] Work Phone: Comment on above: Patient Position: Sitting; Cuff Location : Left Arm; Cuff Size: Standard 05-27-2023 08:21-0400 Heart rate 71 /min Urszula Slarb TECHNOLOGY PROFESSIONAL [facility]; [facility] Work Phone: Comment on above: Pattern: Regular 05-27-2023 08:21-0400 Respiratory rate 16 /min Urszula Slarb TECHNOLOGY PROFESSIONAL [facility]; [facility] Work Phone: Comment on above: Pattern: Unlabored 05-27-2023 08:21-0400 SaO2% (BldA) [Mass fraction] 98 % Urszula Slarb TECHNOLOGY PROFESSIONAL [facility]; [facility] Work Phone: Comment on above: Room air 05-27-2023 08:21-0400 Systolic blood pressure 116 mm[Hg] Urszula Slarb TECHNOLOGY PROFESSIONAL [facility]; [facility] Work Phone: Comment on above: Patient Position: Sitting; Cuff Location : Left Arm; Cuff Size: Standard 10-30-2022 11:42-0500 Body height 170.81 cm Urszula Slarb TECHNOLOGY PROFESSIONAL [facility]; [facility] Work Phone: 10-30-2022 11:42-0500 Body mass index (BMI) [Ratio] 38.61 kg/m2 Urszula Slarb TECHNOLOGY PROFESSIONAL [facility]; [facility] Work Phone: 10-30-2022 11:42-0500 Body surface area Derived from formula 2.22 m2 Urszula Slarb TECHNOLOGY PROFESSIONAL [facility]; [facility] Work Phone: 10-30-2022 11:42-0500 Body temperature 97.4 [degF] Urszula Slarb TECHNOLOGY PROFESSIONAL [facility]; [facility] Work Phone: Comment on above: Method: Temporal 10-30-2022 11:42-0500 Body weight 112.66 kg Urszula Slarb TECHNOLOGY PROFESSIONAL [facility]; [facility] Work Phone: 10-30-2022 11:42-0500 Diastolic blood pressure 82 mm[Hg] Urszula Slarb TECHNOLOGY PROFESSIONAL [facility]; [facility] Work Phone: Comment on above: Patient Position: Sitting; Cuff Location : Left Arm; Cuff Size: Standard 10-30-2022 11:42-0500 Heart rate 59 /min Urszula Slarb TECHNOLOGY PROFESSIONAL [facility]; [facility] Work Phone: Comment on above: Pattern: Regular 10-30-2022 11:42-0500 Respiratory rate 16 /min Urszula Slarb TECHNOLOGY PROFESSIONAL [facility]; [facility] Work Phone: Comment on above: Pattern: Unlabored 10-30-2022 11:42-0500 SaO2% (BldA) [Mass fraction] 97 % Urszula Cruz LPN [facility]; [facility] Work Phone: Comment on above: Room air 10-30-2022 11:42-0500 Systolic blood pressure 142 mm[Hg] Urszula Cruz LPN [facility]; [facility] Work Phone: Comment on above: Patient Position: Sitting; Cuff Location : Left Arm; Cuff Size: Standard 06-06-2022 14:11-0400 Body temperature 99.39 [degF] Cameron Tippie PA-C Work Phone: [facility] 06-06-2022 14:11-0400 Diastolic blood pressure 62 mm[Hg] Cameron Tippie PA-C Work Phone: [facility] 06-06-2022 14:11-0400 Heart rate 74 /min Cameron Tippie PA-C Work Phone: [facility] 06-06-2022 14:11-0400 SaO2% (BldA) [Mass fraction] 95 % Cameron Tippie PA-C Work Phone: [facility] 06-06-2022 14:11-0400 Systolic blood pressure 112 mm[Hg] Cameron Tippie PA-C Work Phone: [facility] 07-17-2021 09:41-0400 Body height 170.81 cm Lanette Hatfield LPN [facility]; [facility] Work Phone: 07-17-2021 09:41-0400 Body mass index (BMI) [Ratio] 37.47 kg/m2 Lanette Hatfield LPN [facility]; [facility] Work Phone: 07-17-2021 09:41-0400 Body surface area Derived from formula 2.2 m2 Lanette Hatfield LPN [facility]; [facility] Work Phone: 07-17-2021 09:41-0400 Body temperature 95.5 [degF] Lanette Hatfield LPN [facility]; [facility] Work Phone: Comment on above: Method: Temporal 07-17-2021 09:41-0400 Body weight 109.34 kg Lanette Hatfield LPN [facility]; [facility] Work Phone: 07-17-2021 09:41-0400 Diastolic blood pressure 70 mm[Hg] Lanette Hatfield TECHNOLOGY PROFESSIONAL [facility]; [facility] Work Phone: Comment on above: Patient Position: Sitting; Cuff Location : Left Arm; Cuff Size: Standard 07-17-2021 09:41-0400 Heart rate 56 /min Lanette Hatfield CARLITOS [facility]; [facility] Work Phone: Comment on above: Pattern: Regular 07-17-2021 09:41-0400 Respiratory rate 16 /min Lanette Hatfield CARLITOS [facility]; [facility] Work Phone: Comment on above: Pattern: Unlabored 07-17-2021 09:41-0400 SaO2% (BldA) [Mass fraction] 98 % Lanette Hatfield TECHNOLOGY PROFESSIONAL [facility]; [facility] Work Phone: Comment on above: Room air 07-17-2021 09:41-0400 Systolic blood pressure 128 mm[Hg] Lanette Hatfield TECHNOLOGY PROFESSIONAL [facility]; [facility] Work Phone: Comment on above: Patient Position: Sitting; Cuff Location : Left Arm; Cuff Size: Standard 07-11-2021 10:31-0400 Body height 170.81 cm Lanette Hatfield CARLITOS [facility]; [facility] Work Phone: 07-11-2021 10:31-0400 Body mass index (BMI) [Ratio] 37.47 kg/m2 Lanette Hatfield TECHNOLOGY PROFESSIONAL [facility]; [facility] Work Phone: 07-11-2021 10:31-0400 Body surface area Derived from formula 2.2 m2 Lanette Liu LPN [facility]; [facility] Work Phone: 07-11-2021 10:31-0400 Body temperature 97.1 [degF] Lanettebaltazar Hatfield CARLITOS [facility]; [facility] Work Phone: Comment on above: Method: Temporal 07-11-2021 10:31-0400 Body weight 109.34 kg Lanette Hatfield CARLITOS [facility]; [facility] Work Phone: 07-11-2021 10:31-0400 Diastolic blood pressure 78 mm[Hg] Lanettebaltazar Hatfield CARLITOS [facility]; [facility] Work Phone: Comment on above: Patient Position: Sitting; Cuff Location : Left Arm; Cuff Size: Standard 07-11-2021 10:31-0400 Heart rate 51 /min Lanette Liu LPN [facility]; [facility] Work Phone: Comment on above: Pattern: Regular 07-11-2021 10:31-0400 Respiratory rate 16 /min Lanette Liu LPN [facility]; [facility] Work Phone: Comment on above: Pattern: Unlabored 07-11-2021 10:31-0400 SaO2% (BldA) [Mass fraction] 98 % Lanette Liu CARLITOS [facility]; [facility] Work Phone: Comment on above: Room air 07-11-2021 10:31-0400 Systolic blood pressure 132 mm[Hg] Lanette Hatfield LPN [facility]; [facility] Work Phone: Comment on above: Patient Position: Sitting; Cuff Location : Left Arm; Cuff Size: Standard 05-15-2021 08:56-0400 Body height 170.81 cm Abdulaziz Solis LPN [facility]; [facility] Work Phone: 05-15-2021 08:56-0400 Body mass index (BMI) [Ratio] 37.47 kg/m2 Abdulaziz Solis LPN [facility]; [facility] Work Phone: 05-15-2021 08:56-0400 Body surface area Derived from formula 2.2 m2 Abdulaziz Solis LPN [facility]; [facility] Work Phone: 05-15-2021 08:56-0400 Body temperature 97.4 [degF] Abdulaziz Solis LPN [facility]; [facility] Work Phone: Comment on above: Method: Infrared 05-15-2021 08:56-0400 Body weight 109.34 kg Abdulaziz Solis LPN [facility]; [facility] Work Phone: 05-15-2021 08:56-0400 Diastolic blood pressure 78 mm[Hg] Abdulaziz Solis LPN [facility]; [facility] Work Phone: Comment on above: Patient Position: Sitting; Cuff Location : Left Arm; Cuff Size: Standard 05-15-2021 08:56-0400 Heart rate 67 /min Abdulaziz Solis LPN [facility]; [facility] Work Phone: Comment on above: Pattern: Regular 05-15-2021 08:56-0400 Respiratory rate 16 /min Abdulaziz Solis LPN [facility]; [facility] Work Phone: Comment on above: Pattern: Unlabored 05-15-2021 08:56-0400 SaO2% (BldA) [Mass fraction] 98 % Abdulaziz Solis LPN [facility]; [facility] Work Phone: Comment on above: Room air 05-15-2021 08:56-0400 Systolic blood pressure 120 mm[Hg] Abdulaziz Solis LPN [facility]; [facility] Work Phone: Comment on above: Patient Position: Sitting; Cuff Location : Left Arm; Cuff Size: Standard 04-04-2021 07:46-0400 Body height 170.81 cm Abdulaziz Solis LPN [facility]; [facility] Work Phone: 04-04-2021 07:46-0400 Body mass index (BMI) [Ratio] 39.02 kg/m2 Abdulaziz Solis LPN [facility]; [facility] Work Phone: 04-04-2021 07:46-0400 Body surface area Derived from formula 2.23 m2 Abdulaziz Solis LPN [facility]; [facility] Work Phone: 04-04-2021 07:46-0400 Body weight 113.85 kg Abdulaziz Solis LPN [facility]; [facility] Work Phone: 03-20-2021 08:32-0400 Body height 170.81 cm Abdulaziz Solis LPN [facility]; [facility] Work Phone: 03-20-2021 08:32-0400 Body mass index (BMI) [Ratio] 39.02 kg/m2 Abdulaziz Solis LPN [facility]; [facility] Work Phone: 03-20-2021 08:32-0400 Body surface area Derived from formula 2.23 m2 Abdulaziz Solis LPN [facility]; [facility] Work Phone: 03-20-2021 08:32-0400 Body temperature 97.3 [degF] Abdulaziz Solis LPN [facility]; [facility] Work Phone: Comment on above: Method: Infrared 03-20-2021 08:32-0400 Body weight 113.85 kg Abdulaziz Solis LPN [facility]; [facility] Work Phone: 03-20-2021 08:32-0400 Diastolic blood pressure 82 mm[Hg] Abdulaziz Solis LPN [facility]; [facility] Work Phone: Comment on above: Patient Position: Sitting; Cuff Location : Left Arm; Cuff Size: Standard 03-20-2021 08:32-0400 Heart rate 69 /min Abdulaziz Solis LPN [facility]; [facility] Work Phone: Comment on above: Pattern: Regular 03-20-2021 08:32-0400 Respiratory rate 16 /min Abdulaziz Solis LPN [facility]; [facility] Work Phone: Comment on above: Pattern: Unlabored 03-20-2021 08:32-0400 SaO2% (BldA) [Mass fraction] 97 % Abdulaziz Solis LPN [facility]; [facility] Work Phone: Comment on above: Room air 03-20-2021 08:32-0400 Systolic blood pressure 140 mm[Hg] Abdulaziz Solis LPN [facility]; [facility] Work Phone: Comment on above: Patient Position: Sitting; Cuff Location : Left Arm; Cuff Size: Standard 09-12-2020 07:41-0500 BMI (Body Mass Index) 38.55 kg/m2 Abdulaziz Solis LPN [facility] Work Phone: 09-12-2020 07:41-0500 BMI (Body Mass Index) 39.03 kg/m2 Jeannine Pagan [facility] Work Phone: 09-12-2020 07:41-0500 Body Temperature 97.8 [degF] Abdulaziz Solis LPN [facility] Work Phone: Comment on above: Method: Infrared 09-12-2020 07:41-0500 Body weight 112.49 kg Abdulaziz Solis LPN [facility] Work Phone: 09-12-2020 07:41-0500 Body weight 113.87 kg Jeannine Pagan [facility] Work Phone: 09-12-2020 07:41-0500 BP Diastolic 68 mm[Hg] Abdulaziz Solis LPN [facility] Work Phone: Comment on above: Patient Position: Sitting; Cuff Location : Left Arm; Cuff Size: Standard 09-12-2020 07:41-0500 BP Systolic 102 mm[Hg] Abdulaziz Solis LPN [facility] Work Phone: Comment on above: Patient Position: Sitting; Cuff Location : Left Arm; Cuff Size: Standard 09-12-2020 07:41-0500 BSA (Body Surface Area) 2.22 m2 Abdulaziz Solis LPN [facility] Work Phone: 09-12-2020 07:41-0500 BSA (Body Surface Area) 2.23 m2 Jeannine Pagan [facility] Work Phone: 09-12-2020 07:41-0500 Height 170.81 cm Abdulaziz Solis LPN [facility] Work Phone: 09-12-2020 07:41-0500 Pulse (Heart Rate) 57 /min Abdulaziz Solis LPN [facility] Work Phone: Comment on above: Pattern: Regular 09-12-2020 07:41-0500 Pulse Oximetry 98 % Jeannine Pagan [facility] Work Phone: Comment on above: Room air 09-12-2020 07:41-0500 Respiratory Rate 16 /min Abdulaziz Solis LPN [facility] Work Phone: Comment on above: Pattern: Unlabored 09-12-2020 07:41-0500 SaO2% (BldA) [Mass fraction] 98 % Abdulaziz Solis LPN [facility]; [facility] Work Phone: Comment on above: Room air 02-10-2020 11:09-0400 BMI (Body Mass Index) 39.03 kg/m2 Abdulaziz Solis LPN [facility] Work Phone: Comment on above: Pt will check vitals at home and report to [facility] 02-10-2020 11:09-0400 Body weight 113.87 kg Abdulaziz Solis LPN [facility] Work Phone: Comment on above: Pt will check vitals at home and report to [facility] 02-10-2020 11:09-0400 BSA (Body Surface Area) 2.23 m2 Abdulaziz Solis LPN [facility] Work Phone: Comment on above: Pt will check vitals at home and report to [facility] 02-10-2020 11:09-0400 Height 170.81 cm Abdulaziz Solis LPN [facility] Work Phone: Comment on above: Pt will check vitals at home and report to [facility] 06-29-2019 07:48-0400 BMI (Body Mass Index) 39.03 kg/m2 Abdulaziz Acosta [facility] Work Phone: 06-29-2019 07:48-0400 BMI (Body Mass Index) 38.87 kg/m2 Jeannine Pagan [facility] Work Phone: 06-29-2019 07:48-0400 Body Temperature 96.8 [degF] Abdulaziz Solis LPN [facility] Work Phone: Comment on above: Method: Temporal 06-29-2019 07:48-0400 Body weight 113.87 kg Abdulaziz Solis LPN [facility] Work Phone: 06-29-2019 07:48-0400 Body weight 113.41 kg Jeannine Pagan [facility] Work Phone: 06-29-2019 07:48-0400 BP Diastolic 70 mm[Hg] Abdulaziz Solis LPN [facility] Work Phone: Comment on above: Patient Position: Sitting; Cuff Location : Left Arm; Cuff Size: Standard 06-29-2019 07:48-0400 BP Systolic 120 mm[Hg] Abdulaziz Solis LPN [facility] Work Phone: Comment on above: Patient Position: Sitting; Cuff Location : Left Arm; Cuff Size: Standard 06-29-2019 07:48-0400 BSA (Body Surface Area) 2.23 m2 Abdulaziz Solis LPN [facility] Work Phone: 06-29-2019 07:48-0400 Height 170.81 cm Abdulaziz Solis LPN [facility] Work Phone: 06-29-2019 07:48-0400 Pulse (Heart Rate) 62 /min Abdulaziz Solis LPN [facility] Work Phone: Comment on above: Pattern: Regular 06-29-2019 07:48-0400 Pulse Oximetry 97 % Jeannine Pagan [facility] Work Phone: Comment on above: Room air 06-29-2019 07:48-0400 Respiratory Rate 16 /min Abdulaziz Solis LPN [facility] Work Phone: Comment on above: Pattern: Unlabored 06-29-2019 07:48-0400 SaO2% (BldA) [Mass fraction] 97 % Abdulaziz Solis LPN [facility]; [facility] Work Phone: Comment on above: Room air 03-09-2019 09:00-0400 BMI (Body Mass Index) 38.87 kg/m2 Abdulaziz Solis LPN [facility] Work Phone: 03-09-2019 09:00-0400 Body Temperature 97 [degF] Abdulaziz Solis LPN [facility] Work Phone: Comment on above: Method: Temporal 03-09-2019 09:00-0400 Body weight 113.41 kg Abdulaziz Solis LPN [facility] Work Phone: 03-09-2019 09:00-0400 BP Diastolic 78 mm[Hg] Abdulaziz Solis LPN [facility] Work Phone: Comment on above: Patient Position: Sitting; Cuff Location : Left Arm; Cuff Size: Standard 03-09-2019 09:00-0400 BP Systolic 140 mm[Hg] Abdulaziz Solis LPN [facility] Work Phone: Comment on above: Patient Position: Sitting; Cuff Location : Left Arm; Cuff Size: Standard 03-09-2019 09:00-0400 BSA (Body Surface Area) 2.23 m2 Abdulaziz Solis LPN [facility] Work Phone: 03-09-2019 09:00-0400 Height 170.81 cm Abdulaziz Solis LPN [facility] Work Phone: 03-09-2019 09:00-0400 Pulse (Heart Rate) 56 /min Abdulaziz Solis LPN [facility] Work Phone: Comment on above: Pattern: Regular 03-09-2019 09:00-0400 Pulse Oximetry 97 % Jeannine Latasha [facility] Work Phone: Comment on above: Room air 03-09-2019 09:00-0400 Respiratory Rate 16 /min Abdulaziz Solis LPN [facility] Work Phone: Comment on above: Pattern: Unlabored 03-09-2019 09:00-0400 SaO2% (BldA) [Mass fraction] 97 % Abdulaziz Solis LPN [facility]; [facility] Work Phone: Comment on above: Room air 03-09-2019 09:00-0400 Weight 113.41 kg Jeannine Latasha [facility] Work Phone: 02-16-2019 12:03-0400 BMI (Body Mass Index) 37.06 kg/m2 rTina Hernandez RN [facility] Work Phone: 02-16-2019 12:03-0400 Body Temperature 97.9 [degF] Trina Hernandez RN [facility] Work Phone: Comment on above: Method: Temporal 02-16-2019 12:03-0400 Body weight 108.13 kg Trina Hernandez RN [facility] Work Phone: 02-16-2019 12:03-0400 BP Diastolic 74 mm[Hg] Trina Hernandez RN [facility] Work Phone: Comment on above: Patient Position: Sitting; Cuff Location : Left Arm; Cuff Size: Standard 02-16-2019 12:03-0400 BP Systolic 134 mm[Hg] Trina Hernandez RN [facility] Work Phone: Comment on above: Patient Position: Sitting; Cuff Location : Left Arm; Cuff Size: Standard 02-16-2019 12:03-0400 BSA (Body Surface Area) 2.18 m2 Trina Hernandez RN [facility] Work Phone: 02-16-2019 12:03-0400 Height 170.81 cm Trina Hernandez RN [facility] Work Phone: 02-16-2019 12:03-0400 Pulse (Heart Rate) 75 /min Trina Hernandez RN [facility] Work Phone: Comment on above: Pattern: Regular 02-16-2019 12:03-0400 Pulse Oximetry 98 % Jeannine Pagan [facility] Work Phone: Comment on above: Room air 02-16-2019 12:03-0400 Respiratory Rate 16 /min Trina Hernandez RN [facility] Work Phone: Comment on above: Pattern: Unlabored 02-16-2019 12:03-0400 SaO2% (BldA) [Mass fraction] 98 % Trina Hernandez RN [facility]; [facility] Work Phone: Comment on above: Room air 02-16-2019 12:03-0400 Weight 108.13 kg Jeannine Pagan [facility] Work Phone: 01-12-2019 08:32-0400 BMI (Body Mass Index) 37.06 kg/m2 Abdulaziz Acosta formerly [facility] Internal Medicine Work Phone: 01-12-2019 08:32-0400 Body Temperature 96.7 [degF] Abdulaziz Solis LPN [facility] Internal Medicine Work Phone: Comment on above: Method: Temporal 01-12-2019 08:32-0400 Body weight 108.13 kg Abdulaziz Solis LPN [facility] Work Phone: 01-12-2019 08:32-0400 BP Diastolic 82 mm[Hg] Abdulaziz Solis LPN [facility] Internal Medicine Work Phone: Comment on above: Patient Position: Sitting; Cuff Location : Left Arm; Cuff Size: Standard 01-12-2019 08:32-0400 BP Systolic 130 mm[Hg] Abdulaziz Solis LPN [facility] Internal [facility] Work Phone: Comment on above: Patient Position: Sitting; Cuff Location : Left Arm; Cuff Size: Standard 01-12-2019 08:32-0400 BSA (Body Surface Area) 2.18 m2 Abdulaziz Solis LPN [facility] Internal Medicine Work Phone: 01-12-2019 08:32-0400 Height 170.81 cm Abdulaziz Solis LPN [facility] Internal Medicine Work Phone: 01-12-2019 08:32-0400 Pulse (Heart Rate) 62 /min Abdulaziz Solis LPN [facility] Work Phone: Comment on above: Pattern: Regular 01-12-2019 08:32-0400 Pulse Oximetry 96 % Jeannine Latasha [facility] Internal Medicine Work Phone: Comment on above: Room air 01-12-2019 08:32-0400 Respiratory Rate 18 /min Abdulaziz Solis LPN [facility] Internal Medicine Work Phone: Comment on above: Pattern: Unlabored 01-12-2019 08:32-0400 SaO2% (BldA) [Mass fraction] 96 % Abdulaziz Solis LPN [facility]; [facility] Work Phone: Comment on above: Room air 01-12-2019 08:32-0400 Weight 108.13 kg Jeannine Latasha [facility] Internal [facility] Work Phone: 12-15-2018 09:49-0500 BMI (Body Mass Index) 37.06 kg/m2 Abdulaziz Solis LPN [facility] Work Phone: 12-15-2018 09:49-0500 Body Temperature 96.9 [degF] Abdulaziz Solis LPN [facility] Work Phone: Comment on above: Method: Temporal 12-15-2018 09:49-0500 Body weight 108.13 kg Abdulaziz Solis LPN [facility] Work Phone: 12-15-2018 09:49-0500 BP Diastolic 82 mm[Hg] Abdulaziz Solis LPN [facility] Work Phone: Comment on above: Patient Position: Sitting; Cuff Location : Left Arm; Cuff Size: Standard 12-15-2018 09:49-0500 BP Systolic 150 mm[Hg] Abdulaziz Solis LPN [facility] Internal Medicine Work Phone: Comment on above: Patient Position: Sitting; Cuff Location : Left Arm; Cuff Size: Standard 12-15-2018 09:49-0500 BSA (Body Surface Area) 2.18 m2 Abdulaziz Solis LPN [facility] Work Phone: 12-15-2018 09:49-0500 Height 170.81 cm Abdulaziz Solis LPN [facility] Work Phone: 12-15-2018 09:49-0500 Pulse (Heart Rate) 85 /min Abdulaziz Solis LPN [facility] Work Phone: Comment on above: Pattern: Regular 12-15-2018 09:49-0500 Pulse Oximetry 97 % Jeannine Pagan [facility] Internal Medicine Work Phone: Comment on above: Room air 12-15-2018 09:49-0500 Respiratory Rate 18 /min Abdulaziz Solis LPN [facility] Work Phone: Comment on above: Pattern: Unlabored 12-15-2018 09:49-0500 SaO2% (BldA) [Mass fraction] 97 % Abdulaziz Solis LPN [facility]; [facility] Work Phone: Comment on above: Room air 12-15-2018 09:49-0500 Weight 108.13 kg Jeannine Pagan [facility] Work Phone: 09-29-2018 14:46-0500 BMI (Body Mass Index) 37.06 kg/m2 Zahraa Kramer [facility] Internal [facility] Work Phone: 09-29-2018 14:46-0500 Body Temperature 97.8 [degF] Zahraa Kramer [facility] Work Phone: Comment on above: Method: Temporal 09-29-2018 14:46-0500 Body weight 108.13 kg Zahraa Kramer [facility] Work Phone: 09-29-2018 14:46-0500 BP Diastolic 80 mm[Hg] Zahraa Kramer [facility] Work Phone: Comment on above: Patient Position: Sitting; Cuff Location : Left Arm; Cuff Size: Standard 09-29-2018 14:46-0500 BP Systolic 136 mm[Hg] Zahraa Kramer [facility] Internal Medicine Work Phone: Comment on above: Patient Position: Sitting; Cuff Location : Left Arm; Cuff Size: Standard 09-29-2018 14:46-0500 BSA (Body Surface Area) 2.18 m2 Zahraa Kramer [facility] Internal [facility] Work Phone: 09-29-2018 14:46-0500 Height 170.81 cm Zahraa Kramer [facility] Work Phone: 09-29-2018 14:46-0500 Pulse (Heart Rate) 62 /min Zahraa Kramer [facility] Internal [facility] Work Phone: Comment on above: Pattern: Regular 09-29-2018 14:46-0500 Pulse Oximetry 96 % Jeannine Pagan [facility] Internal Medicine Work Phone: Comment on above: Room air 09-29-2018 14:46-0500 Respiratory Rate 16 /min Zahraa Kramer [facility] Internal [facility] Work Phone: Comment on above: Pattern: Unlabored 09-29-2018 14:46-0500 SaO2% (BldA) [Mass fraction] 96 % Zahraa Kramer [facility]; [facility] Work Phone: Comment on above: Room air 09-29-2018 14:46-0500 Weight 108.13 kg Jeannine Pagan [facility] Work Phone: 07-25-2018 16:19-0400 BP Diastolic 70 mm[Hg] Zac Alcala ANP [facility] 07-25-2018 16:19-0400 BP Systolic 135 mm[Hg] Zac Alcala ANP [facility] 07-25-2018 16:18-0400 BMI (Body Mass Index) 37.59 kg/m2 Zac MAURICE [facility] 07-25-2018 16:18-0400 Body Temperature 98.1 [degF] Zac Alcala ANP [facility] 07-25-2018 16:18-0400 BP Diastolic 71 mm[Hg] Zac Alcala ANP [facility] 07-25-2018 16:18-0400 BP Systolic 136 mm[Hg] Zac Alcala ANP [facility] 07-25-2018 16:18-0400 Height 170.18 cm Zac Alcala ANP [facility] 07-25-2018 16:18-0400 Pulse (Heart Rate) 60 /min Zac Alcala ANP [facility] 07-25-2018 16:18-0400 Pulse Oximetry 97 % Zac Alcala ANP [facility] 07-25-2018 16:18-0400 Weight 108.86 kg Zac Alcala ANP [facility] 05-26-2018 13:52-0400 BMI (Body Mass Index) 37.37 kg/m2 Urszula Cruz LPN [facility] Internal Medicine Work Phone: 05-26-2018 13:52-0400 Body Temperature 97.3 [degF] Urszula Cruz LPN [facility] Work Phone: 05-26-2018 13:52-0400 Body weight 109.03 kg Urszula Cruz LPN [facility] Work Phone: 05-26-2018 13:52-0400 BP Diastolic 70 mm[Hg] Urszula Cruz LPN [facility] Internal [facility] Work Phone: Comment on above: Patient Position: Sitting; Cuff Location : Left Arm; Cuff Size: Standard 05-26-2018 13:52-0400 BP Systolic 130 mm[Hg] Urszula Cruz LPN [facility] Work Phone: Comment on above: Patient Position: Sitting; Cuff Location : Left Arm; Cuff Size: Standard 05-26-2018 13:52-0400 BSA (Body Surface Area) 2.19 m2 Urszula Cruz TECHNOLOGY PROFESSIONAL [facility] Work Phone: 05-26-2018 13:52-0400 Height 170.81 cm Urszula Cruz TECHNOLOGY PROFESSIONAL [facility] Work Phone: 05-26-2018 13:52-0400 Pulse (Heart Rate) 67 /min Urszula Cruz LPN [facility] Work Phone: Comment on above: Pattern: Regular 05-26-2018 13:52-0400 Pulse Oximetry 97 % Jeannine Pagan [facility] Work Phone: Comment on above: Room air 05-26-2018 13:52-0400 Respiratory Rate 20 /min Urszula Cruz TECHNOLOGY PROFESSIONAL [facility] Work Phone: Comment on above: Pattern: Unlabored 05-26-2018 13:52-0400 SaO2% (BldA) [Mass fraction] 97 % Urszula Chavisrb TECHNOLOGY PROFESSIONAL [facility]; [facility] Work Phone: Comment on above: Room air 05-26-2018 13:52-0400 Weight 109.03 kg Jeannine Pagan [facility] Work Phone: 12-30-2017 08:58-0500 BMI (Body Mass Index) 38.86 kg/m2 Urszula Chavisrb TECHNOLOGY PROFESSIONAL [facility] Work Phone: 12-30-2017 08:58-0500 Body Temperature 97.6 [degF] Urszula Partharb TECHNOLOGY PROFESSIONAL [facility] Work Phone: 12-30-2017 08:58-0500 Body weight 113.4 kg Urszula Chavisrb TECHNOLOGY PROFESSIONAL [facility] Work Phone: 12-30-2017 08:58-0500 BP Diastolic 78 mm[Hg] Urszula Slarb TECHNOLOGY PROFESSIONAL [facility] Work Phone: Comment on above: Patient Position: Sitting; Cuff Location : Left Arm; Cuff Size: Standard 12-30-2017 08:58-0500 BP Systolic 124 mm[Hg] Urszula Cruz LPN [facility] Work Phone: Comment on above: Patient Position: Sitting; Cuff Location : Left Arm; Cuff Size: Standard 12-30-2017 08:58-0500 BSA (Body Surface Area) 2.23 m2 Urszula Cruz LPN [facility] Work Phone: 12-30-2017 08:58-0500 Height 170.81 cm rUszula Cruz TECHNOLOGY PROFESSIONAL [facility] Work Phone: 12-30-2017 08:58-0500 Pulse (Heart Rate) 69 /min Urszula Cruz TECHNOLOGY PROFESSIONAL [facility] Work Phone: Comment on above: Pattern: Regular 12-30-2017 08:58-0500 Pulse Oximetry 98 % Jeannine Pagan [facility] Work Phone: Comment on above: Room air 12-30-2017 08:58-0500 Respiratory Rate 17 /min Urszula Cruz LPN [facility] Work Phone: Comment on above: Pattern: Unlabored 12-30-2017 08:58-0500 SaO2% (BldA) [Mass fraction] 98 % Urszula Cruz TECHNOLOGY PROFESSIONAL [facility]; [facility] Work Phone: Comment on above: Room air 12-30-2017 08:58-0500 Weight 113.4 kg Jeannine Pagan [facility] Work Phone: 09-16-2017 14:51-0500 BMI (Body Mass Index) 39.8 kg/m2 Urszula Cruz TECHNOLOGY PROFESSIONAL [facility] Work Phone: 09-16-2017 14:51-0500 Body Temperature 98.1 [degF] Urszula Cruz LPN [facility] Work Phone: 09-16-2017 14:51-0500 Body weight 116.12 kg Urszula rCuz TECHNOLOGY PROFESSIONAL [facility] Work Phone: 09-16-2017 14:51-0500 BP Diastolic 72 mm[Hg] Urszula Partharb TECHNOLOGY PROFESSIONAL [facility] Work Phone: Comment on above: Patient Position: Sitting; Cuff Location : Left Arm; Cuff Size: Standard 09-16-2017 14:51-0500 BP Systolic 138 mm[Hg] Urszula Partharb TECHNOLOGY PROFESSIONAL [facility] Work Phone: Comment on above: Patient Position: Sitting; Cuff Location : Left Arm; Cuff Size: Standard 09-16-2017 14:51-0500 BSA (Body Surface Area) 2.25 m2 Urszula Partharb TECHNOLOGY PROFESSIONAL [facility] Work Phone: 09-16-2017 14:51-0500 Height 170.81 cm Urszula Slarb TECHNOLOGY PROFESSIONAL [facility] Work Phone: 09-16-2017 14:51-0500 Pulse (Heart Rate) 66 /min Urszula Partharb TECHNOLOGY PROFESSIONAL [facility] Work Phone: Comment on above: Pattern: Regular 09-16-2017 14:51-0500 Pulse Oximetry 97 % Jeannine Pagan [facility] Work Phone: Comment on above: Room air 09-16-2017 14:51-0500 Respiratory Rate 18 /min Urszula Partharb TECHNOLOGY PROFESSIONAL [facility] Work Phone: Comment on above: Pattern: Unlabored 09-16-2017 14:51-0500 SaO2% (BldA) [Mass fraction] 97 % Urszula Slarb TECHNOLOGY PROFESSIONAL [facility]; [facility] Work Phone: Comment on above: Room air 09-16-2017 14:51-0500 Weight 116.12 kg Jeannine Pagan [facility] Work Phone: 02-11-2017 09:17-0400 BMI (Body Mass Index) 39.72 kg/m2 Urszula Slarb TECHNOLOGY PROFESSIONAL [facility] Work Phone: 02-11-2017 09:17-0400 Body Temperature 98.2 [degF] Urszula Partharb TECHNOLOGY PROFESSIONAL [facility] Work Phone: 02-11-2017 09:17-0400 Body weight 115.89 kg Urszula Cruz LPN [facility] Work Phone: 02-11-2017 09:17-0400 BP Diastolic 84 mm[Hg] Urszula Cruz TECHNOLOGY PROFESSIONAL [facility] Work Phone: Comment on above: Patient Position: Sitting; Cuff Location : Left Arm; Cuff Size: Standard 02-11-2017 09:170400 BP Systolic 136 mm[Hg] Urszula Cruz TECHNOLOGY PROFESSIONAL [facility] Work Phone: Comment on above: Patient Position: Sitting; Cuff Location : Left Arm; Cuff Size: Standard 02-11-2017 09:170400 BSA (Body Surface Area) 2.25 m2 Urszula Cruz TECHNOLOGY PROFESSIONAL [facility] Work Phone: 02-11-2017 09:170400 Height 170.81 cm Urszula Cruz TECHNOLOGY PROFESSIONAL [facility] Work Phone: 02-11-2017 09:17-0400 Pulse (Heart Rate) 69 /min Urszula Cruz LPN [facility] Work Phone: Comment on above: Pattern: Regular 02-11-2017 09:17-0400 Pulse Oximetry 98 % Jeannine Pagan [facility] Work Phone: Comment on above: Room air 02-11-2017 09:17-0400 Respiratory Rate 16 /min Urszula Cruz LPN [facility] Work Phone: Comment on above: Pattern: Unlabored 02-11-2017 09:17-0400 SaO2% (BldA) [Mass fraction] 98 % Urszula Cruz TECHNOLOGY PROFESSIONAL [facility]; [facility] Work Phone: Comment on above: Room air 02-11-2017 09:17-0400 Weight 115.89 kg Jeannine Pagan [facility] Work Phone: 02-04-2017 10:31-0400 BMI (Body Mass Index) 41.25 kg/m2 Urszula Cruz TECHNOLOGY PROFESSIONAL [facility] Work Phone: 02-04-2017 10:31-0400 Body Temperature 97.7 [degF] Urszula Slarb TECHNOLOGY PROFESSIONAL [facility] Work Phone: 02-04-2017 10:31-0400 Body weight 120.37 kg Urszula Slarb TECHNOLOGY PROFESSIONAL [facility] Work Phone: 02-04-2017 10:31-0400 BP Diastolic 90 mm[Hg] Urszula Slarb TECHNOLOGY PROFESSIONAL [facility] Work Phone: Comment on above: Patient Position: Sitting; Cuff Location : Left Arm; Cuff Size: Standard 02-04-2017 10:31-0400 BP Systolic 162 mm[Hg] Urszula Slarb TECHNOLOGY PROFESSIONAL [facility] Work Phone: Comment on above: Patient Position: Sitting; Cuff Location : Left Arm; Cuff Size: Standard 02-04-2017 10:31-0400 BSA (Body Surface Area) 2.29 m2 Urszula Slarb TECHNOLOGY PROFESSIONAL [facility] Work Phone: 02-04-2017 10:31-0400 Height 170.81 cm Urszula Slarb TECHNOLOGY PROFESSIONAL [facility] Work Phone: 02-04-2017 10:31-0400 Pulse (Heart Rate) 69 /min Urszula Slarb TECHNOLOGY PROFESSIONAL [facility] Work Phone: Comment on above: Pattern: Regular 02-04-2017 10:31-0400 Pulse Oximetry 97 % Jeannine Pagan [facility] Work Phone: Comment on above: Room air 02-04-2017 10:31-0400 Respiratory Rate 17 /min Urszula Slarb TECHNOLOGY PROFESSIONAL [facility] Work Phone: Comment on above: Pattern: Unlabored 02-04-2017 10:31-0400 SaO2% (BldA) [Mass fraction] 97 % Urszula Slarb TECHNOLOGY PROFESSIONAL [facility]; [facility] Work Phone: Comment on above: Room air 02-04-2017 10:31-0400 Weight 120.37 kg Jeannine Pagan [facility] Work Phone: 01-07-2017 10:14-0500 BMI (Body Mass Index) 41.37 kg/m2 Urszula Slarb TECHNOLOGY PROFESSIONAL [facility] Work Phone: 01-07-2017 10:14-0500 Body Temperature 98.2 [degF] Urszula Chavisrb TECHNOLOGY PROFESSIONAL [facility] Work Phone: 01-07-2017 10:14-0500 Body weight 120.71 kg Urszula Cruz TECHNOLOGY PROFESSIONAL [facility] Work Phone: 01-07-2017 10:14-0500 BP Diastolic 88 mm[Hg] Urszula Partharb TECHNOLOGY PROFESSIONAL [facility] Work Phone: Comment on above: Patient Position: Sitting; Cuff Location : Left Arm; Cuff Size: Standard 01-07-2017 10:14-0500 BP Systolic 144 mm[Hg] Urszula Partharb TECHNOLOGY PROFESSIONAL [facility] Work Phone: Comment on above: Patient Position: Sitting; Cuff Location : Left Arm; Cuff Size: Standard 01-07-2017 10:14-0500 BSA (Body Surface Area) 2.29 m2 Urszula Chavisrb TECHNOLOGY PROFESSIONAL [facility] Work Phone: 01-07-2017 10:14-0500 Height 170.81 cm Urszula Chavisrb TECHNOLOGY PROFESSIONAL [facility] Work Phone: 01-07-2017 10:14-0500 Pulse (Heart Rate) 88 /min Urszula Cruz TECHNOLOGY PROFESSIONAL [facility] Work Phone: Comment on above: Pattern: Regular 01-07-2017 10:14-0500 Pulse Oximetry 98 % Jeannine Pagan [facility] Work Phone: Comment on above: Room air 01-07-2017 10:14-0500 Respiratory Rate 17 /min Urszula Cruz TECHNOLOGY PROFESSIONAL [facility] Work Phone: Comment on above: Pattern: Unlabored 01-07-2017 10:14-0500 SaO2% (BldA) [Mass fraction] 98 % Urszula Chavisrb TECHNOLOGY PROFESSIONAL [facility]; [facility] Work Phone: Comment on above: Room air 01-07-2017 10:14-0500 Weight 120.71 kg Jeannine Pagan [facility] Work Phone: 12-25-2016 11:08-0500 BMI (Body Mass Index) 41.04 kg/m2 Urszula Partharb TECHNOLOGY PROFESSIONAL [facility] Work Phone: 12-25-2016 11:08-0500 Body Temperature 98.3 [degF] Urszula Chavisrb TECHNOLOGY PROFESSIONAL [facility] Work Phone: 12-25-2016 11:08-0500 Body weight 119.75 kg Urszula Chavisrb TECHNOLOGY PROFESSIONAL [facility] Work Phone: 12-25-2016 11:08-0500 BP Diastolic 88 mm[Hg] Urszula Slarb TECHNOLOGY PROFESSIONAL [facility] Work Phone: Comment on above: Patient Position: Sitting; Cuff Location : Left Arm; Cuff Size: Standard 12-25-2016 11:08-0500 BP Systolic 162 mm[Hg] Urszula Chavisrb TECHNOLOGY PROFESSIONAL [facility] Work Phone: Comment on above: Patient Position: Sitting; Cuff Location : Left Arm; Cuff Size: Standard 12-25-2016 11:08-0500 BSA (Body Surface Area) 2.28 m2 Urszula Chavisrb TECHNOLOGY PROFESSIONAL [facility] Work Phone: 12-25-2016 11:08-0500 Height 170.81 cm Urszula Cruz TECHNOLOGY PROFESSIONAL [facility] Work Phone: 12-25-2016 11:08-0500 Pulse (Heart Rate) 72 /min Ursuzla Cruz TECHNOLOGY PROFESSIONAL [facility] Work Phone: Comment on above: Pattern: Regular 12-25-2016 11:08-0500 Pulse Oximetry 95 % Jeannine Latasha [facility] Work Phone: Comment on above: Room air 12-25-2016 11:08-0500 Respiratory Rate 16 /min Urszula Cruz TECHNOLOGY PROFESSIONAL [facility] Work Phone: Comment on above: Pattern: Unlabored 12-25-2016 11:08-0500 SaO2% (BldA) [Mass fraction] 95 % Urszula Slarb TECHNOLOGY PROFESSIONAL [facility]; [facility] Work Phone: Comment on above: Room air 12-25-2016 11:08-0500 Weight 119.75 kg Jeannine Pagan [facility] Work Phone: 08-20-2016 08:39-0400 BMI (Body Mass Index) 41.35 kg/m2 Urszula Cruz TECHNOLOGY PROFESSIONAL [facility] Work Phone: 08-20-2016 08:39-0400 Body Temperature 97 [degF] Urszula Cruz LPN [facility] Work Phone: 08-20-2016 08:39-0400 Body weight 120.66 kg Urszula Cruz TECHNOLOGY PROFESSIONAL [facility] Work Phone: 08-20-2016 08:39-0400 BP Diastolic 82 mm[Hg] Urszula Cruz TECHNOLOGY PROFESSIONAL [facility] Work Phone: Comment on above: Patient Position: Sitting; Cuff Location : Left Arm; Cuff Size: Standard 08-20-2016 08:39-0400 BP Systolic 132 mm[Hg] Urszula Cruz LPN [facility] Work Phone: Comment on above: Patient Position: Sitting; Cuff Location : Left Arm; Cuff Size: Standard 08-20-2016 08:39-0400 BSA (Body Surface Area) 2.29 m2 Urszula Cruz LPN [facility] Work Phone: 08-20-2016 08:39-0400 Height 170.81 cm Urszula Cruz TECHNOLOGY PROFESSIONAL [facility] Work Phone: 08-20-2016 08:39-0400 Pulse (Heart Rate) 68 /min Urszula Cruz LPN [facility] Work Phone: Comment on above: Pattern: Regular 08-20-2016 08:39-0400 Pulse Oximetry 97 % Jeannine Pagan [facility] Work Phone: Comment on above: Room air 08-20-2016 08:39-0400 Respiratory Rate 17 /min Urszula Cruz LPN [facility] Work Phone: Comment on above: Pattern: Unlabored 08-20-2016 08:39-0400 SaO2% (BldA) [Mass fraction] 97 % Urszula Cruz LPN [facility]; [facility] Work Phone: Comment on above: Room air 08-20-2016 08:39-0400 Weight 120.66 kg Jeannine Pagan [facility] Work Phone: 02-20-2016 08:29-0400 BMI (Body Mass Index) 41.55 kg/m2 Urszula Cruz LPN [facility] Work Phone: Comment on above: Both eyes 20/25 right eye 20/30 left eye 20/30 02-20-2016 08:29-0400 Body Temperature 97.7 [degF] Urszula Cruz LPN [facility] Work Phone: Comment on above: Both eyes 20/25 right eye 20/30 left eye 20/30 02-20-2016 08:29-0400 Body weight 121.22 kg Urszula Cruz LPN [facility] Work Phone: Comment on above: Both eyes 20/25 right eye 20/30 left eye 20/30 02-20-2016 08:29-0400 BP Diastolic 82 mm[Hg] Urszula Cruz LPN [facility] Work Phone: Comment on above: Patient Position: Sitting; Cuff Location : Left Arm; Cuff Size: Standard Both eyes 20/25 righ t eye 20/30 left eye 20/30 02-20-2016 08:29-0400 BP Systolic 136 mm[Hg] Urszula Cruz LPN [facility] Work Phone: Comment on above: Patient Position: Sitting; Cuff Location : Left Arm; Cuff Size: Standard Both eyes 20/25 righ t eye 20/30 left eye 20/30 02-20-2016 08:29-0400 BSA (Body Surface Area) 2.29 m2 Urszula Cruz LPN [facility] Work Phone: Comment on above: Both eyes 20/25 right eye 20/30 left eye 20/30 02-20-2016 08:29-0400 Height 170.81 cm Urszula Cruz LPN [facility] Work Phone: Comment on above: Both eyes 20/25 right eye 20/30 left eye 20/30 02-20-2016 08:29-0400 Pulse (Heart Rate) 66 /min Urszula Cruz LPN [facility] Work Phone: Comment on above: Pattern: Regular Both eyes 20/25 righ t eye 20/30 left eye 20/30 02-20-2016 08:29-0400 Pulse Oximetry 98 % Jeannine Pagan [facility] [facility] Work Phone: Comment on above: Room air Both eyes 20/25 righ t eye 20/30 left eye 20/30 02-20-2016 08:29-0400 Respiratory Rate 16 /min Urszula Cruz LPN [facility] Internal Medicine Work Phone: Comment on above: Pattern: Unlabored Both eyes 20/25 righ t eye 20/30 left eye 20/30 02-20-2016 08:29-0400 SaO2% (BldA) [Mass fraction] 98 % Urszula Cruz LPN [facility]; [facility] Work Phone: Comment on above: Room air Both eyes 20/25 righ t eye 20/30 left eye 20/30 02-20-2016 08:29-0400 Weight 121.22 kg Jeannine Pagan [facility] Internal Medicine Work Phone: Comment on above: Both eyes 20/25 right eye 20/30 left eye 20/30 11-21-2015 11:10-0500 BMI (Body Mass Index) 40.42 kg/m2 [place] Carreno [facility] Internal Medicine Work Phone: 11-21-2015 11:10-0500 Body Temperature 96.4 [degF] [place] Carreno [facility] Internal Medicine Work Phone: Comment on above: Method: Oral 11-21-2015 11:10-0500 Body weight 117.94 kg Venice Carreno [facility] Internal Medicine Work Phone: 11-21-2015 11:10-0500 BP Diastolic 80 mm[Hg] [place] Carreno [facility] Internal Medicine Work Phone: Comment on above: Patient Position: Sitting; Cuff Location : Left Arm; Cuff Size: Standard 11-21-2015 11:10-0500 BP Systolic 130 mm[Hg] [place] Carreno [facility] Internal Medicine Work Phone: Comment on above: Patient Position: Sitting; Cuff Location : Left Arm; Cuff Size: Standard 11-21-2015 11:10-0500 BSA (Body Surface Area) 2.27 m2 [place] Carreno [facility] Internal Medicine Work Phone: 11-21-2015 11:10-0500 Height 170.81 cm [place] Carreno [facility] Internal Medicine Work Phone: 11-21-2015 11:10-0500 Pulse (Heart Rate) 71 /min [place] Carreno [facility] Internal Medicine Work Phone: Comment on above: Pattern: Regular 11-21-2015 11:10-0500 Respiratory Rate 16 /min [place] Carreno [facility] Internal Medicine Work Phone: Comment on above: Pattern: Unlabored 11-21-2015 11:10-0500 Weight 117.94 kg Jeannine Pagan [facility] Internal Medicine Work Phone: 07-01-2015 09:28-0400 BMI (Body Mass Index) 41.82 kg/m2 [facility] Internal Medicine Work Phone: 07-01-2015 09:28-0400 Body Temperature 97.6 [degF] [facility] Internal Medicine Work Phone: 07-01-2015 09:28-0400 Body weight 122.[address] [facility] Internal Medicine Work Phone: 07-01-2015 09:28-0400 BP Diastolic 82 mm[Hg] [facility] Internal Medicine Work Phone: Comment on above: Patient Position: Sitting; Cuff Location : Left Arm; Cuff Size: Standard 07-01-2015 09:28-0400 BP Systolic 140 mm[Hg] [facility] Internal Medicine Work Phone: Comment on above: Patient Position: Sitting; Cuff Location : Left Arm; Cuff Size: Standard 07-01-2015 09:28-0400 BSA (Body Surface Area) 2.[address] [facility] Internal Medicine Work Phone: 07-01-2015 09:28-[address] [facility] Internal Medicine Work Phone: 07-01-2015 09:28-0400 Pulse (Heart Rate) 73 /min [facility] Internal Medicine Work Phone: Comment on above: Pattern: Regular 07-01-2015 09:28-0400 Pulse Oximetry 98 % [facility] Internal Medicine Work Phone: Comment on above: Room air 07-01-2015 09:28-0400 SaO2% (BldA) [Mass fraction] 98 % [facility] Internal [facility]; [facility] Internal Medicine Work Phone: Comment on above: Room air 07-01-2015 09:28-0400 [facility] 122.02 [facility] Work Phone: 04-05-2015 11:10-0400 BMI (Body Mass Index) 41.66 kg/m2 Alisha Candelario [facility] Internal Medicine Work Phone: 04-05-2015 11:10-0400 Body Temperature 97.8 [degF] Alisha Candelario [facility] Internal Medicine Work Phone: Comment on above: Method: Oral 04-05-2015 11:10-0400 Body weight 121.56 kg Alisha Candelario [facility] Internal Medicine Work Phone: 04-05-2015 11:10-0400 BP Diastolic 76 mm[Hg] Alisha Candelario [facility] Internal Medicine Work Phone: Comment on above: Patient Position: Sitting; Cuff Location : Left Arm; Cuff Size: Large 04-05-2015 11:10-0400 BP Systolic 130 mm[Hg] Alisha Candelario [facility] Internal Medicine Work Phone: Comment on above: Patient Position: Sitting; Cuff Location : Left Arm; Cuff Size: Large 04-05-2015 11:10-0400 BSA (Body Surface Area) 2.3 m2 Alisha Molinaotoniel [facility] Internal Medicine Work Phone: 04-05-2015 11:10-0400 Height 170.81 cm Alisha Candelario [facility] Internal Medicine Work Phone: 04-05-2015 11:10-0400 Pulse (Heart Rate) 60 /min Alisha Candelario [facility] Internal Medicine Work Phone: Comment on above: Pattern: Regular 04-05-2015 11:10-0400 Respiratory Rate 16 /min Alisha Candelario [facility] Internal Medicine Work Phone: Comment on above: Pattern: Unlabored 04-05-2015 11:10-0400 Weight 121.56 kg Jeannine Pagan [facility] Internal Medicine Work Phone: 10-21-2014 10:03-0500 BMI (Body Mass Index) 41.04 kg/m2 Daysi Angulo RN [facility] Work Phone: 10-21-2014 10:03-0500 Body Temperature 100.1 [degF] Daysi Angulo RN [facility] Work Phone: Comment on above: Method: Oral 10-21-2014 10:03-0500 Body weight 119.75 kg Daysi Angulo RN [facility] Work Phone: 10-21-2014 10:03-0500 BP Diastolic 82 mm[Hg] Daysi Angulo RN [facility] Work Phone: Comment on above: Patient Position: Sitting; Cuff Location : Left Arm; Cuff Size: Large 10-21-2014 10:03-0500 BP Systolic 138 mm[Hg] Daysi Angulo RN [facility] Work Phone: Comment on above: Patient Position: Sitting; Cuff Location : Left Arm; Cuff Size: Large 10-21-2014 10:03-0500 BSA (Body Surface Area) 2.28 m2 Daysi Angulo RN [facility] Work Phone: 10-21-2014 10:03-0500 Height 170.81 cm Daysi Angulo RN [facility] Work Phone: 10-21-2014 10:03-0500 Pulse (Heart Rate) 73 /min Daysi Angulo RN [facility] Internal Medicine Work Phone: Comment on above: Pattern: Regular 10-21-2014 10:03-0500 Pulse Oximetry 97 % Jeannine Merrillkhai [facility] Internal Medicine Work Phone: Comment on above: Room air 10-21-2014 10:03-0500 Respiratory Rate 18 /min Daysi Angulo RN [facility] Work Phone: Comment on above: Pattern: Unlabored 10-21-2014 10:03-0500 SaO2% (BldA) [Mass fraction] 97 % Daysi Angulo RN [facility]; [facility] Work Phone: Comment on above: Room air 10-21-2014 10:03-0500 Weight 119.75 kg Jeannine Pagan [facility] Internal Medicine Work Phone: 03-08-2014 08:59-0400 BMI (Body Mass Index) 41.04 kg/m2 Alisha Candelario [facility] Internal Medicine Work Phone: 03-08-2014 08:59-0400 Body Temperature 96.5 [degF] Alisha Candelario [facility] Internal Medicine Work Phone: 03-08-2014 08:59-0400 Body weight 119.75 kg Alisha Candelario [facility] Internal Medicine Work Phone: 03-08-2014 08:59-0400 BP Diastolic 74 mm[Hg] Alisha Candelario [facility] Internal Medicine Work Phone: Comment on above: Patient Position: Sitting; Cuff Location : Left Arm; Cuff Size: Large 03-08-2014 08:59-0400 BP Systolic 138 mm[Hg] Alisha Candelario [facility] Internal Medicine Work Phone: Comment on above: Patient Position: Sitting; Cuff Location : Left Arm; Cuff Size: Large 03-08-2014 08:59-0400 BSA (Body Surface Area) 2.28 m2 Alisha Candelario [facility] Internal Medicine Work Phone: 03-08-2014 08:59-0400 Height 170.81 cm Alisha Candelario [facility] Internal Medicine Work Phone: 03-08-2014 08:59-0400 Pulse (Heart Rate) 62 /min Alisha Candelario [facility] Medicine Work Phone: Comment on above: Pattern: Regular 03-08-2014 08:59-0400 Respiratory Rate 16 /min Alisha Candelario [facility] Internal Medicine Work Phone: Comment on above: Pattern: Unlabored 03-08-2014 08:59-0400 Weight 119.75 kg Jeannine Pagan [facility] Internal Medicine Work Phone: 11-30-2013 10:49-0500 BMI (Body Mass Index) 40.89 kg/m2 [facility] Work Phone: 11-30-2013 10:49-0500 Body Temperature 98.3 [degF] Alisha Molinaotoniel [facility] Internal Medicine Work Phone: 11-30-2013 10:49-0500 Body weight 119.3 kg Alisha Candelario [facility] Internal Medicine Work Phone: 11-30-2013 10:49-0500 BP Diastolic 80 mm[Hg] Alisha Candelario [facility] Internal Medicine Work Phone: Comment on above: Patient Position: Sitting; Cuff Location : Left Arm; Cuff Size: Large 11-30-2013 10:49-0500 BP Systolic 122 mm[Hg] Alisha Candelario [facility] Internal Medicine Work Phone: Comment on above: Patient Position: Sitting; Cuff Location : Left Arm; Cuff Size: Large 11-30-2013 10:49-0500 BSA (Body Surface Area) 2.28 m2 Alisha Candelario [facility] Internal Medicine Work Phone: 11-30-2013 10:49-0500 Height 170.81 cm Alisha Molinaotoniel [facility] Internal Medicine Work Phone: 11-30-2013 10:49-0500 Pulse (Heart Rate) 62 /min Alisha Molinaotoniel [facility] Work Phone: Comment on above: Pattern: Regular 11-30-2013 10:49-0500 Respiratory Rate 18 /min Alisha Candelario [facility] Internal Medicine Work Phone: Comment on above: Pattern: Unlabored 11-30-2013 10:49-0500 Weight 119.3 kg Jeannine Pagan [facility] Internal Medicine Work Phone: 2013 11:48-0400 BMI (Body Mass Index) 41.35 kg/m2 Alisha Candelario [facility] Internal Medicine Work Phone: 2013 11:48-0400 Body Temperature 97.4 [degF] Alisha Candelario [facility] Internal Medicine Work Phone: 2013 11:48-0400 Body weight 120.66 kg Alisha Candelario [facility] Internal Medicine Work Phone: 2013 11:48-0400 BP Diastolic 74 mm[Hg] Alisha Candelario [facility] Internal Medicine Work Phone: Comment on above: Patient Position: Sitting; Cuff Location : Left Arm; Cuff Size: Large 2013 11:48-0400 BP Systolic 122 mm[Hg] Alisha Candelario [facility] Internal Medicine Work Phone: Comment on above: Patient Position: Sitting; Cuff Location : Left Arm; Cuff Size: Large 2013 11:48-0400 BSA (Body Surface Area) 2.29 m2 Alisha Candelario [facility] Internal Medicine Work Phone: 2013 11:48-0400 Height 170.81 cm Alisha Candelario [facility] Internal Medicine Work Phone: 2013 11:48-0400 Pulse (Heart Rate) 62 /min Alisha Candelario [facility] Work Phone: Comment on above: Pattern: Regular 2013 11:48-0400 Respiratory Rate 18 /min Alisha Camarillodelaney [facility] Internal Medicine Work Phone: Comment on above: Pattern: Unlabored 2013 11:48-0400 Weight 120.66 kg Jeannine Pagan [facility] Internal Medicine Work Phone: 02-09-2013 11:44-0400 BMI (Body Mass Index) 42.43 kg/m2 Alisha Candelario [facility] Internal Medicine Work Phone: 02-09-2013 11:44-0400 Body Temperature 97.7 [degF] Alisha Candelario [facility] Internal Medicine Work Phone: 02-09-2013 11:44-0400 Body weight 124.74 kg Alisha Candelario [facility] Internal Medicine Work Phone: 02-09-2013 11:44-0400 BP Diastolic 84 mm[Hg] Alisha Candelario [facility] Internal Medicine Work Phone: Comment on above: Patient Position: Sitting; Cuff Location : Left Arm; Cuff Size: Large 02-09-2013 11:44-0400 BP Systolic 128 mm[Hg] Alisha Candelario [facility] Internal Medicine Work Phone: Comment on above: Patient Position: Sitting; Cuff Location : Left Arm; Cuff Size: Large 02-09-2013 11:44-0400 BSA (Body Surface Area) 2.33 m2 Alisha Candelario [facility] Internal Medicine Work Phone: 02-09-2013 11:44-0400 Height 171.45 cm Alisha Candelario [facility] Internal Medicine Work Phone: 02-09-2013 11:44-0400 Pulse (Heart Rate) 80 /min Alisha Candelario [facility] e Internal Medicine Work Phone: Comment on above: Pattern: Regular 02-09-2013 11:44-0400 Respiratory Rate 18 /min Alisha Camarillodelaney [facility] Internal Medicine Work Phone: Comment on above: Pattern: Unlabored 02-09-2013 11:44-0400 Weight 124.74 kg Jeannine Pagan [facility] Internal Medicine Work Phone: 09-01-2012 12:01-0400 BMI (Body Mass Index) 40.58 kg/m2 Alisha Cand[facility] Internal Medicine Work Phone: 09-01-2012 12:01-0400 Body Temperature 97.5 [degF] Alisha Candelario [facility] Internal Medicine Work Phone: 09-01-2012 12:01-0400 Body weight 119.3 kg Alisha Candelario [facility] Internal Medicine Work Phone: 09-01-2012 12:01-0400 BP Diastolic 84 mm[Hg] Alisha Candelario [facility] Internal Medicine Work Phone: Comment on above: Patient Position: Sitting; Cuff Location : Left Arm; Cuff Size: Large 09-01-2012 12:01-0400 BP Systolic 130 mm[Hg] Alisha Candelario [facility] Internal Medicine Work Phone: Comment on above: Patient Position: Sitting; Cuff Location : Left Arm; Cuff Size: Large 09-01-2012 12:01-0400 BSA (Body Surface Area) 2.28 m2 Alisha Candelario [facility] Internal Medicine Work Phone: 09-01-2012 12:01-0400 Height 171.45 cm Alisha Candelario [facility] Internal Medicine Work Phone: 09-01-2012 12:01-0400 Pulse (Heart Rate) 72 /min Alisha Candelario [facility] Internal Medicine Work Phone: Comment on above: Pattern: Regular 09-01-2012 12:01-0400 Respiratory Rate 18 /min Alisha Candelario [facility] Internal Medicine Work Phone: Comment on above: Pattern: Unlabored 09-01-2012 12:01-0400 Weight 119.3 kg Jeannine Pagan [facility] Internal Medicine Work Phone: 04-01-2012 11:58-0400 BMI (Body Mass Index) 40.74 kg/m2 Alisha Candelario [facility] Internal Medicine Work Phone: 04-01-2012 11:58-0400 Body Temperature 97.7 [degF] Alisha Candelario [facility] Internal Medicine Work Phone: 04-01-2012 11:58-0400 Body weight 119.75 kg Alisha Candelario [facility] Internal Medicine Work Phone: 04-01-2012 11:58-0400 BP Diastolic 76 mm[Hg] Alisha Candelario [facility] Internal Medicine Work Phone: Comment on above: Patient Position: Sitting; Cuff Location : Left Arm; Cuff Size: Large 04-01-2012 11:58-0400 BP Systolic 110 mm[Hg] Alisha Candelario [facility] Internal Medicine Work Phone: Comment on above: Patient Position: Sitting; Cuff Location : Left Arm; Cuff Size: Large 04-01-2012 11:58-0400 BSA (Body Surface Area) 2.29 m2 Alisha Candelario [facility] Internal Medicine Work Phone: 04-01-2012 11:58-0400 Height 171.45 cm Alisha Camarillodelaney [facility] Internal Medicine Work Phone: 04-01-2012 11:58-0400 Pulse (Heart Rate) 68 /min Alisha Candelario [facility] Internal Medicine Work Phone: Comment on above: Pattern: Regular 04-01-2012 11:58-0400 Respiratory Rate 18 /min Alisha Molinaotoniel [facility] Internal Medicine Work Phone: Comment on above: Pattern: Unlabored 04-01-2012 11:58-0400 Weight 119.75 kg Jeannine Pagan [facility] Internal Medicine Work Phone: 03-03-2012 11:59-0400 BMI (Body Mass Index) 40.58 kg/m2 Trina Hernandez RN [facility] Internal Medicine Work Phone: 03-03-2012 11:59-0400 Body Temperature 97.8 [degF] Trina Hernandez RN [facility] Work Phone: Comment on above: Method: Oral 03-03-2012 11:59-0400 Body weight 119.3 kg Trina Hernandez RN [facility] Work Phone: 03-03-2012 11:59-0400 BP Diastolic 84 mm[Hg] Trina Hernandez RN [facility] Work Phone: Comment on above: Patient Position: Sitting; Cuff Location : Left Arm; Cuff Size: Standard 03-03-2012 11:59-0400 BP Systolic 130 mm[Hg] Trina Hernandez RN [facility] Work Phone: Comment on above: Patient Position: Sitting; Cuff Location : Left Arm; Cuff Size: Standard 03-03-2012 11:59-0400 BSA (Body Surface Area) 2.28 m2 Trina Hernandez RN [facility] Work Phone: 03-03-2012 11:59-0400 Height 171.45 cm Trina Hernandez RN [facility] Work Phone: 03-03-2012 11:59-0400 Pulse (Heart Rate) 76 /min Trina Hernandez RN [facility] Work Phone: Comment on above: Pattern: Regular 03-03-2012 11:59-0400 Respiratory Rate 16 /min Trina Hernandez RN [facility] Work Phone: Comment on above: Pattern: Unlabored 03-03-2012 11:59-0400 Weight 119.3 kg Jeannine Pagan [facility] Internal Medicine Work Phone: 10-30-2011 08:07-0500 BMI (Body Mass Index) 40.58 kg/m2 Alisha Acosta [facility] Internal Medicine Work Phone: 10-30-2011 08:07-0500 Body Temperature 97.4 [degF] Alisha Candelario [facility] Internal Medicine Work Phone: 10-30-2011 08:07-0500 Body weight 119.3 kg Alisha Candelario [facility] Internal Medicine Work Phone: 10-30-2011 08:07-0500 BP Diastolic 90 mm[Hg] Alisha Candelario [facility] Internal Medicine Work Phone: Comment on above: Patient Position: Sitting; Cuff Location : Left Arm; Cuff Size: Large 10-30-2011 08:07-0500 BP Systolic 146 mm[Hg] Alisha Candelario [facility] Internal Medicine Work Phone: Comment on above: Patient Position: Sitting; Cuff Location : Left Arm; Cuff Size: Large 10-30-2011 08:07-0500 BSA (Body Surface Area) 2.28 m2 Alisha Camarillodelaney [facility] Internal Medicine Work Phone: 10-30-2011 08:07-0500 Height 171.45 cm Alisha Andree [facility] Internal Medicine Work Phone: 10-30-2011 08:07-0500 Pulse (Heart Rate) 96 /min [facility] Work Phone: Comment on above: Pattern: Regular 10-30-2011 08:07-0500 Respiratory Rate 16 /min Alisha Andree [facility] Internal Medicine Work Phone: Comment on above: Pattern: Unlabored 10-30-2011 08:07-0500 Weight 119.3 kg Jeannine Pagan [facility] Internal Medicine Work Phone: 06-25-2011 12:07-0400 BMI (Body Mass Index) 40.58 kg/m2 Alisha Camarillodelaney [facility] Internal Medicine Work Phone: 06-25-2011 12:07-0400 Body Temperature 97.1 [degF] Alisha Andree [facility] Internal Medicine Work Phone: 06-25-2011 12:07-0400 Body weight 119.3 kg Alisha Andree [facility] Internal Medicine Work Phone: 06-25-2011 12:07-0400 BP Diastolic 82 mm[Hg] Alisha Andree [facility] Internal Medicine Work Phone: Comment on above: Patient Position: Sitting; Cuff Location : Left Arm; Cuff Size: Large 06-25-2011 12:07-0400 BP Systolic 138 mm[Hg] Alisha Andree [facility] Internal Medicine Work Phone: Comment on above: Patient Position: Sitting; Cuff Location : Left Arm; Cuff Size: Large 06-25-2011 12:07-0400 BSA (Body Surface Area) 2.28 m2 Alisha Andree [facility] Internal Medicine Work Phone: 06-25-2011 12:07-0400 Height 171.45 cm Alisha Candelario [facility] Internal Medicine Work Phone: 06-25-2011 12:07-0400 Pulse (Heart Rate) 76 /min Alisha Camarillodelaney [facility] Internal Medicine Work Phone: Comment on above: Pattern: Regular 06-25-2011 12:07-0400 Respiratory Rate 16 /min Alisha Camarillodelaney [facility] Internal Medicine Work Phone: Comment on above: Pattern: Unlabored 06-25-2011 12:07-0400 Weight 119.3 kg Jeannine Pagan [facility] Internal Medicine Work Phone: 06-11-2011 08:51-0400 BMI (Body Mass Index) 40.27 kg/m2 Alisha Andree bender Internal Medicine Work Phone: 06-11-2011 08:51-0400 Body Temperature 98 [degF] Alisha Camarillodelaney [facility] Internal Medicine Work Phone: 06-11-2011 08:51-0400 Body weight 118.39 kg Alisha Camarillodelaney [facility] Internal Medicine Work Phone: 06-11-2011 08:51-0400 BP Diastolic 98 mm[Hg] Alisha Camarillodelaney [facility] Internal Medicine Work Phone: Comment on above: Patient Position: Sitting; Cuff Location : Left Arm; Cuff Size: Standard 06-11-2011 08:51-0400 BP Systolic 136 mm[Hg] Alisha Camarillodelaney [facility] Internal Medicine Work Phone: Comment on above: Patient Position: Sitting; Cuff Location : Left Arm; Cuff Size: Standard 06-11-2011 08:51-0400 BSA (Body Surface Area) 2.28 m2 Alisha Andree [facility] Internal Medicine Work Phone: 06-11-2011 08:51-0400 Height 171.45 cm Alisha Andree [facility] Internal Medicine Work Phone: 06-11-2011 08:51-0400 Pulse (Heart Rate) 80 /min Alisha Flinner [facility] Internal Medicine Work Phone: Comment on above: Pattern: Regular 06-11-2011 08:51-0400 Respiratory Rate 16 /min Alisha Candelario [facility] Internal Medicine Work Phone: Comment on above: Pattern: Unlabored 06-11-2011 08:51-0400 Weight 118.39 kg Jeannine Pagan [facility] Internal Medicine Work Phone: 11-20-2010 09:48-0500 Body Temperature 97.6 [degF] Alisha Candelario [facility] Internal Medicine Work Phone: 11-20-2010 09:48-0500 Body weight 118.84 kg Alisha Candelario [facility] Internal Medicine Work Phone: 11-20-2010 09:48-0500 BP Diastolic 90 mm[Hg] Alisha Candelario [facility] Internal Medicine Work Phone: Comment on above: Patient Position: Sitting; Cuff Location : Left Arm; Cuff Size: Standard 11-20-2010 09:48-0500 BP Systolic 126 mm[Hg] lAisha Candelario [facility] Internal Medicine Work Phone: Comment on above: Patient Position: Sitting; Cuff Location : Left Arm; Cuff Size: Standard 11-20-2010 09:48-0500 Pulse (Heart Rate) 72 /min Alisha Candelario [facility] Internal Medicine Work Phone: Comment on above: Pattern: Regular 11-20-2010 09:48-0500 Respiratory Rate 16 /min Alisha Candelario [facility] Internal Medicine Work Phone: Comment on above: Pattern: Unlabored 11-20-2010 09:48-0500 Weight 118.84 kg Jeannine Pagan [facility] Internal Medicine Work Phone: 10-30-2010 09:31-0500 BMI (Body Mass Index) 39.8 kg/m2 Jeannine Pagan [facility] Internal Medicine Work Phone: 10-30-2010 09:31-0500 Body Temperature 97.5 [degF] Jeannine Pagan [facility] Internal Medicine Work Phone: Comment on above: Method: Oral 10-30-2010 09:31-0500 Body weight 116.12 kg Jeannine Pagan [facility] Internal Medicine Work Phone: 10-30-2010 09:31-0500 BP Diastolic 82 mm[Hg] Jeannine Pagan [facility] Work Phone: Comment on above: Patient Position: Sitting; Cuff Location : Left Arm; Cuff Size: Standard 10-30-2010 09:31-0500 BP Systolic 124 mm[Hg] Jeannine Pagan [facility] Work Phone: Comment on above: Patient Position: Sitting; Cuff Location : Left Arm; Cuff Size: Standard 10-30-2010 09:31-0500 BSA (Body Surface Area) 2.25 m2 Jeannine Pagan [facility] Internal Medicine Work Phone: 10-30-2010 09:31-0500 Height 170.81 cm Jeannine Pagan [facility] Internal Medicine Work Phone: 10-30-2010 09:31-0500 Pulse (Heart Rate) 78 /min Jeannine Pagan [facility] Internal Medicine Work Phone: Comment on above: Pattern: Regular 10-30-2010 09:31-0500 Pulse Oximetry 99 % Jeannine Pagan [facility] Internal Medicine Work Phone: Comment on above: Room air 10-30-2010 09:31-0500 Respiratory Rate 18 /min Jeannine Pagan [facility] Internal Medicine Work Phone: Comment on above: Pattern: Unlabored 10-30-2010 09:31-0500 SaO2% (BldA) [Mass fraction] 99 % Jeannine Pagan [facility] Work Phone: [facility]; [facility] Work Phone: Comment on above: Room air 10-30-2010 09:31-0500 Weight 116.12 kg Jeannine Pagan [facility] Internal Medicine Work Phone: 09-08-2010 07:10-0400 BMI (Body Mass Index) 39.8 kg/m2 BAILEY Forde LPN [facility] Work Phone: 09-08-2010 07:10-0400 Body Temperature 98.4 [degF] BAILEY Forde LPN [facility] Work Phone: Comment on above: Method: Oral 09-08-2010 07:10-0400 Body weight 116.12 kg BAILEY Forde LPN [facility] Work Phone: 09-08-2010 07:10-0400 BP Diastolic 90 mm[Hg] BAILEY Forde LPN [facility] Work Phone: Comment on above: Patient Position: Sitting; Cuff Location : Left Arm; Cuff Size: Standard 09-08-2010 07:10-0400 BP Systolic 126 mm[Hg] BAILEY Forde LPN [facility] Work Phone: Comment on above: Patient Position: Sitting; Cuff Location : Left Arm; Cuff Size: Standard 09-08-2010 07:10-0400 BSA (Body Surface Area) 2.25 m2 BAILEY Forde LPN [facility] Work Phone: 09-08-2010 07:10-0400 Height 170.81 cm BAILEY Forde LPN [facility] Work Phone: 09-08-2010 07:10-0400 Pulse (Heart Rate) 64 /min BAILEY Forde LPN [facility] Work Phone: Comment on above: Pattern: Regular 09-08-2010 07:10-0400 Respiratory Rate 18 /min BAILEY Forde LPN [facility] Work Phone: Comment on above: Pattern: Unlabored 09-08-2010 07:10-0400 Weight 116.12 kg Jeannine Pagan [facility] Work Phone: 03-06-2010 14:24-0400 Body Temperature 97.8 [degF] Mary Jane Partida RN [facility] Work Phone: Comment on above: Method: Oral 03-06-2010 14:24-0400 Body weight 116.12 kg Mary Jane Partida RN [facility] Work Phone: 03-06-2010 14:24-0400 BP Diastolic 80 mm[Hg] Mary Jane Partida RN [facility] Work Phone: Comment on above: Patient Position: Sitting; Cuff Location : Left Arm; Cuff Size: Standard 03-06-2010 14:24-0400 BP Systolic 126 mm[Hg] Mary Jane Partida RN [facility] Internal Medicine Work Phone: Comment on above: Patient Position: Sitting; Cuff Location : Left Arm; Cuff Size: Standard 03-06-2010 14:24-0400 Pulse (Heart Rate) 68 /min Mary Jane Partida RN [facility] Internal Medicine Work Phone: Comment on above: Pattern: Regular 03-06-2010 14:24-0400 Respiratory Rate 20 /min Mary Jane Partida RN [facility] Internal Medicine Work Phone: Comment on above: Pattern: Unlabored 03-06-2010 14:24-0400 [facility]12 [facility] Internal Medicine Work Phone: 06-20-2009 13:52-0400 BMI (Body Mass Index) 39.95 kg/m2 Alisha Candelario [facility] Internal Medicine Work Phone: 06-20-2009 13:52-0400 Body Temperature 98.2 [degF] Alisha Candelario [facility] Internal Medicine Work Phone: Comment on above: Method: Undefined 06-20-2009 13:52-0400 Body weight 116.58 kg Alisha Candelario [facility] Internal Medicine Work Phone: 06-20-2009 13:52-0400 BP Diastolic 82 mm[Hg] Alisha Candelario [facility] Internal Medicine Work Phone: Comment on above: Patient Position: Sitting; Cuff Location : Left Arm; Cuff Size: Standard 06-20-2009 13:52-0400 BP Systolic 126 mm[Hg] Alisha Candelario [facility] Internal Medicine Work Phone: Comment on above: Patient Position: Sitting; Cuff Location : Left Arm; Cuff Size: Standard 06-20-2009 13:52-0400 BSA (Body Surface Area) 2.26 m2 Alisha Candelario [facility] Internal Medicine Work Phone: 06-20-2009 13:52-0400 Head Circumference 0 cm [facility] Internal Medicine Work Phone: 06-20-2009 13:52-0400 Head Occipital-frontal circumference 0 cm Alisha Candelario [facility] Internal Medicine; [facility] Internal Medicine Work Phone: 06-20-2009 13:52-0400 Height 170.81 cm Alisha Candelario [facility] Internal Medicine Work Phone: 06-20-2009 13:52-0400 Pulse (Heart Rate) 76 /min [facility] Work Phone: Comment on above: Pattern: Regular 06-20-2009 13:52-0400 Respiratory Rate 18 /min Alisha Candelario [facility] Internal Medicine Work Phone: Comment on above: Pattern: Undefined 06-20-2009 13:52-0400 Weight 116.58 kg Jeannine Pagan [facility] Internal Medicine Work Phone: 11-08-2008 08:46-0500 Body Temperature 97.4 [degF] Alisha Candelario [facility] Internal Medicine Work Phone: Comment on above: Method: Undefined 11-08-2008 08:46-0500 Body weight 120.66 kg Alisha Candelario [facility] Internal Medicine Work Phone: 11-08-2008 08:46-0500 BP Diastolic 82 mm[Hg] Alisha Candelario [facility] Internal Medicine Work Phone: Comment on above: Patient Position: Sitting; Cuff Location : Right Arm; Cuff Size: Standard 11-08-2008 08:46-0500 BP Systolic 126 mm[Hg] Alisha Candelario [facility] Internal Medicine Work Phone: Comment on above: Patient Position: Sitting; Cuff Location : Right Arm; Cuff Size: Standard 11-08-2008 08:46-0500 Head Circumference 0 cm Jeannine Pagan [facility] Internal Medicine Work Phone: 11-08-2008 08:46-0500 Head Occipital-frontal circumference 0 cm Alisha Camarillosandraotoniel [facility] Internal Medicine; [facility] Internal Medicine Work Phone: 11-08-2008 08:46-0500 Height 0 cm Alisha Candelario [facility] Internal Medicine Work Phone: 11-08-2008 08:46-0500 Pulse (Heart Rate) 60 /min Alisha Candelario [facility] Internal Medicine Work Phone: Comment on above: Pattern: Regular 11-08-2008 08:46-0500 Respiratory Rate 18 /min Alisha Candelario [facility] Internal Medicine Work Phone: Comment on above: Pattern: Undefined 11-08-2008 08:46-0500 Weight 120.66 kg Jeannine Pagan [facility] Internal Medicine Work Phone: 06-28-2008 14:09-0400 BMI (Body Mass Index) 39.97 kg/m2 [facility] Internal Medicine Work Phone: 06-28-2008 14:09-0400 Body Temperature 98 [degF] Alisha Camarillodelaney [facility] Internal Medicine Work Phone: Comment on above: Method: Undefined 06-28-2008 14:09-0400 Body weight 117.48 kg Alisha Candelario [facility] Internal Medicine Work Phone: 06-28-2008 14:09-0400 BP Diastolic 88 mm[Hg] Alisha Candelario [facility] Internal Medicine Work Phone: Comment on above: Patient Position: Sitting; Cuff Location : Right Arm; Cuff Size: Standard 06-28-2008 14:09-0400 BP Systolic 128 mm[Hg] Alisha Candelario [facility] Internal Medicine Work Phone: Comment on above: Patient Position: Sitting; Cuff Location : Right Arm; Cuff Size: Standard 06-28-2008 14:09-0400 BSA (Body Surface Area) 2.27 m2 Alisha Molinaotoniel [facility] Internal Medicine Work Phone: 06-28-2008 14:09-0400 Head Circumference 0 cm Jeannine Pagan [facility] Internal Medicine Work Phone: 06-28-2008 14:09-0400 Head Occipital-frontal circumference 0 cm Alisha Andree [facility] Internal Medicine; [facility] Work Phone: 06-28-2008 14:040 Height 171.45 cm Alisha Candelario [facility] Internal Medicine Work Phone: 06-28-2008 14:090400 Pulse (Heart Rate) 72 /min Alisha Camarillodelaney Comprehensiv e Internal Medicine Work Phone: Comment on above: Pattern: Regular 06-28-2008 14:040 Respiratory Rate 18 /min Alisha Molinaotoniel [facility] Internal Medicine Work Phone: Comment on above: Pattern: Undefined 06-28-2008 14: Weight 117.48 kg Jeannine Pagan [facility] Internal Medicine Work Phone: 04-12-2008 10:-0400 Body Temperature 98.1 [degF] Alisha Molinaotoniel [facility] Internal Medicine Work Phone: Comment on above: Method: Undefined 04-12-2008 10:0400 Body weight 115.67 kg Alisha Camarillodelaney [facility] Internal Medicine Work Phone: 04-12-2008 10:0400 BP Diastolic 88 mm[Hg] Alisha Camarillodelaney [facility] Internal Medicine Work Phone: Comment on above: Patient Position: Sitting; Cuff Location : Left Arm; Cuff Size: Standard 04-12-2008 10:190400 BP Systolic 116 mm[Hg] Alisha Molinaotoniel [facility] Internal Medicine Work Phone: Comment on above: Patient Position: Sitting; Cuff Location : Left Arm; Cuff Size: Standard 04-12-2008 10:190400 Head Circumference 0 cm Jeannine Pagan [facility] Internal Medicine Work Phone: 04-12-2008 10:0400 Head Occipital-frontal circumference 0 cm Alisha Camarillodelaney [facility] Internal Medicine; [facility] Work Phone: 04-12-2008 10:0400 Height 0 cm Alisah Camarillodelaney [facility] Internal Medicine Work Phone: 04-12-2008 10:19-0400 Pulse (Heart Rate) 68 /min Alisha Flinner Comprehens[facility] Internal Medicine Work Phone: Comment on above: Pattern: Regular 04-12-2008 10:19-0400 Respiratory Rate 18 /min Alisha Andree [facility] Internal Medicine Work Phone: Comment on above: Pattern: Undefined 04-12-2008 10:19-0400 Weight 115.67 kg Jeannine Pagan [facility] Internal Medicine Work Phone: 12-01-2007 09:47-0500 Body Temperature 97.6 [degF] BAILEY Forde [facility] Internal Medicine Work Phone: Comment on above: Method: Oral 12-01-2007 09:47-0500 Body weight 115.21 kg BAILEY Forde [facility] Internal Medicine Work Phone: 12-01-2007 09:47-0500 BP Diastolic 78 mm[Hg] BAILEY Forde [facility] Internal Medicine Work Phone: Comment on above: Patient Position: Sitting; Cuff Location : Left Arm; Cuff Size: Standard 12-01-2007 09:47-0500 BP Systolic 120 mm[Hg] BAILEY Forde [facility] Internal Medicine Work Phone: Comment on above: Patient Position: Sitting; Cuff Location : Left Arm; Cuff Size: Standard 12-01-2007 09:47-0500 Head Circumference 0 cm Jeannine Pagan [facility] Internal Medicine Work Phone: 12-01-2007 09:47-0500 Head Occipital-frontal circumference 0 cm BAILEY Forde TECHNOLOGY PROFESSIONAL [facility] Internal Medicine; [facility] Work Phone: 12-01-2007 09:47-0500 Height 0 cm BAILEY Forde TECHNOLOGY PROFESSIONAL [facility] Internal Medicine Work Phone: 12-01-2007 09:47-0500 Pulse (Heart Rate) 70 /min BAILEY Forde TECHNOLOGY PROFESSIONAL [facility] Internal Medicine Work Phone: Comment on above: Pattern: Regular 12-01-2007 09:47-0500 Respiratory Rate 18 /min BAILEY Forde [facility] Internal Medicine Work Phone: Comment on above: Pattern: Unlabored 12-01-2007 09:47-0500 Weight 115.21 kg Jeannine Pagan [facility] Internal Medicine Work Phone: 08-04-2007 11:56-0400 BMI (Body Mass Index) 39.21 kg/m2 Alisha Andree [facility] Internal Medicine Work Phone: 08-04-2007 11:56-0400 Body Temperature 97.2 [degF] Alisha Andree [facility] Internal Medicine Work Phone: Comment on above: Method: Oral 08-04-2007 11:56-0400 Body weight 116.12 kg Alisha Andree [facility] Internal Medicine Work Phone: 08-04-2007 11:56-0400 BP Diastolic 72 mm[Hg] Alisha Andree [facility] Internal Medicine Work Phone: Comment on above: Patient Position: Sitting; Cuff Location : Right Arm; Cuff Size: Standard 08-04-2007 11:56-0400 BP Systolic 134 mm[Hg] Alisha Andree [facility] Internal Medicine Work Phone: Comment on above: Patient Position: Sitting; Cuff Location : Right Arm; Cuff Size: Standard 08-04-2007 11:56-0400 BSA (Body Surface Area) 2.26 m2 Alisha Andree [facility] Internal Medicine Work Phone: 08-04-2007 11:56-0400 Head Circumference 0 cm Jeannine Pagan [facility] Internal Medicine Work Phone: 08-04-2007 11:56-0400 Head Occipital-frontal circumference 0 cm Alisha Candelario [facility] Internal Medicine; [facility] Work Phone: 08-04-2007 11:56-0400 Height 172.09 cm Alisha Candelario [facility] Internal Medicine Work Phone: 08-04-2007 11:56-0400 Pulse (Heart Rate) 64 /min Alisha Andree Lorenzensiv e Internal Medicine Work Phone: Comment on above: Pattern: Regular 08-04-2007 11:56-0400 Respiratory Rate 16 /min Alisha Candelario [facility] Internal Medicine Work Phone: Comment on above: Pattern: Unlabored 08-04-2007 11:56-0400 Weight 116.12 kg Jeannine Pagan [facility] Internal Medicine Work Phone: 03-24-2007 09:42-0400 BMI (Body Mass Index) 40.74 kg/m2 Alisha Andree [facility] Internal Medicine Work Phone: 03-24-2007 09:42-0400 Body Temperature 98.6 [degF] Alisha Andree [facility] Internal Medicine Work Phone: Comment on above: Method: Oral 03-24-2007 09:42-0400 Body weight 120.66 kg Alisha Andree [facility] Internal Medicine Work Phone: 03-24-2007 09:42-0400 BP Diastolic 68 mm[Hg] Alisha Andree [facility] Internal Medicine Work Phone: Comment on above: Patient Position: Sitting; Cuff Location : Right Arm; Cuff Size: Large 03-24-2007 09:42-0400 BP Systolic 148 mm[Hg] Alisha Andree [facility] Internal Medicine Work Phone: Comment on above: Patient Position: Sitting; Cuff Location : Right Arm; Cuff Size: Large 03-24-2007 09:42-0400 BSA (Body Surface Area) 2.3 m2 Alsiha Andree [facility] Internal Medicine Work Phone: 03-24-2007 09:42-0400 Head Circumference 0 cm Jeannine Pagan [facility] Internal Medicine Work Phone: 03-24-2007 09:42-0400 Head Occipital-frontal circumference 0 cm Alisha Andree [facility] Internal Medicine; [facility] Work Phone: 03-24-2007 09:42-0400 Height 172.09 cm Alisha Candelario [facility] Internal Medicine Work Phone: 03-24-2007 09:42-0400 Pulse (Heart Rate) 68 /min Alisha Candelario [facility] Internal Medicine Work Phone: Comment on above: Pattern: Regular 03-24-2007 09:42-0400 Respiratory Rate 16 /min Alisha Camarillodelaney [facility] Internal Medicine Work Phone: Comment on above: Pattern: Unlabored 03-24-2007 09:42-0400 Weight 120.66 kg Jeannine Pagan [facility] Internal Medicine Work Phone: 12-17-2006 09:45-0500 Body Temperature 98.6 [degF] Alisha Andree [facility] Internal Medicine Work Phone: Comment on above: Method: Oral 12-17-2006 09:45-0500 Body weight 118.98 kg Alisha Andree [facility] Internal Medicine Work Phone: 12-17-2006 09:45-0500 BP Diastolic 92 mm[Hg] Alisha Andree [facility] Internal Medicine Work Phone: Comment on above: Patient Position: Sitting; Cuff Location : Left Arm; Cuff Size: Large 12-17-2006 09:45-0500 BP Systolic 138 mm[Hg] Alisha Andree [facility] Internal Medicine Work Phone: Comment on above: Patient Position: Sitting; Cuff Location : Left Arm; Cuff Size: Large 12-17-2006 09:45-0500 Head Circumference 0 cm Jeannine Pagan [facility] Internal Medicine Work Phone: 12-17-2006 09:45-0500 Head Occipital-frontal circumference 0 cm Alisha Candelario [facility] Internal Medicine; [facility] Work Phone: 12-17-2006 09:45-0500 Height 0 cm Alisha Candelario [facility] Internal Medicine Work Phone: 12-17-2006 09:45-0500 Pulse (Heart Rate) 76 /min Alisha Andree Comprehens e Internal Medicine Work Phone: Comment on above: Pattern: Regular 12-17-2006 09:45-0500 Respiratory Rate 20 /min Alisha Andree [facility] Internal Medicine Work Phone: Comment on above: Pattern: Unlabored 12-17-2006 09:45-0500 Weight 118.98 kg Jeannine Pagan [facility] Internal Medicine Work Phone: 12-02-2006 10:22-0500 BMI (Body Mass Index) 40.15 kg/m2 Alisha Candelario [facility] Internal Medicine Work Phone: 12-02-2006 10:22-0500 Body Temperature 97.7 [degF] Alisha Candelario [facility] Internal Medicine Work Phone: Comment on above: Method: Oral 12-02-2006 10:22-0500 Body weight 118.9 kg Alisha Candelario [facility] Internal Medicine Work Phone: 12-02-2006 10:22-0500 BP Diastolic 92 mm[Hg] Alisha Camarillosandraotoniel [facility] Internal Medicine Work Phone: Comment on above: Patient Position: Sitting; Cuff Location : Left Arm; Cuff Size: Large 12-02-2006 10:22-0500 BP Systolic 148 mm[Hg] Alisha Andree [facility] Internal Medicine Work Phone: Comment on above: Patient Position: Sitting; Cuff Location : Left Arm; Cuff Size: Large 12-02-2006 10:22-0500 BSA (Body Surface Area) 2.29 m2 Alisha Camarillodelaney [facility] Internal Medicine Work Phone: 12-02-2006 10:22-0500 Head Circumference 0 cm Jeannine Pagan [facility] Internal Medicine Work Phone: 12-02-2006 10:22-0500 Head Occipital-frontal circumference 0 cm Alisha Andree [facility] Internal Medicine; [facility] Work Phone: 12-02-2006 10:22-0500 Height 172.09 cm Alisha Camarillodelaney [facility] Internal Medicine Work Phone: 12-02-2006 10:22-0500 Pulse (Heart Rate) 64 /min Alisha Camarillodelaney Comprehensiv [facility] Internal Medicine Work Phone: Comment on above: Pattern: Regular 12-02-2006 10:22-0500 Respiratory Rate 16 /min Alisha Andree [facility] Internal Medicine Work Phone: Comment on above: Pattern: Unlabored 12-02-2006 10:22-0500 Weight 118.9 kg Jeannine Pagan [facility] Work Phone: 08-08-2006 12:07-0400 Body Temperature 97.9 [degF] Jeannine Pagan [facility] Work Phone: Comment on above: Method: Oral 08-08-2006 12:070400 Body weight 121.17 kg Jeannine Pagan [facility] Work Phone: 08-08-2006 12:07-0400 BP Diastolic 84 mm[Hg] Jeannine Pagan [facility] Work Phone: Comment on above: Patient Position: Sitting; Cuff Location : Left Arm; Cuff Size: Large 08-08-2006 12:07-0400 BP Systolic 138 mm[Hg] Jeannine Pagan [facility] Work Phone: Comment on above: Patient Position: Sitting; Cuff Location : Left Arm; Cuff Size: Large 08-08-2006 12:07-0400 Head Circumference 0 cm Jeannine Pagan [facility] Work Phone: 08-08-2006 12:07-0400 Head Occipital-frontal circumference 0 cm Jeannine Pagan ELECT[employer] INSTALLER Work Phone: [facility]; [facility] Work Phone: 08-08-2006 12:07-0400 Height 0 cm Jeannine Pagan [facility] Work Phone: 08-08-2006 12:07-0400 Pulse (Heart Rate) 68 /min Jeannine Pagan [facility] Work Phone: Comment on above: Pattern: Regular 08-08-2006 12:07-0400 Respiratory Rate 14 /min Jeannine Pagan [facility] Work Phone: Comment on above: Pattern: Unlabored 08-08-2006 12:07-0400 Weight 121.17 kg Jeannine Pagan [facility] Work Phone: Encounters Encounter Date Encounter Type Care Provider Facility Start: 09-21-2024 End: 09-21-2024 ambulatory Jose Cox [place] Facility:[facility] Start: 07-05-2024 End: 07-05-2024 Emergency department patient visit Lauryn Martin Facility:[facility] Start: 06-27-2024 End: 06-27-2024 ambulatory Lauryn Martin Facility:[facility] Start: 01-20-2024 ambulatory Lauryn Martin Facility :[facility] Start: 01-20-2024 Non-patient / Non-visit OIL PROSPECTING OBSERVER-C Anila Salazar Work Phone: [facility] Start: 01-20-2024 End: 01-20-2024 ambulatory OIL PROSPECTING OBSERVER-C Lauryn Salazar Work Phone: [facility] Work Phone: Start: 01-20-2024 End: 01-20-2024 Patient encounter procedure OIL PROSPECTING OBSERVER-C Lauryngabriela Salazar Work Phone: [facility] Work Phone: Start: 01-20-2024 End: 01-20-2024 ambulatory Lauryn Martin Facility:[facility] Start: 01-06-2024 End: 01-06-2024 ambulatory [facility] Work Phone: Start: 01-06-2024 End: 01-06-2024 Patient encounter procedure [facility] Work Phone: Start: 01-06-2024 End: 01-06-2024 ambulatory [facility] Work Phone: Start: 01-06-2024 End: 01-06-2024 Patient encounter procedure [facility] Work Phone: Start: 01-06-2024 End: 01-06-2024 ambulatory Lauryn Martin Facility:[facility] Start: 11-30-2023 End: 11-30-2023 ambulatory [facility] Work Phone: Start: 11-30-2023 End: 11-30-2023 Patient encounter procedure [facility] Work Phone: Start: 11-30-2023 End: 11-30-2023 ambulatory Lauryn Salazar Facility:[facility] Start: 09-02-2023 End: 09-02-2023 Office outpatient visit 15 minutes Lauryn Salazar CNP Work Phone: [facility] Start: 08-15-2023 End: 08-15-2023 ambulatory [facility] Work Phone: Start: 08-15-2023 End: 08-15-2023 Patient encounter procedure [facility] Work Phone: Start: 08-03-2023 End: 08-03-2023 Emergency department patient visit [facility] Work Phone: Start: 05-28-2023 End: 05-28-2023 Annotation/Addendum Lauryn Salazar CNP Work Phone: [facility] Start: 05-28-2023 End: 05-28-2023 Lauryn Salazar CNP Work Phone: [facility] Start: 05-27-2023 End: 05-27-2023 Patient encounter procedure [facility], Specimen Work Phone: Start: 05-27-2023 End: 05-27-2023 Office outpatient visit 25 minutes Lauryn Salazar CNP Work Phone: [facility] Start: 05-27-2023 Review Lauryn Salazar CNP Work Phone: [facility] Start: 05-20-2023 End: 05-20-2023 Annotation/Addendum Lauryn Salazar CNP Work Phone: [facility] Start: 05-20-2023 End: 05-20-2023 Lauryn Salaazr CNP Work Phone: [facility] Start: 11-13-2022 End: 11-13-2022 Lab Order Lauryn Salazar CNP Work Phone: [facility] Start: 11-13-2022 End: 11-13-2022 Lauryn Salazar CNP Work Phone: [facility] Start: 10-30-2022 ambulatory Lauryn Salazar CNP [facility] Start: 10-30-2022 End: 11-01-2022 Office outpatient visit 25 minutes Lauryn Salazar CNP Work Phone: [facility] Start: 06-06-2022 ambulatory SELF SELF Facility:[facility] LOC Start: 06-06-2022 End: 06-06-2022 Office outpatient visit 15 minutes Cameron Dilcia DUTTON Work Phone: [facility] [place] [facility] [place] Comment on above: Incontinence (Primar y Dx); Suspected 2019 novel coronavirus infection Start: 10-30-2021 End: 10-30-2021 Annotation/Addendum Jeannine Borgeseusebia ELECTRONICS INSTALLER Work Phone: [facility] Start: 10-30-2021 End: 10-30-2021 Lauryn Salazar CNP Work Phone: [facility] Start: 07-17-2021 End: 07-17-2021 Office outpatient visit 15 minutes Jeannine Pagan ELECTRONICS INSTALLER Work Phone: [facility] Start: 07-11-2021 End: 07-11-2021 Annotation/Addendum Jeannine Pagan ELECTRONICS INSTALLER Work Phone: [facility] Start: 07-11-2021 End: 07-11-2021 Lauryn Salazar ELECTRONICS INSTALLER Work Phone: [facility] Start: 07-11-2021 End: 07-11-2021 Office outpatient visit 15 minutes Jeannine Borgeseusebia ELECTRONICS INSTALLER Work Phone: [facility] Start: 05-15-2021 End: 05-15-2021 Office outpatient visit 15 minutes Jeannine Borgesa ELECTRONICS INSTALLER Work Phone: [facility] Start: 04-04-2021 End: 04-04-2021 Office outpatient visit 15 minutes Jeannine Borgesa ELECTRONICS INSTALLER Work Phone: [facility] Start: 03-20-2021 End: 03-20-2021 Office outpatient visit 25 minutes Jeannine Borgeseusebia ELECTRONICS INSTALLER Work Phone: [facility] Start: 09-12-2020 End: 09-13-2020 Phone Encounter Jeannine Pagan [facility] Start: 09-12-2020 End: 09-13-2020 Lauryn Salazar CNP Work Phone: [facility] Start: 09-12-2020 End: 09-12-2020 Office outpatient visit 25 minutes Jeannine Pagan [facility] Start: 09-12-2020 Review Jeannine Lorenzens [facility] Start: 08-08-2020 End: 08-08-2020 Annotation/Addendum Jeannine Pagan [facility] Start: 08-08-2020 End: 08-08-2020 Lauryn Salazar CNP Work Phone: [facility] Start: 08-02-2020 End: 08-02-2020 Annotation/Addendum Jeannine Pagan [facility] Start: 08-02-2020 End: 08-02-2020 Lauryn Salazar CNP Work Phone: [facility] Start: 02-10-2020 End: 02-10-2020 Office outpatient visit 15 minutes Jeannine Katerinaeusebia [facility] Start: 06-29-2019 End: 06-29-2019 Office outpatient visit 25 minutes Jeannine Pagan [facility] Start: 06-29-2019 Review Jeannine Pagan Comprehens [facility] Start: 03-09-2019 End: 03-09-2019 Office outpatient visit 25 minutes Jeannine Borgesa [facility] Start: 02-16-2019 End: 02-16-2019 Office outpatient visit 15 minutes Jeannine Borgesa [facility] Start: 02-16-2019 Review Jeannine Pagan Comprehens [facility] Start: 01-12-2019 End: 01-12-2019 Office outpatient visit 15 minutes Jeannine Borgesa [facility] Start: 12-15-2018 End: 12-15-2018 Office outpatient visit 15 minutes Jeannine Borgesa [facility] Start: 09-29-2018 End: 09-29-2018 Office outpatient visit 25 minutes Jeannine Katerinaeusebia [facility] Start: 09-02-2018 End: 09-02-2018 Lab Order Jeannine Katerinaeusebia [facility] Start: 09-02-2018 End: 09-02-2018 Lauryn Salazar CNP Work Phone: [facility] Start: 07-25-2018 Patient encounter Zac Casas [facility] Start: 07-25-2018 End: 07-25-2018 Zac MAURICE Work Phone: [facility] Start: 06-02-2018 End: 06-02-2018 Annotation/Addendum Jeannine Pagan [facility] Start: 06-02-2018 End: 06-02-2018 Lauryn Salazar CNP Work Phone: [facility] Start: 05-27-2018 End: 05-27-2018 Annotation/Addendum Jeannine Pagan [facility] Start: 05-27-2018 End: 05-27-2018 Lauryn Salazar CNP Work Phone: [facility] Start: 05-26-2018 End: 05-26-2018 Office outpatient visit 25 minutes Jeannine Pagan [facility] Start: 12-30-2017 End: 12-30-2017 Office outpatient visit 40 minutes Jeannine Pagan [facility] Start: 12-09-2017 End: 12-09-2017 Annotation/Addendum Jeannine Pagan [facility] Start: 12-09-2017 End: 12-09-2017 Lauryn Salazar CNP Work Phone: [facility] Start: 09-16-2017 End: 09-16-2017 Office outpatient visit 25 minutes Jeannine Pagan [facility] Start: 09-08-2017 End: 09-08-2017 Annotation/Addendum Jeannine Pagan [facility] Start: 09-08-2017 End: 09-08-2017 Lauryn Salazar CNP Work Phone: [facility] Start: 09-02-2017 End: 09-02-2017 Lab Order Jeannine Pagan [facility] Start: 09-02-2017 End: 09-02-2017 Lauryn Salazar CNP Work Phone: [facility] Start: 02-11-2017 End: 02-11-2017 Periodic preventive med est patient 40-64yrs Jeannine Pagan [facility] Start: 02-04-2017 End: 02-04-2017 Office outpatient visit 15 minutes Jeannine Pagan [facility] Start: 01-07-2017 End: 01-07-2017 Office outpatient visit 25 minutes Jeannine Pagan [facility] Start: 12-28-2016 End: 12-28-2016 Annotation/Addendum Jeannine Pagan [facility] Start: 12-28-2016 End: 12-28-2016 Lauryn Salazar CNP Work Phone: [facility] Start: 12-25-2016 End: 12-25-2016 Office outpatient visit 25 minutes Jeannine Pagan [facility] Start: 08-20-2016 End: 08-20-2016 Office outpatient visit 25 minutes Jeannine Pagan [facility] Start: 02-20-2016 End: 02-20-2016 Office outpatient visit 25 minutes Jeannine Pagan [facility] Start: 02-20-2016 End: 02-20-2016 Physical examination Jeannine Pagan Work Phone: [facility] Start: 11-21-2015 End: 11-21-2015 Office outpatient visit 25 minutes Jeannine Pagan [facility] Start: 07-01-2015 End: 07-01-2015 Office outpatient visit 15 minutes Jeannine Pagan [facility] Start: 04-05-2015 End: 04-05-2015 Office outpatient visit 25 minutes Jeannine Pagan [facility] Start: 03-14-2015 End: 03-14-2015 Lab Order Jeannine Pagan [facility] Start: 03-14-2015 End: 03-14-2015 Lauryn Salazar CNP Work Phone: [facility] Start: 10-21-2014 End: 10-21-2014 Office outpatient visit 15 minutes Jeannine Pagan [facility] Start: 03-08-2014 End: 03-08-2014 Patient encounter Jeann[facility] Pagan [facility] Start: 03-08-2014 End: 03-08-2014 Patient encounter status Jeannine Pagan Work Phone: [facility] Start: 03-08-2014 End: 03-08-2014 Lauryn Salazar CNP Work Phone: [facility] Start: 11-30-2013 End: 11-30-2013 Patient encounter Jeannine Pagan [facility] Start: 11-30-2013 End: 11-30-2013 Lauryn Salazar CNP Work Phone: [facility] Start: 10-13-2013 End: 10-13-2013 Phone Encounter Jeannine Pagan [facility] Start: 10-13-2013 End: 10-13-2013 Lauryn Salazar CNP Work Phone: [facility] Start: 2013 End: 05-26-2013 Patient encounter Jeannine Pagan [facility] Start: 2013 End: 05-26-2013 Patient encounter status Jeannine Pagan Work Phone: [facility] Start: 2013 End: 05-26-2013 Lauryn Salazar CNP Work Phone: [facility] Start: 03-20-2013 End: 03-20-2013 Phone Encounter Jeannine Pagan [facility] Start: 03-20-2013 End: 03-20-2013 Lauryn Salazar CNP Work Phone: [facility] Start: 02-09-2013 End: 02-09-2013 Patient encounter Jeannine Pagan [facility] Start: 02-09-2013 End: 02-09-2013 Lauryn Salazar CNP Work Phone: [facility] Start: 09-01-2012 End: 09-01-2012 Patient encounter Jeannine Pagan [facility] Start: 09-01-2012 End: 09-01-2012 Lauryn Salazar CNP Work Phone: [facility] Start: 04-01-2012 End: 04-01-2012 Patient encounter Jeannine Pagan [facility] Start: 04-01-2012 End: 04-01-2012 Lauryn Salazar CNP Work Phone: [facility] Start: 03-03-2012 End: 03-03-2012 Historical Summary Jeannine Pagan [facility] Start: 03-03-2012 End: 03-03-2012 Lauryn Salazar CNP Work Phone: [facility] Start: 03-03-2012 End: 03-03-2012 Patient encounter Jeannine Pagan [facility] Start: 03-03-2012 End: 03-03-2012 Lauryn Salazar CNP Work Phone: [facility] Start: 10-30-2011 End: 10-30-2011 Patient encounter Jeannine Pagan [facility] Start: 10-30-2011 End: 10-30-2011 Lauryn Salazar CNP Work Phone: [facility] Start: 06-25-2011 End: 06-25-2011 Patient encounter Jeannine Pagan [facility] Start: 06-25-2011 End: 06-25-2011 Lauryn Salazar CNP Work Phone: [facility] Start: 06-11-2011 End: 06-11-2011 Patient encounter Jeannine Pagna [facility] Start: 06-11-2011 End: 06-11-2011 Patient encounter status Jeannine Pagan Work Phone: [facility] Start: 06-11-2011 End: 06-11-2011 Lauryn Salazar CNP Work Phone: [facility] Start: 11-20-2010 End: 11-20-2010 Patient encounter Jeannine Pagan [facility] Start: 11-20-2010 End: 11-20-2010 Lauryn Salazar CNP Work Phone: [facility] Start: 10-30-2010 End: 10-30-2010 Office outpatient visit 25 minutes Jeannine Pagan [facility] Start: 09-08-2010 End: 09-08-2010 Patient encounter Jeannine Pagan [facility] Start: 09-08-2010 End: 09-08-2010 Lauryn Salazar CNP Work Phone: [facility] Start: 03-06-2010 End: 03-06-2010 Patient encounter Jeannine Pagan [facility] Start: 03-06-2010 End: 03-06-2010 Lauryn Salazar CNP Work Phone: [facility] Start: 06-20-2009 End: 06-20-2009 Patient encounter Jeannine Pagan [facility] Start: 06-20-2009 End: 06-20-2009 Patient encounter status Jeannine Pagan Work Phone: [facility] Start: 06-20-2009 End: 06-20-2009 Lauryn Salazar CNP Work Phone: [facility] Start: 11-08-2008 End: 11-08-2008 Patient encounter Jeannine Pagan [facility] Start: 11-08-2008 End: 11-08-2008 Lauryn Salazar CNP Work Phone: [facility] Start: 06-28-2008 End: 06-28-2008 Patient encounter Jeannine Pagan [facility] Start: 06-28-2008 End: 06-28-2008 Patient encounter status Jeannine Pagan Work Phone: [facility] Start: 06-28-2008 End: 06-28-2008 Lauryn Salazar CNP Work Phone: [facility] Start: 04-12-2008 End: 04-12-2008 Patient encounter Jeannine Pagan [facility] Start: 04-12-2008 End: 04-12-2008 Lauryn Salazar CNP Work Phone: [facility] Start: 12-01-2007 End: 12-01-2007 Patient encounter Jeannine Pagan [facility] Start: 12-01-2007 End: 12-01-2007 Lauryn Salazar CNP Work Phone: [facility] Start: 08-04-2007 End: 08-04-2007 Patient encounter Jeannine Pagan [facility] Start: 08-04-2007 End: 08-04-2007 Lauryn Salazar CNP Work Phone: [facility] Start: 03-24-2007 End: 03-24-2007 Patient encounter Jeannine Pagan [facility] Start: 03-24-2007 End: 03-24-2007 Lauryn Salazar CNP Work Phone: [facility] Start: 12-17-2006 End: 12-17-2006 Patient encounter Jeannine Pagan [facility] Start: 12-17-2006 End: 12-17-2006 Lauryn Salazar CNP Work Phone: [facility] Start: 12-11-2006 End: 12-11-2006 Phone Encounter Jeannine Pagan [facility] Start: 12-11-2006 End: 12-11-2006 Lauryn Salazar CNP Work Phone: [facility] Start: 12-02-2006 End: 12-02-2006 Patient encounter Jeannine Pagan [facility] Start: 12-02-2006 End: 12-02-2006 Lauryn Salazar CNP Work Phone: [facility] Start: 11-22-2006 End: 11-22-2006 Historical Summary Jeannine Pagan [facility] Start: 11-22-2006 End: 11-22-2006 Lauryn Salazar ELECTRONICS INSTALLER Work Phone: [facility] Start: 08-08-2006 End: 08-08-2006 Patient encounter Jeannine Pagan [facility] Start: 08-08-2006 End: 08-08-2006 Lauryn Salazar ELECTRONICS INSTALLER Work Phone: [facility] Physical examination Abdulaziz Solis TECHNOLOGY PROFESSIONAL [facility]; [facility] Work Phone: End: 04-05-2015 Physical examination Shelly Schwartz [facility]; [facility] Work Phone: Comment on above: dot physical Physical examination Abdulaziz Solis TECHNOLOGY PROFESSIONAL [facility]; [facility] Work Phone: Physical examination Abdulaziz Iwll TECHNOLOGY PROFESSIONAL [facility]; [facility] Work Phone: Physical examination Lanette Hatfield TECHNOLOGY PROFESSIONAL [facility]; [facility] Work Phone: Physical examination Urszula Cruz TECHNOLOGY PROFESSIONAL [facility]; [facility] Work Phone: Physical examination Urszula Slarb TECHNOLOGY PROFESSIONAL [facility]; [facility] Work Phone: Physical examination Kailey Lantigua MA [facility] re[facility]; [facility] Work Phone: Procedures Date Procedure Procedure Detail Performing Clinician Start: 01-06-2024 CT angiography of chest with contrast Start: 08-03-2023 End: 08-03-2023 Emergency Department Summary Procedure Note: See Note; NOTES: [facility] Medical Records Department [address] [place] [address] Emergency Department Summary 08/03/23 MR#: [id number] Acct: [id number] Name: MARY KAY JACKSON Rep #: [id number] : [id number] 73 From: Vamsi Suggs MD PCP: Lauryn Salazar, OIL PROSPECTING OBSERVER-C Status:DEP ER Location: ED HPI HPI - GI History of Present Illness Chief Complaint: Nausea/Vomiting/Diarrhea Informant: patient Abdominal Pain/Flank Pain Onset: - (none) Nausea/Vomiting/Emesis GI Symptom: Positive for Nausea and Vomiting Onset: Yesterday Diarrhea/Melena/Hematochezia GI Symptom: Positive for Diarrhea; Negative for Melena or Hematochezia Onset: Yesterday Associated Symptoms Associated Symptoms: Negative for Dysuria, Frequency or Hematuria Narrative Narrative: 73-year-old male takes medication for diabetes including Ozempic and hypertension 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 He had this again that evening, and then several times this morning/overnight. He denies having any abdominal pain, fevers, chills, prior blood per rectum, or any other systemic symptoms. He is concerned he may have food poisoning. No known sick contacts. [facility] Medical History (Updated 08/03/23 @ 15:[address] Vamsi Suggs MD) HTN (hypertension) Type 2 diabetes mellitus Home Medications atenolol 50 mg tablet (Tenormin) 50 mg PO BID 12/03/16 [History Last Taken Unknown] hydrochlorothiazide 25 mg tablet 25 mg PO DAILY 12/03/16 [History Last Taken Unknown] metformin 500 mg tablet 500 mg PO 4X/DAY 12/03/16 [History Last Taken Unknown] dapagliflozin propanediol 5 mg tablet (Farxiga) mg 08/03/23 [History Last Taken Unknown] losartan 100 mg-hydrochlorothiazide 12.5 mg tablet tab 08/03/23 [History Last Taken Unknown] ondansetron 4 mg disintegrating tablet 8 mg (2 x 4 mg) PO Q8H PRN PRN Nausea #20 tabs 08/03/23 [Rx Last Taken Unknown] Allergy/AdvReac Type Severity Reaction Status Date / Time ibuprofen Allergy Unknown Verified 08/03/23 12:20 Social History Smoking Status: Former smoker ROS ROS ED Constitutional Constitutional ED: Denies chills or fever(s) Eyes Eyes: Denies change in vision or diplopia ENT ENT ED: Denies rhinorrhea or sore throat Cardiovascular Cardiovascular: Denies chest pain or palpitations Respiratory/Chest Respiratory/Chest: Denies cough or dyspnea Gastrointestinal Gastrointestinal: Reports diarrhea, nausea and vomiting; Denies abdominal pain, hematemesis, hematochezia or melena Genitourinary Genitourinary ED: Reports other Details: Dark urine this morning ; Denies dysuria or hematuria Musculoskeletal Musculoskeletal: Denies back pain or neck pain Integumentary Denies abscess or rash Neurologic Neurologic: Denies headache(s), paresthesias or weakness Psychiatric Psychiatric: Denies anxiety or suicidal thoughts EXAM Physical Exam Const Vital Signs: 08/03/23 12:16 Temperature 97.2 F L Temperature Source Temporal Pulse Rate 80 Respiratory Rate 16 Blood Pressure 121/82 H Blood Pressure Mean 95 Pulse Ox 99 Oxygen Delivery Method Room Air Positive well nourished and well developed General Appearance ED: well developed and NAD HEENT Reports moist mucous membranes normocephalic and atraumatic Eyes PERRL and EOMs intact bilaterally Neck full ROM and supple Resp normal respiratory effort and clear to auscultation bilaterally Cardio regular rate, regular rhythm and no murmurs GI non-tender and non-distended Auscultation: normoactive bowel sounds Palpation: soft Back/Spine no CVA tenderness General Back: other FROM Extremity normal to inspection General Extremety ED: Negative for edema, pulses abnormal or tenderness General Extremity: Negative for edema or pulses abnormal Neuro oriented x3, CN's II-XII intact bilaterally and no sensory deficits noted Sensorium / Orientation: awake and alert Motor Exam: strength 5/5 throughout Skin no rashes or lesions noted and no wounds MDM MDM MDM Narrative Medical decision making narrative: Labs are unremarkable except for mild renal insufficiency, he is feeling much better after fluids and Zofran. Did not have diarrhea here for us to send the testing. I agree foodborne illness as well as viral etiologies are in the differential, but the liver enzymes not elevated, patient's condition is very benign and doing better with normal vital signs and supportive care advised without antibiotics at this time. Lab Data Attestation: I reviewed the patient's lab results. Labs: Laboratory Results - last 24 hr 08/03/23 12:45 WBC 9.9 RBC 4.49 L Hgb 14.0 Hct 40.8 MCV 90.9 MCH 31.2 MCHC 34.3 RDW Std Deviation 41.5 RDW Coeff of Mario 12.5 Plt Count 279 MPV 9.0 Immature Gran % (Auto) 0.400 Neut % (Auto) 68.3 Lymph % (Auto) 23.4 Overton % (Auto) 6.0 Eos % (Auto) 1.5 Baso % (Auto) 0.4 Absolute Neuts (auto) 6.8 Absolute Lymphs (auto) 2.32 Nucleated RBC % 0 Sodium 134 L Potassium 3.4 L Chloride 102 Carbon Dioxide 27.0 Anion Gap 5 BUN 23 H Creatinine 1.32 H Estim Creat Clear Calc 45.21 Est GFR (MDRD) Af Amer 68 Est GFR (MDRD) Non-Af 56 L BUN/Creatinine Ratio 17.4 Glucose 127 H Calcium 9.5 Total Bilirubin 0.90 AST 21 ALT 31 Alkaline Phosphatase 59 Total Protein 7.7 Albumin 3.7 Globulin 4.0 Albumin/Globulin Ratio 0.9 Discharge Plan Triage Chief Complaint: Nausea/Vomiting/Diarrhea ED Provider: Vamsi Suggs Dx/Rx/DC Orders Clinical Impression: Gastroenteritis Instructions: ED Gastroenteritis, Viral (Adult) Prescriptions: New ondansetron [ondansetron] 4 mg tablet,disintegrating 8 mg PO Q8H PRN PRN (Reason: Nausea) Qty: 20 0RF No Action metformin 500 MG tablet 500 mg PO 4X/DAY Hold Instructions: Ordered hydrochlorothiazide 25 MG tablet 25 mg PO DAILY Hold Instructions: Ordered atenolol [Tenormin] 50 MG tablet 50 mg PO BID Farxiga 5 mg tablet losartan-hydrochlorothiazide 100-12.5 mg tablet Primary Care Provider: Lauryn Salazar Referrals: Lauryn Salazar NP-C [Primary Care Provider] - 3-5 Days if not improving Disposition Disposition: Home, Self Care What to do if you have Problems For any increased pain, shortness of breath, bleeding, nausea or vomiting, chest pain, or any unexpected problems, contact your Primary Care Provider. Call [facility] ([phone]) or report to the closest Emergency Room. Call 911 if necessary. 08/03/23 5290 <Electronically signed by Vamsi Suggs MD> Cosigner Signature (if applicable): CC: JOSE LUIS Salazar Signed Lauryn Salazar [facility] Work Phone: Start: 03-18-2023 End: 03-18-2023 Echo Complete Procedure Note: See Note; NOTES: [facility] [place] [address] Echo Complete 03/18/23 0801 MR#: [id number] Acct: [id number] Name: MARY KAY JACKSON Rep #: [id number] : 1950 [id number] From: Jose Mackay MD Attending Dr: JOSE LUIS Ramirez Status: REG CLI Ordering Dr: Lauryn Salazar Date: 03/18/23 Location: [facility] Sex: M C Admitted: Reason For Study: MURMUR Procedure This was a 2D Doppler, Color Flow transthoracic echocardiogram. Exam performed in department. Left Ventricle Normal LV size. Left ventricular systolic function is normal. The estimated ejection fraction is 60 %. No regional wall motion abnormalities noted. Right Ventricle Normal RV size. Normal systolic function. Atria Normal left atrium. Normal right atrium. Mitral Valve Normal mitral valve. Tricuspid Valve Normal tricuspid valve. Aortic Valve Trisinus/trileaflet aortic valve. Mild diffuse aortic valve thickening. Peak aortic valve gradient 12 mmHg. Mean aortic valve gradient 6 mmHg. Mild (1+) eccentric aortic valve insufficiency. Pulmonic Valve Normal pulmonic valve. Great Vessels Normal aortic root. The pulmonary artery is normal size. Normal inferior vena cava. Pericardium/Pleural No pericardial effusion. MMode/2D Measurements Calculations LVIDd: 5.2 cm IVSd: 1.1 cm LVOT diam: 2.0 cm LVIDs: 3.7 cm LVPWd: 0.90 cm LVOT area: 3.2 cm2 FS: 29.5 % Ao root diam: 3.4 cm LAV(MOD-bp): 56.6 ml LVAd ap4: 29.7 cm2 LAV(MOD-bp) Indexed: 25.7 ml/m2 LVLd ap4: 8.1 cm LAV(MOD-sp2): 51.4 ml EDV(MOD-sp4): 87.1 ml LAV(MOD-sp4): 55.0 ml EDV(sp4-el): 91.8 ml LVAs ap4: 17.8 cm2 LVLs ap4: 6.6 cm ESV(MOD-sp4): 39.0 ml ESV(sp4-el): 40.4 ml EF(MOD-sp4): 55.2 % EF(sp4-el): 56.0 % SV(MOD-sp4): 48.1 ml SV(sp4-el): 51.4 ml LA A4 area: 20.7 cm2 LA dimension(2D): 4.4 cm RA A4 area: 15.8 cm2 Time Measurements MV dec time: 0.27 sec Doppler Measurements Calculations MV E max ronnie: 60.6 cm/sec Lat Peak E' Ronnie: 11.5 cm/sec Med Peak E' Ronnie: 9.0 cm/sec MV A max ronnie: 54.7 cm/sec E/E' lat: 5.3 E/E' med: 6.7 MV E/A: 1.1 MV V2 max: 75.1 cm/sec Ao V2 max: 173.2 cm/sec MV max P.3 mmHg MV dec slope: 225.8 cm/sec2 Ao max P.0 mmHg MV V2 mean: 37.2 cm/sec Ao V2 mean: 112.0 cm/sec MV mean P.72 mmHg Ao mean P.9 mmHg MV V2 VTI: 32.7 cm Ao V2 VTI: 40.9 cm AV (velocity ratio): 0.63 MVA(VTI): 2.5 cm2 GORDON(I,D): 2.0 cm2 GORDON(V,D): 1.7 cm2 AI max ronnie: 431.9 cm/sec LV V1 max: 93.3 cm/sec SV(LVOT): 81.8 ml AI max P.6 mmHg LV V1 max P.5 mmHg LV V1 mean P.2 mmHg AI dec slope: 176.8 cm/sec2 LV V1 mean: 69.4 cm/sec AI P1/2t: 715.7 msec LV V1 VTI: 25.8 cm PA V2 max: 117.8 cm/sec PA V2 mean: 74.0 cm/sec ECHO/Echo Complete Interpretation Summary Normal LV size. Left ventricular systolic function is normal. The estimated ejection fraction is 60 %. Mild (1+) eccentric aortic valve insufficiency. Mild diffuse aortic valve thickening. Ordering Physician: Lauryn Salazar Referring Physician: Lauryn Salazar Performed By: Carmella Newman RCS 03/18/23 0950 Date Jose Mackay MD CC: Lauryn Salazar OIL PROSPECTING OBSERVER; OIL PROSPECTING OBSERVER-C Lauryn Salazar Date Dictated: 03/18/23 08 Date Transcribed: 03/18/23949 Behavior Management Specialist: Signed Lauryn Salazar [facility] Work Phone: Start: 06-06-2022 Sars-cov-2 detection by dna/rna Cameron QUILES-C Work Phone: Start: 06-06-2022 Urnls dip stick/tablet rgnt non-auto w/o micrscp Cameron Ha PA-C Work Phone: Start: 07-07-2019 End: 07-13-2019 Hand Min 3 Views Comments: See Note; NOTES: [facility] Imaging Services [address] [place] [id number] Hand Min 3 Views MR#: [id number] Acct: [id number] Name: MARY KAY JACKSON Rep #: [id number] : 1950 M 69 From: Shane Carney MD PCP: JOSE LUIS Paz Status: REG CLI Study: Hand Min 3 Views Date of Exam: 07/07/19 Exam# [id number] Ordering Dr: Jeannine Pagan OIL PROSPECTING OBSERVERJorgeC STUDY: X-RAY - LEFT HAND REASON FOR EXAM: Male, 69 years old. Diffuse pain. TECHNIQUE: 3 view(s) of the hand. COMPARISON: None. FINDINGS: Normal radiocarpal articulation. Normal distal radioulnar joint. Normal visualized carpal bones. Normal carpal articulations Normal carpometacarpal articulation of the thumb. Normal second through fifth carpometacarpal joints. Normal metacarpi. Normal metacarpophalangeal joint of the thumb. Normal interphalangeal joint of the thumb. Normal proximal and distal phalanges of the thumb. Normal metacarpophalangeal joints of the second through fifth fingers. Normal proximal and distal interphalangeal joints of the second through fifth fingers. Normal phalanges of the second through fifth fingers. Minimal vascular calcification. RAD/Hand Min 3 Views IMPRESSION: Minimal vascular calcification. . Electronically Signed: Shane Carney, at 14:35 EDT , Service support , CC: OIL PROSPECTING OBSERVER-C Jeannine Pagan Behavior Management Specialist: Signed Jeannine Pagan Work Phone: Start: 12-14-2018 End: 12-14-2018 Venous Duplex Lower Extremity Comments: See Note; NOTES: [facility] Cardiovascular Services [address] [place] [address] Venous Duplex US, Unilateral 12/14/18 1108 MR#: [id number] Acct: [id number] Name: MARY KAY JACKSON Rep #: [id number] : 1950 68 From: Jhony Knox MD Attending Dr: Ronnie Coe MD Status: REG CLI Ordering Dr: Ronnie Coe MD Date: 12/14/18 Location: Sex: M C Admitted: Reason For Study: LLE Pain RIGHT LEFT CFV is compressible, spontaneous, phasic, GSV is normal. competent and demonstrates normal CFV is compressible, spontaneous, phasic, augmentation. competent, and demonstrates normal Procedure augmentation. Exam performed in department. FV is compressible, spontaneous, phasic, A preliminary report was called and/or faxed competent and demonstrates normal to ED. augmentation. POP V is compressible, spontaneous, phasic, competent and demonstrates normal augmentation. T/P Trunk is compressible. PTV is compressible. LT PerV is compressible. Interpretation Summary Deep veins of the left lower extremity are patent and compressible segmentally. There is no evidence of left lower extremity deep vein thrombosis. Valvular competence appears intact within the proximal deep venous system on the left . The left greater saphenous vein appears patent and compressible segmentally. Ordering Physician: Ronnie Coe Referring Physician: Jeannine Pagan Performed By: Lexi Summers, BARBARA, RVT 12/14/18 1144 Date Jhony Knox MD CC: Jeannine Pagan NP; Ronnie Coe MD Date Dictated: 12/14/18 1108 Date Transcribed: 12/14/18 1144 Behavior Management Specialist: Signed Jeannine Pagan Start: 12-13-2018 End: 12-13-2018 Discharge Instruction Comments: See Note; NOTES: [facility] Medical Records Department [address] [place] [address] Discharge Instruction 12/13/18 1519 MR#: [id number] Acct: [id number] Name: MARY KAY JACKSON Rep #: [id number] : 1950 68 From: Ronnie Coe MD PCP: Jeannine Pagan NP Status: PRE ER ED Disposition - Plan for ED Patient: Disposition: Home or Assisted Living Instructions: ED Knee Pain UKO Referrals: Jeannine Pagan, ADRIAN-C [Primary Care Provider] - What to do if you have Problems For any increased pain, shortness of breath, bleeding, nausea or vomiting, chest pain, or any unexpected problems, contact your Primary Care Provider. Call [facility] ([phone]) or report to the closest Emergency Room. Call 911 if necessary. 12/13/18 1519 <Electronically signed by Ronnie Coe MD> Date Ronnie Coe MD Cosigner Signature (If Indicated): Date CC: Jeannine Pagan Start: 12-13-2018 End: 12-13-2018 Emergency Department Summary Comments: See Note; NOTES: [facility] Medical Records Department [address] [place] [address] Emergency Department Summary 12/13/18 1516 MR#: [id number] Acct: [id number] Name: MARY KAY JACKSON Rep #: [id number] : 1950 68 From: Ronnie Coe MD PCP: Jeannine Pagan NP Status: PRE ER - ER Visit Summary Date of Service: 12/13/18 Chief Complaint: Left thigh pain History of Present Illness: The patient is a 68 M who has pain in the left thigh. It started today. The pain is in the lateral part of the thigh. Is worse with movement. His left foot felt cold when he woke up this morning. He has no history of confirmed DVTs. He has been taking a lot of NSAIDs at home to help with the pain. Denies chest pain or shortness of breath. Physical Examination: Vital signs reviewed. Left leg exam reveals tenderness in the left mid calf on the lateral portion. He has no swelling of the leg. There are of equal color and temperature. There are no skin changes. Test Results: None performed Emergency Department Course and Treatment: No formal ultrasound is available at this time. I did a bedside ultrasound of this area shows that the veins are compressible in the thigh. When I get closer to the knee where he has no pain is difficult to see due to the ultrasound machine and the soft tissue. I also did a Doppler pulse of his PT and it is very loud and patent. I was unable to Doppler a DP pulse. However, his temperature is equal. There is no cyanosis of the foot. I will give him a dose of Lovenox here as well as [place] for his pain. He will come back tomorrow for a formal ultrasound of the left leg Treatment Plan: [] Disposition: Discharge Impression: Left thigh pain This note was generated with [employer] dictation software. It may contain incorrect words, spelling, and punctuation that were not noted in review of the chart prior to signing ED Disposition - Plan for ED Patient: Referrals: Jeannine Pagan, OIL PROSPECTING OBSERVER-C [Primary Care Provider] - What to do if you have Problems For any increased pain, shortness of breath, bleeding, nausea or vomiting, chest pain, or any unexpected problems, contact your Primary Care Provider. Call [facility] ([phone]) or report to the closest Emergency Room. Call 911 if necessary. 12/13/18 1519 <Electronically signed by Ronnie Coe MD> Date Ronnie Coe MD Cosigner Signature (If Indicated): Date CC: Jeannine Pagan Start: 02-19-2018 End: 03-13-2018 NCS and/or EMG Patient Comments: See Note; NOTES: [facility] Pulmonary Services/Neurology [address] [place] [address] MR#: [id number] Acct: [id number] Name: MARY KAY JACKSON Rep #: [id number] : 1950 67 From: Dread Pérez MD Referring Dr: Jeannine Pagan NP Status: REG CLI Ordering Dr: Date: Location: [facility] Sex: M C NCS and/or EMG Patient Report Ordering Doctor: Jeannine Pagan DATE OF SERVICE: 02/19/18 This is a bilateral lower extremity nerve conduction study and a right lower extremity EMG performed on this 67-year-old male with a history of well-controlled diabetes who reports abnormal sensations on the Lantus are surface of his feet described as a leather pad. He does have back pain as well as well as a knee injury, he takes pain medicines for his back pain. He also has a history of remote exposure to agent orange. Bilateral lower extremity sensory and motor nerve conduction studies are performed. The sural sensory responses are absent bilaterally. Medial and lateral plantar responses are obtained demonstrating normal latencies and amplitudes although there is asymmetric decrement of amplitude on the right side. The motor responses demonstrate diffusely slowed conduction velocities, as well as diminished amplitudes. Distal latencies are mild diffusely prolonged particularly from the common peroneal nerves bilaterally. Tibial and common peroneal F waves are mild to moderately prolonged, H reflex amplitudes are reduced. Lower extremity needle electromyography was performed. Muscles evaluated included the extensor digitorum brevis, abductor hallucis, medial gastrocnemius, anterior tibialis, vastus lateralis and vastus medialis muscles. Peripheral muscle did demonstrate large motor units however this abnormality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 09-02-2017 Hemoglobin glycosylated a1c [facility]; [facility] Work Phone: Start: 02-11-2017 Provider Instructions for Treatment [facility] Work Phone: Start: 02-04-2017 Provider Instructions for Treatment [facility] Work Phone: Start: 01-07-2017 Procedure Education [facility] Work Phone: Start: 01-07-2017 Blood count complete auto&auto difrntl wbc [facility] Work Phone: Start: 01-07-2017 Comprehensive metabolic panel [facility] Work Phone: Start: 12-25-2016 Provider Instructions for Treatment [facility] Work Phone: Start: 08-20-2016 Provider Instructions for Treatment [facility] Work Phone: Start: 02-20-2016 Provider Instructions for Treatment [facility] Work Phone: Start: 11-21-2015 Procedure Education [facility] Work Phone: Start: 07-01-2015 Provider Instructions for Treatment [facility] Work Phone: Start: 04-05-2015 Blood count complete auto&auto difrntl wbc [facility] Work Phone: Start: 04-05-2015 Comprehensive metabolic panel [facility] Work Phone: Start: 04-05-2015 Lipid panel [facility] Work Phone: Start: 03-14-2015 Lipid panel [facility] Work Phone: Start: 03-14-2015 Blood count manual cell count each [facility] Work Phone: Start: 03-14-2015 Assay of prostate specific antigen total [facility] Work Phone: Start: 03-14-2015 Protein mass conc PSA (Prostate Specific Antigen), Screening (68757) [facility] Work Phone: Start: 03-14-2015 Urine albumin quantitative [facility] Work Phone: Start: 03-14-2015 Urinalysis qual/semiquant except immunoassays [facility] Work Phone: Start: 03-14-2015 Comprehensive metabolic panel [facility] Work Phone: Start: 03-08-2014 Urine albumin quantitative [facility] Work Phone: Start: 03-08-2014 Blood count manual cell count each [facility] Work Phone: Start: 03-08-2014 Comprehensive metabolic panel [facility] Work Phone: Start: 03-08-2014 Lipid panel [facility] Work Phone: Start: 11-30-2013 Assay of prostate specific antigen total [facility] Work Phone: Start: 11-30-2013 Protein mass conc PSA (PROSTATE SPECIFIC ANTIGEN) (V76.44) [facility] Work Phone: Start: 11-30-2013 Lipid panel [facility] Work Phone: Start: 11-30-2013 Comprehensive metabolic panel [facility] Work Phone: Start: 10-13-2013 Lipid panel [facility] Work Phone: Start: 10-13-2013 Comprehensive metabolic panel [facility] Work Phone: Start: 2013 Abdominal aortic aneurysm screening ABDOMINAL AORTIC ANEURYSM HIGH RISK SCREEN [facility] Start: 2013 Pneumococcal vaccination PNEUMOCOCCAL VACCINE SERIES (1 - PCV) [facility] Start: 2013 Urnls dip stick/tablet rgnt non-auto w/o micrscp [facility] Work Phone: Start: 02-09-2013 Provider Instructions for Treatment [facility] Work Phone: Start: 02-09-2013 Lipid panel [facility] Work Phone: Start: 02-09-2013 Comprehensive metabolic panel [facility] Work Phone: Start: 09-01-2012 Patient Education [facility] Work Phone: Start: 09-01-2012 Blood count manual cell count each [facility] Work Phone: Start: 09-01-2012 Assay of prostate specific antigen total [facility] Work Phone: Start: 09-01-2012 Protein mass conc PSA (PROSTATE SPECIFIC ANTIGEN) (V76.44) [facility] Work Phone: Start: 09-01-2012 Urine albumin quantitative [facility] Work Phone: Start: 09-01-2012 Comprehensive metabolic panel [facility] Work Phone: Start: 09-01-2012 Lipid panel [facility] Work Phone: Start: 04-01-2012 Comprehensive metabolic panel [facility] Work Phone: Start: 04-01-2012 Lipid panel [facility] Work Phone: Start: 03-03-2012 Provider Instructions for Treatment [facility] Work Phone: Start: 10-30-2011 Comprehensive metabolic panel [facility] Work Phone: Start: 10-30-2011 Lipid panel [facility] Work Phone: Start: 06-25-2011 Assay of prostate specific antigen total [facility] Work Phone: Start: 06-25-2011 Protein mass conc PSA (PROSTATE SPECIFIC ANTIGEN) (V76.44) [facility] Work Phone: Start: 06-25-2011 Urine albumin quantitative [facility] Work Phone: Start: 06-25-2011 Lipid panel [facility] Work Phone: Start: 06-25-2011 Comprehensive metabolic panel [facility] Work Phone: Start: 06-11-2011 Provider Instructions for Treatment [facility] Work Phone: Start: 11-20-2010 Comprehensive metabolic panel [facility] Work Phone: Start: 11-20-2010 Lipid panel [facility] Work Phone: Start: 03-06-2010 Glucose tolerance test gtt 3 specimens [facility] Work Phone: Start: 03-06-2010 Comprehensive metabolic panel [facility] Work Phone: Start: 03-06-2010 Lipid panel [facility] Work Phone: Start: 03-06-2010 Protein mass conc (U) Urine Protein Electrophoresis (UPEP) (70620) [facility] Work Phone: Start: 03-06-2010 Protein electrophoretic fractj&quantj serum [facility] Work Phone: Start: 03-06-2010 Protein mass conc Serum Protein Electrophoresis (SPEP) (61019) [facility] Work Phone: Start: 06-20-2009 Protein mass conc (U) Urine Protein Electrophoresis (UPEP) (33993) [facility] Work Phone: Start: 06-20-2009 Protein electrophoretic fractj&quantj serum [facility] Work Phone: Start: 06-20-2009 Protein mass conc Serum Protein Electrophoresis (SPEP) (58923) [facility] Work Phone: Start: 06-20-2009 Glucose tolerance test gtt 3 specimens [facility] Work Phone: Start: 06-20-2009 Provider Instructions for Treatment [facility] Work Phone: Start: 11-08-2008 Provider Instructions for Treatment [facility] Work Phone: Start: 11-08-2008 Urine albumin quantitative [facility] Work Phone: Start: 11-08-2008 Lipid panel [facility] Work Phone: Start: 11-08-2008 Assay of prostate specific antigen total [facility] Work Phone: Start: 11-08-2008 Protein mass conc PSA (PROSTATE SPECIFIC ANTIGEN) (V76.44) [facility] Work Phone: Start: 11-08-2008 Comprehensive metabolic panel [facility] Work Phone: Start: 11-08-2008 Blood count manual cell count each [facility] Work Phone: Start: 04-12-2008 Hepatic function panel [facility] Work Phone: Start: 04-12-2008 Lipid panel [facility] Work Phone: Start: 12-01-2007 Hepatic function panel [facility] Work Phone: Start: 12-01-2007 Lipid panel [facility] Work Phone: Start: 08-04-2007 Provider Instructions for Treatment [facility] Work Phone: Start: 08-04-2007 Lipid panel [facility] Work Phone: Start: 08-04-2007 Urnls dip stick/tablet rgnt auto w/o microscopy [facility] Work Phone: Start: 08-04-2007 Assay of thyroid stimulating hormone tsh [facility]; [facility] Work Phone: Start: 08-04-2007 Thyrotropin Qn TSH (94799) [facility] Work Phone: Start: 08-04-2007 Comprehensive metabolic panel [facility] Work Phone: Start: 08-04-2007 Blood count manual cell count each [facility] Work Phone: Start: 08-04-2007 Assay of prostate specific antigen total [facility] Work Phone: Start: 08-04-2007 Protein mass conc PSA (PROSTATE SPECIFIC ANTIGEN) (71194) [facility] Work Phone: Start: 03-24-2007 Lipid panel [facility] Work Phone: Start: 12-17-2006 Provider Instructions for Treatment [facility] Work Phone: Start: 12-17-2006 Comprehensive metabolic panel [facility] Work Phone: Start: 12-17-2006 Lipid panel [facility] Work Phone: Start: 12-02-2006 Provider Instructions for Treatment [facility] Work Phone: Start: 12-02-2006 Lipid panel [facility] Work Phone: Start: 12-02-2006 Assay of vanillylmandelic acid urine [facility] Work Phone: Start: 12-02-2006 Catecholamines total urine [facility] Work Phone: Start: 12-02-2006 Metanephrines [facility] Work Phone: Start: 1998 Prostate specific antigen measurement PROSTATE CANCER SCREENING DISCUSSION [facility] Start: 1998 Zoster vaccine hzv live for subcutaneous use ZOSTER (SHINGLES) VACCINE (1 of 2) [facility] Start: 1993 Colonoscopy COLORECTAL CANCER SCREENING DISCUSSION [facility] Start: 1988 Fasting lipid profile LIPID SCREENING [facility] Start: 1967 Third diphtheria, tetanus and acellular pertussis (DTaP) vaccination TDAP (ADULT) [facility] Start: 1966 Tetanus vaccination TETANUS [facility] Start: 1948 COVID-19 VACCINE (#1) COVID-19 VACCINE (#1) [facility] Start: 1948 Hepatitis C antibody, confirmatory test HEPATITIS C VIRUS SCREENING [facility] Patient referral [facility] Work Phone: [facility] Work Phone[facility] Work Phone: [facility] Work Phone[facility] Work Phone[facility] Work Phone[facility] Work Phone: [facility] Work Phone[facility] Work Phone: [facility] Work Phone: [facility] Work Phone: [facility] Work Phone[facility] Work Phone: [facility] Work Phone: [facility] Work Phone: [facility] Work Phone: [facility] Work Phone: [facility] Work Phone: [facility] Work Phone: [facility] Work Phone: [facility] Work Phone: [facility] Work Phone: [facility] Work Phone: [facility] Work Phone: [facility] Work Phone[facility] Work Phone[facility] Work Phone: [facility]; [facility] Work Phone: [facility]; [facility] Work Phone: [facility]; [facility] Work Phone: Payers Date Payer Category Payer Self-pay [id number] 2022 Medicare MEDICARE [place]ISC [place] MEDICARE [facility] [place] [place] P[place] [id number] 2022-Present [phone] [address] [place] [address] [id number] 2016 Unknown [id number] 1948 Unknown [id number] 1948 Unknown [id number] Medicare [id number] Unknown Unknown [id number] Unknown [id number] Unknown [id number] Unknown [id number] Unknown [id number] Unknown [id number] Unknown [id number] Unknown [id number] Social History Date Type Detail Facility Start: 07-25-2018 End: 08-03-2023 Tobacco smoking status PRIS Unknown if ever smoked [facility] Start: 07-25-2018 Alcohol intake [facility] Start: 1948 Sex Assigned At Male W [facility] Caffeine Use [facility] Work Phone: Comment on above: 2-3 QD Inactive 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-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 Tobacco smoking status NHIS Ex-smoker [facility] History of tobacco use Cigarette Smoker [facility] Start: 1950 Sex Assigned At Not on file M [facility] Start: 05-27-2022 End: 06-06-2022 Exposure to SARS-CoV-2 (event) Unable to assess [facility] Medical Equipment Procedure Code Equipment Code Equipment Origin al Text Equipment Identifier Dates ACCU-CHEK GRACIA PLUS (In Vitro Strip) 1 (one) Strip Strip daily for 0 days Quantity: 50 {Strip} Refills: 5 Ordered: 08-Mar-2014 Daysi Angulo LPN Start : 08-Mar-2014 Active Start: 03-08-2014 ACCU-CHEK GRACIA PLUS (In Vitro Strip) 1 (one) Strip Strip daily for 0 days Quantity: 50 {Strip} Refills: 5 Ordered: 08-Mar-2014 Daysi Angulo LPN Start : 08-Mar-2014 Active Start: 03-08-2014 ACCU-CHEK GRACIA PLUS (In Vitro Strip) 1 (one) Strip Strip daily for 0 days Quantity: 50 {Strip} Refills: 5 Ordered: 08-Mar-2014 Daysi Angulo LPN Start : 08-Mar-2014 Active Start: 03-08-2014 ACCU-CHEK GRACIA PLUS (In Vitro Strip) 1 (one) Strip Strip daily for 0 days Quantity: 50 {Strip} Refills: 5 Ordered: 08-Mar-2014 Daysi Angulo LPN Start : 08-Mar-2014 Active Start: 03-08-2014 ACCU-CHEK GRACIA PLUS (In Vitro Strip) 1 (one) Strip Strip daily for 0 days Quantity: 50 {Strip} Refills: 5 Ordered: 08-Mar-2014 Daysi Angulo LPN Start : 08-Mar-2014 Active Start: 03-08-2014 ACCU-CHEK GRACIA PLUS (In Vitro Strip) 1 (one) Strip Strip daily for 0 days Quantity: 50 {Strip} Refills: 5 Ordered: 08-Mar-2014 Daysi Angulo LPN Start : 08-Mar-2014 Active Start: 03-08-2014 ACCU-CHEK GRACIA PLUS (In Vitro Strip) 1 (one) Strip Strip daily for 0 days Quantity: 50 {Strip} Refills: 5 Ordered: 08-Mar-2014 Daysi Angulo LPN Start : 08-Mar-2014 Active Start: 03-08-2014 ACCU-CHEK GRACIA PLUS (In Vitro Strip) 1 (one) Strip Strip daily for 0 days Quantity: 50 {Strip} Refills: 5 Ordered: 08-Mar-2014 Daysi Angulo LPN Start : 08-Mar-2014 Active Start: 03-08-2014 ACCU-CHEK GRACIA PLUS (In Vitro Strip) 1 (one) Strip Strip daily for 0 days Quantity: 50 {Strip} Refills: 5 Ordered: 08-Mar-2014 Daysi Angulo LPN Start : 08-Mar-2014 Active Start: 03-08-2014 ACCU-CHEK GRACIA PLUS (In Vitro Strip) 1 (one) Strip Strip daily for 0 days Quantity: 50 {Strip} Refills: 5 Ordered: 08-Mar-2014 Daysi Angulo LPN Start : 08-Mar-2014 Active Start: 03-08-2014 ACCU-CHEK GRACIA PLUS (In Vitro Strip) 1 (one) Strip Strip daily for 0 days Quantity: 50 {Strip} Refills: 5 Ordered: 08-Mar-2014 Daysi Angulo LPN Start : 08-Mar-2014 Active Start: 03-08-2014 ACCU-CHEK GRACIA PLUS (In Vitro Strip) 1 (one) Strip Strip daily for 0 days Quantity: 50 {Strip} Refills: 5 Ordered: 08-Mar-2014 Daysi Angulo RN Start : 08-Mar-2014 Active Start: 03-08-2014 ACCU-CHEK GRACIA PLUS (In Vitro Strip) 1 (one) Strip Strip daily for 0 days Quantity: 50 {Strip} Refills: 5 Ordered: 08-Mar-2014 Daysi Angulo RN Start : 08-Mar-2014 Active Start: 03-08-2014 ACCU-CHEK GRACIA PLUS (In Vitro Strip) 1 (one) Strip Strip daily for 0 days Quantity: 50 {Strip} Refills: 5 Ordered: 08-Mar-2014 Daysi Angulo RN Start : 08-Mar-2014 Active Start: 03-08-2014 ACCU-CHEK GRACIA PLUS (In Vitro Strip) 1 (one) Strip Strip daily for 0 days Quantity: 50 {Strip} Refills: 5 Ordered: 08-Mar-2014 Daysi Angulo RN Start : 08-Mar-2014 Active Start: 03-08-2014 ACCU-CHEK GRACIA PLUS (In Vitro Strip) 1 (one) Strip Strip daily for 0 days Quantity: 50 {Strip} Refills: 5 Ordered: 08-Mar-2014 Daysi Angulo RN Start : 08-Mar-2014 Active Start: 03-08-2014 ACCU-CHEK GRACIA PLUS (In Vitro Strip) 1 (one) Strip Strip daily for 0 days Quantity: 50 {Strip} Refills: 5 Ordered: 08-Mar-2014 Daysi Angulo RN Start : 08-Mar-2014 Active Start: 03-08-2014 ACCU-CHEK GRACIA PLUS (In Vitro Strip) 1 (one) Strip Strip daily for 0 days Quantity: 50 {Strip} Refills: 5 Ordered: 08-Mar-2014 Adele Daysi [place] Start : 08-Mar-2014 Active Start: 03-08-2014 ACCU-CHEK GRACIA PLUS (In Vitro Strip) 1 (one) Strip Strip daily for 0 days Quantity: 50 {Strip} Refills: 5 Ordered: 08-Mar-2014 Adele Daysi [place] Start : 08-Mar-2014 Active Start: 03-08-2014 ACCU-CHEK GRACIA PLUS (In Vitro Strip) 1 (one) Strip Strip daily for 0 days Quantity: 50 {Strip} Refills: 5 Ordered: 08-Mar-2014 Daysi Angulo LPN Start : 08-Mar-2014 Active Start: 03-08-2014 ACCU-CHEK GRACIA PLUS (In Vitro Strip) 1 (one) Strip Strip daily for 0 days Quantity: 50 {Strip} Refills: 5 Ordered: 08-Mar-2014 Daysi Angulo LPN Start : 08-Mar-2014 Active Start: 03-08-2014 ACCU-CHEK GRACIA PLUS (In Vitro Strip) 1 (one) Strip Strip daily for 0 days Quantity: 50 {Strip} Refills: 5 Ordered: 08-Mar-2014 Daysi Angulo LPN Start : 08-Mar-2014 Active Start: 03-08-2014 ACCU-CHEK GRACIA PLUS (In Vitro Strip) 1 (one) Strip Strip daily for 0 days Quantity: 50 {Strip} Refills: 5 Ordered: 08-Mar-2014 Daysi Angulo LPN Start : 08-Mar-2014 Active Start: 03-08-2014 ACCU-CHEK GRACIA PLUS (In Vitro Strip) 1 (one) Strip Strip daily for 0 days Quantity: 50 {Strip} Refills: 5 Ordered: 08-Mar-2014 Daysi Angulo RN Start : 08-Mar-2014 Active Start: 03-08-2014 ACCU-CHEK GRACIA PLUS (In Vitro Strip) 1 (one) Strip Strip daily for 0 days Quantity: 50 {Strip} Refills: 5 Ordered: 08-Mar-2014 Daysi Angulo RN Start : 08-Mar-2014 Active Start: 03-08-2014 ACCU-CHEK GRACIA PLUS (In Vitro Strip) 1 (one) Strip Strip daily for 0 days Quantity: 50 {Strip} Refills: 5 Ordered: 08-Mar-2014 Daysi Angulo LPN Start : 08-Mar-2014 Active Start: 03-08-2014 ACCU-CHEK GRACIA PLUS (In Vitro Strip) 1 (one) Strip Strip daily for 0 days Quantity: 50 {Strip} Refills: 5 Ordered: 08-Mar-2014 Daysi Angulo LPN Start : 08-Mar-2014 Active Start: 03-08-2014 ACCU-CHEK GRACIA PLUS (In Vitro Strip) 1 (one) Strip Strip daily for 0 days Quantity: 50 {Strip} Refills: 5 Ordered: 08-Mar-2014 Daysi Angulo LPN Start : 08-Mar-2014 Active Start: 03-08-2014 ACCU-CHEK GRACIA PLUS (In Vitro Strip) 1 (one) Strip Strip daily for 0 days Quantity: 50 {Strip} Refills: 5 Ordered: 08-Mar-2014 Daysi Angulo RN Start : 08-Mar-2014 Active Start: 03-08-2014 ACCU-CHEK GRACIA PLUS (In Vitro Strip) 1 (one) Strip Strip daily for 0 days Quantity: 50 {Strip} Refills: 5 Ordered: 08-Mar-2014 Daysi Angulo RN Start : 08-Mar-2014 Active Start: 03-08-2014 ACCU-CHEK GRACIA PLUS (In Vitro Strip) 1 (one) Strip Strip daily for 0 days Quantity: 50 {Strip} Refills: 5 Ordered: 08-Mar-2014 Daysi Angulo RN Start : 08-Mar-2014 Active Start: 03-08-2014 ACCU-CHEK GRACIA PLUS (In Vitro Strip) 1 (one) Strip Strip daily for 0 days Quantity: 50 {Strip} Refills: 5 Ordered: 08-Mar-2014 Daysi Angulo RN Start : 08-Mar-2014 Active Start: 03-08-2014 DIABETIC TESTING SUPPLIES ( Strip) (Free Text) 1 (one) Strip bid for 0 days Quantity: 100 {Strip} Refills: 3 Ordered: 20-Mar-2021 Latasha STERN Stephany Ciguerlinea [employer], Stephany Start : 20-Mar-2021 Active Comments: test twice daily Start: 03-20-2021 Comment on above: test twice daily ACCU-CHEK GRACIA PLUS (In Vitro Strip) 1 (one) Strip Strip daily for 0 days Quantity: 50 {Strip} Refills: 5 Ordered: 08-Mar-2014 Daysi Angulo RN Start : 08-Mar-2014 Active Start: 03-08-2014 ACCU-CHEK GRACIA PLUS (In Vitro Strip) 1 (one) Strip Strip daily for 0 days Quantity: 50 {Strip} Refills: 5 Ordered: 08-Mar-2014 Daysi Angulo RN Start : 08-Mar-2014 Active Start: 03-08-2014 DIABETIC TESTING SUPPLIES ( Strip) (Free Text) 1 (one) Strip bid for 0 days Quantity: 100 {Strip} Refills: 3 Ordered: 20-Mar-2021 Latasha STERN Stephany Ciesa [employer], Stephany Start : 20-Mar-2021 Active Comments: test twice daily Start: 03-20-2021 Comment on above: test twice daily ACCU-CHEK GRACIA PLUS (In Vitro Strip) 1 (one) Strip Strip daily for 0 days Quantity: 50 {Strip} Refills: 5 Ordered: 08-Mar-2014 Daysi Angulo RN Start : 08-Mar-2014 Active Start: 03-08-2014 DIABETIC TESTING SUPPLIES ( Strip) (Free Text) 1 (one) Strip bid for 0 days Quantity: 100 {Strip} Refills: 3 Ordered: 20-Mar-2021 Latasha STERN Stephany Ciesa [employer], Stephany Start : 20-Mar-2021 Active Comments: test twice daily Start: 03-20-2021 Comment on above: test twice daily ACCU-CHEK GRACIA PLUS (In Vitro Strip) 1 (one) Strip Strip daily for 0 days Quantity: 50 {Strip} Refills: 5 Ordered: 08-Mar-2014 Daysi Angulo RN Start : 08-Mar-2014 Active Start: 03-08-2014 DIABETIC TESTING SUPPLIES ( Strip) (Free Text) 1 (one) Strip bid for 0 days Quantity: 100 {Strip} Refills: 3 Ordered: 20-Mar-2021 Abdulaziz Solis LPN Start : 20-Mar-2021 Active Comments: test twice daily Start: 03-20-2021 Comment on above: test twice daily ACCU-CHEK GRACIA PLUS (In Vitro Strip) 1 (one) Strip Strip daily for 0 days Quantity: 50 {Strip} Refills: 5 Ordered: 08-Mar-2014 Daysi Angulo RN Start : 08-Mar-2014 Active Start: 03-08-2014 DIABETIC TESTING SUPPLIES ( Strip) (Free Text) 1 (one) Strip bid for 0 days Quantity: 100 {Strip} Refills: 3 Ordered: 20-Mar-2021 Abdulaziz Solis LPN Start : 20-Mar-2021 Active Comments: test twice daily Start: 03-20-2021 Comment on above: test twice daily ACCU-CHEK GRACIA PLUS (In Vitro Strip) 1 (one) Strip Strip daily for 0 days Quantity: 50 {Strip} Refills: 5 Ordered: 08-Mar-2014 Daysi Angulo RN Start : 08-Mar-2014 Active Start: 03-08-2014 DIABETIC TESTING SUPPLIES ( Strip) (Free Text) 1 (one) Strip bid for 0 days Quantity: 100 {Strip} Refills: 3 Ordered: 20-Mar-2021 Abdulaziz Solis LPN Start : 20-Mar-2021 Active Comments: test twice daily Start: 03-20-2021 Comment on above: test twice daily ACCU-CHEK GRACIA PLUS (In Vitro Strip) 1 (one) Strip Strip daily for 0 days Quantity: 50 {Strip} Refills: 5 Ordered: 08-Mar-2014 Daysi Angulo RN Start : 08-Mar-2014 Active Start: 03-08-2014 DIABETIC TESTING SUPPLIES ( Strip) (Free Text) 1 (one) Strip bid for 0 days Quantity: 100 {Strip} Refills: 3 Ordered: 20-Mar-2021 Abdulaziz Solis LPN Start : 20-Mar-2021 Active Comments: test twice daily Start: 03-20-2021 Comment on above: test twice daily ACCU-CHEK GRACIA PLUS (In Vitro Strip) 1 (one) Strip Strip daily for 0 days Quantity: 50 {Strip} Refills: 5 Ordered: 08-Mar-2014 Daysi Angulo RN Start : 08-Mar-2014 Active Start: 03-08-2014 DIABETIC TESTING SUPPLIES ( Strip) (Free Text) 1 (one) Strip bid for 0 days Quantity: 100 {Strip} Refills: 3 Ordered: 20-Mar-2021 Abdulaziz Solis LPN Start : 20-Mar-2021 Active Comments: test twice daily Start: 03-20-2021 Comment on above: test twice daily ACCU-CHEK GRACIA PLUS (In Vitro Strip) 1 (one) Strip Strip daily for 0 days Quantity: 50 {Strip} Refills: 5 Ordered: 08-Mar-2014 Daysi Angulo RN Start : 08-Mar-2014 Active Start: 03-08-2014 DIABETIC TESTING SUPPLIES ( Strip) (Free Text) 1 (one) Strip bid for 0 days Quantity: 100 {Strip} Refills: 3 Ordered: 20-Mar-2021 Abdulaziz Solis LPN Start : 20-Mar-2021 Active Comments: test twice daily Start: 03-20-2021 Comment on above: test twice daily ACCU-CHEK GRACIA PLUS (In Vitro Strip) 1 (one) Strip Strip daily for 0 days Quantity: 50 {Strip} Refills: 5 Ordered: 08-Mar-2014 Daysi Angulo RN Start : 08-Mar-2014 Active Start: 03-08-2014 ACCU-CHEK GRACIA PLUS (In Vitro Strip) 1 (one) Strip Strip daily for 0 days Quantity: 50 {Strip} Refills: 5 Ordered: 08-Mar-2014 Daysi Angulo RN Start : 08-Mar-2014 Active Start: 03-08-2014 ACCU-CHEK GRACIA PLUS (In Vitro Strip) 1 (one) Strip Strip daily for 0 days Quantity: 50 {Strip} Refills: 5 Ordered: 08-Mar-2014 Daysi Angulo RN Start : 08-Mar-2014 Active Start: 03-08-2014 ACCU-CHEK GRACIA PLUS (In Vitro Strip) 1 (one) Strip Strip daily for 0 days Quantity: 50 {Strip} Refills: 5 Ordered: 08-Mar-2014 Daysi Angulo RN Start : 08-Mar-2014 Active Start: 03-08-2014 ACCU-CHEK GRACIA PLUS (In Vitro Strip) 1 (one) Strip Strip daily for 0 days Quantity: 50 {Strip} Refills: 5 Ordered: 08-Mar-2014 Daysi Angulo RN Start : 08-Mar-2014 Active Start: 03-08-2014 ACCU-CHEK GRACIA PLUS (In Vitro Strip) 1 (one) Strip Strip daily for 0 days Quantity: 50 {Strip} Refills: 5 Ordered: 08-Mar-2014 Daysi Angulo RN Start : 08-Mar-2014 Active Start: 03-08-2014 ACCU-CHEK GRACIA PLUS (In Vitro Strip) 1 (one) Strip Strip daily for 0 days Quantity: 50 {Strip} Refills: 5 Ordered: 08-Mar-2014 Daysi Angulo RN Start : 08-Mar-2014 Active Start: 03-08-2014 ACCU-CHEK GRACIA PLUS (In Vitro Strip) 1 (one) Strip Strip daily for 0 days Quantity: 50 {Strip} Refills: 5 Ordered: 08-Mar-2014 Daysi Angulo RN Start : 08-Mar-2014 Active Start: 03-08-2014 ACCU-CHEK GRACIA PLUS (In Vitro Strip) 1 (one) Strip Strip daily for 0 days Quantity: 50 {Strip} Refills: 5 Ordered: 08-Mar-2014 Daysi Angulo RN Start : 08-Mar-2014 Active Start: 03-08-2014 ACCU-CHEK GRACIA PLUS (In Vitro Strip) 1 (one) Strip Strip daily for 0 days Quantity: 50 {Strip} Refills: 5 Ordered: 08-Mar-2014 Daysi Angulo RN Start : 08-Mar-2014 Active Start: 03-08-2014 ACCU-CHEK GRACIA PLUS (In Vitro Strip) 1 (one) Strip Strip daily for 0 days Quantity: 50 {Strip} Refills: 5 Ordered: 08-Mar-2014 Daysi Angulo RN Start : 08-Mar-2014 Active Start: 03-08-2014 ACCU-CHEK GRACIA PLUS (In Vitro Strip) 1 (one) Strip Strip daily for 0 days Quantity: 50 {Strip} Refills: 5 Ordered: 08-Mar-2014 Daysi Angulo RN Start : 08-Mar-2014 Active Start: 03-08-2014 ACCU-CHEK GRACIA PLUS (In Vitro Strip) 1 (one) Strip Strip daily for 0 days Quantity: 50 {Strip} Refills: 5 Ordered: 08-Mar-2014 Daysi Angulo RN Start : 08-Mar-2014 Active Start: 03-08-2014 ACCU-CHEK GRACIA PLUS (In Vitro Strip) 1 (one) Strip Strip daily for 0 days Quantity: 50 {Strip} Refills: 5 Ordered: 08-Mar-2014 Daysi Angulo RN Start : 08-Mar-2014 Active Start: 03-08-2014 ACCU-CHEK GRACIA PLUS (In Vitro Strip) 1 (one) Strip Strip daily for 0 days Quantity: 50 {Strip} Refills: 5 Ordered: 08-Mar-2014 Daysi Angulo RN Start : 08-Mar-2014 Active Start: 03-08-2014 ACCU-CHEK GRACIA PLUS (In Vitro Strip) 1 (one) Strip Strip daily for 0 days Quantity: 50 {Strip} Refills: 5 Ordered: 08-Mar-2014 Daysi Angulo RN Start : 08-Mar-2014 Active Start: 03-08-2014 ACCU-CHEK GRACIA PLUS (In Vitro Strip) 1 (one) Strip Strip daily for 0 days Quantity: 50 {Strip} Refills: 5 Ordered: 08-Mar-2014 Daysi Angulo RN Start : 08-Mar-2014 Active Start: 03-08-2014 ACCU-CHEK GRACIA PLUS (In Vitro Strip) 1 (one) Strip Strip daily for 0 days Quantity: 50 {Strip} Refills: 5 Ordered: 08-Mar-2014 Daysi Angulo RN Start : 08-Mar-2014 Active Start: 03-08-2014 ACCU-CHEK GRACIA PLUS (In Vitro Strip) 1 (one) Strip Strip daily for 0 days Quantity: 50 {Strip} Refills: 5 Ordered: 08-Mar-2014 Daysi Angulo RN Start : 08-Mar-2014 Active Start: 03-08-2014 ACCU-CHEK GRACIA PLUS (In Vitro Strip) 1 (one) Strip Strip daily for 0 days Quantity: 50 {Strip} Refills: 5 Ordered: 08-Mar-2014 Daysi Angulo RN Start : 08-Mar-2014 Active Start: 03-08-2014 ACCU-CHEK GRACIA PLUS (In Vitro Strip) 1 (one) Strip Strip daily for 0 days Quantity: 50 {Strip} Refills: 5 Ordered: 08-Mar-2014 Daysi Angulo RN Start : 08-Mar-2014 Active Start: 03-08-2014 ACCU-CHEK GRACIA PLUS (In Vitro Strip) 1 (one) Strip Strip daily for 0 days Quantity: 50 {Strip} Refills: 5 Ordered: 08-Mar-2014 Daysi Angulo RN Start : 08-Mar-2014 Active Start: 03-08-2014 Clinical Notes 06-06-2022 Patient InstructionsToby NATO Ha - 06/06/2022 12:55 PM EDT Note Date & Type Note Facility 06-06-2022 Instructions Cameron Ha PA-C - 06/06/2022 3:37 PM EDT Quarantine for 5 days from the development of your symptoms May take Tylenol, Advil, Aleve as directed May take [id number] cough and cold medication as directed Increase oral fluid intake over the course of the next 7-10 days Encourage healthy well-balanced diet Follow-up with primary care provider at the completion of your 5-day quarantine documented in this encounter [facility] 06-06-2022 History of Presen t illness Narrative JENNIFER Jackson is a 72 y.o. male presenting to the clinic for generalized body aches, fever, nasalcongestion, and cough has been present over the course the last several days. Patient also reports having some episodes of urinary frequency over the course last couple of days. Patient denies having any episodes of chills or night sweats, fatigue, shortness of breath, nausea, vomiting, or diarrhea. Patient also denies having any abdominal pain or penile discharge. ROS Constitutional: + Fever or chills Eyes: Denies visual change or eye discharge Head/Ear/Nose/Throat: Denies earache. + sore throat, nasal congestion Respiratory: Denies shortness of breath. +cough Cardiovascular: Denies chest pain or palpitations Gastrointestinal: Denies abdominal pain, Denies nausea or vomiting. Denies constipation or diarrhea Genitourinary: Denies dysuria Musculoskeletal: Denies Joint pain, Denies muscle pain Skin: Denies Rash Neurological: Denies Headache, Denies focal neuro symptoms Social History Tobacco Use Smoking status: Former Smoker Years: 40.00 Types: Cigarettes PHYSICAL EXAM BP 112/62 Pulse 74 Temp 99.4 F (37.4 C) (Temporal) SpO2 95% Smoking Status Former Smoker Primary Assessment: Airway patent. Respirations unlabored, Normal respiratory effort Constitutional: Vital signs reviewed. Well appearing. No distress Psychiatric: Mental status appropriate. Normal affect Skin: Warm and dry. No rashes noted Eyes: Conjunctiva clear. No photophobia HENT: Normocephalic. Normal Tms. Posterior pharynx clear. Thorax/ Respiratory: Respiratory effort non-labored. CTAB. Heart: Regular rate and rhythm with no murmurs. Gastrointestinal: Abdomen soft and non-tender. No rebound. No guarding. No masses. Musculoskeletal: Neck supple. All joints grossly normal. Neurologic: Alert and Oriented Diagnosis: ICD-10-CM 1. Incontinence R32 POCT URINE DIPSTICK NON-AUTOMATED 2. Suspected 2019 novel coronavirus infection Z20.822 POCT SARS-COV-2 PCR-NASOPHARYNGEAL Plan: 1. Incontinence - POCT URINE DIPSTICK NON-AUTOMATED 2. Suspected 2019 novel coronavirus infection - POCT SARS-COV-2 PCR-NASOPHARYNGEAL Cameron Ha PA-C 06/06/2022 documented in this encounter [facility] Evaluation note Diagnosis Incontinence- Primary Unspecified urinary incontinence Suspected 2019 novel coronavirus infection documented in this [facility] noteNo assessment information availableWC[facility] Work Phone: Instructions* Name Dates Details Patient Instructions Indication:BMI 39.0-39.9,adult Start:20-Mar-2021 Instruction Type:Provider Instructions for Treatment How to Access Health Informa tion Online using Patient Portal and 3rd Green Party Apps Indication:Diabetes mellitus type II, controlled, with no complications Start:20-Mar-2021 Instruction Type:Patient Education How to access health informa tion online Indication:Nonsmoker Start:12-Sep-2020 Instruction Type:Patient Education How to access health informa tion online - Detail Indication:Nonsmoker Start:12-Sep-2020 Instruction Type:Patient Education Patient Instructions Indication:Nonsmoker Start:12-Sep-2020 Instruction Type:Provider Instructions for Treatment How to access health informa tion online Indication:BMI 39.0-39.9,adult Start:10-Feb-2020 Instruction Type:Patient Education How to access health informa tion online - Detail Indication:BMI 39.0-39.9,adult Start:10-Feb-2020 Instruction Type:Patient Education Patient Instructions Indication:BMI 39.0-39.9,adult Start:10-Feb-2020 Instruction Type:Provider Instructions for Treatment Patient Instructions Indication:Nonsmoker Start:29-Jun-2019 Instruction Type:Provider Instructions for Treatment How to access health informa tion online Indication:Diabetes mellitus type II, controlled, with no complications Start:29-Jun-2019 Instruction Type:Patient Education How to access health informa tion online - Detail Indication:Diabetes mellitus type II, controlled, with no complications Start:29-Jun-2019 Instruction Type:Patient Education Patient Instructions Indication:Diabetes mellitus type II, controlled, with no complications Start:29-Jun-2019 Instruction Type:Provider Instructions for Treatment How to access health informa tion online Indication:Diabetes mellitus type II, controlled, with no complications Start:09-Mar-2019 Instruction Type:Patient Education How to access health informa tion online - Detail Indication:Diabetes mellitus type II, controlled, with no complications Start:09-Mar-2019 Instruction Type:Patient Education Patient Instructions Indication:Screening PSA (prostate specific antigen) Start:09-Mar-2019 Instruction Type:Provider Instructions for Treatment How to access health informa tion online Indication:Nonsmoker Start:16-Feb-2019 Instruction Type:Patient Education How to access health informa tion online - Detail Indication:Nonsmoker Start:16-Feb-2019 Instruction Type:Patient Education Patient Instructions Indication:Upper respiratory infection, acute Start:16-Feb-2019 Instruction Type:Provider Instructions for Treatment How to access health informa tion online Indication:Nonsmoker Start:12-Jan-2019 Instruction Type:Patient Education How to access health informa tion online - Detail Indication:Nonsmoker Start:12-Jan-2019 Instruction Type:Patient Education Patient Instructions Indication:Nonsmoker Start:12-Jan-2019 Instruction Type:Provider Instructions for Treatment How to access health informa tion online Indication:Nonsmoker Start:15-Dec-2018 Instruction Type:Patient Education How to access health informa tion online - Detail Indication:Nonsmoker Start:15-Dec-2018 Instruction Type:Patient Education Patient Instructions Indication:Iliotibial band tendonitis, left Start:15-Dec-2018 Instruction Type:Provider Instructions for Treatment DISCONTINUED - METABOLIC ALVAREZ EL, COMPREHENSIVE ([id number]) Indication:Diabetes mellitus type II, controlled, with no complications Start:29-Sep-2018 Instruction Type:Patient Education DISCONTINUED - HGB A1C ([id number]) Indication:Diabetes mellitus type II, controlled, with no complications Start:29-Sep-2018 Instruction Type:Patient Education How to access health informa tion online Indication:Diabetes mellitus type II, controlled, with no complications Start:29-Sep-2018 Instruction Type:Patient Education How to access health informa tion online - Detail Indication:Diabetes mellitus type II, controlled, with no complications Start:29-Sep-2018 Instruction Type:Patient Education Patient Instructions Indication:Vitamin D deficiency Start:29-Sep-2018 Instruction Type:Provider Instructions for Treatment How to access health informa tion online Indication:Diabetes mellitus type II, controlled, with no complications Start:26-May-2018 Instruction Type:Patient Education How to access health informa tion online - Detail Indication:Diabetes mellitus type II, controlled, with no complications Start:26-May-2018 Instruction Type:Patient Education Patient Instructions Indication:Diabetes mellitus type II, controlled, with no complications Start:26-May-2018 Instruction Type:Provider Instructions for Treatment How to access health informa tion online Indication:Diabetes mellitus type II, controlled, with no complications Start:30-Dec-2017 Instruction Type:Patient Education How to access health informa tion online - Detail Indication:Diabetes mellitus type II, controlled, with no complications Start:30-Dec-2017 Instruction Type:Patient Education Patient Instructions Indication:BMI 38.0-38.9,adult Start:30-Dec-2017 Instruction Type:Provider Instructions for Treatment How to access health informa tion online Indication:Diabetes mellitus type II, controlled, with no complications Start:16-Sep-2017 Instruction Type:Patient Education How to access health informa tion online - Detail Indication:Diabetes mellitus type II, controlled, with no complications Start:16-Sep-2017 Instruction Type:Patient Education Patient Instructions Indication:BMI 39.0-39.9,adult Start:16-Sep-2017 Instruction Type:Provider Instructions for Treatment DISCONTINUED - CBC, PLATELET S & AUT DIFF ([id number]) Indication:Diabetes mellitus type II, controlled, with no complications Start:07-Jan-2017 Instruction Type:Patient Education DISCONTINUED - RENAL FUNCTIO N PANEL ([id number]) Indication:Diabetes mellitus type II, controlled, with no complications Start:07-Jan-2017 Instruction Type:Patient Education DISCONTINUED - HGB A1C ([id number]) Indication:Diabetes mellitus type II, controlled, with no complications Start:07-Jan-2017 Instruction Type:Patient Education How to access health [employer] [place] Indication:Low back pain radiating to left leg Start:07-Jan-2017 Instruction Type:Patient Education How to access health [employer] online - Detail Indication:Low back pain radiating to left leg Start:07-Jan-2017 Instruction Type:Patient Education Patient Instructions Indication:Low back pain radiating to left leg Start:07-Jan-2017 Instruction Type:Provider Instructions for Treatment Patient Instructions Indication:Nonsmoker Start:20-Aug-2016 Instruction Type:Provider Instructions for Treatment How to access [place] Indication:Mixed hyperlipidemia Start:21-Nov-2015 Instruction Type:Patient Education How to access health informa tion online - Detail Indication:Mixed hyperlipidemia Start:21-Nov-2015 Instruction Type:Patient Education Patient Instructions Indication:Mixed hyperlipidemia Start:21-Nov-2015 Instruction Type:Provider Instructions for Treatment Patient Instructions Indication:Diabetes mellitus type II, controlled, with no complications Start:05-Apr-2015 Instruction Type:Provider Instructions for Treatment Patient Instructions Indication:Cough Start:21-Oct-2014 Instruction Type:Provider Instructions for Treatment Patient Instructions Indication:Diabetes mellitus type II, controlled, with no complications Start:08-Mar-2014 Instruction Type:Provider Instructions for Treatment Patient Instructions Indication:Diabetes mellitus type II, controlled, with no complications Start:30-Nov-2013 Instruction Type:Provider Instructions for Treatment Patient Instructions Indication:Physical exam Start:25-May-2013 Instruction Type:Provider Instructions for Treatment Patient Instructions Indication:Diabetes mellitus type II, controlled, with no complications Start:09-Feb-2013 Instruction Type:Provider Instructions for Treatment Patient Instructions Indication:Diabetes mellitus type II, controlled, with no complications Start:01-Sep-2012 Instruction Type:Provider Instructions for Treatment [facility] Work Phone: Instructions* Name Dates Details Patient Instructions Indication:Nonsmoker Start:04-Apr-2021 Instruction Type:Provider Instructions for Treatment How to Access Health Informa tion Online using Patient Portal and [employer]rd [employer] Apps Indication:Nonsmoker Start:04-Apr-2021 Instruction Type:Patient Education Patient Instructions Indication:BMI 39.0-39.9,adult Start:20-Mar-2021 Instruction Type:Provider Instructions for Treatment How to Access Health Informa tion Online using Patient Portal and [employer]rd [employer] Apps Indication:Diabetes mellitus type II, controlled, with no complications Start:20-Mar-2021 Instruction Type:Patient Education How to access health informa tion online Indication:Nonsmoker Start:12-Sep-2020 Instruction Type:Patient Education How to access health informa tion online - Detail Indication:Nonsmoker Start:12-Sep-2020 Instruction Type:Patient Education Patient Instructions Indication:Nonsmoker Start:12-Sep-2020 Instruction Type:Provider Instructions for Treatment How to access health informa tion online Indication:BMI 39.0-39.9,adult Start:10-Feb-2020 Instruction Type:Patient Education How to access health informa tion online - Detail Indication:BMI 39.0-39.9,adult Start:10-Feb-2020 Instruction Type:Patient Education Patient Instructions Indication:BMI 39.0-39.9,adult Start:10-Feb-2020 Instruction Type:Provider Instructions for Treatment Patient Instructions Indication:Nonsmoker Start:29-Jun-2019 Instruction Type:Provider Instructions for Treatment How to access health informa tion online Indication:Diabetes mellitus type II, controlled, with no complications Start:29-Jun-2019 Instruction Type:Patient Education How to access health informa tion online - Detail Indication:Diabetes mellitus type II, controlled, with no complications Start:29-Jun-2019 Instruction Type:Patient Education Patient Instructions Indication:Diabetes mellitus type II, controlled, with no complications Start:29-Jun-2019 Instruction Type:Provider Instructions for Treatment How to access health informa tion online Indication:Diabetes mellitus type II, controlled, with no complications Start:09-Mar-2019 Instruction Type:Patient Education How to access health informa tion online - Detail Indication:Diabetes mellitus type II, controlled, with no complications Start:09-Mar-2019 Instruction Type:Patient Education Patient Instructions Indication:Screening PSA (prostate specific antigen) Start:09-Mar-2019 Instruction Type:Provider Instructions for Treatment How to access health informa tion online Indication:Nonsmoker Start:16-Feb-2019 Instruction Type:Patient Education How to access health informa tion online - Detail Indication:Nonsmoker Start:16-Feb-2019 Instruction Type:Patient Education Patient Instructions Indication:Upper respiratory infection, acute Start:16-Feb-2019 Instruction Type:Provider Instructions for Treatment How to access health informa tion online Indication:Nonsmoker Start:12-Jan-2019 Instruction Type:Patient Education How to access health informa tion online - Detail Indication:Nonsmoker Start:12-Jan-2019 Instruction Type:Patient Education Patient Instructions Indication:Nonsmoker Start:12-Jan-2019 Instruction Type:Provider Instructions for Treatment How to access health informa tion online Indication:Nonsmoker Start:15-Dec-2018 Instruction Type:Patient Education How to access health informa tion online - Detail Indication:Nonsmoker Start:15-Dec-2018 Instruction Type:Patient Education Patient Instructions Indication:Iliotibial band tendonitis, left Start:15-Dec-2018 Instruction Type:Provider Instructions for Treatment DISCONTINUED - METABOLIC ALVAREZ EL, COMPREHENSIVE ([id number]) Indication:Diabetes mellitus type II, controlled, with no complications Start:29-Sep-2018 Instruction Type:Patient Education DISCONTINUED - HGB A1C ([id number]) Indication:Diabetes mellitus type II, controlled, with no complications Start:29-Sep-2018 Instruction Type:Patient Education How to access health informa tion online Indication:Diabetes mellitus type II, controlled, with no complications Start:29-Sep-2018 Instruction Type:Patient Education How to access health informa tion online - Detail Indication:Diabetes mellitus type II, controlled, with no complications Start:29-Sep-2018 Instruction Type:Patient Education Patient Instructions Indication:Vitamin D deficiency Start:29-Sep-2018 Instruction Type:Provider Instructions for Treatment How to access health informa tion online Indication:Diabetes mellitus type II, controlled, with no complications Start:26-May-2018 Instruction Type:Patient Education How to access health informa tion online - Detail Indication:Diabetes mellitus type II, controlled, with no complications Start:26-May-2018 Instruction Type:Patient Education Patient Instructions Indication:Diabetes mellitus type II, controlled, with no complications Start:26-May-2018 Instruction Type:Provider Instructions for Treatment How to access health informa tion online Indication:Diabetes mellitus type II, controlled, with no complications Start:30-Dec-2017 Instruction Type:Patient Education How to access health informa tion online - Detail Indication:Diabetes mellitus type II, controlled, with no complications Start:30-Dec-2017 Instruction Type:Patient Education Patient Instructions Indication:BMI 38.0-38.9,adult Start:30-Dec-2017 Instruction Type:Provider Instructions for Treatment How to access health informa tion online Indication:Diabetes mellitus type II, controlled, with no complications Start:16-Sep-2017 Instruction Type:Patient Education How to access health informa tion online - Detail Indication:Diabetes mellitus type II, controlled, with no complications Start:16-Sep-2017 Instruction Type:Patient Education Patient Instructions Indication:BMI 39.0-39.9,adult Start:16-Sep-2017 Instruction Type:Provider Instructions for Treatment DISCONTINUED - CBC, PLATELET S & AUT DIFF ([id number]) Indication:Diabetes mellitus type II, controlled, with no complications Start:07-Jan-2017 Instruction Type:Patient Education DISCONTINUED - RENAL FUNCTIO N PANEL ([id number]) Indication:Diabetes mellitus type II, controlled, with no complications Start:07-Jan-2017 Instruction Type:Patient Education DISCONTINUED - HGB A1C ([id number]) Indication:Diabetes mellitus type II, controlled, with no complications Start:07-Jan-2017 Instruction Type:Patient Education How to access health informa tion online Indication:Low back pain radiating to left leg Start:07-Jan-2017 Instruction Type:Patient Education How to access health informa tion online - Detail Indication:Low back pain radiating to left leg Start:07-Jan-2017 Instruction Type:Patient Education Patient Instructions Indication:Low back pain radiating to left leg Start:07-Jan-2017 Instruction Type:Provider Instructions for Treatment Patient Instructions Indication:Nonsmoker Start:20-Aug-2016 Instruction Type:Provider Instructions for Treatment How to access health informa tion online Indication:Mixed hyperlipidemia Start:21-Nov-2015 Instruction Type:Patient Education How to access health informa tion online - Detail Indication:Mixed hyperlipidemia Start:21-Nov-2015 Instruction Type:Patient Education Patient Instructions Indication:Mixed hyperlipidemia Start:21-Nov-2015 Instruction Type:Provider Instructions for Treatment Patient Instructions Indication:Diabetes mellitus type II, controlled, with no complications Start:05-Apr-2015 Instruction Type:Provider Instructions for Treatment Patient Instructions Indication:Cough Start:21-Oct-2014 Instruction Type:Provider Instructions for Treatment Patient Instructions Indication:Diabetes mellitus type II, controlled, with no complications Start:08-Mar-2014 Instruction Type:Provider Instructions for Treatment Patient Instructions Indication:Diabetes mellitus type II, controlled, with no complications Start:30-Nov-2013 Instruction Type:Provider Instructions for Treatment Patient Instructions Indication:Physical exam Start:25-May-2013 Instruction Type:Provider Instructions for Treatment Patient Instructions Indication:Diabetes mellitus type II, controlled, with no complications Start:09-Feb-2013 Instruction Type:Provider Instructions for Treatment Patient Instructions Indication:Diabetes mellitus type II, controlled, with no complications Start:01-Sep-2012 Instruction Type:Provider Instructions for Treatment [facility]; [facility] Work Phone: Instructions* Name Dates Details Patient Instructions Indication:Nonsmoker Start:15-May-2021 Instruction Type:Provider Instructions for Treatment How to Access Health Informa tion Online using Patient Portal and [employer] Apps Indication:Nonsmoker Start:15-May-2021 Instruction Type:Patient Education Patient Instructions Indication:Nonsmoker Start:04-Apr-2021 Instruction Type:Provider Instructions for Treatment How to Access Health Informa tion Online using Patient Portal and [employer] Apps Indication:Nonsmoker Start:04-Apr-2021 Instruction Type:Patient Education Patient Instructions Indication:BMI 39.0-39.9,adult Start:20-Mar-2021 Instruction Type:Provider Instructions for Treatment How to Access Health Informa tion Online using Patient Portal and [employer] Apps Indication:Diabetes mellitus type II, controlled, with no complications Start:20-Mar-2021 Instruction Type:Patient Education How to access health informa tion online Indication:Nonsmoker Start:12-Sep-2020 Instruction Type:Patient Education How to access health informa tion online - Detail Indication:Nonsmoker Start:12-Sep-2020 Instruction Type:Patient Education Patient Instructions Indication:Nonsmoker Start:12-Sep-2020 Instruction Type:Provider Instructions for Treatment How to access health informa tion online Indication:BMI 39.0-39.9,adult Start:10-Feb-2020 Instruction Type:Patient Education How to access health informa tion online - Detail Indication:BMI 39.0-39.9,adult Start:10-Feb-2020 Instruction Type:Patient Education Patient Instructions Indication:BMI 39.0-39.9,adult Start:10-Feb-2020 Instruction Type:Provider Instructions for Treatment Patient Instructions Indication:Nonsmoker Start:29-Jun-2019 Instruction Type:Provider Instructions for Treatment How to access health informa tion online Indication:Diabetes mellitus type II, controlled, with no complications Start:29-Jun-2019 Instruction Type:Patient Education How to access health informa tion online - Detail Indication:Diabetes mellitus type II, controlled, with no complications Start:29-Jun-2019 Instruction Type:Patient Education Patient Instructions Indication:Diabetes mellitus type II, controlled, with no complications Start:29-Jun-2019 Instruction Type:Provider Instructions for Treatment How to access health informa tion online Indication:Diabetes mellitus type II, controlled, with no complications Start:09-Mar-2019 Instruction Type:Patient Education How to access health informa tion online - Detail Indication:Diabetes mellitus type II, controlled, with no complications Start:09-Mar-2019 Instruction Type:Patient Education Patient Instructions Indication:Screening PSA (prostate specific antigen) Start:09-Mar-2019 Instruction Type:Provider Instructions for Treatment How to access health informa tion online Indication:Nonsmoker Start:16-Feb-2019 Instruction Type:Patient Education How to access health informa tion online - Detail Indication:Nonsmoker Start:16-Feb-2019 Instruction Type:Patient Education Patient Instructions Indication:Upper respiratory infection, acute Start:16-Feb-2019 Instruction Type:Provider Instructions for Treatment How to access health informa tion online Indication:Nonsmoker Start:12-Jan-2019 Instruction Type:Patient Education How to access health informa tion online - Detail Indication:Nonsmoker Start:12-Jan-2019 Instruction Type:Patient Education Patient Instructions Indication:Nonsmoker Start:12-Jan-2019 Instruction Type:Provider Instructions for Treatment How to access health informa tion online Indication:Nonsmoker Start:15-Dec-2018 Instruction Type:Patient Education How to access health informa tion online - Detail Indication:Nonsmoker Start:15-Dec-2018 Instruction Type:Patient Education Patient Instructions Indication:Iliotibial band tendonitis, left Start:15-Dec-2018 Instruction Type:Provider Instructions for Treatment DISCONTINUED - METABOLIC ALVAREZ EL, COMPREHENSIVE ([id number]) Indication:Diabetes mellitus type II, controlled, with no complications Start:29-Sep-2018 Instruction Type:Patient Education DISCONTINUED - HGB A1C ([id number]) Indication:Diabetes mellitus type II, controlled, with no complications Start:29-Sep-2018 Instruction Type:Patient Education How to access health informa tion online Indication:Diabetes mellitus type II, controlled, with no complications Start:29-Sep-2018 Instruction Type:Patient Education How to access health informa tion online - Detail Indication:Diabetes mellitus type II, controlled, with no complications Start:29-Sep-2018 Instruction Type:Patient Education Patient Instructions Indication:Vitamin D deficiency Start:29-Sep-2018 Instruction Type:Provider Instructions for Treatment How to access health informa tion online Indication:Diabetes mellitus type II, controlled, with no complications Start:26-May-2018 Instruction Type:Patient Education How to access health informa tion online - Detail Indication:Diabetes mellitus type II, controlled, with no complications Start:26-May-2018 Instruction Type:Patient Education Patient Instructions Indication:Diabetes mellitus type II, controlled, with no complications Start:26-May-2018 Instruction Type:Provider Instructions for Treatment How to access health informa tion online Indication:Diabetes mellitus type II, controlled, with no complications Start:30-Dec-2017 Instruction Type:Patient Education How to access health informa tion online - Detail Indication:Diabetes mellitus type II, controlled, with no complications Start:30-Dec-2017 Instruction Type:Patient Education Patient Instructions Indication:BMI 38.0-38.9,adult Start:30-Dec-2017 Instruction Type:Provider Instructions for Treatment How to access health informa tion online Indication:Diabetes mellitus type II, controlled, with no complications Start:16-Sep-2017 Instruction Type:Patient Education How to access health informa tion online - Detail Indication:Diabetes mellitus type II, controlled, with no complications Start:16-Sep-2017 Instruction Type:Patient Education Patient Instructions Indication:BMI 39.0-39.9,adult Start:16-Sep-2017 Instruction Type:Provider Instructions for Treatment DISCONTINUED - CBC, PLATELET S & AUT DIFF ([id number]) Indication:Diabetes mellitus type II, controlled, with no complications Start:07-Jan-2017 Instruction Type:Patient Education DISCONTINUED - RENAL FUNCTIO N PANEL ([id number]) Indication:Diabetes mellitus type II, controlled, with no complications Start:07-Jan-2017 Instruction Type:Patient Education DISCONTINUED - HGB A1C ([id number]) Indication:Diabetes mellitus type II, controlled, with no complications Start:07-Jan-2017 Instruction Type:Patient Education How to access health informa tion online Indication:Low back pain radiating to left leg Start:07-Jan-2017 Instruction Type:Patient Education How to access health informa tion online - Detail Indication:Low back pain radiating to left leg Start:07-Jan-2017 Instruction Type:Patient Education Patient Instructions Indication:Low back pain radiating to left leg Start:07-Jan-2017 Instruction Type:Provider Instructions for Treatment Patient Instructions Indication:Nonsmoker Start:20-Aug-2016 Instruction Type:Provider Instructions for Treatment How to access health informa tion online Indication:Mixed hyperlipidemia Start:21-Nov-2015 Instruction Type:Patient Education How to access health informa tion online - Detail Indication:Mixed hyperlipidemia Start:21-Nov-2015 Instruction Type:Patient Education Patient Instructions Indication:Mixed hyperlipidemia Start:21-Nov-2015 Instruction Type:Provider Instructions for Treatment Patient Instructions Indication:Diabetes mellitus type II, controlled, with no complications Start:05-Apr-2015 Instruction Type:Provider Instructions for Treatment Patient Instructions Indication:Cough Start:21-Oct-2014 Instruction Type:Provider Instructions for Treatment Patient Instructions Indication:Diabetes mellitus type II, controlled, with no complications Start:08-Mar-2014 Instruction Type:Provider Instructions for Treatment Patient Instructions Indication:Diabetes mellitus type II, controlled, with no complications Start:30-Nov-2013 Instruction Type:Provider Instructions for Treatment Patient Instructions Indication:Physical exam Start:25-May-2013 Instruction Type:Provider Instructions for Treatment Patient Instructions Indication:Diabetes mellitus type II, controlled, with no complications Start:09-Feb-2013 Instruction Type:Provider Instructions for Treatment Patient Instructions Indication:Diabetes mellitus type II, controlled, with no complications Start:01-Sep-2012 Instruction Type:Provider Instructions for Treatment [facility]; [facility] Work Phone: Instructions* Name Dates Details Patient Instructions Indication:BMI 37.0-37.9, adult Start:17-Jul-2021 Instruction Type:Provider Instructions for Treatment How to Access Health Informa tion Online using Patient Portal and [employer] Apps Indication:BMI 37.0-37.9, adult Start:17-Jul-2021 Instruction Type:Patient Education Patient Instructions Indication:BMI 37.0-37.9, adult Start:11-Jul-2021 Instruction Type:Provider Instructions for Treatment How to Access Health Informa tion Online using Patient Portal and [employer] Apps Indication:BMI 37.0-37.9, adult Start:11-Jul-2021 Instruction Type:Patient Education Patient Instructions Indication:Nonsmoker Start:15-May-2021 Instruction Type:Provider Instructions for Treatment How to Access Health Informa tion Online using Patient Portal and [employer]rd [employer] Apps Indication:Nonsmoker Start:15-May-2021 Instruction Type:Patient Education Patient Instructions Indication:Nonsmoker Start:04-Apr-2021 Instruction Type:Provider Instructions for Treatment How to Access Health Informa tion Online using Patient Portal and [employer]rd [employer] Apps Indication:Nonsmoker Start:04-Apr-2021 Instruction Type:Patient Education Patient Instructions Indication:BMI 39.0-39.9,adult Start:20-Mar-2021 Instruction Type:Provider Instructions for Treatment How to Access Health Informa tion Online using Patient Portal and [employer] Apps Indication:Diabetes mellitus type II, controlled, with no complications Start:20-Mar-2021 Instruction Type:Patient Education How to access health informa tion online Indication:Nonsmoker Start:12-Sep-2020 Instruction Type:Patient Education How to access health informa tion online - Detail Indication:Nonsmoker Start:12-Sep-2020 Instruction Type:Patient Education Patient Instructions Indication:Nonsmoker Start:12-Sep-2020 Instruction Type:Provider Instructions for Treatment How to access health informa tion online Indication:BMI 39.0-39.9,adult Start:10-Feb-2020 Instruction Type:Patient Education How to access health informa tion online - Detail Indication:BMI 39.0-39.9,adult Start:10-Feb-2020 Instruction Type:Patient Education Patient Instructions Indication:BMI 39.0-39.9,adult Start:10-Feb-2020 Instruction Type:Provider Instructions for Treatment Patient Instructions Indication:Nonsmoker Start:29-Jun-2019 Instruction Type:Provider Instructions for Treatment How to access health informa tion online Indication:Diabetes mellitus type II, controlled, with no complications Start:29-Jun-2019 Instruction Type:Patient Education How to access health informa tion online - Detail Indication:Diabetes mellitus type II, controlled, with no complications Start:29-Jun-2019 Instruction Type:Patient Education Patient Instructions Indication:Diabetes mellitus type II, controlled, with no complications Start:29-Jun-2019 Instruction Type:Provider Instructions for Treatment How to access health informa tion online Indication:Diabetes mellitus type II, controlled, with no complications Start:09-Mar-2019 Instruction Type:Patient Education How to access health informa tion online - Detail Indication:Diabetes mellitus type II, controlled, with no complications Start:09-Mar-2019 Instruction Type:Patient Education Patient Instructions Indication:Screening PSA (prostate specific antigen) Start:09-Mar-2019 Instruction Type:Provider Instructions for Treatment How to access health informa tion online Indication:Nonsmoker Start:16-Feb-2019 Instruction Type:Patient Education How to access health informa tion online - Detail Indication:Nonsmoker Start:16-Feb-2019 Instruction Type:Patient Education Patient Instructions Indication:Upper respiratory infection, acute Start:16-Feb-2019 Instruction Type:Provider Instructions for Treatment How to access health informa tion online Indication:Nonsmoker Start:12-Jan-2019 Instruction Type:Patient Education How to access health informa tion online - Detail Indication:Nonsmoker Start:12-Jan-2019 Instruction Type:Patient Education Patient Instructions Indication:Nonsmoker Start:12-Jan-2019 Instruction Type:Provider Instructions for Treatment How to access health informa tion online Indication:Nonsmoker Start:15-Dec-2018 Instruction Type:Patient Education How to access health informa tion online - Detail Indication:Nonsmoker Start:15-Dec-2018 Instruction Type:Patient Education Patient Instructions Indication:Iliotibial band tendonitis, left Start:15-Dec-2018 Instruction Type:Provider Instructions for Treatment DISCONTINUED - METABOLIC ALVAREZ EL, COMPREHENSIVE ([id number]) Indication:Diabetes mellitus type II, controlled, with no complications Start:29-Sep-2018 Instruction Type:Patient Education DISCONTINUED - HGB A1C ([id number] 6) Indication:Diabetes mellitus type II, controlled, with no complications Start:29-Sep-2018 Instruction Type:Patient Education How to access health informa tion online Indication:Diabetes mellitus type II, controlled, with no complications Start:29-Sep-2018 Instruction Type:Patient Education How to access health informa tion online - Detail Indication:Diabetes mellitus type II, controlled, with no complications Start:29-Sep-2018 Instruction Type:Patient Education Patient Instructions Indication:Vitamin D deficiency Start:29-Sep-2018 Instruction Type:Provider Instructions for Treatment How to access health informa tion online Indication:Diabetes mellitus type II, controlled, with no complications Start:26-May-2018 Instruction Type:Patient Education How to access health informa tion online - Detail Indication:Diabetes mellitus type II, controlled, with no complications Start:26-May-2018 Instruction Type:Patient Education Patient Instructions Indication:Diabetes mellitus type II, controlled, with no complications Start:26-May-2018 Instruction Type:Provider Instructions for Treatment How to access health informa tion online Indication:Diabetes mellitus type II, controlled, with no complications Start:30-Dec-2017 Instruction Type:Patient Education How to access health informa tion online - Detail Indication:Diabetes mellitus type II, controlled, with no complications Start:30-Dec-2017 Instruction Type:Patient Education Patient Instructions Indication:BMI 38.0-38.9,adult Start:30-Dec-2017 Instruction Type:Provider Instructions for Treatment How to access health informa tion online Indication:Diabetes mellitus type II, controlled, with no complications Start:16-Sep-2017 Instruction Type:Patient Education How to access health informa tion online - Detail Indication:Diabetes mellitus type II, controlled, with no complications Start:16-Sep-2017 Instruction Type:Patient Education Patient Instructions Indication:BMI 39.0-39.9,adult Start:16-Sep-2017 Instruction Type:Provider Instructions for Treatment DISCONTINUED - CBC, PLATELET S & AUT DIFF ([id number]) Indication:Diabetes mellitus type II, controlled, with no complications Start:07-Jan-2017 Instruction Type:Patient Education DISCONTINUED - RENAL FUNCTIO N PANEL ([id number]) Indication:Diabetes mellitus type II, controlled, with no complications Start:07-Jan-2017 Instruction Type:Patient Education DISCONTINUED - HGB A1C (8303 [id number]) Indication:Diabetes mellitus type II, controlled, with no complications Start:07-Jan-2017 Instruction Type:Patient Education How to access health informa tion online Indication:Low back pain radiating to left leg Start:07-Jan-2017 Instruction Type:Patient Education How to access health informa tion online - Detail Indication:Low back pain radiating to left leg Start:07-Jan-2017 Instruction Type:Patient Education Patient Instructions Indication:Low back pain radiating to left leg Start:07-Jan-2017 Instruction Type:Provider Instructions for Treatment Patient Instructions Indication:Nonsmoker Start:20-Aug-2016 Instruction Type:Provider Instructions for Treatment How to access health informa tion online Indication:Mixed hyperlipidemia Start:21-Nov-2015 Instruction Type:Patient Education How to access health informa tion online - Detail Indication:Mixed hyperlipidemia Start:21-Nov-2015 Instruction Type:Patient Education Patient Instructions Indication:Mixed hyperlipidemia Start:21-Nov-2015 Instruction Type:Provider Instructions for Treatment Patient Instructions Indication:Diabetes mellitus type II, controlled, with no complications Start:05-Apr-2015 Instruction Type:Provider Instructions for Treatment Patient Instructions Indication:Cough Start:21-Oct-2014 Instruction Type:Provider Instructions for Treatment Patient Instructions Indication:Diabetes mellitus type II, controlled, with no complications Start:08-Mar-2014 Instruction Type:Provider Instructions for Treatment Patient Instructions Indication:Diabetes mellitus type II, controlled, with no complications Start:30-Nov-2013 Instruction Type:Provider Instructions for Treatment Patient Instructions Indication:Physical exam Start:25-May-2013 Instruction Type:Provider Instructions for Treatment Patient Instructions Indication:Diabetes mellitus type II, controlled, with no complications Start:09-Feb-2013 Instruction Type:Provider Instructions for Treatment Patient Instructions Indication:Diabetes mellitus type II, controlled, with no complications Start:01-Sep-2012 Instruction Type:Provider Instructions for Treatment [facility]; [facility] Work Phone: Instructions* Name Dates Details Patient Instructions Indication:BMI 37.0-37.9, adult Start:17-Jul-2021 Instruction Type:Provider Instructions for Treatment How to Access Health Informa tion Online using Patient Portal and [employer]rd [employer] Apps Indication:BMI 37.0-37.9, adult Start:17-Jul-2021 Instruction Type:Patient Education Patient Instructions Indication:BMI 37.0-37.9, adult Start:11-Jul-2021 Instruction Type:Provider Instructions for Treatment How to Access Health Informa tion Online using Patient Portal and [employer]rd [employer] Apps Indication:BMI 37.0-37.9, adult Start:11-Jul-2021 Instruction Type:Patient Education Patient Instructions Indication:Nonsmoker Start:15-May-2021 Instruction Type:Provider Instructions for Treatment How to Access Health Informa tion Online using Patient Portal and [employer]rd [employer] Apps Indication:Nonsmoker Start:15-May-2021 Instruction Type:Patient Education Patient Instructions Indication:Nonsmoker Start:04-Apr-2021 Instruction Type:Provider Instructions for Treatment How to Access Health Informa tion Online using Patient Portal and [employer]rd [employer] Apps Indication:Nonsmoker Start:1-Hernando-2021 Instruction Type:Patient Education Patient Instructions Indication:BMI 39.0-39.9,adult Start:20-Mar-2021 Instruction Type:Provider Instructions for Treatment How to Access Health Informa tion Online using Patient Portal and [employer]rd [employer] Apps Indication:Diabetes mellitus type II, controlled, with no complications Start:20-Mar-2021 Instruction Type:Patient Education How to access health informa tion online Indication:Nonsmoker Start:12-Sep-2020 Instruction Type:Patient Education How to access health informa tion online - Detail Indication:Nonsmoker Start:12-Sep-2020 Instruction Type:Patient Education Patient Instructions Indication:Nonsmoker Start:12-Sep-2020 Instruction Type:Provider Instructions for Treatment How to access health informa tion online Indication:BMI 39.0-39.9,adult Start:10-Feb-2020 Instruction Type:Patient Education How to access health informa tion online - Detail Indication:BMI 39.0-39.9,adult Start:10-Feb-2020 Instruction Type:Patient Education Patient Instructions Indication:BMI 39.0-39.9,adult Start:10-Feb-2020 Instruction Type:Provider Instructions for Treatment Patient Instructions Indication:Nonsmoker Start:29-Jun-2019 Instruction Type:Provider Instructions for Treatment How to access health informa tion online Indication:Diabetes mellitus type II, controlled, with no complications Start:29-Jun-2019 Instruction Type:Patient Education How to access health informa tion online - Detail Indication:Diabetes mellitus type II, controlled, with no complications Start:29-Jun-2019 Instruction Type:Patient Education Patient Instructions Indication:Diabetes mellitus type II, controlled, with no complications Start:29-Jun-2019 Instruction Type:Provider Instructions for Treatment How to access health informa tion online Indication:Diabetes mellitus type II, controlled, with no complications Start:09-Mar-2019 Instruction Type:Patient Education How to access health informa tion online - Detail Indication:Diabetes mellitus type II, controlled, with no complications Start:09-Mar-2019 Instruction Type:Patient Education Patient Instructions Indication:Screening PSA (prostate specific antigen) Start:09-Mar-2019 Instruction Type:Provider Instructions for Treatment How to access health informa tion online Indication:Nonsmoker Start:16-Feb-2019 Instruction Type:Patient Education How to access health informa tion online - Detail Indication:Nonsmoker Start:16-Feb-2019 Instruction Type:Patient Education Patient Instructions Indication:Upper respiratory infection, acute Start:16-Feb-2019 Instruction Type:Provider Instructions for Treatment How to access health informa tion online Indication:Nonsmoker Start:12-Jan-2019 Instruction Type:Patient Education How to access health informa tion online - Detail Indication:Nonsmoker Start:12-Jan-2019 Instruction Type:Patient Education Patient Instructions Indication:Nonsmoker Start:12-Jan-2019 Instruction Type:Provider Instructions for Treatment How to access health informa tion online Indication:Nonsmoker Start:15-Dec-2018 Instruction Type:Patient Education How to access health informa tion online - Detail Indication:Nonsmoker Start:15-Dec-2018 Instruction Type:Patient Education Patient Instructions Indication:Iliotibial band tendonitis, left Start:15-Dec-2018 Instruction Type:Provider Instructions for Treatment DISCONTINUED - METABOLIC ALVAREZ EL, COMPREHENSIVE ([id number]) Indication:Diabetes mellitus type II, controlled, with no complications Start:29-Sep-2018 Instruction Type:Patient Education DISCONTINUED - HGB A1C (8303 [id number]) Indication:Diabetes mellitus type II, controlled, with no complications Start:29-Sep-2018 Instruction Type:Patient Education How to access health informa tion online Indication:Diabetes mellitus type II, controlled, with no complications Start:29-Sep-2018 Instruction Type:Patient Education How to access health informa tion online - Detail Indication:Diabetes mellitus type II, controlled, with no complications Start:29-Sep-2018 Instruction Type:Patient Education Patient Instructions Indication:Vitamin D deficiency Start:29-Sep-2018 Instruction Type:Provider Instructions for Treatment How to access health informa tion online Indication:Diabetes mellitus type II, controlled, with no complications Start:26-May-2018 Instruction Type:Patient Education How to access health informa tion online - Detail Indication:Diabetes mellitus type II, controlled, with no complications Start:26-May-2018 Instruction Type:Patient Education Patient Instructions Indication:Diabetes mellitus type II, controlled, with no complications Start:26-May-2018 Instruction Type:Provider Instructions for Treatment How to access health informa tion online Indication:Diabetes mellitus type II, controlled, with no complications Start:30-Dec-2017 Instruction Type:Patient Education How to access health informa tion online - Detail Indication:Diabetes mellitus type II, controlled, with no complications Start:30-Dec-2017 Instruction Type:Patient Education Patient Instructions Indication:BMI 38.0-38.9,adult Start:30-Dec-2017 Instruction Type:Provider Instructions for Treatment How to access health informa tion online Indication:Diabetes mellitus type II, controlled, with no complications Start:16-Sep-2017 Instruction Type:Patient Education How to access health informa tion online - Detail Indication:Diabetes mellitus type II, controlled, with no complications Start:16-Sep-2017 Instruction Type:Patient Education Patient Instructions Indication:BMI 39.0-39.9,adult Start:16-Sep-2017 Instruction Type:Provider Instructions for Treatment DISCONTINUED - CBC, PLATELET S & AUT DIFF ([id number]) Indication:Diabetes mellitus type II, controlled, with no complications Start:07-Jan-2017 Instruction Type:Patient Education DISCONTINUED - RENAL FUNCTIO N PANEL ([id number]) Indication:Diabetes mellitus type II, controlled, with no complications Start:07-Jan-2017 Instruction Type:Patient Education DISCONTINUED - HGB A1C (8303 6) Indication:Diabetes mellitus type II, controlled, with no complications Start:07-Jan-2017 Instruction Type:Patient Education How to access health informa tion online Indication:Low back pain radiating to left leg Start:07-Jan-2017 Instruction Type:Patient Education How to access health informa tion online - Detail Indication:Low back pain radiating to left leg Start:07-Jan-2017 Instruction Type:Patient Education Patient Instructions Indication:Low back pain radiating to left leg Start:07-Jan-2017 Instruction Type:Provider Instructions for Treatment Patient Instructions Indication:Nonsmoker Start:20-Aug-2016 Instruction Type:Provider Instructions for Treatment How to access health informa tion online Indication:Mixed hyperlipidemia Start:21-Nov-2015 Instruction Type:Patient Education How to access health informa tion online - Detail Indication:Mixed hyperlipidemia Start:21-Nov-2015 Instruction Type:Patient Education Patient Instructions Indication:Mixed hyperlipidemia Start:21-Nov-2015 Instruction Type:Provider Instructions for Treatment Patient Instructions Indication:Diabetes mellitus type II, controlled, with no complications Start:05-Apr-2015 Instruction Type:Provider Instructions for Treatment Patient Instructions Indication:Cough Start:21-Oct-2014 Instruction Type:Provider Instructions for Treatment Patient Instructions Indication:Diabetes mellitus type II, controlled, with no complications Start:08-Mar-2014 Instruction Type:Provider Instructions for Treatment Patient Instructions Indication:Diabetes mellitus type II, controlled, with no complications Start:30-Nov-2013 Instruction Type:Provider Instructions for Treatment Patient Instructions Indication:Physical exam Start:25-May-2013 Instruction Type:Provider Instructions for Treatment Patient Instructions Indication:Diabetes mellitus type II, controlled, with no complications Start:09-Feb-2013 Instruction Type:Provider Instructions for Treatment Patient Instructions Indication:Diabetes mellitus type II, controlled, with no complications Start:01-Sep-2012 Instruction Type:Provider Instructions for Treatment [facility]; [facility] Work Phone: Instructions* Name Dates Details Patient Instructions Indication:BMI 37.0-37.9, adult Start:17-Jul-2021 Instruction Type:Provider Instructions for Treatment How to Access Health Informa tion Online using Patient Portal and [employer]rd [employer] Apps Indication:BMI 37.0-37.9, adult Start:17-Jul-2021 Instruction Type:Patient Education Patient Instructions Indication:BMI 37.0-37.9, adult Start:11-Jul-2021 Instruction Type:Provider Instructions for Treatment How to Access Health Informa tion Online using Patient Portal and [employer]rd [employer] Apps Indication:BMI 37.0-37.9, adult Start:11-Jul-2021 Instruction Type:Patient Education Patient Instructions Indication:Nonsmoker Start:15-May-2021 Instruction Type:Provider Instructions for Treatment How to Access Health Informa tion Online using Patient Portal and [employer]rd [employer] Apps Indication:Nonsmoker Start:15-May-2021 Instruction Type:Patient Education Patient Instructions Indication:Nonsmoker Start:04-Apr-2021 Instruction Type:Provider Instructions for Treatment How to Access Health Informa tion Online using Patient Portal and [employer]rd [employer] Apps Indication:Nonsmoker Start:04-Apr-2021 Instruction Type:Patient Education Patient Instructions Indication:BMI 39.0-39.9,adult Start:20-Mar-2021 Instruction Type:Provider Instructions for Treatment How to Access Health Informa tion Online using Patient Portal and [employer]rd [employer] Apps Indication:Diabetes mellitus type II, controlled, with no complications Start:20-Mar-2021 Instruction Type:Patient Education How to access health informa tion online Indication:Nonsmoker Start:12-Sep-2020 Instruction Type:Patient Education How to access health informa tion online - Detail Indication:Nonsmoker Start:12-Sep-2020 Instruction Type:Patient Education Patient Instructions Indication:Nonsmoker Start:12-Sep-2020 Instruction Type:Provider Instructions for Treatment How to access health informa tion online Indication:BMI 39.0-39.9,adult Start:10-Feb-2020 Instruction Type:Patient Education How to access health informa tion online - Detail Indication:BMI 39.0-39.9,adult Start:10-Feb-2020 Instruction Type:Patient Education Patient Instructions Indication:BMI 39.0-39.9,adult Start:10-Feb-2020 Instruction Type:Provider Instructions for Treatment Patient Instructions Indication:Nonsmoker Start:29-Jun-2019 Instruction Type:Provider Instructions for Treatment How to access health informa tion online Indication:Diabetes mellitus type II, controlled, with no complications Start:29-Jun-2019 Instruction Type:Patient Education How to access health informa tion online - Detail Indication:Diabetes mellitus type II, controlled, with no complications Start:29-Jun-2019 Instruction Type:Patient Education Patient Instructions Indication:Diabetes mellitus type II, controlled, with no complications Start:29-Jun-2019 Instruction Type:Provider Instructions for Treatment How to access health informa tion online Indication:Diabetes mellitus type II, controlled, with no complications Start:09-Mar-2019 Instruction Type:Patient Education How to access health informa tion online - Detail Indication:Diabetes mellitus type II, controlled, with no complications Start:09-Mar-2019 Instruction Type:Patient Education Patient Instructions Indication:Screening PSA (prostate specific antigen) Start:09-Mar-2019 Instruction Type:Provider Instructions for Treatment How to access health informa tion online Indication:Nonsmoker Start:16-Feb-2019 Instruction Type:Patient Education How to access health informa tion online - Detail Indication:Nonsmoker Start:16-Feb-2019 Instruction Type:Patient Education Patient Instructions Indication:Upper respiratory infection, acute Start:16-Feb-2019 Instruction Type:Provider Instructions for Treatment How to access health informa tion online Indication:Nonsmoker Start:12-Jan-2019 Instruction Type:Patient Education How to access health informa tion online - Detail Indication:Nonsmoker Start:12-Jan-2019 Instruction Type:Patient Education Patient Instructions Indication:Nonsmoker Start:12-Jan-2019 Instruction Type:Provider Instructions for Treatment How to access health informa tion online Indication:Nonsmoker Start:15-Dec-2018 Instruction Type:Patient Education How to access health informa tion online - Detail Indication:Nonsmoker Start:15-Dec-2018 Instruction Type:Patient Education Patient Instructions Indication:Iliotibial band tendonitis, left Start:15-Dec-2018 Instruction Type:Provider Instructions for Treatment DISCONTINUED - METABOLIC ALVAREZ EL, COMPREHENSIVE ([id number]) Indication:Diabetes mellitus type II, controlled, with no complications Start:29-Sep-2018 Instruction Type:Patient Education DISCONTINUED - HGB A1C (8303 6) Indication:Diabetes mellitus type II, controlled, with no complications Start:29-Sep-2018 Instruction Type:Patient Education How to access health informa tion online Indication:Diabetes mellitus type II, controlled, with no complications Start:29-Sep-2018 Instruction Type:Patient Education How to access health informa tion online - Detail Indication:Diabetes mellitus type II, controlled, with no complications Start:29-Sep-2018 Instruction Type:Patient Education Patient Instructions Indication:Vitamin D deficiency Start:29-Sep-2018 Instruction Type:Provider Instructions for Treatment How to access health informa tion online Indication:Diabetes mellitus type II, controlled, with no complications Start:26-May-2018 Instruction Type:Patient Education How to access health informa tion online - Detail Indication:Diabetes mellitus type II, controlled, with no complications Start:26-May-2018 Instruction Type:Patient Education Patient Instructions Indication:Diabetes mellitus type II, controlled, with no complications Start:26-May-2018 Instruction Type:Provider Instructions for Treatment How to access health informa tion online Indication:Diabetes mellitus type II, controlled, with no complications Start:30-Dec-2017 Instruction Type:Patient Education How to access health informa tion online - Detail Indication:Diabetes mellitus type II, controlled, with no complications Start:30-Dec-2017 Instruction Type:Patient Education Patient Instructions Indication:BMI 38.0-38.9,adult Start:30-Dec-2017 Instruction Type:Provider Instructions for Treatment How to access health informa tion online Indication:Diabetes mellitus type II, controlled, with no complications Start:16-Sep-2017 Instruction Type:Patient Education How to access health informa tion online - Detail Indication:Diabetes mellitus type II, controlled, with no complications Start:16-Sep-2017 Instruction Type:Patient Education Patient Instructions Indication:BMI 39.0-39.9,adult Start:16-Sep-2017 Instruction Type:Provider Instructions for Treatment DISCONTINUED - CBC, PLATELET S & AUT DIFF ([id number]) Indication:Diabetes mellitus type II, controlled, with no complications Start:07-Jan-2017 Instruction Type:Patient Education DISCONTINUED - RENAL FUNCTIO N PANEL ([id number]) Indication:Diabetes mellitus type II, controlled, with no complications Start:07-Jan-2017 Instruction Type:Patient Education DISCONTINUED - HGB A1C (8303 6) Indication:Diabetes mellitus type II, controlled, with no complications Start:07-Jan-2017 Instruction Type:Patient Education How to access health informa tion online Indication:Low back pain radiating to left leg Start:07-Jan-2017 Instruction Type:Patient Education How to access health informa tion online - Detail Indication:Low back pain radiating to left leg Start:07-Jan-2017 Instruction Type:Patient Education Patient Instructions Indication:Low back pain radiating to left leg Start:07-Jan-2017 Instruction Type:Provider Instructions for Treatment Patient Instructions Indication:Nonsmoker Start:20-Aug-2016 Instruction Type:Provider Instructions for Treatment How to access [employer] online Indication:Mixed hyperlipidemia Start:21-Nov-2015 Instruction Type:Patient Education How to access health informa tion online - Detail Indication:Mixed hyperlipidemia Start:21-Nov-2015 Instruction Type:Patient Education Patient Instructions Indication:Mixed hyperlipidemia Start:21-Nov-2015 Instruction Type:Provider Instructions for Treatment Patient Instructions Indication:Diabetes mellitus type II, controlled, with no complications Start:05-Apr-2015 Instruction Type:Provider Instructions for Treatment Patient Instructions Indication:Cough Start:21-Oct-2014 Instruction Type:Provider Instructions for Treatment Patient Instructions Indication:Diabetes mellitus type II, controlled, with no complications Start:08-Mar-2014 Instruction Type:Provider Instructions for Treatment Patient Instructions Indication:Diabetes mellitus type II, controlled, with no complications Start:30-Nov-2013 Instruction Type:Provider Instructions for Treatment Patient Instructions Indication:Physical exam Start:25-May-2013 Instruction Type:Provider Instructions for Treatment Patient Instructions Indication:Diabetes mellitus type II, controlled, with no complications Start:09-Feb-2013 Instruction Type:Provider Instructions for Treatment Patient Instructions Indication:Diabetes mellitus type II, controlled, with no complications Start:01-Sep-2012 Instruction Type:Provider Instructions for Treatment [facility]; [facility] Work Phone: Instructions* Name Dates Details DISCONTINUED - URINALYSIS, AUTOMATED W/ MICRO ([id number]) Indication:Diabetes mellitus type II, controlled, with no complications Start:31-Oct-2022 Instruction Type:Patient Education DISCONTINUED - MICROALBUMIN: CREATININE RATIO ([id number]) AND ([id number]) Indication:Diabetes mellitus type II, controlled, with no complications Start:31-Oct-2022 Instruction Type:Patient Education DISCONTINUED - TSH (THYROID STIMULATING HORMONE) ([id number]) Indication:Diabetes mellitus type II, controlled, with no complications Start:31-Oct-2022 Instruction Type:Patient Education DISCONTINUED - LIPID PANEL ( [id number]) Indication:Diabetes mellitus type II, controlled, with no complications Start:31-Oct-2022 Instruction Type:Patient Education DISCONTINUED - METABOLIC ALVAREZ EL, COMPREHENSIVE ([id number]) Indication:Diabetes mellitus type II, controlled, with no complications Start:31-Oct-2022 Instruction Type:Patient Education DISCONTINUED - CBC, PLATELET S & AUT DIFF ([id number]) Indication:Diabetes mellitus type II, controlled, with no complications Start:31-Oct-2022 Instruction Type:Patient Education DISCONTINUED - METABOLIC ALVAREZ EL, COMPREHENSIVE ([id number]) Indication:Diabetes mellitus type II, controlled, with no complications Start:31-Oct-2022 Instruction Type:Patient Education Patient Instructions Indication:Diabetes mellitus type II, controlled, with no complications Start:30-Oct-2022 Instruction Type:Provider Instructions for Treatment How to Access Health Informa tion Online using Patient Portal and [employer]rd [employer] Apps Indication:Diabetes mellitus type II, controlled, with no complications Start:30-Oct-2022 Instruction Type:Patient Education Patient Instructions Indication:BMI 37.0-37.9, adult Start:17-Jul-2021 Instruction Type:Provider Instructions for Treatment How to Access Health Informa tion Online using Patient Portal and [employer]rd [employer] Apps Indication:BMI 37.0-37.9, adult Start:17-Jul-2021 Instruction Type:Patient Education Patient Instructions Indication:BMI 37.0-37.9, adult Start:11-Jul-2021 Instruction Type:Provider Instructions for Treatment How to Access Health Informa tion Online using Patient Portal and [employer]rd [employer] Apps Indication:BMI 37.0-37.9, adult Start:11-Jul-2021 Instruction Type:Patient Education Patient Instructions Indication:Nonsmoker Start:15-May-2021 Instruction Type:Provider Instructions for Treatment How to Access Health Informa tion Online using Patient Portal and [employer]rd [employer] Apps Indication:Nonsmoker Start:15-May-2021 Instruction Type:Patient Education Patient Instructions Indication:Nonsmoker Start:04-Apr-2021 Instruction Type:Provider Instructions for Treatment How to Access Health Informa tion Online using Patient Portal and [employer]rd [employer] Apps Indication:Nonsmoker Start:04-Apr-2021 Instruction Type:Patient Education Patient Instructions Indication:BMI 39.0-39.9,adult Start:20-Mar-2021 Instruction Type:Provider Instructions for Treatment How to Access Health Informa tion Online using Patient Portal and [employer]rd [employer] Apps Indication:Diabetes mellitus type II, controlled, with no complications Start:20-Mar-2021 Instruction Type:Patient Education How to access health informa tion online Indication:Nonsmoker Start:12-Sep-2020 Instruction Type:Patient Education How to access health informa tion online - Detail Indication:Nonsmoker Start:12-Sep-2020 Instruction Type:Patient Education Patient Instructions Indication:Nonsmoker Start:12-Sep-2020 Instruction Type:Provider Instructions for Treatment How to access health informa tion online Indication:BMI 39.0-39.9,adult Start:10-Feb-2020 Instruction Type:Patient Education How to access health informa tion online - Detail Indication:BMI 39.0-39.9,adult Start:10-Feb-2020 Instruction Type:Patient Education Patient Instructions Indication:BMI 39.0-39.9,adult Start:10-Feb-2020 Instruction Type:Provider Instructions for Treatment Patient Instructions Indication:Nonsmoker Start:29-Jun-2019 Instruction Type:Provider Instructions for Treatment How to access health informa tion online Indication:Diabetes mellitus type II, controlled, with no complications Start:29-Jun-2019 Instruction Type:Patient Education How to access health informa tion online - Detail Indication:Diabetes mellitus type II, controlled, with no complications Start:29-Jun-2019 Instruction Type:Patient Education Patient Instructions Indication:Diabetes mellitus type II, controlled, with no complications Start:29-Jun-2019 Instruction Type:Provider Instructions for Treatment How to access health informa tion online Indication:Diabetes mellitus type II, controlled, with no complications Start:09-Mar-2019 Instruction Type:Patient Education How to access health informa tion online - Detail Indication:Diabetes mellitus type II, controlled, with no complications Start:09-Mar-2019 Instruction Type:Patient Education Patient Instructions Indication:Screening PSA (prostate specific antigen) Start:09-Mar-2019 Instruction Type:Provider Instructions for Treatment How to access health informa tion online Indication:Nonsmoker Start:16-Feb-2019 Instruction Type:Patient Education How to access health informa tion online - Detail Indication:Nonsmoker Start:16-Feb-2019 Instruction Type:Patient Education Patient Instructions Indication:Upper respiratory infection, acute Start:16-Feb-2019 Instruction Type:Provider Instructions for Treatment How to access health informa tion online Indication:Nonsmoker Start:12-Jan-2019 Instruction Type:Patient Education How to access health informa tion online - Detail Indication:Nonsmoker Start:12-Jan-2019 Instruction Type:Patient Education Patient Instructions Indication:Nonsmoker Start:12-Jan-2019 Instruction Type:Provider Instructions for Treatment How to access health informa tion online Indication:Nonsmoker Start:15-Dec-2018 Instruction Type:Patient Education How to access health informa tion online - Detail Indication:Nonsmoker Start:15-Dec-2018 Instruction Type:Patient Education Patient Instructions Indication:Iliotibial band tendonitis, left Start:15-Dec-2018 Instruction Type:Provider Instructions for Treatment DISCONTINUED - METABOLIC ALVAREZ EL, COMPREHENSIVE ([id number]) Indication:Diabetes mellitus type II, controlled, with no complications Start:29-Sep-2018 Instruction Type:Patient Education DISCONTINUED - HGB A1C ([id number]) Indication:Diabetes mellitus type II, controlled, with no complications Start:29-Sep-2018 Instruction Type:Patient Education How to access health informa tion online Indication:Diabetes mellitus type II, controlled, with no complications Start:29-Sep-2018 Instruction Type:Patient Education How to access health informa tion online - Detail Indication:Diabetes mellitus type II, controlled, with no complications Start:29-Sep-2018 Instruction Type:Patient Education Patient Instructions Indication:Vitamin D deficiency Start:29-Sep-2018 Instruction Type:Provider Instructions for Treatment How to access health informa tion online Indication:Diabetes mellitus type II, controlled, with no complications Start:26-May-2018 Instruction Type:Patient Education How to access health informa tion online - Detail Indication:Diabetes mellitus type II, controlled, with no complications Start:26-May-2018 Instruction Type:Patient Education Patient Instructions Indication:Diabetes mellitus type II, controlled, with no complications Start:26-May-2018 Instruction Type:Provider Instructions for Treatment How to access health informa tion online Indication:Diabetes mellitus type II, controlled, with no complications Start:30-Dec-2017 Instruction Type:Patient Education How to access health informa tion online - Detail Indication:Diabetes mellitus type II, controlled, with no complications Start:30-Dec-2017 Instruction Type:Patient Education Patient Instructions Indication:BMI 38.0-38.9,adult Start:30-Dec-2017 Instruction Type:Provider Instructions for Treatment How to access health informa tion online Indication:Diabetes mellitus type II, controlled, with no complications Start:16-Sep-2017 Instruction Type:Patient Education How to access health informa tion online - Detail Indication:Diabetes mellitus type II, controlled, with no complications Start:16-Sep-2017 Instruction Type:Patient Education Patient Instructions Indication:BMI 39.0-39.9,adult Start:16-Sep-2017 Instruction Type:Provider Instructions for Treatment DISCONTINUED - CBC, PLATELET S & AUT DIFF ([id number]) Indication:Diabetes mellitus type II, controlled, with no complications Start:07-Jan-2017 Instruction Type:Patient Education DISCONTINUED - RENAL FUNCTIO N PANEL ([id number]) Indication:Diabetes mellitus type II, controlled, with no complications Start:07-Jan-2017 Instruction Type:Patient Education DISCONTINUED - HGB A1C (8303 [id number]) Indication:Diabetes mellitus type II, controlled, with no complications Start:07-Jan-2017 Instruction Type:Patient Education How to access health informa tion online Indication:Low back pain radiating to left leg Start:07-Jan-2017 Instruction Type:Patient Education How to access health informa tion online - Detail Indication:Low back pain radiating to left leg Start:07-Jan-2017 Instruction Type:Patient Education Patient Instructions Indication:Low back pain radiating to left leg Start:07-Jan-2017 Instruction Type:Provider Instructions for Treatment Patient Instructions Indication:Nonsmoker Start:20-Aug-2016 Instruction Type:Provider Instructions for Treatment How to access health informa tion online Indication:Mixed hyperlipidemia Start:21-Nov-2015 Instruction Type:Patient Education How to access health informa tion online - Detail Indication:Mixed hyperlipidemia Start:21-Nov-2015 Instruction Type:Patient Education Patient Instructions Indication:Mixed hyperlipidemia Start:21-Nov-2015 Instruction Type:Provider Instructions for Treatment Patient Instructions Indication:Diabetes mellitus type II, controlled, with no complications Start:05-Apr-2015 Instruction Type:Provider Instructions for Treatment Patient Instructions Indication:Cough Start:21-Oct-2014 Instruction Type:Provider Instructions for Treatment Patient Instructions Indication:Diabetes mellitus type II, controlled, with no complications Start:08-Mar-2014 Instruction Type:Provider Instructions for Treatment Patient Instructions Indication:Diabetes mellitus type II, controlled, with no complications Start:30-Nov-2013 Instruction Type:Provider Instructions for Treatment Patient Instructions Indication:Physical exam Start:25-May-2013 Instruction Type:Provider Instructions for Treatment Patient Instructions Indication:Diabetes mellitus type II, controlled, with no complications Start:09-Feb-2013 Instruction Type:Provider Instructions for Treatment Patient Instructions Indication:Diabetes mellitus type II, controlled, with no complications Start:01-Sep-2012 Instruction Type:Provider Instructions for Treatment [facility] Work Phone: Instructions* Name Dates Details DISCONTINUED - URINALYSIS, AUTOMATED W/ MICRO ([id number]) Indication:Diabetes mellitus type II, controlled, with no complications Start:31-Oct-2022 Instruction Type:Patient Education DISCONTINUED - MICROALBUMIN: CREATININE RATIO ([id number]) AND ([id number]) Indication:Diabetes mellitus type II, controlled, with no complications Start:31-Oct-2022 Instruction Type:Patient Education DISCONTINUED - TSH (THYROID STIMULATING HORMONE) ([id number]) Indication:Diabetes mellitus type II, controlled, with no complications Start:31-Oct-2022 Instruction Type:Patient Education DISCONTINUED - LIPID PANEL ( [id number]) Indication:Diabetes mellitus type II, controlled, with no complications Start:31-Oct-2022 Instruction Type:Patient Education DISCONTINUED - METABOLIC ALVAREZ EL, COMPREHENSIVE ([id number]) Indication:Diabetes mellitus type II, controlled, with no complications Start:31-Oct-2022 Instruction Type:Patient Education DISCONTINUED - CBC, PLATELET S & AUT DIFF ([id number]) Indication:Diabetes mellitus type II, controlled, with no complications Start:31-Oct-2022 Instruction Type:Patient Education DISCONTINUED - METABOLIC ALVAREZ EL, COMPREHENSIVE ([id number]) Indication:Diabetes mellitus type II, controlled, with no complications Start:31-Oct-2022 Instruction Type:Patient Education Patient Instructions Indication:Diabetes mellitus type II, controlled, with no complications Start:30-Oct-2022 Instruction Type:Provider Instructions for Treatment How to Access Health Informa tion Online using Patient Portal and [employer]rd [employer] Apps Indication:Diabetes mellitus type II, controlled, with no complications Start:30-Oct-2022 Instruction Type:Patient Education Patient Instructions Indication:BMI 37.0-37.9, adult Start:17-Jul-2021 Instruction Type:Provider Instructions for Treatment How to Access Health Informa tion Online using Patient Portal and [employer]rd [employer] Apps Indication:BMI 37.0-37.9, adult Start:17-Jul-2021 Instruction Type:Patient Education Patient Instructions Indication:BMI 37.0-37.9, adult Start:11-Jul-2021 Instruction Type:Provider Instructions for Treatment How to Access Health Informa tion Online using Patient Portal and [employer]rd [employer] Apps Indication:BMI 37.0-37.9, adult Start:11-Jul-2021 Instruction Type:Patient Education Patient Instructions Indication:Nonsmoker Start:15-May-2021 Instruction Type:Provider Instructions for Treatment How to Access Health Informa tion Online using Patient Portal and [employer]rd [employer] Apps Indication:Nonsmoker Start:15-May-2021 Instruction Type:Patient Education Patient Instructions Indication:Nonsmoker Start:04-Apr-2021 Instruction Type:Provider Instructions for Treatment How to Access Health Informa tion Online using Patient Portal and [employer] Apps Indication:Nonsmoker Start:04-Apr-2021 Instruction Type:Patient Education Patient Instructions Indication:BMI 39.0-39.9,adult Start:20-Mar-2021 Instruction Type:Provider Instructions for Treatment How to Access Health Informa tion Online using Patient Portal and [employer]rd [employer] Apps Indication:Diabetes mellitus type II, controlled, with no complications Start:20-Mar-2021 Instruction Type:Patient Education How to access health informa tion online Indication:Nonsmoker Start:12-Sep-2020 Instruction Type:Patient Education How to access health informa tion online - Detail Indication:Nonsmoker Start:12-Sep-2020 Instruction Type:Patient Education Patient Instructions Indication:Nonsmoker Start:12-Sep-2020 Instruction Type:Provider Instructions for Treatment How to access health informa tion online Indication:BMI 39.0-39.9,adult Start:10-Feb-2020 Instruction Type:Patient Education How to access health informa tion online - Detail Indication:BMI 39.0-39.9,adult Start:10-Feb-2020 Instruction Type:Patient Education Patient Instructions Indication:BMI 39.0-39.9,adult Start:10-Feb-2020 Instruction Type:Provider Instructions for Treatment Patient Instructions Indication:Nonsmoker Start:29-Jun-2019 Instruction Type:Provider Instructions for Treatment How to access health informa tion online Indication:Diabetes mellitus type II, controlled, with no complications Start:29-Jun-2019 Instruction Type:Patient Education How to access health informa tion online - Detail Indication:Diabetes mellitus type II, controlled, with no complications Start:29-Jun-2019 Instruction Type:Patient Education Patient Instructions Indication:Diabetes mellitus type II, controlled, with no complications Start:29-Jun-2019 Instruction Type:Provider Instructions for Treatment How to access health informa tion online Indication:Diabetes mellitus type II, controlled, with no complications Start:09-Mar-2019 Instruction Type:Patient Education How to access health informa tion online - Detail Indication:Diabetes mellitus type II, controlled, with no complications Start:09-Mar-2019 Instruction Type:Patient Education Patient Instructions Indication:Screening PSA (prostate specific antigen) Start:09-Mar-2019 Instruction Type:Provider Instructions for Treatment How to access health informa tion online Indication:Nonsmoker Start:16-Feb-2019 Instruction Type:Patient Education How to access health informa tion online - Detail Indication:Nonsmoker Start:16-Feb-2019 Instruction Type:Patient Education Patient Instructions Indication:Upper respiratory infection, acute Start:16-Feb-2019 Instruction Type:Provider Instructions for Treatment How to access health informa tion online Indication:Nonsmoker Start:12-Jan-2019 Instruction Type:Patient Education How to access health informa tion online - Detail Indication:Nonsmoker Start:12-Jan-2019 Instruction Type:Patient Education Patient Instructions Indication:Nonsmoker Start:12-Jan-2019 Instruction Type:Provider Instructions for Treatment How to access health informa tion online Indication:Nonsmoker Start:15-Dec-2018 Instruction Type:Patient Education How to access health informa tion online - Detail Indication:Nonsmoker Start:15-Dec-2018 Instruction Type:Patient Education Patient Instructions Indication:Iliotibial band tendonitis, left Start:15-Dec-2018 Instruction Type:Provider Instructions for Treatment DISCONTINUED - METABOLIC ALVAREZ EL, COMPREHENSIVE ([id number]) Indication:Diabetes mellitus type II, controlled, with no complications Start:29-Sep-2018 Instruction Type:Patient Education DISCONTINUED - HGB A1C ([id number]) Indication:Diabetes mellitus type II, controlled, with no complications Start:29-Sep-2018 Instruction Type:Patient Education How to access health informa tion online Indication:Diabetes mellitus type II, controlled, with no complications Start:29-Sep-2018 Instruction Type:Patient Education How to access health informa tion online - Detail Indication:Diabetes mellitus type II, controlled, with no complications Start:29-Sep-2018 Instruction Type:Patient Education Patient Instructions Indication:Vitamin D deficiency Start:29-Sep-2018 Instruction Type:Provider Instructions for Treatment How to access health informa tion online Indication:Diabetes mellitus type II, controlled, with no complications Start:26-May-2018 Instruction Type:Patient Education How to access health informa tion online - Detail Indication:Diabetes mellitus type II, controlled, with no complications Start:26-May-2018 Instruction Type:Patient Education Patient Instructions Indication:Diabetes mellitus type II, controlled, with no complications Start:26-May-2018 Instruction Type:Provider Instructions for Treatment How to access health informa tion online Indication:Diabetes mellitus type II, controlled, with no complications Start:30-Dec-2017 Instruction Type:Patient Education How to access health informa tion online - Detail Indication:Diabetes mellitus type II, controlled, with no complications Start:30-Dec-2017 Instruction Type:Patient Education Patient Instructions Indication:BMI 38.0-38.9,adult Start:30-Dec-2017 Instruction Type:Provider Instructions for Treatment How to access health informa tion online Indication:Diabetes mellitus type II, controlled, with no complications Start:16-Sep-2017 Instruction Type:Patient Education How to access health informa tion online - Detail Indication:Diabetes mellitus type II, controlled, with no complications Start:16-Sep-2017 Instruction Type:Patient Education Patient Instructions Indication:BMI 39.0-39.9,adult Start:16-Sep-2017 Instruction Type:Provider Instructions for Treatment DISCONTINUED - CBC, PLATELET S & AUT DIFF ([id number]) Indication:Diabetes mellitus type II, controlled, with no complications Start:07-Jan-2017 Instruction Type:Patient Education DISCONTINUED - RENAL FUNCTIO N PANEL ([id number]) Indication:Diabetes mellitus type II, controlled, with no complications Start:07-Jan-2017 Instruction Type:Patient Education DISCONTINUED - HGB A1C (8303 6) Indication:Diabetes mellitus type II, controlled, with no complications Start:07-Jan-2017 Instruction Type:Patient Education How to access health informa tion online Indication:Low back pain radiating to left leg Start:07-Jan-2017 Instruction Type:Patient Education How to access health informa tion online - Detail Indication:Low back pain radiating to left leg Start:07-Jan-2017 Instruction Type:Patient Education Patient Instructions Indication:Low back pain radiating to left leg Start:07-Jan-2017 Instruction Type:Provider Instructions for Treatment Patient Instructions Indication:Nonsmoker Start:20-Aug-2016 Instruction Type:Provider Instructions for Treatment How to access [employer] online Indication:Mixed hyperlipidemia Start:21-Nov-2015 Instruction Type:Patient Education How to access health informa tion online - Detail Indication:Mixed hyperlipidemia Start:21-Nov-2015 Instruction Type:Patient Education Patient Instructions Indication:Mixed hyperlipidemia Start:21-Nov-2015 Instruction Type:Provider Instructions for Treatment Patient Instructions Indication:Diabetes mellitus type II, controlled, with no complications Start:05-Apr-2015 Instruction Type:Provider Instructions for Treatment Patient Instructions Indication:Cough Start:21-Oct-2014 Instruction Type:Provider Instructions for Treatment Patient Instructions Indication:Diabetes mellitus type II, controlled, with no complications Start:08-Mar-2014 Instruction Type:Provider Instructions for Treatment Patient Instructions Indication:Diabetes mellitus type II, controlled, with no complications Start:30-Nov-2013 Instruction Type:Provider Instructions for Treatment Patient Instructions Indication:Physical exam Start:25-May-2013 Instruction Type:Provider Instructions for Treatment Patient Instructions Indication:Diabetes mellitus type II, controlled, with no complications Start:09-Feb-2013 Instruction Type:Provider Instructions for Treatment Patient Instructions Indication:Diabetes mellitus type II, controlled, with no complications Start:01-Sep-2012 Instruction Type:Provider Instructions for Treatment [facility]; [facility] Work Phone: Instructions* Name Dates Details DISCONTINUED - URINALYSIS, AUTOMATED W/ MICRO ([id number]) Indication:Diabetes mellitus type II, controlled, with no complications Start:31-Oct-2022 Instruction Type:Patient Education DISCONTINUED - MICROALBUMIN: CREATININE RATIO ([id number]) AND ([id number]) Indication:Diabetes mellitus type II, controlled, with no complications Start:31-Oct-2022 Instruction Type:Patient Education DISCONTINUED - TSH (THYROID STIMULATING HORMONE) ([id number]) Indication:Diabetes mellitus type II, controlled, with no complications Start:31-Oct-2022 Instruction Type:Patient Education DISCONTINUED - LIPID PANEL ( [id number]) Indication:Diabetes mellitus type II, controlled, with no complications Start:31-Oct-2022 Instruction Type:Patient Education DISCONTINUED - METABOLIC ALVAREZ EL, COMPREHENSIVE ([id number]) Indication:Diabetes mellitus type II, controlled, with no complications Start:31-Oct-2022 Instruction Type:Patient Education DISCONTINUED - CBC, PLATELET S & AUT DIFF ([id number]) Indication:Diabetes mellitus type II, controlled, with no complications Start:31-Oct-2022 Instruction Type:Patient Education DISCONTINUED - METABOLIC ALVAREZ EL, COMPREHENSIVE ([id number]) Indication:Diabetes mellitus type II, controlled, with no complications Start:31-Oct-2022 Instruction Type:Patient Education Patient Instructions Indication:Diabetes mellitus type II, controlled, with no complications Start:30-Oct-2022 Instruction Type:Provider Instructions for Treatment How to Access Health Informa tion Online using Patient Portal and [employer] Apps Indication:Diabetes mellitus type II, controlled, with no complications Start:30-Oct-2022 Instruction Type:Patient Education Patient Instructions Indication:BMI 37.0-37.9, adult Start:17-Jul-2021 Instruction Type:Provider Instructions for Treatment How to Access Health Informa tion Online using Patient Portal and [employer] Apps Indication:BMI 37.0-37.9, adult Start:17-Jul-2021 Instruction Type:Patient Education Patient Instructions Indication:BMI 37.0-37.9, adult Start:11-Jul-2021 Instruction Type:Provider Instructions for Treatment How to Access Health Informa tion Online using Patient Portal and [employer]rd [employer] Apps Indication:BMI 37.0-37.9, adult Start:11-Jul-2021 Instruction Type:Patient Education Patient Instructions Indication:Nonsmoker Start:15-May-2021 Instruction Type:Provider Instructions for Treatment How to Access Health Informa tion Online using Patient Portal and [employer]rd [employer] Apps Indication:Nonsmoker Start:15-May-2021 Instruction Type:Patient Education Patient Instructions Indication:Nonsmoker Start:04-Apr-2021 Instruction Type:Provider Instructions for Treatment How to Access Health Informa tion Online using Patient Portal and [employer] Apps Indication:Nonsmoker Start:04-Apr-2021 Instruction Type:Patient Education Patient Instructions Indication:BMI 39.0-39.9,adult Start:20-Mar-2021 Instruction Type:Provider Instructions for Treatment How to Access Health Informa tion Online using Patient Portal and [employer] Apps Indication:Diabetes mellitus type II, controlled, with no complications Start:20-Mar-2021 Instruction Type:Patient Education How to access health informa tion online Indication:Nonsmoker Start:12-Sep-2020 Instruction Type:Patient Education How to access health informa tion online - Detail Indication:Nonsmoker Start:12-Sep-2020 Instruction Type:Patient Education Patient Instructions Indication:Nonsmoker Start:12-Sep-2020 Instruction Type:Provider Instructions for Treatment How to access health informa tion online Indication:BMI 39.0-39.9,adult Start:10-Feb-2020 Instruction Type:Patient Education How to access health informa tion online - Detail Indication:BMI 39.0-39.9,adult Start:10-Feb-2020 Instruction Type:Patient Education Patient Instructions Indication:BMI 39.0-39.9,adult Start:10-Feb-2020 Instruction Type:Provider Instructions for Treatment Patient Instructions Indication:Nonsmoker Start:29-Jun-2019 Instruction Type:Provider Instructions for Treatment How to access health informa tion online Indication:Diabetes mellitus type II, controlled, with no complications Start:29-Jun-2019 Instruction Type:Patient Education How to access health informa tion online - Detail Indication:Diabetes mellitus type II, controlled, with no complications Start:29-Jun-2019 Instruction Type:Patient Education Patient Instructions Indication:Diabetes mellitus type II, controlled, with no complications Start:29-Jun-2019 Instruction Type:Provider Instructions for Treatment How to access health informa tion online Indication:Diabetes mellitus type II, controlled, with no complications Start:09-Mar-2019 Instruction Type:Patient Education How to access health informa tion online - Detail Indication:Diabetes mellitus type II, controlled, with no complications Start:09-Mar-2019 Instruction Type:Patient Education Patient Instructions Indication:Screening PSA (prostate specific antigen) Start:09-Mar-2019 Instruction Type:Provider Instructions for Treatment How to access health informa tion online Indication:Nonsmoker Start:16-Feb-2019 Instruction Type:Patient Education How to access health informa tion online - Detail Indication:Nonsmoker Start:16-Feb-2019 Instruction Type:Patient Education Patient Instructions Indication:Upper respiratory infection, acute Start:16-Feb-2019 Instruction Type:Provider Instructions for Treatment How to access health informa tion online Indication:Nonsmoker Start:12-Jan-2019 Instruction Type:Patient Education How to access health informa tion online - Detail Indication:Nonsmoker Start:12-Jan-2019 Instruction Type:Patient Education Patient Instructions Indication:Nonsmoker Start:12-Jan-2019 Instruction Type:Provider Instructions for Treatment How to access health informa tion online Indication:Nonsmoker Start:15-Dec-2018 Instruction Type:Patient Education How to access health informa tion online - Detail Indication:Nonsmoker Start:15-Dec-2018 Instruction Type:Patient Education Patient Instructions Indication:Iliotibial band tendonitis, left Start:15-Dec-2018 Instruction Type:Provider Instructions for Treatment DISCONTINUED - METABOLIC ALVAREZ EL, COMPREHENSIVE ([id number]) Indication:Diabetes mellitus type II, controlled, with no complications Start:29-Sep-2018 Instruction Type:Patient Education DISCONTINUED - HGB A1C (8303 [id number]) Indication:Diabetes mellitus type II, controlled, with no complications Start:29-Sep-2018 Instruction Type:Patient Education How to access health informa tion online Indication:Diabetes mellitus type II, controlled, with no complications Start:29-Sep-2018 Instruction Type:Patient Education How to access health informa tion online - Detail Indication:Diabetes mellitus type II, controlled, with no complications Start:29-Sep-2018 Instruction Type:Patient Education Patient Instructions Indication:Vitamin D deficiency Start:29-Sep-2018 Instruction Type:Provider Instructions for Treatment How to access health informa tion online Indication:Diabetes mellitus type II, controlled, with no complications Start:26-May-2018 Instruction Type:Patient Education How to access health informa tion online - Detail Indication:Diabetes mellitus type II, controlled, with no complications Start:26-May-2018 Instruction Type:Patient Education Patient Instructions Indication:Diabetes mellitus type II, controlled, with no complications Start:26-May-2018 Instruction Type:Provider Instructions for Treatment How to access health informa tion online Indication:Diabetes mellitus type II, controlled, with no complications Start:30-Dec-2017 Instruction Type:Patient Education How to access health informa tion online - Detail Indication:Diabetes mellitus type II, controlled, with no complications Start:30-Dec-2017 Instruction Type:Patient Education Patient Instructions Indication:BMI 38.0-38.9,adult Start:30-Dec-2017 Instruction Type:Provider Instructions for Treatment How to access health informa tion online Indication:Diabetes mellitus type II, controlled, with no complications Start:16-Sep-2017 Instruction Type:Patient Education How to access health [facility] - Detail Indication:Diabetes mellitus type II, controlled, with no complications Start:16-Sep-2017 Instruction Type:Patient Education Patient Instructions Indication:BMI 39.0-39.9,adult Start:16-Sep-2017 Instruction Type:Provider Instructions for Treatment DISCONTINUED - CBC, PLATELET S & AUT DIFF ([id number]) Indication:Diabetes mellitus type II, controlled, with no complications Start:07-Jan-2017 Instruction Type:Patient Education DISCONTINUED - RENAL FUNCTIO N PANEL ([id number]) Indication:Diabetes mellitus type II, controlled, with no complications Start:07-Jan-2017 Instruction Type:Patient Education DISCONTINUED - HGB A1C (8303 [id number]) Indication:Diabetes mellitus type II, controlled, with no complications Start:07-Jan-2017 Instruction Type:Patient Education How to access [facility] Indication:Low back pain radiating to left leg Start:07-Jan-2017 Instruction Type:Patient Education How to access health [facility] [facility] [employer] online - Detail Indication:Low back pain radiating to left leg Start:07-Jan-2017 Instruction Type:Patient Education Patient Instructions Indication:Low back pain radiating to left leg Start:07-Jan-2017 Instruction Type:Provider Instructions for Treatment Patient Instructions Indication:Nonsmoker Start:20-Aug-2016 Instruction Type:Provider Instructions for Treatment How to access [facility] Indication:Mixed hyperlipidemia Start:21-Nov-2015 Instruction Type:Patient Education How to access [facility] - Detail Indication:Mixed hyperlipidemia Start:21-Nov-2015 Instruction Type:Patient Education Patient Instructions Indication:Mixed hyperlipidemia Start:21-Nov-2015 Instruction Type:Provider Instructions for Treatment Patient Instructions Indication:Diabetes mellitus type II, controlled, with no complications Start:05-Apr-2015 Instruction Type:Provider Instructions for Treatment Patient Instructions Indication:Cough Start:21-Oct-2014 Instruction Type:Provider Instructions for Treatment Patient Instructions Indication:Diabetes mellitus type II, controlled, with no complications Start:08-Mar-2014 Instruction Type:Provider Instructions for Treatment Patient Instructions Indication:Diabetes mellitus type II, controlled, with no complications Start:30-Nov-2013 Instruction Type:Provider Instructions for Treatment Patient Instructions Indication:Physical exam Start:25-May-2013 Instruction Type:Provider Instructions for Treatment Patient Instructions Indication:Diabetes mellitus type II, controlled, with no complications Start:09-Feb-2013 Instruction Type:Provider Instructions for Treatment Patient Instructions Indication:Diabetes mellitus type II, controlled, with no complications Start:01-Sep-2012 Instruction Type:Provider Instructions for Treatment [facility]; [facility] Work Phone: Instructions* Name Dates Details DISCONTINUED - URINALYSIS, AUTOMATED W/ MICRO ([id number]) Indication:Diabetes mellitus type II, controlled, with no complications Start:31-Oct-2022 Instruction Type:Patient Education DISCONTINUED - MICROALBUMIN: CREATININE RATIO ([id number]) AND ([id number]) Indication:Diabetes mellitus type II, controlled, with no complications Start:31-Oct-2022 Instruction Type:Patient Education DISCONTINUED - TSH (THYROID STIMULATING HORMONE) ([id number]) Indication:Diabetes mellitus type II, controlled, with no complications Start:31-Oct-2022 Instruction Type:Patient Education DISCONTINUED - LIPID PANEL ( [id number]) Indication:Diabetes mellitus type II, controlled, with no complications Start:31-Oct-2022 Instruction Type:Patient Education DISCONTINUED - METABOLIC ALVAREZ EL, COMPREHENSIVE ([id number]) Indication:Diabetes mellitus type II, controlled, with no complications Start:31-Oct-2022 Instruction Type:Patient Education DISCONTINUED - CBC, PLATELET S & AUT DIFF ([id number]) Indication:Diabetes mellitus type II, controlled, with no complications Start:31-Oct-2022 Instruction Type:Patient Education DISCONTINUED - METABOLIC ALVAREZ EL, COMPREHENSIVE ([id number]) Indication:Diabetes mellitus type II, controlled, with no complications Start:31-Oct-2022 Instruction Type:Patient Education Patient Instructions Indication:Diabetes mellitus type II, controlled, with no complications Start:30-Oct-2022 Instruction Type:Provider Instructions for Treatment How to Access Health Informa tion Online using Patient Portal and [employer]rd [employer] Apps Indication:Diabetes mellitus type II, controlled, with no complications Start:30-Oct-2022 Instruction Type:Patient Education Patient Instructions Indication:BMI 37.0-37.9, adult Start:17-Jul-2021 Instruction Type:Provider Instructions for Treatment How to Access Health Informa tion Online using Patient Portal and [employer]rd [employer] Apps Indication:BMI 37.0-37.9, adult Start:17-Jul-2021 Instruction Type:Patient Education Patient Instructions Indication:BMI 37.0-37.9, adult Start:11-Jul-2021 Instruction Type:Provider Instructions for Treatment How to Access Health Informa tion Online using Patient Portal and [employer]rd [employer] Apps Indication:BMI 37.0-37.9, adult Start:11-Jul-2021 Instruction Type:Patient Education Patient Instructions Indication:Nonsmoker Start:15-May-2021 Instruction Type:Provider Instructions for Treatment How to Access Health Informa tion Online using Patient Portal and [employer]rd [employer] Apps Indication:Nonsmoker Start:15-May-2021 Instruction Type:Patient Education Patient Instructions Indication:Nonsmoker Start:04-Apr-2021 Instruction Type:Provider Instructions for Treatment How to Access Health Informa tion Online using Patient Portal and [employer]rd [employer] Apps Indication:Nonsmoker Start:04-Apr-2021 Instruction Type:Patient Education Patient Instructions Indication:BMI 39.0-39.9,adult Start:20-Mar-2021 Instruction Type:Provider Instructions for Treatment How to Access Health Informa tion Online using Patient Portal and [employer]rd [employer] Apps Indication:Diabetes mellitus type II, controlled, with no complications Start:20-Mar-2021 Instruction Type:Patient Education How to access health informa tion online Indication:Nonsmoker Start:12-Sep-2020 Instruction Type:Patient Education How to access health informa tion online - Detail Indication:Nonsmoker Start:12-Sep-2020 Instruction Type:Patient Education Patient Instructions Indication:Nonsmoker Start:12-Sep-2020 Instruction Type:Provider Instructions for Treatment How to access health informa tion online Indication:BMI 39.0-39.9,adult Start:10-Feb-2020 Instruction Type:Patient Education How to access health informa tion online - Detail Indication:BMI 39.0-39.9,adult Start:10-Feb-2020 Instruction Type:Patient Education Patient Instructions Indication:BMI 39.0-39.9,adult Start:10-Feb-2020 Instruction Type:Provider Instructions for Treatment Patient Instructions Indication:Nonsmoker Start:29-Jun-2019 Instruction Type:Provider Instructions for Treatment How to access health informa tion online Indication:Diabetes mellitus type II, controlled, with no complications Start:29-Jun-2019 Instruction Type:Patient Education How to access health informa tion online - Detail Indication:Diabetes mellitus type II, controlled, with no complications Start:29-Jun-2019 Instruction Type:Patient Education Patient Instructions Indication:Diabetes mellitus type II, controlled, with no complications Start:29-Jun-2019 Instruction Type:Provider Instructions for Treatment How to access health informa tion online Indication:Diabetes mellitus type II, controlled, with no complications Start:09-Mar-2019 Instruction Type:Patient Education How to access health informa tion online - Detail Indication:Diabetes mellitus type II, controlled, with no complications Start:09-Mar-2019 Instruction Type:Patient Education Patient Instructions Indication:Screening PSA (prostate specific antigen) Start:09-Mar-2019 Instruction Type:Provider Instructions for Treatment How to access health informa tion online Indication:Nonsmoker Start:16-Feb-2019 Instruction Type:Patient Education How to access health informa tion online - Detail Indication:Nonsmoker Start:16-Feb-2019 Instruction Type:Patient Education Patient Instructions Indication:Upper respiratory infection, acute Start:16-Feb-2019 Instruction Type:Provider Instructions for Treatment How to access health informa tion online Indication:Nonsmoker Start:12-Jan-2019 Instruction Type:Patient Education How to access health informa tion online - Detail Indication:Nonsmoker Start:12-Jan-2019 Instruction Type:Patient Education Patient Instructions Indication:Nonsmoker Start:12-Jan-2019 Instruction Type:Provider Instructions for Treatment How to access health informa tion online Indication:Nonsmoker Start:15-Dec-2018 Instruction Type:Patient Education How to access health informa tion online - Detail Indication:Nonsmoker Start:15-Dec-2018 Instruction Type:Patient Education Patient Instructions Indication:Iliotibial band tendonitis, left Start:15-Dec-2018 Instruction Type:Provider Instructions for Treatment DISCONTINUED - METABOLIC ALVAREZ EL, COMPREHENSIVE ([id number]) Indication:Diabetes mellitus type II, controlled, with no complications Start:29-Sep-2018 Instruction Type:Patient Education DISCONTINUED - HGB A1C ([id number]) Indication:Diabetes mellitus type II, controlled, with no complications Start:29-Sep-2018 Instruction Type:Patient Education How to access health informa tion online Indication:Diabetes mellitus type II, controlled, with no complications Start:29-Sep-2018 Instruction Type:Patient Education How to access health informa tion online - Detail Indication:Diabetes mellitus type II, controlled, with no complications Start:29-Sep-2018 Instruction Type:Patient Education Patient Instructions Indication:Vitamin D deficiency Start:29-Sep-2018 Instruction Type:Provider Instructions for Treatment How to access health informa tion online Indication:Diabetes mellitus type II, controlled, with no complications Start:26-May-2018 Instruction Type:Patient Education How to access health informa tion online - Detail Indication:Diabetes mellitus type II, controlled, with no complications Start:26-May-2018 Instruction Type:Patient Education Patient Instructions Indication:Diabetes mellitus type II, controlled, with no complications Start:26-May-2018 Instruction Type:Provider Instructions for Treatment How to access health informa tion online Indication:Diabetes mellitus type II, controlled, with no complications Start:30-Dec-2017 Instruction Type:Patient Education How to access health informa tion online - Detail Indication:Diabetes mellitus type II, controlled, with no complications Start:30-Dec-2017 Instruction Type:Patient Education Patient Instructions Indication:BMI 38.0-38.9,adult Start:30-Dec-2017 Instruction Type:Provider Instructions for Treatment How to access health informa tion online Indication:Diabetes mellitus type II, controlled, with no complications Start:16-Sep-2017 Instruction Type:Patient Education How to access health informa tion online - Detail Indication:Diabetes mellitus type II, controlled, with no complications Start:16-Sep-2017 Instruction Type:Patient Education Patient Instructions Indication:BMI 39.0-39.9,adult Start:16-Sep-2017 Instruction Type:Provider Instructions for Treatment DISCONTINUED - CBC, PLATELET S & AUT DIFF ([id number]) Indication:Diabetes mellitus type II, controlled, with no complications Start:07-Jan-2017 Instruction Type:Patient Education DISCONTINUED - RENAL FUNCTIO N PANEL ([id number]) Indication:Diabetes mellitus type II, controlled, with no complications Start:07-Jan-2017 Instruction Type:Patient Education DISCONTINUED - HGB A1C (8303 6) Indication:Diabetes mellitus type II, controlled, with no complications Start:07-Jan-2017 Instruction Type:Patient Education How to access health informa tion online Indication:Low back pain radiating to left leg Start:07-Jan-2017 Instruction Type:Patient Education How to access health informa tion online - Detail Indication:Low back pain radiating to left leg Start:07-Jan-2017 Instruction Type:Patient Education Patient Instructions Indication:Low back pain radiating to left leg Start:07-Jan-2017 Instruction Type:Provider Instructions for Treatment Patient Instructions Indication:Nonsmoker Start:20-Aug-2016 Instruction Type:Provider Instructions for Treatment How to access health informa tion online Indication:Mixed hyperlipidemia Start:21-Nov-2015 Instruction Type:Patient Education How to access health informa tion online - Detail Indication:Mixed hyperlipidemia Start:21-Nov-2015 Instruction Type:Patient Education Patient Instructions Indication:Mixed hyperlipidemia Start:21-Nov-2015 Instruction Type:Provider Instructions for Treatment Patient Instructions Indication:Diabetes mellitus type II, controlled, with no complications Start:05-Apr-2015 Instruction Type:Provider Instructions for Treatment Patient Instructions Indication:Cough Start:21-Oct-2014 Instruction Type:Provider Instructions for Treatment Patient Instructions Indication:Diabetes mellitus type II, controlled, with no complications Start:08-Mar-2014 Instruction Type:Provider Instructions for Treatment Patient Instructions Indication:Diabetes mellitus type II, controlled, with no complications Start:30-Nov-2013 Instruction Type:Provider Instructions for Treatment Patient Instructions Indication:Physical exam Start:25-May-2013 Instruction Type:Provider Instructions for Treatment Patient Instructions Indication:Diabetes mellitus type II, controlled, with no complications Start:09-Feb-2013 Instruction Type:Provider Instructions for Treatment Patient Instructions Indication:Diabetes mellitus type II, controlled, with no complications Start:01-Sep-2012 Instruction Type:Provider Instructions for Treatment [facility]; [facility] Work Phone: Instructions* Name Dates Details DISCONTINUED - URINALYSIS, AUTOMATED W/ MICRO ([id number]) Indication:Diabetes mellitus type II, controlled, with no complications Start:31-Oct-2022 Instruction Type:Patient Education DISCONTINUED - MICROALBUMIN: CREATININE RATIO ([id number]) AND ([id number]) Indication:Diabetes mellitus type II, controlled, with no complications Start:31-Oct-2022 Instruction Type:Patient Education DISCONTINUED - TSH (THYROID STIMULATING HORMONE) ([id number]) Indication:Diabetes mellitus type II, controlled, with no complications Start:31-Oct-2022 Instruction Type:Patient Education DISCONTINUED - LIPID PANEL ( [id number]) Indication:Diabetes mellitus type II, controlled, with no complications Start:31-Oct-2022 Instruction Type:Patient Education DISCONTINUED - METABOLIC ALVAREZ EL, COMPREHENSIVE ([id number]) Indication:Diabetes mellitus type II, controlled, with no complications Start:31-Oct-2022 Instruction Type:Patient Education DISCONTINUED - CBC, PLATELET S & AUT DIFF ([id number]) Indication:Diabetes mellitus type II, controlled, with no complications Start:31-Oct-2022 Instruction Type:Patient Education DISCONTINUED - METABOLIC ALVAREZ EL, COMPREHENSIVE ([id number]) Indication:Diabetes mellitus type II, controlled, with no complications Start:31-Oct-2022 Instruction Type:Patient Education Patient Instructions Indication:Diabetes mellitus type II, controlled, with no complications Start:30-Oct-2022 Instruction Type:Provider Instructions for Treatment How to Access Health Informa tion Online using Patient Portal and [employer] Apps Indication:Diabetes mellitus type II, controlled, with no complications Start:30-Oct-2022 Instruction Type:Patient Education Patient Instructions Indication:BMI 37.0-37.9, adult Start:17-Jul-2021 Instruction Type:Provider Instructions for Treatment How to Access Health Informa tion Online using Patient Portal and [employer]rd [employer] Apps Indication:BMI 37.0-37.9, adult Start:17-Jul-2021 Instruction Type:Patient Education Patient Instructions Indication:BMI 37.0-37.9, adult Start:11-Jul-2021 Instruction Type:Provider Instructions for Treatment How to Access Health Informa tion Online using Patient Portal and [employer]rd [employer] Apps Indication:BMI 37.0-37.9, adult Start:11-Jul-2021 Instruction Type:Patient Education Patient Instructions Indication:Nonsmoker Start:15-May-2021 Instruction Type:Provider Instructions for Treatment How to Access Health Informa tion Online using Patient Portal and [employer]rd [employer] Apps Indication:Nonsmoker Start:15-May-2021 Instruction Type:Patient Education Patient Instructions Indication:Nonsmoker Start:04-Apr-2021 Instruction Type:Provider Instructions for Treatment How to Access Health Informa tion Online using Patient Portal and [employer]rd [employer] Apps Indication:Nonsmoker Start:04-Apr-2021 Instruction Type:Patient Education Patient Instructions Indication:BMI 39.0-39.9,adult Start:20-Mar-2021 Instruction Type:Provider Instructions for Treatment How to Access Health Informa tion Online using Patient Portal and [employer] Apps Indication:Diabetes mellitus type II, controlled, with no complications Start:20-Mar-2021 Instruction Type:Patient Education How to access health informa tion online Indication:Nonsmoker Start:12-Sep-2020 Instruction Type:Patient Education How to access health informa tion online - Detail Indication:Nonsmoker Start:12-Sep-2020 Instruction Type:Patient Education Patient Instructions Indication:Nonsmoker Start:12-Sep-2020 Instruction Type:Provider Instructions for Treatment How to access health informa tion online Indication:BMI 39.0-39.9,adult Start:10-Feb-2020 Instruction Type:Patient Education How to access health informa tion online - Detail Indication:BMI 39.0-39.9,adult Start:10-Feb-2020 Instruction Type:Patient Education Patient Instructions Indication:BMI 39.0-39.9,adult Start:10-Feb-2020 Instruction Type:Provider Instructions for Treatment Patient Instructions Indication:Nonsmoker Start:29-Jun-2019 Instruction Type:Provider Instructions for Treatment How to access health informa tion online Indication:Diabetes mellitus type II, controlled, with no complications Start:29-Jun-2019 Instruction Type:Patient Education How to access health informa tion online - Detail Indication:Diabetes mellitus type II, controlled, with no complications Start:29-Jun-2019 Instruction Type:Patient Education Patient Instructions Indication:Diabetes mellitus type II, controlled, with no complications Start:29-Jun-2019 Instruction Type:Provider Instructions for Treatment How to access health informa tion online Indication:Diabetes mellitus type II, controlled, with no complications Start:09-Mar-2019 Instruction Type:Patient Education How to access health informa tion online - Detail Indication:Diabetes mellitus type II, controlled, with no complications Start:09-Mar-2019 Instruction Type:Patient Education Patient Instructions Indication:Screening PSA (prostate specific antigen) Start:09-Mar-2019 Instruction Type:Provider Instructions for Treatment How to access health informa tion online Indication:Nonsmoker Start:16-Feb-2019 Instruction Type:Patient Education How to access health informa tion online - Detail Indication:Nonsmoker Start:16-Feb-2019 Instruction Type:Patient Education Patient Instructions Indication:Upper respiratory infection, acute Start:16-Feb-2019 Instruction Type:Provider Instructions for Treatment How to access health informa tion online Indication:Nonsmoker Start:12-Jan-2019 Instruction Type:Patient Education How to access health informa tion online - Detail Indication:Nonsmoker Start:12-Jan-2019 Instruction Type:Patient Education Patient Instructions Indication:Nonsmoker Start:12-Jan-2019 Instruction Type:Provider Instructions for Treatment How to access health informa tion online Indication:Nonsmoker Start:15-Dec-2018 Instruction Type:Patient Education How to access health informa tion online - Detail Indication:Nonsmoker Start:15-Dec-2018 Instruction Type:Patient Education Patient Instructions Indication:Iliotibial band tendonitis, left Start:15-Dec-2018 Instruction Type:Provider Instructions for Treatment DISCONTINUED - METABOLIC ALVAREZ EL, COMPREHENSIVE ([id number]) Indication:Diabetes mellitus type II, controlled, with no complications Start:29-Sep-2018 Instruction Type:Patient Education DISCONTINUED - HGB A1C (8303 6) Indication:Diabetes mellitus type II, controlled, with no complications Start:29-Sep-2018 Instruction Type:Patient Education How to access health informa tion online Indication:Diabetes mellitus type II, controlled, with no complications Start:29-Sep-2018 Instruction Type:Patient Education How to access health informa tion online - Detail Indication:Diabetes mellitus type II, controlled, with no complications Start:29-Sep-2018 Instruction Type:Patient Education Patient Instructions Indication:Vitamin D deficiency Start:29-Sep-2018 Instruction Type:Provider Instructions for Treatment How to access health informa tion online Indication:Diabetes mellitus type II, controlled, with no complications Start:26-May-2018 Instruction Type:Patient Education How to access health informa tion online - Detail Indication:Diabetes mellitus type II, controlled, with no complications Start:26-May-2018 Instruction Type:Patient Education Patient Instructions Indication:Diabetes mellitus type II, controlled, with no complications Start:26-May-2018 Instruction Type:Provider Instructions for Treatment How to access health informa tion online Indication:Diabetes mellitus type II, controlled, with no complications Start:30-Dec-2017 Instruction Type:Patient Education How to access health informa tion online - Detail Indication:Diabetes mellitus type II, controlled, with no complications Start:30-Dec-2017 Instruction Type:Patient Education Patient Instructions Indication:BMI 38.0-38.9,adult Start:30-Dec-2017 Instruction Type:Provider Instructions for Treatment How to access health informa tion online Indication:Diabetes mellitus type II, controlled, with no complications Start:16-Sep-2017 Instruction Type:Patient Education How to access health informa tion online - Detail Indication:Diabetes mellitus type II, controlled, with no complications Start:16-Sep-2017 Instruction Type:Patient Education Patient Instructions Indication:BMI 39.0-39.9,adult Start:16-Sep-2017 Instruction Type:Provider Instructions for Treatment DISCONTINUED - CBC, PLATELET S & AUT DIFF ([id number]) Indication:Diabetes mellitus type II, controlled, with no complications Start:07-Jan-2017 Instruction Type:Patient Education DISCONTINUED - RENAL FUNCTIO N PANEL ([id number]) Indication:Diabetes mellitus type II, controlled, with no complications Start:07-Jan-2017 Instruction Type:Patient Education DISCONTINUED - HGB A1C (8303 6) Indication:Diabetes mellitus type II, controlled, with no complications Start:07-Jan-2017 Instruction Type:Patient Education How to access health informa tion online Indication:Low back pain radiating to left leg Start:07-Jan-2017 Instruction Type:Patient Education How to access health informa tion online - Detail Indication:Low back pain radiating to left leg Start:07-Jan-2017 Instruction Type:Patient Education Patient Instructions Indication:Low back pain radiating to left leg Start:07-Jan-2017 Instruction Type:Provider Instructions for Treatment Patient Instructions Indication:Nonsmoker Start:20-Aug-2016 Instruction Type:Provider Instructions for Treatment How to access health informa tion online Indication:Mixed hyperlipidemia Start:21-Nov-2015 Instruction Type:Patient Education How to access health informa tion online - Detail Indication:Mixed hyperlipidemia Start:21-Nov-2015 Instruction Type:Patient Education Patient Instructions Indication:Mixed hyperlipidemia Start:21-Nov-2015 Instruction Type:Provider Instructions for Treatment Patient Instructions Indication:Diabetes mellitus type II, controlled, with no complications Start:05-Apr-2015 Instruction Type:Provider Instructions for Treatment Patient Instructions Indication:Cough Start:21-Oct-2014 Instruction Type:Provider Instructions for Treatment Patient Instructions Indication:Diabetes mellitus type II, controlled, with no complications Start:08-Mar-2014 Instruction Type:Provider Instructions for Treatment Patient Instructions Indication:Diabetes mellitus type II, controlled, with no complications Start:30-Nov-2013 Instruction Type:Provider Instructions for Treatment Patient Instructions Indication:Physical exam Start:25-May-2013 Instruction Type:Provider Instructions for Treatment Patient Instructions Indication:Diabetes mellitus type II, controlled, with no complications Start:09-Feb-2013 Instruction Type:Provider Instructions for Treatment Patient Instructions Indication:Diabetes mellitus type II, controlled, with no complications Start:01-Sep-2012 Instruction Type:Provider Instructions for Treatment [facility]; [facility] Work Phone: Instructions* Name Dates Details DISCONTINUED - URINALYSIS, AUTOMATED W/ MICRO ([id number]) Indication:Diabetes mellitus type II, controlled, with no complications Start:31-Oct-2022 Instruction Type:Patient Education DISCONTINUED - MICROALBUMIN: CREATININE RATIO ([id number]) AND ([id number]) Indication:Diabetes mellitus type II, controlled, with no complications Start:31-Oct-2022 Instruction Type:Patient Education DISCONTINUED - TSH (THYROID STIMULATING HORMONE) ([id number]) Indication:Diabetes mellitus type II, controlled, with no complications Start:31-Oct-2022 Instruction Type:Patient Education DISCONTINUED - LIPID PANEL ( [id number]) Indication:Diabetes mellitus type II, controlled, with no complications Start:31-Oct-2022 Instruction Type:Patient Education DISCONTINUED - METABOLIC ALVAREZ EL, COMPREHENSIVE ([id number]) Indication:Diabetes mellitus type II, controlled, with no complications Start:31-Oct-2022 Instruction Type:Patient Education DISCONTINUED - CBC, PLATELET S & AUT DIFF ([id number]) Indication:Diabetes mellitus type II, controlled, with no complications Start:31-Oct-2022 Instruction Type:Patient Education DISCONTINUED - METABOLIC ALVAREZ EL, COMPREHENSIVE ([id number]) Indication:Diabetes mellitus type II, controlled, with no complications Start:31-Oct-2022 Instruction Type:Patient Education Patient Instructions Indication:Diabetes mellitus type II, controlled, with no complications Start:30-Oct-2022 Instruction Type:Provider Instructions for Treatment How to Access Health Informa tion Online using Patient Portal and [employer]rd [employer] Apps Indication:Diabetes mellitus type II, controlled, with no complications Start:30-Oct-2022 Instruction Type:Patient Education Patient Instructions Indication:BMI 37.0-37.9, adult Start:17-Jul-2021 Instruction Type:Provider Instructions for Treatment How to Access Health Informa tion Online using Patient Portal and [employer]rd [employer] Apps Indication:BMI 37.0-37.9, adult Start:17-Jul-2021 Instruction Type:Patient Education Patient Instructions Indication:BMI 37.0-37.9, adult Start:11-Jul-2021 Instruction Type:Provider Instructions for Treatment How to Access Health Informa tion Online using Patient Portal and [employer]rd [employer] Apps Indication:BMI 37.0-37.9, adult Start:11-Jul-2021 Instruction Type:Patient Education Patient Instructions Indication:Nonsmoker Start:15-May-2021 Instruction Type:Provider Instructions for Treatment How to Access Health Informa tion Online using Patient Portal and [employer]rd [employer] Apps Indication:Nonsmoker Start:15-May-2021 Instruction Type:Patient Education Patient Instructions Indication:Nonsmoker Start:04-Apr-2021 Instruction Type:Provider Instructions for Treatment How to Access Health Informa tion Online using Patient Portal and [employer]rd [employer] Apps Indication:Nonsmoker Start:04-Apr-2021 Instruction Type:Patient Education Patient Instructions Indication:BMI 39.0-39.9,adult Start:20-Mar-2021 Instruction Type:Provider Instructions for Treatment How to Access Health Informa tion Online using Patient Portal and [employer]rd [employer] Apps Indication:Diabetes mellitus type II, controlled, with no complications Start:20-Mar-2021 Instruction Type:Patient Education How to access health informa tion online Indication:Nonsmoker Start:12-Sep-2020 Instruction Type:Patient Education How to access health informa tion online - Detail Indication:Nonsmoker Start:12-Sep-2020 Instruction Type:Patient Education Patient Instructions Indication:Nonsmoker Start:12-Sep-2020 Instruction Type:Provider Instructions for Treatment How to access health informa tion online Indication:BMI 39.0-39.9,adult Start:10-Feb-2020 Instruction Type:Patient Education How to access health informa tion online - Detail Indication:BMI 39.0-39.9,adult Start:10-Feb-2020 Instruction Type:Patient Education Patient Instructions Indication:BMI 39.0-39.9,adult Start:10-Feb-2020 Instruction Type:Provider Instructions for Treatment Patient Instructions Indication:Nonsmoker Start:29-Jun-2019 Instruction Type:Provider Instructions for Treatment How to access health informa tion online Indication:Diabetes mellitus type II, controlled, with no complications Start:29-Jun-2019 Instruction Type:Patient Education How to access health informa tion online - Detail Indication:Diabetes mellitus type II, controlled, with no complications Start:29-Jun-2019 Instruction Type:Patient Education Patient Instructions Indication:Diabetes mellitus type II, controlled, with no complications Start:29-Jun-2019 Instruction Type:Provider Instructions for Treatment How to access health informa tion online Indication:Diabetes mellitus type II, controlled, with no complications Start:09-Mar-2019 Instruction Type:Patient Education How to access health informa tion online - Detail Indication:Diabetes mellitus type II, controlled, with no complications Start:09-Mar-2019 Instruction Type:Patient Education Patient Instructions Indication:Screening PSA (prostate specific antigen) Start:09-Mar-2019 Instruction Type:Provider Instructions for Treatment How to access health informa tion online Indication:Nonsmoker Start:16-Feb-2019 Instruction Type:Patient Education How to access health informa tion online - Detail Indication:Nonsmoker Start:16-Feb-2019 Instruction Type:Patient Education Patient Instructions Indication:Upper respiratory infection, acute Start:16-Feb-2019 Instruction Type:Provider Instructions for Treatment How to access health informa tion online Indication:Nonsmoker Start:12-Jan-2019 Instruction Type:Patient Education How to access health informa tion online - Detail Indication:Nonsmoker Start:12-Jan-2019 Instruction Type:Patient Education Patient Instructions Indication:Nonsmoker Start:12-Jan-2019 Instruction Type:Provider Instructions for Treatment How to access health informa tion online Indication:Nonsmoker Start:15-Dec-2018 Instruction Type:Patient Education How to access health informa tion online - Detail Indication:Nonsmoker Start:15-Dec-2018 Instruction Type:Patient Education Patient Instructions Indication:Iliotibial band tendonitis, left Start:15-Dec-2018 Instruction Type:Provider Instructions for Treatment DISCONTINUED - METABOLIC ALVAREZ EL, COMPREHENSIVE ([id number]) Indication:Diabetes mellitus type II, controlled, with no complications Start:29-Sep-2018 Instruction Type:Patient Education DISCONTINUED - HGB A1C (8303 6) Indication:Diabetes mellitus type II, controlled, with no complications Start:29-Sep-2018 Instruction Type:Patient Education How to access health informa tion online Indication:Diabetes mellitus type II, controlled, with no complications Start:29-Sep-2018 Instruction Type:Patient Education How to access health informa tion online - Detail Indication:Diabetes mellitus type II, controlled, with no complications Start:29-Sep-2018 Instruction Type:Patient Education Patient Instructions Indication:Vitamin D deficiency Start:29-Sep-2018 Instruction Type:Provider Instructions for Treatment How to access health informa tion online Indication:Diabetes mellitus type II, controlled, with no complications Start:26-May-2018 Instruction Type:Patient Education How to access health informa tion online - Detail Indication:Diabetes mellitus type II, controlled, with no complications Start:26-May-2018 Instruction Type:Patient Education Patient Instructions Indication:Diabetes mellitus type II, controlled, with no complications Start:26-May-2018 Instruction Type:Provider Instructions for Treatment How to access health informa tion online Indication:Diabetes mellitus type II, controlled, with no complications Start:30-Dec-2017 Instruction Type:Patient Education How to access health informa tion online - Detail Indication:Diabetes mellitus type II, controlled, with no complications Start:30-Dec-2017 Instruction Type:Patient Education Patient Instructions Indication:BMI 38.0-38.9,adult Start:30-Dec-2017 Instruction Type:Provider Instructions for Treatment How to access health informa tion online Indication:Diabetes mellitus type II, controlled, with no complications Start:16-Sep-2017 Instruction Type:Patient Education How to access health informa tion online - Detail Indication:Diabetes mellitus type II, controlled, with no complications Start:16-Sep-2017 Instruction Type:Patient Education Patient Instructions Indication:BMI 39.0-39.9,adult Start:16-Sep-2017 Instruction Type:Provider Instructions for Treatment DISCONTINUED - CBC, PLATELET S & AUT DIFF ([id number]) Indication:Diabetes mellitus type II, controlled, with no complications Start:07-Jan-2017 Instruction Type:Patient Education DISCONTINUED - RENAL FUNCTIO N PANEL ([id number]) Indication:Diabetes mellitus type II, controlled, with no complications Start:07-Jan-2017 Instruction Type:Patient Education DISCONTINUED - HGB A1C (8303 6) Indication:Diabetes mellitus type II, controlled, with no complications Start:07-Jan-2017 Instruction Type:Patient Education How to access health informa tion online Indication:Low back pain radiating to left leg Start:07-Jan-2017 Instruction Type:Patient Education How to access health informa tion online - Detail Indication:Low back pain radiating to left leg Start:07-Jan-2017 Instruction Type:Patient Education Patient Instructions Indication:Low back pain radiating to left leg Start:07-Jan-2017 Instruction Type:Provider Instructions for Treatment Patient Instructions Indication:Nonsmoker Start:20-Aug-2016 Instruction Type:Provider Instructions for Treatment How to access health informa tion online Indication:Mixed hyperlipidemia Start:21-Nov-2015 Instruction Type:Patient Education How to access health informa tion online - Detail Indication:Mixed hyperlipidemia Start:21-Nov-2015 Instruction Type:Patient Education Patient Instructions Indication:Mixed hyperlipidemia Start:21-Nov-2015 Instruction Type:Provider Instructions for Treatment Patient Instructions Indication:Diabetes mellitus type II, controlled, with no complications Start:05-Apr-2015 Instruction Type:Provider Instructions for Treatment Patient Instructions Indication:Cough Start:21-Oct-2014 Instruction Type:Provider Instructions for Treatment Patient Instructions Indication:Diabetes mellitus type II, controlled, with no complications Start:08-Mar-2014 Instruction Type:Provider Instructions for Treatment Patient Instructions Indication:Diabetes mellitus type II, controlled, with no complications Start:30-Nov-2013 Instruction Type:Provider Instructions for Treatment Patient Instructions Indication:Physical exam Start:25-May-2013 Instruction Type:Provider Instructions for Treatment Patient Instructions Indication:Diabetes mellitus type II, controlled, with no complications Start:09-Feb-2013 Instruction Type:Provider Instructions for Treatment Patient Instructions Indication:Diabetes mellitus type II, controlled, with no complications Start:01-Sep-2012 Instruction Type:Provider Instructions for Treatment [facility] Work Phone: Instructions* Name Dates Details DISCONTINUED - URINALYSIS, AUTOMATED W/ MICRO ([id number]) Indication:Diabetes mellitus type II, controlled, with no complications Start:31-Oct-2022 Instruction Type:Patient Education DISCONTINUED - MICROALBUMIN: CREATININE RATIO ([id number]) AND ([id number]) Indication:Diabetes mellitus type II, controlled, with no complications Start:31-Oct-2022 Instruction Type:Patient Education DISCONTINUED - TSH (THYROID STIMULATING HORMONE) ([id number]) Indication:Diabetes mellitus type II, controlled, with no complications Start:31-Oct-2022 Instruction Type:Patient Education DISCONTINUED - LIPID PANEL ( [id number]) Indication:Diabetes mellitus type II, controlled, with no complications Start:31-Oct-2022 Instruction Type:Patient Education DISCONTINUED - METABOLIC ALVAREZ EL, COMPREHENSIVE ([id number]) Indication:Diabetes mellitus type II, controlled, with no complications Start:31-Oct-2022 Instruction Type:Patient Education DISCONTINUED - CBC, PLATELET S & AUT DIFF ([id number]) Indication:Diabetes mellitus type II, controlled, with no complications Start:31-Oct-2022 Instruction Type:Patient Education DISCONTINUED - METABOLIC ALVAREZ EL, COMPREHENSIVE ([id number]) Indication:Diabetes mellitus type II, controlled, with no complications Start:31-Oct-2022 Instruction Type:Patient Education Patient Instructions Indication:Diabetes mellitus type II, controlled, with no complications Start:30-Oct-2022 Instruction Type:Provider Instructions for Treatment How to Access Health Informa tion Online using Patient Portal and [employer]rd [employer] Apps Indication:Diabetes mellitus type II, controlled, with no complications Start:30-Oct-2022 Instruction Type:Patient Education Patient Instructions Indication:BMI 37.0-37.9, adult Start:17-Jul-2021 Instruction Type:Provider Instructions for Treatment How to Access Health Informa tion Online using Patient Portal and [employer]rd [employer] Apps Indication:BMI 37.0-37.9, adult Start:17-Jul-2021 Instruction Type:Patient Education Patient Instructions Indication:BMI 37.0-37.9, adult Start:11-Jul-2021 Instruction Type:Provider Instructions for Treatment How to Access Health Informa tion Online using Patient Portal and [employer]rd [employer] Apps Indication:BMI 37.0-37.9, adult Start:11-Jul-2021 Instruction Type:Patient Education Patient Instructions Indication:Nonsmoker Start:15-May-2021 Instruction Type:Provider Instructions for Treatment How to Access Health Informa tion Online using Patient Portal and [employer]rd [employer] Apps Indication:Nonsmoker Start:15-May-2021 Instruction Type:Patient Education Patient Instructions Indication:Nonsmoker Start:04-Apr-2021 Instruction Type:Provider Instructions for Treatment How to Access Health Informa tion Online using Patient Portal and [employer]rd [employer] Apps Indication:Nonsmoker Start:04-Apr-2021 Instruction Type:Patient Education Patient Instructions Indication:BMI 39.0-39.9,adult Start:20-Mar-2021 Instruction Type:Provider Instructions for Treatment How to Access Health Informa tion Online using Patient Portal and [employer]rd [employer] Apps Indication:Diabetes mellitus type II, controlled, with no complications Start:20-Mar-2021 Instruction Type:Patient Education How to access health informa tion online Indication:Nonsmoker Start:12-Sep-2020 Instruction Type:Patient Education How to access health informa tion online - Detail Indication:Nonsmoker Start:12-Sep-2020 Instruction Type:Patient Education Patient Instructions Indication:Nonsmoker Start:12-Sep-2020 Instruction Type:Provider Instructions for Treatment How to access health informa tion online Indication:BMI 39.0-39.9,adult Start:10-Feb-2020 Instruction Type:Patient Education How to access health informa tion online - Detail Indication:BMI 39.0-39.9,adult Start:10-Feb-2020 Instruction Type:Patient Education Patient Instructions Indication:BMI 39.0-39.9,adult Start:10-Feb-2020 Instruction Type:Provider Instructions for Treatment Patient Instructions Indication:Nonsmoker Start:29-Jun-2019 Instruction Type:Provider Instructions for Treatment How to access health informa tion online Indication:Diabetes mellitus type II, controlled, with no complications Start:29-Jun-2019 Instruction Type:Patient Education How to access health informa tion online - Detail Indication:Diabetes mellitus type II, controlled, with no complications Start:29-Jun-2019 Instruction Type:Patient Education Patient Instructions Indication:Diabetes mellitus type II, controlled, with no complications Start:29-Jun-2019 Instruction Type:Provider Instructions for Treatment How to access health informa tion online Indication:Diabetes mellitus type II, controlled, with no complications Start:09-Mar-2019 Instruction Type:Patient Education How to access health informa tion online - Detail Indication:Diabetes mellitus type II, controlled, with no complications Start:09-Mar-2019 Instruction Type:Patient Education Patient Instructions Indication:Screening PSA (prostate specific antigen) Start:09-Mar-2019 Instruction Type:Provider Instructions for Treatment How to access health informa tion online Indication:Nonsmoker Start:16-Feb-2019 Instruction Type:Patient Education How to access health informa tion online - Detail Indication:Nonsmoker Start:16-Feb-2019 Instruction Type:Patient Education Patient Instructions Indication:Upper respiratory infection, acute Start:16-Feb-2019 Instruction Type:Provider Instructions for Treatment How to access health informa tion online Indication:Nonsmoker Start:12-Jan-2019 Instruction Type:Patient Education How to access health informa tion online - Detail Indication:Nonsmoker Start:12-Jan-2019 Instruction Type:Patient Education Patient Instructions Indication:Nonsmoker Start:12-Jan-2019 Instruction Type:Provider Instructions for Treatment How to access health informa tion online Indication:Nonsmoker Start:15-Dec-2018 Instruction Type:Patient Education How to access health informa tion online - Detail Indication:Nonsmoker Start:15-Dec-2018 Instruction Type:Patient Education Patient Instructions Indication:Iliotibial band tendonitis, left Start:15-Dec-2018 Instruction Type:Provider Instructions for Treatment DISCONTINUED - METABOLIC ALVAREZ EL, COMPREHENSIVE ([id number]) Indication:Diabetes mellitus type II, controlled, with no complications Start:29-Sep-2018 Instruction Type:Patient Education DISCONTINUED - HGB A1C (8303 6) Indication:Diabetes mellitus type II, controlled, with no complications Start:29-Sep-2018 Instruction Type:Patient Education How to access health informa tion online Indication:Diabetes mellitus type II, controlled, with no complications Start:29-Sep-2018 Instruction Type:Patient Education How to access health informa tion online - Detail Indication:Diabetes mellitus type II, controlled, with no complications Start:29-Sep-2018 Instruction Type:Patient Education Patient Instructions Indication:Vitamin D deficiency Start:29-Sep-2018 Instruction Type:Provider Instructions for Treatment How to access health informa tion online Indication:Diabetes mellitus type II, controlled, with no complications Start:26-May-2018 Instruction Type:Patient Education How to access health informa tion online - Detail Indication:Diabetes mellitus type II, controlled, with no complications Start:26-May-2018 Instruction Type:Patient Education Patient Instructions Indication:Diabetes mellitus type II, controlled, with no complications Start:26-May-2018 Instruction Type:Provider Instructions for Treatment How to access health informa tion online Indication:Diabetes mellitus type II, controlled, with no complications Start:30-Dec-2017 Instruction Type:Patient Education How to access health informa tion online - Detail Indication:Diabetes mellitus type II, controlled, with no complications Start:30-Dec-2017 Instruction Type:Patient Education Patient Instructions Indication:BMI 38.0-38.9,adult Start:30-Dec-2017 Instruction Type:Provider Instructions for Treatment How to access health informa tion online Indication:Diabetes mellitus type II, controlled, with no complications Start:16-Sep-2017 Instruction Type:Patient Education How to access health informa tion online - Detail Indication:Diabetes mellitus type II, controlled, with no complications Start:16-Sep-2017 Instruction Type:Patient Education Patient Instructions Indication:BMI 39.0-39.9,adult Start:16-Sep-2017 Instruction Type:Provider Instructions for Treatment DISCONTINUED - CBC, PLATELET S & AUT DIFF ([id number]) Indication:Diabetes mellitus type II, controlled, with no complications Start:07-Jan-2017 Instruction Type:Patient Education DISCONTINUED - RENAL FUNCTIO N PANEL ([id number]) Indication:Diabetes mellitus type II, controlled, with no complications Start:07-Jan-2017 Instruction Type:Patient Education DISCONTINUED - HGB A1C (8303 [id number]) Indication:Diabetes mellitus type II, controlled, with no complications Start:07-Jan-2017 Instruction Type:Patient Education How to access health informa tion online Indication:Low back pain radiating to left leg Start:07-Jan-2017 Instruction Type:Patient Education How to access health informa tion online - Detail Indication:Low back pain radiating to left leg Start:07-Jan-2017 Instruction Type:Patient Education Patient Instructions Indication:Low back pain radiating to left leg Start:07-Jan-2017 Instruction Type:Provider Instructions for Treatment Patient Instructions Indication:Nonsmoker Start:20-Aug-2016 Instruction Type:Provider Instructions for Treatment How to access health informa tion online Indication:Mixed hyperlipidemia Start:21-Nov-2015 Instruction Type:Patient Education How to access health informa tion online - Detail Indication:Mixed hyperlipidemia Start:21-Nov-2015 Instruction Type:Patient Education Patient Instructions Indication:Mixed hyperlipidemia Start:21-Nov-2015 Instruction Type:Provider Instructions for Treatment Patient Instructions Indication:Diabetes mellitus type II, controlled, with no complications Start:05-Apr-2015 Instruction Type:Provider Instructions for Treatment Patient Instructions Indication:Cough Start:21-Oct-2014 Instruction Type:Provider Instructions for Treatment Patient Instructions Indication:Diabetes mellitus type II, controlled, with no complications Start:08-Mar-2014 Instruction Type:Provider Instructions for Treatment Patient Instructions Indication:Diabetes mellitus type II, controlled, with no complications Start:30-Nov-2013 Instruction Type:Provider Instructions for Treatment Patient Instructions Indication:Physical exam Start:25-May-2013 Instruction Type:Provider Instructions for Treatment Patient Instructions Indication:Diabetes mellitus type II, controlled, with no complications Start:09-Feb-2013 Instruction Type:Provider Instructions for Treatment Patient Instructions Indication:Diabetes mellitus type II, controlled, with no complications Start:01-Sep-2012 Instruction Type:Provider Instructions for Treatment [facility] Work Phone: Instructions* Name Dates Details Patient Instructions Indication:BMI 35.0-35.9,adult Start:27-May-2023 Instruction Type:Provider Instructions for Treatment How to Access Health Informa tion Online using Patient Portal and [employer]rd [employer] Apps Indication:BMI 35.0-35.9,adult Start:27-May-2023 Instruction Type:Patient Education DISCONTINUED - URINALYSIS, AUTOMATED W/ MICRO ([id number]) Indication:Diabetes mellitus type II, controlled, with no complications Start:31-Oct-2022 Instruction Type:Patient Education DISCONTINUED - MICROALBUMIN: CREATININE RATIO ([id number]) AND ([id number]) Indication:Diabetes mellitus type II, controlled, with no complications Start:31-Oct-2022 Instruction Type:Patient Education DISCONTINUED - TSH (THYROID STIMULATING HORMONE) ([id number]) Indication:Diabetes mellitus type II, controlled, with no complications Start:31-Oct-2022 Instruction Type:Patient Education DISCONTINUED - LIPID PANEL ( [id number]) Indication:Diabetes mellitus type II, controlled, with no complications Start:31-Oct-2022 Instruction Type:Patient Education DISCONTINUED - METABOLIC ALVAREZ EL, COMPREHENSIVE ([id number]) Indication:Diabetes mellitus type II, controlled, with no complications Start:31-Oct-2022 Instruction Type:Patient Education DISCONTINUED - CBC, PLATELET S & AUT DIFF ([id number]) Indication:Diabetes mellitus type II, controlled, with no complications Start:31-Oct-2022 Instruction Type:Patient Education DISCONTINUED - METABOLIC ALVAREZ EL, COMPREHENSIVE ([id number]) Indication:Diabetes mellitus type II, controlled, with no complications Start:31-Oct-2022 Instruction Type:Patient Education Patient Instructions Indication:Diabetes mellitus type II, controlled, with no complications Start:30-Oct-2022 Instruction Type:Provider Instructions for Treatment How to Access Health Informa tion Online using Patient Portal and [employer]rd [employer] Apps Indication:Diabetes mellitus type II, controlled, with no complications Start:30-Oct-2022 Instruction Type:Patient Education Patient Instructions Indication:BMI 37.0-37.9, adult Start:17-Jul-2021 Instruction Type:Provider Instructions for Treatment How to Access Health Informa tion Online using Patient Portal and [employer]rd [employer] Apps Indication:BMI 37.0-37.9, adult Start:17-Jul-2021 Instruction Type:Patient Education Patient Instructions Indication:BMI 37.0-37.9, adult Start:11-Jul-2021 Instruction Type:Provider Instructions for Treatment How to Access Health Informa tion Online using Patient Portal and [employer]rd [employer] Apps Indication:BMI 37.0-37.9, adult Start:11-Jul-2021 Instruction Type:Patient Education Patient Instructions Indication:Nonsmoker Start:15-May-2021 Instruction Type:Provider Instructions for Treatment How to Access Health Informa tion Online using Patient Portal and [employer]rd [employer] Apps Indication:Nonsmoker Start:15-May-2021 Instruction Type:Patient Education Patient Instructions Indication:Nonsmoker Start:04-Apr-2021 Instruction Type:Provider Instructions for Treatment How to Access Health Informa tion Online using Patient Portal and [employer]rd [employer] Apps Indication:Nonsmoker Start:04-Apr-2021 Instruction Type:Patient Education Patient Instructions Indication:BMI 39.0-39.9,adult Start:20-Mar-2021 Instruction Type:Provider Instructions for Treatment How to Access Health Informa tion Online using Patient Portal and [employer] Apps Indication:Diabetes mellitus type II, controlled, with no complications Start:20-Mar-2021 Instruction Type:Patient Education How to access health informa tion online Indication:Nonsmoker Start:12-Sep-2020 Instruction Type:Patient Education How to access health informa tion online - Detail Indication:Nonsmoker Start:12-Sep-2020 Instruction Type:Patient Education Patient Instructions Indication:Nonsmoker Start:12-Sep-2020 Instruction Type:Provider Instructions for Treatment How to access health informa tion online Indication:BMI 39.0-39.9,adult Start:10-Feb-2020 Instruction Type:Patient Education How to access health informa tion online - Detail Indication:BMI 39.0-39.9,adult Start:10-Feb-2020 Instruction Type:Patient Education Patient Instructions Indication:BMI 39.0-39.9,adult Start:10-Feb-2020 Instruction Type:Provider Instructions for Treatment Patient Instructions Indication:Nonsmoker Start:29-Jun-2019 Instruction Type:Provider Instructions for Treatment How to access health informa tion online Indication:Diabetes mellitus type II, controlled, with no complications Start:29-Jun-2019 Instruction Type:Patient Education How to access health informa tion online - Detail Indication:Diabetes mellitus type II, controlled, with no complications Start:29-Jun-2019 Instruction Type:Patient Education Patient Instructions Indication:Diabetes mellitus type II, controlled, with no complications Start:29-Jun-2019 Instruction Type:Provider Instructions for Treatment How to access health informa tion online Indication:Diabetes mellitus type II, controlled, with no complications Start:09-Mar-2019 Instruction Type:Patient Education How to access health informa tion online - Detail Indication:Diabetes mellitus type II, controlled, with no complications Start:09-Mar-2019 Instruction Type:Patient Education Patient Instructions Indication:Screening PSA (prostate specific antigen) Start:09-Mar-2019 Instruction Type:Provider Instructions for Treatment How to access health informa tion online Indication:Nonsmoker Start:16-Feb-2019 Instruction Type:Patient Education How to access health informa tion online - Detail Indication:Nonsmoker Start:16-Feb-2019 Instruction Type:Patient Education Patient Instructions Indication:Upper respiratory infection, acute Start:16-Feb-2019 Instruction Type:Provider Instructions for Treatment How to access health informa tion online Indication:Nonsmoker Start:12-Jan-2019 Instruction Type:Patient Education How to access health informa tion online - Detail Indication:Nonsmoker Start:12-Jan-2019 Instruction Type:Patient Education Patient Instructions Indication:Nonsmoker Start:12-Jan-2019 Instruction Type:Provider Instructions for Treatment How to access health informa tion online Indication:Nonsmoker Start:15-Dec-2018 Instruction Type:Patient Education How to access health informa tion online - Detail Indication:Nonsmoker Start:15-Dec-2018 Instruction Type:Patient Education Patient Instructions Indication:Iliotibial band tendonitis, left Start:15-Dec-2018 Instruction Type:Provider Instructions for Treatment DISCONTINUED - METABOLIC ALVAREZ EL, COMPREHENSIVE ([id number]) Indication:Diabetes mellitus type II, controlled, with no complications Start:29-Sep-2018 Instruction Type:Patient Education DISCONTINUED - HGB A1C (8303 [id number]) Indication:Diabetes mellitus type II, controlled, with no complications Start:29-Sep-2018 Instruction Type:Patient Education How to access health informa tion online Indication:Diabetes mellitus type II, controlled, with no complications Start:29-Sep-2018 Instruction Type:Patient Education How to access health informa tion online - Detail Indication:Diabetes mellitus type II, controlled, with no complications Start:29-Sep-2018 Instruction Type:Patient Education Patient Instructions Indication:Vitamin D deficiency Start:29-Sep-2018 Instruction Type:Provider Instructions for Treatment How to access health informa tion online Indication:Diabetes mellitus type II, controlled, with no complications Start:26-May-2018 Instruction Type:Patient Education How to access health informa tion online - Detail Indication:Diabetes mellitus type II, controlled, with no complications Start:26-May-2018 Instruction Type:Patient Education Patient Instructions Indication:Diabetes mellitus type II, controlled, with no complications Start:26-May-2018 Instruction Type:Provider Instructions for Treatment How to access health informa tion online Indication:Diabetes mellitus type II, controlled, with no complications Start:30-Dec-2017 Instruction Type:Patient Education How to access health informa tion online - Detail Indication:Diabetes mellitus type II, controlled, with no complications Start:30-Dec-2017 Instruction Type:Patient Education Patient Instructions Indication:BMI 38.0-38.9,adult Start:30-Dec-2017 Instruction Type:Provider Instructions for Treatment How to access health informa tion online Indication:Diabetes mellitus type II, controlled, with no complications Start:16-Sep-2017 Instruction Type:Patient Education How to access health informa tion online - Detail Indication:Diabetes mellitus type II, controlled, with no complications Start:16-Sep-2017 Instruction Type:Patient Education Patient Instructions Indication:BMI 39.0-39.9,adult Start:16-Sep-2017 Instruction Type:Provider Instructions for Treatment DISCONTINUED - CBC, PLATELET S & AUT DIFF ([id number]) Indication:Diabetes mellitus type II, controlled, with no complications Start:07-Jan-2017 Instruction Type:Patient Education DISCONTINUED - RENAL FUNCTIO N PANEL ([id number]) Indication:Diabetes mellitus type II, controlled, with no complications Start:07-Jan-2017 Instruction Type:Patient Education DISCONTINUED - HGB A1C (8303 6) Indication:Diabetes mellitus type II, controlled, with no complications Start:07-Jan-2017 Instruction Type:Patient Education How to access health informa tion online Indication:Low back pain radiating to left leg Start:07-Jan-2017 Instruction Type:Patient Education How to access health informa tion online - Detail Indication:Low back pain radiating to left leg Start:07-Jan-2017 Instruction Type:Patient Education Patient Instructions Indication:Low back pain radiating to left leg Start:07-Jan-2017 Instruction Type:Provider Instructions for Treatment Patient Instructions Indication:Nonsmoker Start:20-Aug-2016 Instruction Type:Provider Instructions for Treatment How to access health informa tion online Indication:Mixed hyperlipidemia Start:21-Nov-2015 Instruction Type:Patient Education How to access health informa tion online - Detail Indication:Mixed hyperlipidemia Start:21-Nov-2015 Instruction Type:Patient Education Patient Instructions Indication:Mixed hyperlipidemia Start:21-Nov-2015 Instruction Type:Provider Instructions for Treatment Patient Instructions Indication:Diabetes mellitus type II, controlled, with no complications Start:05-Apr-2015 Instruction Type:Provider Instructions for Treatment Patient Instructions Indication:Cough Start:21-Oct-2014 Instruction Type:Provider Instructions for Treatment Patient Instructions Indication:Diabetes mellitus type II, controlled, with no complications Start:08-Mar-2014 Instruction Type:Provider Instructions for Treatment Patient Instructions Indication:Diabetes mellitus type II, controlled, with no complications Start:30-Nov-2013 Instruction Type:Provider Instructions for Treatment Patient Instructions Indication:Physical exam Start:25-May-2013 Instruction Type:Provider Instructions for Treatment Patient Instructions Indication:Diabetes mellitus type II, controlled, with no complications Start:09-Feb-2013 Instruction Type:Provider Instructions for Treatment Patient Instructions Indication:Diabetes mellitus type II, controlled, with no complications Start:01-Sep-2012 Instruction Type:Provider Instructions for Treatment [facility] Work Phone: Instructions* Name Dates Details Patient Instructions Indication:BMI 35.0-35.9,adult Start:27-May-2023 Instruction Type:Provider Instructions for Treatment How to Access Health Informa tion Online using Patient Portal and [employer] Apps Indication:BMI 35.0-35.9,adult Start:27-May-2023 Instruction Type:Patient Education DISCONTINUED - URINALYSIS, AUTOMATED W/ MICRO ([id number]) Indication:Diabetes mellitus type II, controlled, with no complications Start:31-Oct-2022 Instruction Type:Patient Education DISCONTINUED - MICROALBUMIN: CREATININE RATIO ([id number]) AND ([id number]) Indication:Diabetes mellitus type II, controlled, with no complications Start:31-Oct-2022 Instruction Type:Patient Education DISCONTINUED - TSH (THYROID STIMULATING HORMONE) ([id number]) Indication:Diabetes mellitus type II, controlled, with no complications Start:31-Oct-2022 Instruction Type:Patient Education DISCONTINUED - LIPID PANEL ( [id number]) Indication:Diabetes mellitus type II, controlled, with no complications Start:31-Oct-2022 Instruction Type:Patient Education DISCONTINUED - METABOLIC ALVAREZ EL, COMPREHENSIVE ([id number]) Indication:Diabetes mellitus type II, controlled, with no complications Start:31-Oct-2022 Instruction Type:Patient Education DISCONTINUED - CBC, PLATELET S & AUT DIFF ([id number]) Indication:Diabetes mellitus type II, controlled, with no complications Start:31-Oct-2022 Instruction Type:Patient Education DISCONTINUED - METABOLIC ALVAREZ EL, COMPREHENSIVE ([id number]) Indication:Diabetes mellitus type II, controlled, with no complications Start:31-Oct-2022 Instruction Type:Patient Education Patient Instructions Indication:Diabetes mellitus type II, controlled, with no complications Start:30-Oct-2022 Instruction Type:Provider Instructions for Treatment How to Access Health Informa tion Online using Patient Portal and [employer] Apps Indication:Diabetes mellitus type II, controlled, with no complications Start:30-Oct-2022 Instruction Type:Patient Education Patient Instructions Indication:BMI 37.0-37.9, adult Start:17-Jul-2021 Instruction Type:Provider Instructions for Treatment How to Access Health Informa tion Online using Patient Portal and [employer] Apps Indication:BMI 37.0-37.9, adult Start:17-Jul-2021 Instruction Type:Patient Education Patient Instructions Indication:BMI 37.0-37.9, adult Start:11-Jul-2021 Instruction Type:Provider Instructions for Treatment How to Access Health Informa tion Online using Patient Portal and [employer] Apps Indication:BMI 37.0-37.9, adult Start:11-Jul-2021 Instruction Type:Patient Education Patient Instructions Indication:Nonsmoker Start:15-May-2021 Instruction Type:Provider Instructions for Treatment How to Access Health Informa tion Online using Patient Portal and [employer] Apps Indication:Nonsmoker Start:15-May-2021 Instruction Type:Patient Education Patient Instructions Indication:Nonsmoker Start:04-Apr-2021 Instruction Type:Provider Instructions for Treatment How to Access Health Informa tion Online using Patient Portal and [employer] Apps Indication:Nonsmoker Start:04-Apr-2021 Instruction Type:Patient Education Patient Instructions Indication:BMI 39.0-39.9,adult Start:20-Mar-2021 Instruction Type:Provider Instructions for Treatment How to Access Health Informa tion Online using Patient Portal and [employer] Apps Indication:Diabetes mellitus type II, controlled, with no complications Start:20-Mar-2021 Instruction Type:Patient Education How to access health informa tion online Indication:Nonsmoker Start:12-Sep-2020 Instruction Type:Patient Education How to access health informa tion online - Detail Indication:Nonsmoker Start:12-Sep-2020 Instruction Type:Patient Education Patient Instructions Indication:Nonsmoker Start:12-Sep-2020 Instruction Type:Provider Instructions for Treatment How to access health informa tion online Indication:BMI 39.0-39.9,adult Start:10-Feb-2020 Instruction Type:Patient Education How to access health informa tion online - Detail Indication:BMI 39.0-39.9,adult Start:10-Feb-2020 Instruction Type:Patient Education Patient Instructions Indication:BMI 39.0-39.9,adult Start:10-Feb-2020 Instruction Type:Provider Instructions for Treatment Patient Instructions Indication:Nonsmoker Start:29-Jun-2019 Instruction Type:Provider Instructions for Treatment How to access health informa tion online Indication:Diabetes mellitus type II, controlled, with no complications Start:29-Jun-2019 Instruction Type:Patient Education How to access health informa tion online - Detail Indication:Diabetes mellitus type II, controlled, with no complications Start:29-Jun-2019 Instruction Type:Patient Education Patient Instructions Indication:Diabetes mellitus type II, controlled, with no complications Start:29-Jun-2019 Instruction Type:Provider Instructions for Treatment How to access health informa tion online Indication:Diabetes mellitus type II, controlled, with no complications Start:09-Mar-2019 Instruction Type:Patient Education How to access health informa tion online - Detail Indication:Diabetes mellitus type II, controlled, with no complications Start:09-Mar-2019 Instruction Type:Patient Education Patient Instructions Indication:Screening PSA (prostate specific antigen) Start:09-Mar-2019 Instruction Type:Provider Instructions for Treatment How to access health informa tion online Indication:Nonsmoker Start:16-Feb-2019 Instruction Type:Patient Education How to access health informa tion online - Detail Indication:Nonsmoker Start:16-Feb-2019 Instruction Type:Patient Education Patient Instructions Indication:Upper respiratory infection, acute Start:16-Feb-2019 Instruction Type:Provider Instructions for Treatment How to access health informa tion online Indication:Nonsmoker Start:12-Jan-2019 Instruction Type:Patient Education How to access health informa tion online - Detail Indication:Nonsmoker Start:12-Jan-2019 Instruction Type:Patient Education Patient Instructions Indication:Nonsmoker Start:12-Jan-2019 Instruction Type:Provider Instructions for Treatment How to access health informa tion online Indication:Nonsmoker Start:15-Dec-2018 Instruction Type:Patient Education How to access health informa tion online - Detail Indication:Nonsmoker Start:15-Dec-2018 Instruction Type:Patient Education Patient Instructions Indication:Iliotibial band tendonitis, left Start:15-Dec-2018 Instruction Type:Provider Instructions for Treatment DISCONTINUED - METABOLIC ALVAREZ EL, COMPREHENSIVE ([id number]) Indication:Diabetes mellitus type II, controlled, with no complications Start:29-Sep-2018 Instruction Type:Patient Education DISCONTINUED - HGB A1C ([id number] 6) Indication:Diabetes mellitus type II, controlled, with no complications Start:29-Sep-2018 Instruction Type:Patient Education How to access health informa tion online Indication:Diabetes mellitus type II, controlled, with no complications Start:29-Sep-2018 Instruction Type:Patient Education How to access health informa tion online - Detail Indication:Diabetes mellitus type II, controlled, with no complications Start:29-Sep-2018 Instruction Type:Patient Education Patient Instructions Indication:Vitamin D deficiency Start:29-Sep-2018 Instruction Type:Provider Instructions for Treatment How to access health informa tion online Indication:Diabetes mellitus type II, controlled, with no complications Start:26-May-2018 Instruction Type:Patient Education How to access health informa tion online - Detail Indication:Diabetes mellitus type II, controlled, with no complications Start:26-May-2018 Instruction Type:Patient Education Patient Instructions Indication:Diabetes mellitus type II, controlled, with no complications Start:26-May-2018 Instruction Type:Provider Instructions for Treatment How to access health informa tion online Indication:Diabetes mellitus type II, controlled, with no complications Start:30-Dec-2017 Instruction Type:Patient Education How to access health informa tion online - Detail Indication:Diabetes mellitus type II, controlled, with no complications Start:30-Dec-2017 Instruction Type:Patient Education Patient Instructions Indication:BMI 38.0-38.9,adult Start:30-Dec-2017 Instruction Type:Provider Instructions for Treatment How to access health informa tion online Indication:Diabetes mellitus type II, controlled, with no complications Start:16-Sep-2017 Instruction Type:Patient Education How to access health informa tion online - Detail Indication:Diabetes mellitus type II, controlled, with no complications Start:16-Sep-2017 Instruction Type:Patient Education Patient Instructions Indication:BMI 39.0-39.9,adult Start:16-Sep-2017 Instruction Type:Provider Instructions for Treatment DISCONTINUED - CBC, PLATELET S & AUT DIFF ([id number]) Indication:Diabetes mellitus type II, controlled, with no complications Start:07-Jan-2017 Instruction Type:Patient Education DISCONTINUED - RENAL FUNCTIO N PANEL ([id number]) Indication:Diabetes mellitus type II, controlled, with no complications Start:07-Jan-2017 Instruction Type:Patient Education DISCONTINUED - HGB A1C (8303 6) Indication:Diabetes mellitus type II, controlled, with no complications Start:07-Jan-2017 Instruction Type:Patient Education How to access health informa tion online Indication:Low back pain radiating to left leg Start:07-Jan-2017 Instruction Type:Patient Education How to access health informa tion online - Detail Indication:Low back pain radiating to left leg Start:07-Jan-2017 Instruction Type:Patient Education Patient Instructions Indication:Low back pain radiating to left leg Start:07-Jan-2017 Instruction Type:Provider Instructions for Treatment Patient Instructions Indication:Nonsmoker Start:20-Aug-2016 Instruction Type:Provider Instructions for Treatment How to access health informa tion online Indication:Mixed hyperlipidemia Start:21-Nov-2015 Instruction Type:Patient Education How to access health informa tion online - Detail Indication:Mixed hyperlipidemia Start:21-Nov-2015 Instruction Type:Patient Education Patient Instructions Indication:Mixed hyperlipidemia Start:21-Nov-2015 Instruction Type:Provider Instructions for Treatment Patient Instructions Indication:Diabetes mellitus type II, controlled, with no complications Start:05-Apr-2015 Instruction Type:Provider Instructions for Treatment Patient Instructions Indication:Cough Start:21-Oct-2014 Instruction Type:Provider Instructions for Treatment Patient Instructions Indication:Diabetes mellitus type II, controlled, with no complications Start:08-Mar-2014 Instruction Type:Provider Instructions for Treatment Patient Instructions Indication:Diabetes mellitus type II, controlled, with no complications Start:30-Nov-2013 Instruction Type:Provider Instructions for Treatment Patient Instructions Indication:Physical exam Start:25-May-2013 Instruction Type:Provider Instructions for Treatment Patient Instructions Indication:Diabetes mellitus type II, controlled, with no complications Start:09-Feb-2013 Instruction Type:Provider Instructions for Treatment Patient Instructions Indication:Diabetes mellitus type II, controlled, with no complications Start:01-Sep-2012 Instruction Type:Provider Instructions for Treatment [facility] Work Phone: Instructions* Name Dates Details Patient Instructions Indication:BMI 35.0-35.9,adult Start:27-May-2023 Instruction Type:Provider Instructions for Treatment How to Access Health Informa tion Online using Patient Portal and [employer]rd [employer] Apps Indication:BMI 35.0-35.9,adult Start:27-May-2023 Instruction Type:Patient Education DISCONTINUED - URINALYSIS, AUTOMATED W/ MICRO ([id number]) Indication:Diabetes mellitus type II, controlled, with no complications Start:31-Oct-2022 Instruction Type:Patient Education DISCONTINUED - MICROALBUMIN: CREATININE RATIO ([id number]) AND ([id number]) Indication:Diabetes mellitus type II, controlled, with no complications Start:31-Oct-2022 Instruction Type:Patient Education DISCONTINUED - TSH (THYROID STIMULATING HORMONE) ([id number]) Indication:Diabetes mellitus type II, controlled, with no complications Start:31-Oct-2022 Instruction Type:Patient Education DISCONTINUED - LIPID PANEL ( [id number]) Indication:Diabetes mellitus type II, controlled, with no complications Start:31-Oct-2022 Instruction Type:Patient Education DISCONTINUED - METABOLIC ALVAREZ EL, COMPREHENSIVE ([id number]) Indication:Diabetes mellitus type II, controlled, with no complications Start:31-Oct-2022 Instruction Type:Patient Education DISCONTINUED - CBC, PLATELET S & AUT DIFF ([id number]) Indication:Diabetes mellitus type II, controlled, with no complications Start:31-Oct-2022 Instruction Type:Patient Education DISCONTINUED - METABOLIC ALVAREZ EL, COMPREHENSIVE ([id number]) Indication:Diabetes mellitus type II, controlled, with no complications Start:31-Oct-2022 Instruction Type:Patient Education Patient Instructions Indication:Diabetes mellitus type II, controlled, with no complications Start:30-Oct-2022 Instruction Type:Provider Instructions for Treatment How to Access Health Informa tion Online using Patient Portal and [employer]rd [employer] Apps Indication:Diabetes mellitus type II, controlled, with no complications Start:30-Oct-2022 Instruction Type:Patient Education Patient Instructions Indication:BMI 37.0-37.9, adult Start:17-Jul-2021 Instruction Type:Provider Instructions for Treatment How to Access Health Informa tion Online using Patient Portal and [employer]rd [employer] Apps Indication:BMI 37.0-37.9, adult Start:17-Jul-2021 Instruction Type:Patient Education Patient Instructions Indication:BMI 37.0-37.9, adult Start:11-Jul-2021 Instruction Type:Provider Instructions for Treatment How to Access Health Informa tion Online using Patient Portal and [employer]rd [employer] Apps Indication:BMI 37.0-37.9, adult Start:11-Jul-2021 Instruction Type:Patient Education Patient Instructions Indication:Nonsmoker Start:15-May-2021 Instruction Type:Provider Instructions for Treatment How to Access Health Informa tion Online using Patient Portal and [employer]rd [employer] Apps Indication:Nonsmoker Start:15-May-2021 Instruction Type:Patient Education Patient Instructions Indication:Nonsmoker Start:04-Apr-2021 Instruction Type:Provider Instructions for Treatment How to Access Health Informa tion Online using Patient Portal and [employer]rd [employer] Apps Indication:Nonsmoker Start:04-Apr-2021 Instruction Type:Patient Education Patient Instructions Indication:BMI 39.0-39.9,adult Start:20-Mar-2021 Instruction Type:Provider Instructions for Treatment How to Access Health Informa tion Online using Patient Portal and [employer]rd [employer] Apps Indication:Diabetes mellitus type II, controlled, with no complications Start:20-Mar-2021 Instruction Type:Patient Education How to access health informa tion online Indication:Nonsmoker Start:12-Sep-2020 Instruction Type:Patient Education How to access health informa tion online - Detail Indication:Nonsmoker Start:12-Sep-2020 Instruction Type:Patient Education Patient Instructions Indication:Nonsmoker Start:12-Sep-2020 Instruction Type:Provider Instructions for Treatment How to access health informa tion online Indication:BMI 39.0-39.9,adult Start:10-Feb-2020 Instruction Type:Patient Education How to access health informa tion online - Detail Indication:BMI 39.0-39.9,adult Start:10-Feb-2020 Instruction Type:Patient Education Patient Instructions Indication:BMI 39.0-39.9,adult Start:10-Feb-2020 Instruction Type:Provider Instructions for Treatment Patient Instructions Indication:Nonsmoker Start:29-Jun-2019 Instruction Type:Provider Instructions for Treatment How to access health informa tion online Indication:Diabetes mellitus type II, controlled, with no complications Start:29-Jun-2019 Instruction Type:Patient Education How to access health informa tion online - Detail Indication:Diabetes mellitus type II, controlled, with no complications Start:29-Jun-2019 Instruction Type:Patient Education Patient Instructions Indication:Diabetes mellitus type II, controlled, with no complications Start:29-Jun-2019 Instruction Type:Provider Instructions for Treatment How to access health informa tion online Indication:Diabetes mellitus type II, controlled, with no complications Start:09-Mar-2019 Instruction Type:Patient Education How to access health informa tion online - Detail Indication:Diabetes mellitus type II, controlled, with no complications Start:09-Mar-2019 Instruction Type:Patient Education Patient Instructions Indication:Screening PSA (prostate specific antigen) Start:09-Mar-2019 Instruction Type:Provider Instructions for Treatment How to access health informa tion online Indication:Nonsmoker Start:16-Feb-2019 Instruction Type:Patient Education How to access health informa tion online - Detail Indication:Nonsmoker Start:16-Feb-2019 Instruction Type:Patient Education Patient Instructions Indication:Upper respiratory infection, acute Start:16-Feb-2019 Instruction Type:Provider Instructions for Treatment How to access health informa tion online Indication:Nonsmoker Start:12-Jan-2019 Instruction Type:Patient Education How to access health informa tion online - Detail Indication:Nonsmoker Start:12-Jan-2019 Instruction Type:Patient Education Patient Instructions Indication:Nonsmoker Start:12-Jan-2019 Instruction Type:Provider Instructions for Treatment How to access health informa tion online Indication:Nonsmoker Start:15-Dec-2018 Instruction Type:Patient Education How to access health informa tion online - Detail Indication:Nonsmoker Start:15-Dec-2018 Instruction Type:Patient Education Patient Instructions Indication:Iliotibial band tendonitis, left Start:15-Dec-2018 Instruction Type:Provider Instructions for Treatment DISCONTINUED - METABOLIC ALVAREZ EL, COMPREHENSIVE ([id number]) Indication:Diabetes mellitus type II, controlled, with no complications Start:29-Sep-2018 Instruction Type:Patient Education DISCONTINUED - HGB A1C ([id number]) Indication:Diabetes mellitus type II, controlled, with no complications Start:29-Sep-2018 Instruction Type:Patient Education How to access health informa tion online Indication:Diabetes mellitus type II, controlled, with no complications Start:29-Sep-2018 Instruction Type:Patient Education How to access health informa tion online - Detail Indication:Diabetes mellitus type II, controlled, with no complications Start:29-Sep-2018 Instruction Type:Patient Education Patient Instructions Indication:Vitamin D deficiency Start:29-Sep-2018 Instruction Type:Provider Instructions for Treatment How to access health informa tion online Indication:Diabetes mellitus type II, controlled, with no complications Start:26-May-2018 Instruction Type:Patient Education How to access health informa tion online - Detail Indication:Diabetes mellitus type II, controlled, with no complications Start:26-May-2018 Instruction Type:Patient Education Patient Instructions Indication:Diabetes mellitus type II, controlled, with no complications Start:26-May-2018 Instruction Type:Provider Instructions for Treatment How to access health informa tion online Indication:Diabetes mellitus type II, controlled, with no complications Start:30-Dec-2017 Instruction Type:Patient Education How to access health informa tion online - Detail Indication:Diabetes mellitus type II, controlled, with no complications Start:30-Dec-2017 Instruction Type:Patient Education Patient Instructions Indication:BMI 38.0-38.9,adult Start:30-Dec-2017 Instruction Type:Provider Instructions for Treatment How to access health informa tion online Indication:Diabetes mellitus type II, controlled, with no complications Start:16-Sep-2017 Instruction Type:Patient Education How to access health informa tion online - Detail Indication:Diabetes mellitus type II, controlled, with no complications Start:16-Sep-2017 Instruction Type:Patient Education Patient Instructions Indication:BMI 39.0-39.9,adult Start:16-Sep-2017 Instruction Type:Provider Instructions for Treatment DISCONTINUED - CBC, PLATELET S & AUT DIFF ([id number]) Indication:Diabetes mellitus type II, controlled, with no complications Start:07-Jan-2017 Instruction Type:Patient Education DISCONTINUED - RENAL FUNCTIO N PANEL ([id number]) Indication:Diabetes mellitus type II, controlled, with no complications Start:07-Jan-2017 Instruction Type:Patient Education DISCONTINUED - HGB A1C (8303 6) Indication:Diabetes mellitus type II, controlled, with no complications Start:07-Jan-2017 Instruction Type:Patient Education How to access health informa tion online Indication:Low back pain radiating to left leg Start:07-Jan-2017 Instruction Type:Patient Education How to access health informa tion online - Detail Indication:Low back pain radiating to left leg Start:07-Jan-2017 Instruction Type:Patient Education Patient Instructions Indication:Low back pain radiating to left leg Start:07-Jan-2017 Instruction Type:Provider Instructions for Treatment Patient Instructions Indication:Nonsmoker Start:20-Aug-2016 Instruction Type:Provider Instructions for Treatment How to access health informa tion online Indication:Mixed hyperlipidemia Start:21-Nov-2015 Instruction Type:Patient Education How to access health informa tion online - Detail Indication:Mixed hyperlipidemia Start:21-Nov-2015 Instruction Type:Patient Education Patient Instructions Indication:Mixed hyperlipidemia Start:21-Nov-2015 Instruction Type:Provider Instructions for Treatment Patient Instructions Indication:Diabetes mellitus type II, controlled, with no complications Start:05-Apr-2015 Instruction Type:Provider Instructions for Treatment Patient Instructions Indication:Cough Start:21-Oct-2014 Instruction Type:Provider Instructions for Treatment Patient Instructions Indication:Diabetes mellitus type II, controlled, with no complications Start:08-Mar-2014 Instruction Type:Provider Instructions for Treatment Patient Instructions Indication:Diabetes mellitus type II, controlled, with no complications Start:30-Nov-2013 Instruction Type:Provider Instructions for Treatment Patient Instructions Indication:Physical exam Start:25-May-2013 Instruction Type:Provider Instructions for Treatment Patient Instructions Indication:Diabetes mellitus type II, controlled, with no complications Start:09-Feb-2013 Instruction Type:Provider Instructions for Treatment Patient Instructions Indication:Diabetes mellitus type II, controlled, with no complications Start:01-Sep-2012 Instruction Type:Provider Instructions for Treatment [facility]; [facility] Work Phone: Instructions* Name Dates Details Patient Instructions Indication:BMI 35.0-35.9,adult Start:27-May-2023 Instruction Type:Provider Instructions for Treatment How to Access Health [facility] Online using Patient Portal and [employer]rd [employer] Apps Indication:BMI 35.0-35.9,adult Start:27-May-2023 Instruction Type:Patient Education DISCONTINUED - URINALYSIS, AUTOMATED W/ MICRO ([id number]) Indication:Diabetes mellitus type II, controlled, with no complications Start:31-Oct-2022 Instruction Type:Patient Education DISCONTINUED - MICROALBUMIN: CREATININE RATIO ([id number]) AND ([id number]) Indication:Diabetes mellitus type II, controlled, with no complications Start:31-Oct-2022 Instruction Type:Patient Education DISCONTINUED - TSH (THYROID STIMULATING HORMONE) ([id number]) Indication:Diabetes mellitus type II, controlled, with no complications Start:31-Oct-2022 Instruction Type:Patient Education DISCONTINUED - LIPID PANEL ( [id number]) Indication:Diabetes mellitus type II, controlled, with no complications Start:31-Oct-2022 Instruction Type:Patient Education DISCONTINUED - METABOLIC ALVAREZ EL, COMPREHENSIVE ([id number]) Indication:Diabetes mellitus type II, controlled, with no complications Start:31-Oct-2022 Instruction Type:Patient Education DISCONTINUED - CBC, PLATELET S & AUT DIFF (03030) Indication:Diabetes mellitus type II, controlled, with no complications Start:31-Oct-2022 Instruction Type:Patient Education DISCONTINUED - METABOLIC ALVAREZ EL, COMPREHENSIVE ([id number]) Indication:Diabetes mellitus type II, controlled, with no complications Start:31-Oct-2022 Instruction Type:Patient Education Patient Instructions Indication:Diabetes mellitus type II, controlled, with no complications Start:30-Oct-2022 Instruction Type:Provider Instructions for Treatment How to Access Health Informa tion Online using Patient Portal and [employer]rd [employer] Apps Indication:Diabetes mellitus type II, controlled, with no complications Start:30-Oct-2022 Instruction Type:Patient Education Patient Instructions Indication:BMI 37.0-37.9, adult Start:17-Jul-2021 Instruction Type:Provider Instructions for Treatment How to Access Health Informa tion Online using Patient Portal and [employer]rd [employer] Apps Indication:BMI 37.0-37.9, adult Start:17-Jul-2021 Instruction Type:Patient Education Patient Instructions Indication:BMI 37.0-37.9, adult Start:11-Jul-2021 Instruction Type:Provider Instructions for Treatment How to Access Health Informa tion Online using Patient Portal and [employer]rd [employer] Apps Indication:BMI 37.0-37.9, adult Start:11-Jul-2021 Instruction Type:Patient Education Patient Instructions Indication:Nonsmoker Start:15-May-2021 Instruction Type:Provider Instructions for Treatment How to Access Health Informa tion Online using Patient Portal and [employer]rd [employer] Apps Indication:Nonsmoker Start:15-May-2021 Instruction Type:Patient Education Patient Instructions Indication:Nonsmoker Start:04-Apr-2021 Instruction Type:Provider Instructions for Treatment How to Access Health Informa tion Online using Patient Portal and [employer]rd [employer] Apps Indication:Nonsmoker Start:04-Apr-2021 Instruction Type:Patient Education Patient Instructions Indication:BMI 39.0-39.9,adult Start:20-Mar-2021 Instruction Type:Provider Instructions for Treatment How to Access Health Informa tion Online using Patient Portal and [employer]rd [employer] Apps Indication:Diabetes mellitus type II, controlled, with no complications Start:20-Mar-2021 Instruction Type:Patient Education How to access health informa tion online Indication:Nonsmoker Start:12-Sep-2020 Instruction Type:Patient Education How to access health informa tion online - Detail Indication:Nonsmoker Start:12-Sep-2020 Instruction Type:Patient Education Patient Instructions Indication:Nonsmoker Start:12-Sep-2020 Instruction Type:Provider Instructions for Treatment How to access health informa tion online Indication:BMI 39.0-39.9,adult Start:10-Feb-2020 Instruction Type:Patient Education How to access health informa tion online - Detail Indication:BMI 39.0-39.9,adult Start:10-Feb-2020 Instruction Type:Patient Education Patient Instructions Indication:BMI 39.0-39.9,adult Start:10-Feb-2020 Instruction Type:Provider Instructions for Treatment Patient Instructions Indication:Nonsmoker Start:29-Jun-2019 Instruction Type:Provider Instructions for Treatment How to access health informa tion online Indication:Diabetes mellitus type II, controlled, with no complications Start:29-Jun-2019 Instruction Type:Patient Education How to access health informa tion online - Detail Indication:Diabetes mellitus type II, controlled, with no complications Start:29-Jun-2019 Instruction Type:Patient Education Patient Instructions Indication:Diabetes mellitus type II, controlled, with no complications Start:29-Jun-2019 Instruction Type:Provider Instructions for Treatment How to access health informa tion online Indication:Diabetes mellitus type II, controlled, with no complications Start:09-Mar-2019 Instruction Type:Patient Education How to access health informa tion online - Detail Indication:Diabetes mellitus type II, controlled, with no complications Start:09-Mar-2019 Instruction Type:Patient Education Patient Instructions Indication:Screening PSA (prostate specific antigen) Start:09-Mar-2019 Instruction Type:Provider Instructions for Treatment How to access health informa tion online Indication:Nonsmoker Start:16-Feb-2019 Instruction Type:Patient Education How to access health informa tion online - Detail Indication:Nonsmoker Start:16-Feb-2019 Instruction Type:Patient Education Patient Instructions Indication:Upper respiratory infection, acute Start:16-Feb-2019 Instruction Type:Provider Instructions for Treatment How to access health informa tion online Indication:Nonsmoker Start:12-Jan-2019 Instruction Type:Patient Education How to access health informa tion online - Detail Indication:Nonsmoker Start:12-Jan-2019 Instruction Type:Patient Education Patient Instructions Indication:Nonsmoker Start:12-Jan-2019 Instruction Type:Provider Instructions for Treatment How to access health informa tion online Indication:Nonsmoker Start:15-Dec-2018 Instruction Type:Patient Education How to access health informa tion online - Detail Indication:Nonsmoker Start:15-Dec-2018 Instruction Type:Patient Education Patient Instructions Indication:Iliotibial band tendonitis, left Start:15-Dec-2018 Instruction Type:Provider Instructions for Treatment DISCONTINUED - METABOLIC ALVAREZ EL, COMPREHENSIVE ([id number]) Indication:Diabetes mellitus type II, controlled, with no complications Start:29-Sep-2018 Instruction Type:Patient Education DISCONTINUED - HGB A1C (8303 [id number]) Indication:Diabetes mellitus type II, controlled, with no complications Start:29-Sep-2018 Instruction Type:Patient Education How to access health informa tion online Indication:Diabetes mellitus type II, controlled, with no complications Start:29-Sep-2018 Instruction Type:Patient Education How to access health informa tion online - Detail Indication:Diabetes mellitus type II, controlled, with no complications Start:29-Sep-2018 Instruction Type:Patient Education Patient Instructions Indication:Vitamin D deficiency Start:29-Sep-2018 Instruction Type:Provider Instructions for Treatment How to access health informa tion online Indication:Diabetes mellitus type II, controlled, with no complications Start:26-May-2018 Instruction Type:Patient Education How to access health informa tion online - Detail Indication:Diabetes mellitus type II, controlled, with no complications Start:26-May-2018 Instruction Type:Patient Education Patient Instructions Indication:Diabetes mellitus type II, controlled, with no complications Start:26-May-2018 Instruction Type:Provider Instructions for Treatment How to access health informa tion online Indication:Diabetes mellitus type II, controlled, with no complications Start:30-Dec-2017 Instruction Type:Patient Education How to access health informa tion online - Detail Indication:Diabetes mellitus type II, controlled, with no complications Start:30-Dec-2017 Instruction Type:Patient Education Patient Instructions Indication:BMI 38.0-38.9,adult Start:30-Dec-2017 Instruction Type:Provider Instructions for Treatment How to access health informa tion online Indication:Diabetes mellitus type II, controlled, with no complications Start:16-Sep-2017 Instruction Type:Patient Education How to access health informa tion online - Detail Indication:Diabetes mellitus type II, controlled, with no complications Start:16-Sep-2017 Instruction Type:Patient Education Patient Instructions Indication:BMI 39.0-39.9,adult Start:16-Sep-2017 Instruction Type:Provider Instructions for Treatment DISCONTINUED - CBC, PLATELET S & AUT DIFF ([id number]) Indication:Diabetes mellitus type II, controlled, with no complications Start:07-Jan-2017 Instruction Type:Patient Education DISCONTINUED - RENAL FUNCTIO N PANEL ([id number]) Indication:Diabetes mellitus type II, controlled, with no complications Start:07-Jan-2017 Instruction Type:Patient Education DISCONTINUED - HGB A1C (8303 6) Indication:Diabetes mellitus type II, controlled, with no complications Start:07-Jan-2017 Instruction Type:Patient Education How to access health informa tion online Indication:Low back pain radiating to left leg Start:07-Jan-2017 Instruction Type:Patient Education How to access health informa tion online - Detail Indication:Low back pain radiating to left leg Start:07-Jan-2017 Instruction Type:Patient Education Patient Instructions Indication:Low back pain radiating to left leg Start:07-Jan-2017 Instruction Type:Provider Instructions for Treatment Patient Instructions Indication:Nonsmoker Start:20-Aug-2016 Instruction Type:Provider Instructions for Treatment How to access health informa tion online Indication:Mixed hyperlipidemia Start:21-Nov-2015 Instruction Type:Patient Education How to access health informa tion online - Detail Indication:Mixed hyperlipidemia Start:21-Nov-2015 Instruction Type:Patient Education Patient Instructions Indication:Mixed hyperlipidemia Start:21-Nov-2015 Instruction Type:Provider Instructions for Treatment Patient Instructions Indication:Diabetes mellitus type II, controlled, with no complications Start:05-Apr-2015 Instruction Type:Provider Instructions for Treatment Patient Instructions Indication:Cough Start:21-Oct-2014 Instruction Type:Provider Instructions for Treatment Patient Instructions Indication:Diabetes mellitus type II, controlled, with no complications Start:08-Mar-2014 Instruction Type:Provider Instructions for Treatment Patient Instructions Indication:Diabetes mellitus type II, controlled, with no complications Start:30-Nov-2013 Instruction Type:Provider Instructions for Treatment Patient Instructions Indication:Physical exam Start:25-May-2013 Instruction Type:Provider Instructions for Treatment Patient Instructions Indication:Diabetes mellitus type II, controlled, with no complications Start:09-Feb-2013 Instruction Type:Provider Instructions for Treatment Patient Instructions Indication:Diabetes mellitus type II, controlled, with no complications Start:01-Sep-2012 Instruction Type:Provider Instructions for Treatment [facility]; [facility] Work Phone: Instructions* Name Dates Details Patient Instructions Indication:BMI 35.0-35.9,adult Start:02-Sep-2023 Instruction Type:Provider Instructions for Treatment How to Access Health Informa tion Online using Patient Portal and [employer] Indication:BMI 35.0-35.9,adult Start:02-Sep-2023 Instruction Type:Patient Education Patient Instructions Indication:BMI 35.0-35.9,adult Start:27-May-2023 Instruction Type:Provider Instructions for Treatment How to Access Health Informa tion Online using Patient Portal and [employer] Indication:BMI 35.0-35.9,adult Start:27-May-2023 Instruction Type:Patient Education DISCONTINUED - URINALYSIS, AUTOMATED W/ MICRO ([id number]) Indication:Diabetes mellitus type II, controlled, with no complications Start:31-Oct-2022 Instruction Type:Patient Education DISCONTINUED - MICROALBUMIN: CREATININE RATIO (51201) AND ([id number]) Indication:Diabetes mellitus type II, controlled, with no complications Start:31-Oct-2022 Instruction Type:Patient Education DISCONTINUED - TSH (THYROID STIMULATING HORMONE) ([id number]) Indication:Diabetes mellitus type II, controlled, with no complications Start:31-Oct-2022 Instruction Type:Patient Education DISCONTINUED - LIPID PANEL ( [id number]) Indication:Diabetes mellitus type II, controlled, with no complications Start:31-Oct-2022 Instruction Type:Patient Education DISCONTINUED - METABOLIC ALVAREZ EL, COMPREHENSIVE ([id number]) Indication:Diabetes mellitus type II, controlled, with no complications Start:31-Oct-2022 Instruction Type:Patient Education DISCONTINUED - CBC, PLATELET S & AUT DIFF ([id number]) Indication:Diabetes mellitus type II, controlled, with no complications Start:31-Oct-2022 Instruction Type:Patient Education DISCONTINUED - METABOLIC ALVAREZ EL, COMPREHENSIVE ([id number]) Indication:Diabetes mellitus type II, controlled, with no complications Start:31-Oct-2022 Instruction Type:Patient Education Patient Instructions Indication:Diabetes mellitus type II, controlled, with no complications Start:30-Oct-2022 Instruction Type:Provider Instructions for Treatment How to Access Health Informa tion Online using Patient Portal and [employer] Indication:Diabetes mellitus type II, controlled, with no complications Start:30-Oct-2022 Instruction Type:Patient Education Patient Instructions Indication:BMI 37.0-37.9, adult Start:17-Jul-2021 Instruction Type:Provider Instructions for Treatment How to Access Health Informa tion Online using Patient Portal and [employer] Indication:BMI 37.0-37.9, adult Start:17-Jul-2021 Instruction Type:Patient Education Patient Instructions Indication:BMI 37.0-37.9, adult Start:11-Jul-2021 Instruction Type:Provider Instructions for Treatment How to Access Health Informa tion Online using Patient Portal and [employer] Indication:BMI 37.0-37.9, adult Start:11-Jul-2021 Instruction Type:Patient Education Patient Instructions Indication:Nonsmoker Start:15-May-2021 Instruction Type:Provider Instructions for Treatment How to Access Health Informa tion Online using Patient Portal and [employer] Indication:Nonsmoker Start:15-May-2021 Instruction Type:Patient Education Patient Instructions Indication:Nonsmoker Start:04-Apr-2021 Instruction Type:Provider Instructions for Treatment How to Access Health Informa tion Online using Patient Portal and [employer] Indication:Nonsmoker Start:04-Apr-2021 Instruction Type:Patient Education Patient Instructions Indication:BMI 39.0-39.9,adult Start:20-Mar-2021 Instruction Type:Provider Instructions for Treatment How to Access Health Informa tion Online using Patient Portal and [employer] Indication:Diabetes mellitus type II, controlled, with no complications Start:20-Mar-2021 Instruction Type:Patient Education How to access health informa tion online Indication:Nonsmoker Start:12-Sep-2020 Instruction Type:Patient Education How to access health informa tion online - Detail Indication:Nonsmoker Start:12-Sep-2020 Instruction Type:Patient Education Patient Instructions Indication:Nonsmoker Start:12-Sep-2020 Instruction Type:Provider Instructions for Treatment How to access health informa tion online Indication:BMI 39.0-39.9,adult Start:10-Feb-2020 Instruction Type:Patient Education How to access health informa tion online - Detail Indication:BMI 39.0-39.9,adult Start:10-Feb-2020 Instruction Type:Patient Education Patient Instructions Indication:BMI 39.0-39.9,adult Start:10-Feb-2020 Instruction Type:Provider Instructions for Treatment Patient Instructions Indication:Nonsmoker Start:29-Jun-2019 Instruction Type:Provider Instructions for Treatment How to access health informa tion online Indication:Diabetes mellitus type II, controlled, with no complications Start:29-Jun-2019 Instruction Type:Patient Education How to access health informa tion online - Detail Indication:Diabetes mellitus type II, controlled, with no complications Start:29-Jun-2019 Instruction Type:Patient Education Patient Instructions Indication:Diabetes mellitus type II, controlled, with no complications Start:29-Jun-2019 Instruction Type:Provider Instructions for Treatment How to access health informa tion online Indication:Diabetes mellitus type II, controlled, with no complications Start:09-Mar-2019 Instruction Type:Patient Education How to access health informa tion online - Detail Indication:Diabetes mellitus type II, controlled, with no complications Start:09-Mar-2019 Instruction Type:Patient Education Patient Instructions Indication:Screening PSA (prostate specific antigen) Start:09-Mar-2019 Instruction Type:Provider Instructions for Treatment How to access health informa tion online Indication:Nonsmoker Start:16-Feb-2019 Instruction Type:Patient Education How to access health informa tion online - Detail Indication:Nonsmoker Start:16-Feb-2019 Instruction Type:Patient Education Patient Instructions Indication:Upper respiratory infection, acute Start:16-Feb-2019 Instruction Type:Provider Instructions for Treatment How to access health informa tion online Indication:Nonsmoker Start:12-Jan-2019 Instruction Type:Patient Education How to access health informa tion online - Detail Indication:Nonsmoker Start:12-Jan-2019 Instruction Type:Patient Education Patient Instructions Indication:Nonsmoker Start:12-Jan-2019 Instruction Type:Provider Instructions for Treatment How to access health informa tion online Indication:Nonsmoker Start:15-Dec-2018 Instruction Type:Patient Education How to access health informa tion online - Detail Indication:Nonsmoker Start:15-Dec-2018 Instruction Type:Patient Education Patient Instructions Indication:Iliotibial band tendonitis, left Start:15-Dec-2018 Instruction Type:Provider Instructions for Treatment DISCONTINUED - METABOLIC ALVAREZ EL, COMPREHENSIVE ([id number]) Indication:Diabetes mellitus type II, controlled, with no complications Start:29-Sep-2018 Instruction Type:Patient Education DISCONTINUED - HGB A1C ([id number]) Indication:Diabetes mellitus type II, controlled, with no complications Start:29-Sep-2018 Instruction Type:Patient Education How to access health informa tion online Indication:Diabetes mellitus type II, controlled, with no complications Start:29-Sep-2018 Instruction Type:Patient Education How to access health informa tion online - Detail Indication:Diabetes mellitus type II, controlled, with no complications Start:29-Sep-2018 Instruction Type:Patient Education Patient Instructions Indication:Vitamin D deficiency Start:29-Sep-2018 Instruction Type:Provider Instructions for Treatment How to access health informa tion online Indication:Diabetes mellitus type II, controlled, with no complications Start:26-May-2018 Instruction Type:Patient Education How to access health informa tion online - Detail Indication:Diabetes mellitus type II, controlled, with no complications Start:26-May-2018 Instruction Type:Patient Education Patient Instructions Indication:Diabetes mellitus type II, controlled, with no complications Start:26-May-2018 Instruction Type:Provider Instructions for Treatment How to access health informa tion online Indication:Diabetes mellitus type II, controlled, with no complications Start:30-Dec-2017 Instruction Type:Patient Education How to access health informa tion online - Detail Indication:Diabetes mellitus type II, controlled, with no complications Start:30-Dec-2017 Instruction Type:Patient Education Patient Instructions Indication:BMI 38.0-38.9,adult Start:30-Dec-2017 Instruction Type:Provider Instructions for Treatment How to access health informa tion online Indication:Diabetes mellitus type II, controlled, with no complications Start:16-Sep-2017 Instruction Type:Patient Education How to access health informa tion online - Detail Indication:Diabetes mellitus type II, controlled, with no complications Start:16-Sep-2017 Instruction Type:Patient Education Patient Instructions Indication:BMI 39.0-39.9,adult Start:16-Sep-2017 Instruction Type:Provider Instructions for Treatment DISCONTINUED - CBC, PLATELET S & AUT DIFF ([id number]) Indication:Diabetes mellitus type II, controlled, with no complications Start:07-Jan-2017 Instruction Type:Patient Education DISCONTINUED - RENAL FUNCTIO N PANEL ([id number]) Indication:Diabetes mellitus type II, controlled, with no complications Start:07-Jan-2017 Instruction Type:Patient Education DISCONTINUED - HGB A1C (8303 6) Indication:Diabetes mellitus type II, controlled, with no complications Start:07-Jan-2017 Instruction Type:Patient Education How to access health informa tion online Indication:Low back pain radiating to left leg Start:07-Jan-2017 Instruction Type:Patient Education How to access health informa tion online - Detail Indication:Low back pain radiating to left leg Start:07-Jan-2017 Instruction Type:Patient Education Patient Instructions Indication:Low back pain radiating to left leg Start:07-Jan-2017 Instruction Type:Provider Instructions for Treatment Patient Instructions Indication:Nonsmoker Start:20-Aug-2016 Instruction Type:Provider Instructions for Treatment How to access health informa tion online Indication:Mixed hyperlipidemia Start:21-Nov-2015 Instruction Type:Patient Education How to access health informa tion online - Detail Indication:Mixed hyperlipidemia Start:21-Nov-2015 Instruction Type:Patient Education Patient Instructions Indication:Mixed hyperlipidemia Start:21-Nov-2015 Instruction Type:Provider Instructions for Treatment Patient Instructions Indication:Diabetes mellitus type II, controlled, with no complications Start:05-Apr-2015 Instruction Type:Provider Instructions for Treatment Patient Instructions Indication:Cough Start:21-Oct-2014 Instruction Type:Provider Instructions for Treatment Patient Instructions Indication:Diabetes mellitus type II, controlled, with no complications Start:08-Mar-2014 Instruction Type:Provider Instructions for Treatment Patient Instructions Indication:Diabetes mellitus type II, controlled, with no complications Start:30-Nov-2013 Instruction Type:Provider Instructions for Treatment Patient Instructions Indication:Physical exam Start:25-May-2013 Instruction Type:Provider Instructions for Treatment Patient Instructions Indication:Diabetes mellitus type II, controlled, with no complications Start:09-Feb-2013 Instruction Type:Provider Instructions for Treatment Patient Instructions Indication:Diabetes mellitus type II, controlled, with no complications Start:01-Sep-2012 Instruction Type:Provider Instructions for Treatment [facility]; [facility] Work Phone: Summary Purpose Family History Unknown Family Member Name Dates Details Father Comments:Alzheimer's - Ver[place] abusive Status:Active Mother Comments:Doed at 75, MIs X 6 , renal failure on dialysis, DM and HBP Status:Active No Family History Records Found Advance Directives Advance Directive Response Recorded Date/ Time Advance Directives Yes December 03, 2016 1:08pm Living Will No August 03, 2023 11:30am Power of Oral Health Therapist No July 11:30am Advance Directive Response Recorded Date/ Time Advance Directives Yes December 03, 2016 2:08pm Living Will No August 03, 2023 12:30pm Power of Oral Health Therapist No July 12:30pm No Advanced Directives Records Found Instructions Name Dates Details How to access health informa tion online Indication:Nonsmoker Start:12-Sep-2020 Instruction Type:Patient Education How to access health informa tion online - Detail Indication:Nonsmoker Start:12-Sep-2020 Instruction Type:Patient Education Patient Instructions Indication:Nonsmoker Start:12-Sep-2020 Instruction Type:Provider Instructions for Treatment How to access health informa tion online Indication:BMI 39.0-39.9,adult Start:10-Feb-2020 Instruction Type:Patient Education How to access health informa tion online - Detail Indication:BMI 39.0-39.9,adult Start:10-Feb-2020 Instruction Type:Patient Education Patient Instructions Indication:BMI 39.0-39.9,adult Start:10-Feb-2020 Instruction Type:Provider Instructions for Treatment Patient Instructions Indication:Nonsmoker Start:29-Jun-2019 Instruction Type:Provider Instructions for Treatment How to access health informa tion online Indication:Diabetes mellitus type II, controlled, with no complications Start:29-Jun-2019 Instruction Type:Patient Education How to access health informa tion online - Detail Indication:Diabetes mellitus type II, controlled, with no complications Start:29-Jun-2019 Instruction Type:Patient Education Patient Instructions Indication:Diabetes mellitus type II, controlled, with no complications Start:29-Jun-2019 Instruction Type:Provider Instructions for Treatment How to access health informa tion online Indication:Diabetes mellitus type II, controlled, with no complications Start:09-Mar-2019 Instruction Type:Patient Education How to access health informa tion online - Detail Indication:Diabetes mellitus type II, controlled, with no complications Start:09-Mar-2019 Instruction Type:Patient Education Patient Instructions Indication:Screening PSA (prostate specific antigen) Start:09-Mar-2019 Instruction Type:Provider Instructions for Treatment How to access health informa tion online Indication:Nonsmoker Start:16-Feb-2019 Instruction Type:Patient Education How to access health informa tion online - Detail Indication:Nonsmoker Start:16-Feb-2019 Instruction Type:Patient Education Patient Instructions Indication:Upper respiratory infection, acute Start:16-Feb-2019 Instruction Type:Provider Instructions for Treatment How to access health informa tion online Indication:Nonsmoker Start:12-Jan-2019 Instruction Type:Patient Education How to access health informa tion online - Detail Indication:Nonsmoker Start:12-Jan-2019 Instruction Type:Patient Education Patient Instructions Indication:Nonsmoker Start:12-Jan-2019 Instruction Type:Provider Instructions for Treatment How to access health informa tion online Indication:Nonsmoker Start:15-Dec-2018 Instruction Type:Patient Education How to access health informa tion online - Detail Indication:Nonsmoker Start:15-Dec-2018 Instruction Type:Patient Education Patient Instructions Indication:Iliotibial band tendonitis, left Start:15-Dec-2018 Instruction Type:Provider Instructions for Treatment DISCONTINUED - METABOLIC ALVAREZ EL, COMPREHENSIVE ([id number]) Indication:Diabetes mellitus type II, controlled, with no complications Start:29-Sep-2018 Instruction Type:Patient Education DISCONTINUED - HGB A1C (8303 6) Indication:Diabetes mellitus type II, controlled, with no complications Start:29-Sep-2018 Instruction Type:Patient Education How to access health informa tion online Indication:Diabetes mellitus type II, controlled, with no complications Start:29-Sep-2018 Instruction Type:Patient Education How to access health informa tion online - Detail Indication:Diabetes mellitus type II, controlled, with no complications Start:29-Sep-2018 Instruction Type:Patient Education Patient Instructions Indication:Vitamin D deficiency Start:29-Sep-2018 Instruction Type:Provider Instructions for Treatment How to access health informa tion online Indication:Diabetes mellitus type II, controlled, with no complications Start:26-May-2018 Instruction Type:Patient Education How to access health informa tion online - Detail Indication:Diabetes mellitus type II, controlled, with no complications Start:26-May-2018 Instruction Type:Patient Education Patient Instructions Indication:Diabetes mellitus type II, controlled, with no complications Start:26-May-2018 Instruction Type:Provider Instructions for Treatment How to access health informa tion online Indication:Diabetes mellitus type II, controlled, with no complications Start:30-Dec-2017 Instruction Type:Patient Education How to access health informa tion online - Detail Indication:Diabetes mellitus type II, controlled, with no complications Start:30-Dec-2017 Instruction Type:Patient Education Patient Instructions Indication:BMI 38.0-38.9,adult Start:30-Dec-2017 Instruction Type:Provider Instructions for Treatment How to access health informa tion online Indication:Diabetes mellitus type II, controlled, with no complications Start:16-Sep-2017 Instruction Type:Patient Education How to access health informa tion online - Detail Indication:Diabetes mellitus type II, controlled, with no complications Start:16-Sep-2017 Instruction Type:Patient Education Patient Instructions Indication:BMI 39.0-39.9,adult Start:16-Sep-2017 Instruction Type:Provider Instructions for Treatment DISCONTINUED - CBC, PLATELET S & AUT DIFF ([id number]) Indication:Diabetes mellitus type II, controlled, with no complications Start:07-Jan-2017 Instruction Type:Patient Education DISCONTINUED - RENAL FUNCTIO N PANEL ([id number]) Indication:Diabetes mellitus type II, controlled, with no complications Start:07-Jan-2017 Instruction Type:Patient Education DISCONTINUED - HGB A1C (8303 6) Indication:Diabetes mellitus type II, controlled, with no complications Start:07-Jan-2017 Instruction Type:Patient Education How to access health informa tion online Indication:Low back pain radiating to left leg Start:07-Jan-2017 Instruction Type:Patient Education How to access health informa tion online - Detail Indication:Low back pain radiating to left leg Start:07-Jan-2017 Instruction Type:Patient Education Patient Instructions Indication:Low back pain radiating to left leg Start:07-Jan-2017 Instruction Type:Provider Instructions for Treatment Patient Instructions Indication:Nonsmoker Start:20-Aug-2016 Instruction Type:Provider Instructions for Treatment How to access health informa tion online Indication:Mixed hyperlipidemia Start:21-Nov-2015 Instruction Type:Patient Education How to access health informa tion online - Detail Indication:Mixed hyperlipidemia Start:21-Nov-2015 Instruction Type:Patient Education Patient Instructions Indication:Mixed hyperlipidemia Start:21-Nov-2015 Instruction Type:Provider Instructions for Treatment Patient Instructions Indication:Diabetes mellitus type II, controlled, with no complications Start:05-Apr-2015 Instruction Type:Provider Instructions for Treatment Patient Instructions Indication:Cough Start:21-Oct-2014 Instruction Type:Provider Instructions for Treatment Patient Instructions Indication:Diabetes mellitus type II, controlled, with no complications Start:08-Mar-2014 Instruction Type:Provider Instructions for Treatment Patient Instructions Indication:Diabetes mellitus type II, controlled, with no complications Start:30-Nov-2013 Instruction Type:Provider Instructions for Treatment Patient Instructions Indication:Physical exam Start:25-May-2013 Instruction Type:Provider Instructions for Treatment Patient Instructions Indication:Diabetes mellitus type II, controlled, with no complications Start:09-Feb-2013 Instruction Type:Provider Instructions for Treatment Patient Instructions Indication:Diabetes mellitus type II, controlled, with no complications Start:01-Sep-2012 Instruction Type:Provider Instructions for Treatment Name Dates Details How to access health Crude [facility] [place] Indication:BMI 39.0-39.9,adult Start:10-Feb-2020 Instruction Type:Patient Education How to access health informa tion online - Detail Indication:BMI 39.0-39.9,adult Start:10-Feb-2020 Instruction Type:Patient Education Patient Instructions Indication:BMI 39.0-39.9,adult Start:10-Feb-2020 Instruction Type:Provider Instructions for Treatment Patient Instructions Indication:Nonsmoker Start:29-Jun-2019 Instruction Type:Provider Instructions for Treatment How to access health informa tion online Indication:Diabetes mellitus type II, controlled, with no complications Start:29-Jun-2019 Instruction Type:Patient Education How to access health informa tion online - Detail Indication:Diabetes mellitus type II, controlled, with no complications Start:29-Jun-2019 Instruction Type:Patient Education Patient Instructions Indication:Diabetes mellitus type II, controlled, with no complications Start:29-Jun-2019 Instruction Type:Provider Instructions for Treatment How to access health informa tion online Indication:Diabetes mellitus type II, controlled, with no complications Start:09-Mar-2019 Instruction Type:Patient Education How to access health informa tion online - Detail Indication:Diabetes mellitus type II, controlled, with no complications Start:09-Mar-2019 Instruction Type:Patient Education Patient Instructions Indication:Screening PSA (prostate specific antigen) Start:09-Mar-2019 Instruction Type:Provider Instructions for Treatment How to access health informa tion online Indication:Nonsmoker Start:16-Feb-2019 Instruction Type:Patient Education How to access health informa tion online - Detail Indication:Nonsmoker Start:16-Feb-2019 Instruction Type:Patient Education Patient Instructions Indication:Upper respiratory infection, acute Start:16-Feb-2019 Instruction Type:Provider Instructions for Treatment How to access health informa tion online Indication:Nonsmoker Start:12-Jan-2019 Instruction Type:Patient Education How to access health informa tion online - Detail Indication:Nonsmoker Start:12-Jan-2019 Instruction Type:Patient Education Patient Instructions Indication:Nonsmoker Start:12-Jan-2019 Instruction Type:Provider Instructions for Treatment How to access health informa tion online Indication:Nonsmoker Start:15-Dec-2018 Instruction Type:Patient Education How to access health informa tion online - Detail Indication:Nonsmoker Start:15-Dec-2018 Instruction Type:Patient Education Patient Instructions Indication:Iliotibial band tendonitis, left Start:15-Dec-2018 Instruction Type:Provider Instructions for Treatment DISCONTINUED - METABOLIC ALVAREZ EL, COMPREHENSIVE ([id number]) Indication:Diabetes mellitus type II, controlled, with no complications Start:29-Sep-2018 Instruction Type:Patient Education DISCONTINUED - HGB A1C (8303 6) Indication:Diabetes mellitus type II, controlled, with no complications Start:29-Sep-2018 Instruction Type:Patient Education How to access health informa tion online Indication:Diabetes mellitus type II, controlled, with no complications Start:29-Sep-2018 Instruction Type:Patient Education How to access health informa tion online - Detail Indication:Diabetes mellitus type II, controlled, with no complications Start:29-Sep-2018 Instruction Type:Patient Education Patient Instructions Indication:Vitamin D deficiency Start:29-Sep-2018 Instruction Type:Provider Instructions for Treatment How to access health informa tion online Indication:Diabetes mellitus type II, controlled, with no complications Start:26-May-2018 Instruction Type:Patient Education How to access health informa tion online - Detail Indication:Diabetes mellitus type II, controlled, with no complications Start:26-May-2018 Instruction Type:Patient Education Patient Instructions Indication:Diabetes mellitus type II, controlled, with no complications Start:26-May-2018 Instruction Type:Provider Instructions for Treatment How to access health informa tion online Indication:Diabetes mellitus type II, controlled, with no complications Start:30-Dec-2017 Instruction Type:Patient Education How to access health informa tion online - Detail Indication:Diabetes mellitus type II, controlled, with no complications Start:30-Dec-2017 Instruction Type:Patient Education Patient Instructions Indication:BMI 38.0-38.9,adult Start:30-Dec-2017 Instruction Type:Provider Instructions for Treatment How to access health informa tion online Indication:Diabetes mellitus type II, controlled, with no complications Start:16-Sep-2017 Instruction Type:Patient Education How to access health informa tion online - Detail Indication:Diabetes mellitus type II, controlled, with no complications Start:16-Sep-2017 Instruction Type:Patient Education Patient Instructions Indication:BMI 39.0-39.9,adult Start:16-Sep-2017 Instruction Type:Provider Instructions for Treatment DISCONTINUED - CBC, PLATELET S & AUT DIFF ([id number]) Indication:Diabetes mellitus type II, controlled, with no complications Start:07-Jan-2017 Instruction Type:Patient Education DISCONTINUED - RENAL FUNCTIO N PANEL ([id number]) Indication:Diabetes mellitus type II, controlled, with no complications Start:07-Jan-2017 Instruction Type:Patient Education DISCONTINUED - HGB A1C (8303 6) Indication:Diabetes mellitus type II, controlled, with no complications Start:07-Jan-2017 Instruction Type:Patient Education How to access health informa tion online Indication:Low back pain radiating to left leg Start:07-Jan-2017 Instruction Type:Patient Education How to access health informa tion online - Detail Indication:Low back pain radiating to left leg Start:07-Jan-2017 Instruction Type:Patient Education Patient Instructions Indication:Low back pain radiating to left leg Start:07-Jan-2017 Instruction Type:Provider Instructions for Treatment Patient Instructions Indication:Nonsmoker Start:20-Aug-2016 Instruction Type:Provider Instructions for Treatment How to access health informa tion online Indication:Mixed hyperlipidemia Start:21-Nov-2015 Instruction Type:Patient Education How to access health informa tion online - Detail Indication:Mixed hyperlipidemia Start:21-Nov-2015 Instruction Type:Patient Education Patient Instructions Indication:Mixed hyperlipidemia Start:21-Nov-2015 Instruction Type:Provider Instructions for Treatment Patient Instructions Indication:Diabetes mellitus type II, controlled, with no complications Start:05-Apr-2015 Instruction Type:Provider Instructions for Treatment Patient Instructions Indication:Cough Start:21-Oct-2014 Instruction Type:Provider Instructions for Treatment Patient Instructions Indication:Diabetes mellitus type II, controlled, with no complications Start:08-Mar-2014 Instruction Type:Provider Instructions for Treatment Patient Instructions Indication:Diabetes mellitus type II, controlled, with no complications Start:30-Nov-2013 Instruction Type:Provider Instructions for Treatment Patient Instructions Indication:Physical exam Start:25-May-2013 Instruction Type:Provider Instructions for Treatment Patient Instructions Indication:Diabetes mellitus type II, controlled, with no complications Start:09-Feb-2013 Instruction Type:Provider Instructions for Treatment Patient Instructions Indication:Diabetes mellitus type II, controlled, with no complications Start:01-Sep-2012 Instruction Type:Provider Instructions for Treatment Name Dates Details Patient Instructions Indication:Nonsmoker Start:29-Jun-2019 Instruction Type:Provider Instructions for Treatment How to access health informa tion online Indication:Diabetes mellitus type II, controlled, with no complications Start:29-Jun-2019 Instruction Type:Patient Education How to access health informa tion online - Detail Indication:Diabetes mellitus type II, controlled, with no complications Start:29-Jun-2019 Instruction Type:Patient Education Patient Instructions Indication:Diabetes mellitus type II, controlled, with no complications Start:29-Jun-2019 Instruction Type:Provider Instructions for Treatment How to access health informa tion online Indication:Diabetes mellitus type II, controlled, with no complications Start:09-Mar-2019 Instruction Type:Patient Education How to access health informa tion online - Detail Indication:Diabetes mellitus type II, controlled, with no complications Start:09-Mar-2019 Instruction Type:Patient Education Patient Instructions Indication:Screening PSA (prostate specific antigen) Start:09-Mar-2019 Instruction Type:Provider Instructions for Treatment How to access health informa tion online Indication:Nonsmoker Start:16-Feb-2019 Instruction Type:Patient Education How to access health informa tion online - Detail Indication:Nonsmoker Start:16-Feb-2019 Instruction Type:Patient Education Patient Instructions Indication:Upper respiratory infection, acute Start:16-Feb-2019 Instruction Type:Provider Instructions for Treatment How to access health informa tion online Indication:Nonsmoker Start:12-Jan-2019 Instruction Type:Patient Education How to access health informa tion online - Detail Indication:Nonsmoker Start:12-Jan-2019 Instruction Type:Patient Education Patient Instructions Indication:Nonsmoker Start:12-Jan-2019 Instruction Type:Provider Instructions for Treatment How to access health informa tion online Indication:Nonsmoker Start:15-Dec-2018 Instruction Type:Patient Education How to access health informa tion online - Detail Indication:Nonsmoker Start:15-Dec-2018 Instruction Type:Patient Education Patient Instructions Indication:Iliotibial band tendonitis, left Start:15-Dec-2018 Instruction Type:Provider Instructions for Treatment DISCONTINUED - METABOLIC ALVAREZ EL, COMPREHENSIVE ([id number]) Indication:Diabetes mellitus type II, controlled, with no complications Start:29-Sep-2018 Instruction Type:Patient Education DISCONTINUED - HGB A1C (8303 6) Indication:Diabetes mellitus type II, controlled, with no complications Start:29-Sep-2018 Instruction Type:Patient Education How to access health informa tion online Indication:Diabetes mellitus type II, controlled, with no complications Start:29-Sep-2018 Instruction Type:Patient Education How to access health informa tion online - Detail Indication:Diabetes mellitus type II, controlled, with no complications Start:29-Sep-2018 Instruction Type:Patient Education Patient Instructions Indication:Vitamin D deficiency Start:29-Sep-2018 Instruction Type:Provider Instructions for Treatment How to access health informa tion online Indication:Diabetes mellitus type II, controlled, with no complications Start:26-May-2018 Instruction Type:Patient Education How to access health informa tion online - Detail Indication:Diabetes mellitus type II, controlled, with no complications Start:26-May-2018 Instruction Type:Patient Education Patient Instructions Indication:Diabetes mellitus type II, controlled, with no complications Start:26-May-2018 Instruction Type:Provider Instructions for Treatment How to access health informa tion online Indication:Diabetes mellitus type II, controlled, with no complications Start:30-Dec-2017 Instruction Type:Patient Education How to access health informa tion online - Detail Indication:Diabetes mellitus type II, controlled, with no complications Start:30-Dec-2017 Instruction Type:Patient Education Patient Instructions Indication:BMI 38.0-38.9,adult Start:30-Dec-2017 Instruction Type:Provider Instructions for Treatment How to access health informa tion online Indication:Diabetes mellitus type II, controlled, with no complications Start:16-Sep-2017 Instruction Type:Patient Education How to access health informa tion online - Detail Indication:Diabetes mellitus type II, controlled, with no complications Start:16-Sep-2017 Instruction Type:Patient Education Patient Instructions Indication:BMI 39.0-39.9,adult Start:16-Sep-2017 Instruction Type:Provider Instructions for Treatment DISCONTINUED - CBC, PLATELET S & AUT DIFF ([id number]) Indication:Diabetes mellitus type II, controlled, with no complications Start:07-Jan-2017 Instruction Type:Patient Education DISCONTINUED - RENAL FUNCTIO N PANEL ([id number]) Indication:Diabetes mellitus type II, controlled, with no complications Start:07-Jan-2017 Instruction Type:Patient Education DISCONTINUED - HGB A1C (8303 6) Indication:Diabetes mellitus type II, controlled, with no complications Start:07-Jan-2017 Instruction Type:Patient Education How to access health informa tion online Indication:Low back pain radiating to left leg Start:07-Jan-2017 Instruction Type:Patient Education How to access health informa tion online - Detail Indication:Low back pain radiating to left leg Start:07-Jan-2017 Instruction Type:Patient Education Patient Instructions Indication:Low back pain radiating to left leg Start:07-Jan-2017 Instruction Type:Provider Instructions for Treatment Patient Instructions Indication:Nonsmoker Start:20-Aug-2016 Instruction Type:Provider Instructions for Treatment How to access health informa tion online Indication:Mixed hyperlipidemia Start:21-Nov-2015 Instruction Type:Patient Education How to access health informa tion online - Detail Indication:Mixed hyperlipidemia Start:21-Nov-2015 Instruction Type:Patient Education Patient Instructions Indication:Mixed hyperlipidemia Start:21-Nov-2015 Instruction Type:Provider Instructions for Treatment Patient Instructions Indication:Diabetes mellitus type II, controlled, with no complications Start:05-Apr-2015 Instruction Type:Provider Instructions for Treatment Patient Instructions Indication:Cough Start:21-Oct-2014 Instruction Type:Provider Instructions for Treatment Patient Instructions Indication:Diabetes mellitus type II, controlled, with no complications Start:08-Mar-2014 Instruction Type:Provider Instructions for Treatment Patient Instructions Indication:Diabetes mellitus type II, controlled, with no complications Start:30-Nov-2013 Instruction Type:Provider Instructions for Treatment Patient Instructions Indication:Physical exam Start:25-May-2013 Instruction Type:Provider Instructions for Treatment Patient Instructions Indication:Diabetes mellitus type II, controlled, with no complications Start:09-Feb-2013 Instruction Type:Provider Instructions for Treatment Patient Instructions Indication:Diabetes mellitus type II, controlled, with no complications Start:01-Sep-2012 Instruction Type:Provider Instructions for Treatment Name Dates Details How to access health informa tion online Indication:Diabetes mellitus type II, controlled, with no complications Start:09-Mar-2019 Instruction Type:Patient Education How to access health informa tion online - Detail Indication:Diabetes mellitus type II, controlled, with no complications Start:09-Mar-2019 Instruction Type:Patient Education Patient Instructions Indication:Screening PSA (prostate specific antigen) Start:09-Mar-2019 Instruction Type:Provider Instructions for Treatment How to access health informa tion online Indication:Nonsmoker Start:16-Feb-2019 Instruction Type:Patient Education How to access health informa tion online - Detail Indication:Nonsmoker Start:16-Feb-2019 Instruction Type:Patient Education Patient Instructions Indication:Upper respiratory infection, acute Start:16-Feb-2019 Instruction Type:Provider Instructions for Treatment How to access health informa tion online Indication:Nonsmoker Start:12-Jan-2019 Instruction Type:Patient Education How to access health informa tion online - Detail Indication:Nonsmoker Start:12-Jan-2019 Instruction Type:Patient Education Patient Instructions Indication:Nonsmoker Start:12-Jan-2019 Instruction Type:Provider Instructions for Treatment How to access health informa tion online Indication:Nonsmoker Start:15-Dec-2018 Instruction Type:Patient Education How to access health informa tion online - Detail Indication:Nonsmoker Start:15-Dec-2018 Instruction Type:Patient Education Patient Instructions Indication:Iliotibial band tendonitis, left Start:15-Dec-2018 Instruction Type:Provider Instructions for Treatment DISCONTINUED - METABOLIC ALVAREZ EL, COMPREHENSIVE ([id number]) Indication:Diabetes mellitus type II, controlled, with no complications Start:29-Sep-2018 Instruction Type:Patient Education DISCONTINUED - HGB A1C (8303 6) Indication:Diabetes mellitus type II, controlled, with no complications Start:29-Sep-2018 Instruction Type:Patient Education How to access health informa tion online Indication:Diabetes mellitus type II, controlled, with no complications Start:29-Sep-2018 Instruction Type:Patient Education How to access health informa tion online - Detail Indication:Diabetes mellitus type II, controlled, with no complications Start:29-Sep-2018 Instruction Type:Patient Education Patient Instructions Indication:Vitamin D deficiency Start:29-Sep-2018 Instruction Type:Provider Instructions for Treatment How to access health informa tion online Indication:Diabetes mellitus type II, controlled, with no complications Start:26-May-2018 Instruction Type:Patient Education How to access health informa tion online - Detail Indication:Diabetes mellitus type II, controlled, with no complications Start:26-May-2018 Instruction Type:Patient Education Patient Instructions Indication:Diabetes mellitus type II, controlled, with no complications Start:26-May-2018 Instruction Type:Provider Instructions for Treatment How to access health informa tion online Indication:Diabetes mellitus type II, controlled, with no complications Start:30-Dec-2017 Instruction Type:Patient Education How to access health informa tion online - Detail Indication:Diabetes mellitus type II, controlled, with no complications Start:30-Dec-2017 Instruction Type:Patient Education Patient Instructions Indication:BMI 38.0-38.9,adult Start:30-Dec-2017 Instruction Type:Provider Instructions for Treatment How to access health informa tion online Indication:Diabetes mellitus type II, controlled, with no complications Start:16-Sep-2017 Instruction Type:Patient Education How to access health informa tion online - Detail Indication:Diabetes mellitus type II, controlled, with no complications Start:16-Sep-2017 Instruction Type:Patient Education Patient Instructions Indication:BMI 39.0-39.9,adult Start:16-Sep-2017 Instruction Type:Provider Instructions for Treatment DISCONTINUED - CBC, PLATELET S & AUT DIFF ([id number]) Indication:Diabetes mellitus type II, controlled, with no complications Start:07-Jan-2017 Instruction Type:Patient Education DISCONTINUED - RENAL FUNCTIO N PANEL ([id number]) Indication:Diabetes mellitus type II, controlled, with no complications Start:07-Jan-2017 Instruction Type:Patient Education DISCONTINUED - HGB A1C (8303 6) Indication:Diabetes mellitus type II, controlled, with no complications Start:07-Jan-2017 Instruction Type:Patient Education How to access health informa tion online Indication:Low back pain radiating to left leg Start:07-Jan-2017 Instruction Type:Patient Education How to access health informa tion online - Detail Indication:Low back pain radiating to left leg Start:07-Jan-2017 Instruction Type:Patient Education Patient Instructions Indication:Low back pain radiating to left leg Start:07-Jan-2017 Instruction Type:Provider Instructions for Treatment Patient Instructions Indication:Nonsmoker Start:20-Aug-2016 Instruction Type:Provider Instructions for Treatment How to access health informa tion online Indication:Mixed hyperlipidemia Start:21-Nov-2015 Instruction Type:Patient Education How to access health informa tion online - Detail Indication:Mixed hyperlipidemia Start:21-Nov-2015 Instruction Type:Patient Education Patient Instructions Indication:Mixed hyperlipidemia Start:21-Nov-2015 Instruction Type:Provider Instructions for Treatment Patient Instructions Indication:Diabetes mellitus type II, controlled, with no complications Start:05-Apr-2015 Instruction Type:Provider Instructions for Treatment Patient Instructions Indication:Cough Start:21-Oct-2014 Instruction Type:Provider Instructions for Treatment Patient Instructions Indication:Diabetes mellitus type II, controlled, with no complications Start:08-Mar-2014 Instruction Type:Provider Instructions for Treatment Patient Instructions Indication:Diabetes mellitus type II, controlled, with no complications Start:30-Nov-2013 Instruction Type:Provider Instructions for Treatment Patient Instructions Indication:Physical exam Start:25-May-2013 Instruction Type:Provider Instructions for Treatment Patient Instructions Indication:Diabetes mellitus type II, controlled, with no complications Start:09-Feb-2013 Instruction Type:Provider Instructions for Treatment Patient Instructions Indication:Diabetes mellitus type II, controlled, with no complications Start:01-Sep-2012 Instruction Type:Provider Instructions for Treatment Name Dates Details Nonsmoker : How to access he alth information online Indication:Nonsmoker Nonsmoker : How to access he alth information online - Detail Indication:Nonsmoker Nonsmoker : Patient Instruct ions Indication:Nonsmoker Iliotibial band tendonitis, left : Patient Instructions Indication:Iliotibial band tendonitis, left Diabetes mellitus type II, c ontrolled, with no complications : DISCONTINUED - METABOLIC PANEL, COMPREHENSIVE ([id number]) Indication:Diabetes mellitus type II, controlled, with no complications Diabetes mellitus type II, c ontrolled, with no complications : DISCONTINUED - HGB A1C ([id number]) Indication:Diabetes mellitus type II, controlled, with no complications Diabetes mellitus type II, c ontrolled, with no complications : How to access health information online Indication:Diabetes mellitus type II, controlled, with no complications Diabetes mellitus type II, c ontrolled, with no complications : How to access health information online - Detail Indication:Diabetes mellitus type II, controlled, with no complications Vitamin D deficiency : Rashmie nt Instructions Indication:Vitamin D deficiency Diabetes mellitus type II, c ontrolled, with no complications : Patient Instructions Indication:Diabetes mellitus type II, controlled, with no complications BMI 38.0-38.9,adult : Patien t Instructions Indication:BMI 38.0-38.9,adult BMI 39.0-39.9,adult : Patien t Instructions Indication:BMI 39.0-39.9,adult Diabetes mellitus type II, c ontrolled, with no complications : DISCONTINUED - CBC, PLATELETS & AUT DIFF ([id number]) Indication:Diabetes mellitus type II, controlled, with no complications Diabetes mellitus type II, c ontrolled, with no complications : DISCONTINUED - RENAL FUNCTION PANEL ([id number]) Indication:Diabetes mellitus type II, controlled, with no complications Low back pain radiating to l eft leg : How to access health information online Indication:Low back pain radiating to left leg Low back pain radiating to l eft leg : How to access health information online - Detail Indication:Low back pain radiating to left leg Low back pain radiating to l eft leg : Patient Instructions Indication:Low back pain radiating to left leg Mixed hyperlipidemia : How t o access health information online Indication:Mixed hyperlipidemia Mixed hyperlipidemia : How t o access health information online - Detail Indication:Mixed hyperlipidemia Mixed hyperlipidemia : Patie nt Instructions Indication:Mixed hyperlipidemia Cough : Patient Instructions Indication:Cough Physical exam : Patient Inst ructions Indication:Physical exam Name Dates Details Diabetes mellitus type II, c ontrolled, with no complications : DISCONTINUED - METABOLIC PANEL, COMPREHENSIVE ([id number]) Indication:Diabetes mellitus type II, controlled, with no complications Diabetes mellitus type II, c ontrolled, with no complications : DISCONTINUED - HGB A1C ([id number]) Indication:Diabetes mellitus type II, controlled, with no complications Diabetes mellitus type II, c ontrolled, with no complications : How to access health information online Indication:Diabetes mellitus type II, controlled, with no complications Diabetes mellitus type II, c ontrolled, with no complications : How to access health information online - Detail Indication:Diabetes mellitus type II, controlled, with no complications Vitamin D deficiency : Patie nt Instructions Indication:Vitamin D deficiency Diabetes mellitus type II, c ontrolled, with no complications : Patient Instructions Indication:Diabetes mellitus type II, controlled, with no complications BMI 38.0-38.9,adult : Patien t Instructions Indication:BMI 38.0-38.9,adult BMI 39.0-39.9,adult : Patien t Instructions Indication:BMI 39.0-39.9,adult Diabetes mellitus type II, c ontrolled, with no complications : DISCONTINUED - CBC, PLATELETS & AUT DIFF ([id number]) Indication:Diabetes mellitus type II, controlled, with no complications Diabetes mellitus type II, c ontrolled, with no complications : DISCONTINUED - RENAL FUNCTION PANEL ([id number]) Indication:Diabetes mellitus type II, controlled, with no complications Low back pain radiating to l eft leg : How to access health information online Indication:Low back pain radiating to left leg Low back pain radiating to l eft leg : How to access health information online - Detail Indication:Low back pain radiating to left leg Low back pain radiating to l eft leg : Patient Instructions Indication:Low back pain radiating to left leg Nonsmoker : Patient Instruct ions Indication:Nonsmoker Mixed hyperlipidemia : How t o access health information online Indication:Mixed hyperlipidemia Mixed hyperlipidemia : How t o access health information online - Detail Indication:Mixed hyperlipidemia Mixed hyperlipidemia : Patie nt Instructions Indication:Mixed hyperlipidemia Cough : Patient Instructions Indication:Cough Physical exam : Patient Inst ructions Indication:Physical exam Name Dates Details Diabetes mellitus type II, c ontrolled, with no complications : How to access health information online Indication:Diabetes mellitus type II, controlled, with no complications Diabetes mellitus type II, c ontrolled, with no complications : How to access health information online - Detail Indication:Diabetes mellitus type II, controlled, with no complications Diabetes mellitus type II, c ontrolled, with no complications : Patient Instructions Indication:Diabetes mellitus type II, controlled, with no complications BMI 38.0-38.9,adult : Patien t Instructions Indication:BMI 38.0-38.9,adult BMI 39.0-39.9,adult : Patien t Instructions Indication:BMI 39.0-39.9,adult Diabetes mellitus type II, c ontrolled, with no complications : DISCONTINUED - CBC, PLATELETS & AUT DIFF ([id number]) Indication:Diabetes mellitus type II, controlled, with no complications Diabetes mellitus type II, c ontrolled, with no complications : DISCONTINUED - RENAL FUNCTION PANEL ([id number]) Indication:Diabetes mellitus type II, controlled, with no complications Diabetes mellitus type II, c ontrolled, with no complications : DISCONTINUED - HGB A1C ([id number]) Indication:Diabetes mellitus type II, controlled, with no complications Low back pain radiating to l eft leg : How to access health information online Indication:Low back pain radiating to left leg Low back pain radiating to l eft leg : How to access health information online - Detail Indication:Low back pain radiating to left leg Low back pain radiating to l eft leg : Patient Instructions Indication:Low back pain radiating to left leg Nonsmoker : Patient Instruct ions Indication:Nonsmoker Mixed hyperlipidemia : How t o access health information online Indication:Mixed hyperlipidemia Mixed hyperlipidemia : How t o access health information online - Detail Indication:Mixed hyperlipidemia Mixed hyperlipidemia : Patie nt Instructions Indication:Mixed hyperlipidemia Cough : Patient Instructions Indication:Cough Physical exam : Patient Inst ructions Indication:Physical exam Chief Complaint and Reason for Visit Chief Complaint N/V/D 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 CHEST PAIN CHEST PAIN Additional Source Comments (unrecognized sect ion and content) No Status Records FoundNo Status Records FoundNo Status Records FoundNo Status Records Found INFORMATION SOURCE (unrecogn ized section and content) DATE CREATED AUTHOR 08/22/2018 [facility] DATE CREATED AUTHOR AUTHOR'S ORGANIZ ATION 06/07/2022 [facility] DATE CREATED AUTHOR AUTHOR'S ORGANIZ ATION 10/30/2022 [facility] DATE CREATED AUTHOR AUTHOR'S ORGANIZ ATION 09/23/2024 [facility] Reason for Visit (unrecogniz ed section and content) Reason Comments Generalized Body Aches Started last nigh t - Fever Last night Urinary Frequency Incontinence - start ed last night . Care Teams (unrecognized sec tion and content) Par[employer] Contractor Relationship Specialty Start Date End Date Self, Self PCP - General Other 06/06/22 Team Status: Active Member Role Status Dates Jeannine Merrillguerlineeusebia OIL PROSPECTING OBSERVER, OIL PROSPECTING OBSERVER-C Family Provider Active Lauryn Salazar NP-C Primary Care Provider Active Team Status: Inactive Member Role Status Dates Lauryn Salazar NP-C Primary Care Provi meera, Attending Provider, Referring Provider Active Team Status: Inactive Member Role Status Dates Lauryn Salazar NP-C Primary Care Provider Active Dr. Vamsi Suggs MD Emergency Provider Active Team Status: Inactive Member Role Status Dates Lauryn Salazar NP-C Primary Care Provider Active Dr. Vamsi Suggs MD Attending Provider, Emergency Provider Active Team Status: Active Member Role Status Dates Lauryn Salazar NP-C Primary Care Provi meera, Attending Provider, Referring Provider Active Team Status: Active Member Role Status Dates Lauryn Salazar NP-C Primary Care Provi meera, Referring Provider, Other Provider Active Dr. Jose Mackay MD Attending Provider Active Goals (unrecognized section and content) Goals may be documented in a n alternate sectionGoals may be documented in an alternate sectionGoals may be documented in an alternate sectionGoals may be documented in an alternate sectionGoals may be documented in an alternate sectionGoals may be documented in an alternate section FOR RECORDS PERTAINING TO PATIENTS WHO ARE OR HAVE BEEN ENROLLED IN A CHEMICAL DEPENDENCY/SUBSTANCEABUSE PROGRAM, SOME INFORMATION MAY BE OMITTED. This clinical summary was aggregated from multiple sources. Caution should be exercised in using it in the provision of clinical care. This summary normalizes information from multiple sources, and as a consequence, information in this document may materially change the coding, format and clinical context of patient data. In addition, data may be omitted in some cases. CLINICAL DECISIONS SHOULD BE BASED ON THE PRIMARY CLINICAL RECORDS. [facility] [employer] [facility]. provides no warranty or guarantee of the accuracy or completeness of information in this document.
[2025-07-10 09:34] LABS: AST(SGOT) 20 U/L (<=37); Alanine Aminotransfer ALT/SGPT 16 U/L (<=46); Albumin, Serum 4.1 g/dL (3.4-4.8); Alkaline Phosphatase 67 U/L (40-129); Anion Gap 10 (5-15); BUN 22 mg/dL (4-19); BUN/Creat Ratio 24.4 RATIO (10-20); Calcium,Total 9.9 mg/dL (7.6-11.0); Carbon Dioxide 25.5 mmol/L (21.0-32.0); Chloride 103 mmol/L (98-108); Cholesterol 179 mg/dL (<=200); Globulin 3.3 g/dL (2.2-4.2); Glucose 116 mg/dL (70-99); Low Density Lipoprotein Calc. 111 mg/dL; Potassium 4.2 mmol/L (3.3-5.1); Triglycerides 89 mg/dL; Very Low Density Lipoprotein 18 mg/dL (5-40); cholesterol:hdl ratio screen 3.56
== END | disposition home or self-care (01) ==
LOC: LAB 08:39
PROVIDERS: PCP Nurse Practitioner Family; Referring Provider Nurse Practitioner Family; Visit Provider Nurse Practitioner Family
DX: R17 Unspecified jaundice (principal); E11.22 Type 2 diabetes mellitus with diabetic chronic kidney disease; N18.31 Chronic kidney disease, stage 3a; R31.9 Hematuria, unspecified; E78.2 Mixed hyperlipidemia; Z12.5 Encounter for screening for malignant neoplasm of prostate
CPT/HCPCS: 36415; 80053; 80061